=== PATIENT | male | born 1940 | race Caucasian/White ===

== ENCOUNTER 2016-10-18 11:07 | Inpatient (IN) ==
[2016-10-18] MEDS ORDERED: LEVOFLOXACIN INJ 500 MG in PREMIX 1 EACH IV STA (11:35)
[2016-10-18] MEDS ORDERED: methylPREDNISolone SOD SUC 125 MG/2 ML VIAL IV STA (11:35)
--- NOTE | 2016-10-18 11:39 | Emergency Department Note ---
Arrival - Arrival Chief Complaint: Shortness of Breath Stated Complaint: sob, cough, spell ED Nursing Triage Note: c/o sob that started yesterday. +cough. hx: COPD, emphysema Mode of Arrival: Ambulatory Limitations: No Limitations Source: Patient, Significant other, RN Notes Reviewed Time Seen by Provider: 10/18/16 11:27 - History of Present Illness HPI Narrative: Patient is a 76-year-old white male with a history of COPD who is seen today with a 2 day history of worsening of shortness of breath. Patient has had a cough productive of brown colored sputum. He denies any chills or fever. The patient has been wheezing. He is routinely followed by Dr. Foote and has been using his nebulizers as directed. Patient continues to smoke cigarettes. Onset (ago): day(s) (2) Consistency: constant Severity: moderate Quality: other (dyspnea) Allergies/Adverse Reactions: Allergies Allergy/AdvReac Type Severity Reaction Status Date / Time simvastatin [From Zocor] Allergy Unknown/Unable Verified 10/18/16 11:15 to obtain Home Medications: Home Medications Medication Instructions Recorded Confirmed Type Albuterol/Ipratropium Neb [Duoneb] 3 ml RESP TX RT Q8H 10/18/16 10/18/16 History Hydrocodone/Acetaminophen 1 each PO QID PRN 10/18/16 10/18/16 History [Hydrocodon-Acetaminophn 10-325] Multivits-Minerals/FA/Lycopene 1 each PO DAILY 10/18/16 10/18/16 History [One Daily For Men Tablet] Omeprazole 20 mg PO DAILY 10/18/16 10/18/16 History Oxybutynin Chloride [Oxybutynin 15 mg PO DAILY 10/18/16 10/18/16 History Chloride ER] Sertraline [Zoloft] 100 mg PO BID 10/18/16 10/18/16 History Tiotropium Inhalation [Spiriva 18 mcg INH DAILY 10/18/16 10/18/16 History Handihaler] Review of System - Review of System 12 point system: reviewed and no additional remarkable complaints except as stated - Review of System Constitutional: Absent: chills, fever Respiratory: Present: cough, wheezing Cardiovascular: Absent: chest pain, palpitations Gastrointestinal: Absent: abdominal pain, nausea, vomiting Medical,Surgical,& Family Hx - Medical History Respiratory: History of: COPD - Social History Smoking Status: Current every day smoker Frequency of Alcohol Use: None Type of Drug Use: None Marital Status: Lives With:: Spouse Functional capacity: independent ambulation Exam Vital Signs: Vital Signs Temperature 97.7 F 10/18/16 11:11 Pulse Rate 83 10/18/16 11:11 Respiratory Rate 28 H 10/18/16 11:11 Blood Pressure 136/57 10/18/16 11:11 O2 Sat by Pulse Oximetry 91 L 10/18/16 11:11 GENERAL: This is a chronically ill-appearing, cachectic white male in no apparent distress. VITAL SIGNS: Reviewed HEENT: Head is atraumatic and normocephalic. Pupils are equal round react to light. Extraocular movements are intact. There is nicotine staining of the patient's arteaga. Oropharynx is benign with moist mucous membranes. NECK: Neck is soft and supple without tenderness. There are no masses. There is no lymphadenopathy. LUNGS: Expiratory wheezes in all lung castro with prolongation of expiratory phase. Chest rises symmetrically. There is no chest wall tenderness. CV: Heart is regular rate and rhythm without murmurs rubs or gallops. ABDOMEN: Abdomen is soft, nontender to palpation. There are no abdominal abnormal masses palpated. There is no organomegaly. Bowel sounds are present and active. SKIN: Skin is warm and dry. No rash. EXTREMITIES: Patient has full range of motion without tenderness. There is no pedal edema. NEUROLOGIC: Awake alert and oriented 4. Cranial nerves II through XII are grossly intact. Motor is 5 over 5 in all extremities bilaterally. Course Course Narrative: While the patient was in the emergency department he was given Levaquin IV but had a reaction which appeared to be an inflammatory phlebitis. Levaquin was stopped and antibiotic was changed to Rocephin. Results - Labs CBC & BMP: 10/18/16 12:17 10/18/16 12:17 Lab Results: I have reviewed the patients labs Labs: Laboratory Tests 10/18/16 10/18/16 10/18/16 12:17 12:17 12:26 WBC 11.0 Hgb 13.7 L Hct 42.4 Plt Count 172 ABG pH 7.377 ABG pCO2 54.2 H ABG pO2 102.0 H ABG HCO3 29.1 H ABG Total CO2 28.1 H ABG O2 Saturation 98.3 ABG Base Excess 5.2 H FiO2 28.00 Sodium 142 Potassium 3.7 Chloride 100 Carbon Dioxide 33 H Anion Gap 12.7 BUN 11 Creatinine 0.70 Glucose 92 Troponin I < 0.015 - Diagnostic Findings Procedure: Chest x-ray: image reviewed by me, report reviewed by me (No cardiomegaly, hyperinflation consistent with COPD.) Disposition Clinical Impression: COPD with exacerbation, Chronic respiratory failure, Acute bronchitis Case discussed with: patient, patient's family Disposition: Still a Patient Condition: Stable Time of Disposition: 13:26
[2016-10-18] MEDS ORDERED: ALBUTEROL 2.5 MG/3 ML NEB RESP TX SCH (12:00)
[2016-10-18] MEDS ORDERED: LEVOFLOXACIN INJ 100 ML IV ONE (12:20)
[2016-10-18] MEDS ORDERED: methylPREDNISolone SOD SUC 125 MG/2 ML VIAL ONE (12:20)
[2016-10-18 12:41] LABS: ABG Base Excess 5.2 MMOL/L (-2.5-2.5); ABG HCO3 29.1 MMOL/L (20-26); ABG Oxygen Saturation 98.3 % (95-100); ABG PCO2 54.2 MM HG (35-48); ABG PH 7.377 (7.35-7.45); ABG TCO2 28.1 MMOL/L (23-27); Allen Test Positive
[2016-10-18 12:47] LABS: Basophils % 0.1 % (0.0-0.8); Eosinophils # 0.1 10*3/uL (0.0-0.87); Eosinophils % 0.5 % (0.00-10.9); Hematocrit 42.4 VOL% (42.0-52.0); Hemoglobin 13.7 GM/DL (14.0-18.0); Immature Granulocytes % 0.5 %; Immature Granulocytes Absolute 0.06 #; Lymphocytes # 0.5 10*3/uL (1.4-4.0); Lymphocytes % 4.9 % (21.2-54.2); Mean Corpuscular HGB Conc 32.3 GM/DL (32-36); Mean Corpuscular Hemoglobin 29 PG (27-34); Mean Corpuscular Volume 90.4 FL (87-102); Mean Platelet Volume 9.4 FL (9.6-12.0); Monocytes # 0.7 10*3/uL (0.11-0.8); Monocytes % 5.9 % (1.7-12.7); Neutrophils # 9.7 10*3/uL (1.4-7.4); Neutrophils % 88.1 % (38.7-73.9); Platelet Count 172 10*3/uL (130-400); Red Blood Count 4.69 10*6/uL (3.8-5.5)
--- NOTE | 2016-10-18 12:49 | XRay Report ---
XR chest 2V Indication: Shortness of breath. Chest 3 views: Comparison 03/19/2016. Heart size and tortuous thoracic aorta remains stable. Severe pulmonary emphysema with significant pleural thickening of the right apex and superior retraction of both karan again noted. No discrete infiltrates are seen. Bony structures are maintained. Impression: Stable severe pulmonary emphysema. No acute cardio pulmonary disease shown. PROCEDURE INTERPRETED AT [facility] DEPARTMENT OF RADIOLOGY Final Report Signed by: Zachery Regalado M.D.
[2016-10-18 13:18] LABS: Alanine Aminotransferase 13 U/L (16-61); Albumin 3.7 G/DL (3.4-5.0); Alkaline Phosphatase 124 U/L (45-117); Aspartate Amino Transferase 12 U/L (0-37); Blood Urea Nitrogen 11 MG/DL (7-18); Calcium 9.1 MG/DL (8.5-10.1); Glucose 92 MG/DL (74-106); Osmolality,Calculated 281.1 MOS/KG (273-304); Potassium 3.7 MMOL/L (3.5-5.1); Sodium 142 MMOL/L (136-145); Total Protein 6.6 G/DL (6.4-8.3); Troponin I Only < 0.015 NG/ML (0.00-0.045)
[2016-10-18 13:30] LABS: Partial Thromboplastin Time 29.9 SECS (0-40)
[2016-10-18] MEDS ORDERED: ACETAMINOPHEN 325 MG TABLET PO PRN (13:30)
[2016-10-18] MEDS ORDERED: ZALEPLON 5 MG CAPSULE PO PRN (13:30)
[2016-10-18] MEDS ORDERED: ONDANSETRON 4 MG/2 ML VIAL IV PRN (13:30)
[2016-10-18] MEDS ORDERED: ALBUTEROL/IPRATROPIUM 3 ML NEB RESP TX PRN (13:30)
[2016-10-18] MEDS ORDERED: cefTRIAXone 1,000 MG VIAL ONE (14:04)
--- NOTE | 2016-10-18 14:15 | Hospitalist History & Physical ---
Assessment and Plan - Time spent with patient Time spent with patient: Greater than 30 minutes (due to assessment, plan and documentation.) (1) Acute exacerbation of chronic obstructive pulmonary disease (COPD) Status: Acute Assessment and plan: admit to floor vte prophylaxis duonebs solumedrol rocephin/azithro for possible underlying infection o2/2L consult Dr. Foote- pulmonary Current Visit: Yes (2) Acute bronchitis Status: Acute Current Visit: Yes (3) Chronic respiratory failure Status: Acute Current Visit: Yes History of Present Illness Chief complaint: sob History of present illness: Mr. Bianchi is a 76 year old male who presented to the ED today with complaints of increasing shortness of breath. He states that over the past couple of days , he has become increasingly short of breath with a productive cough. He states that he is coughing up yellow and brown sputum. He states that he is followed by Dr. Gil Foote for his COPD. He states that Dr. Foote's staff has been working to get him on home o2. He has been having to use nebulized treatments at home the past couple of days as well. He is very cachectic with a BMI of 13.3. He continues to smoke, up to a half a pack a day. He states that he doesn't "have" to smoke, but that he does when he is outside or bored. Denies any nausea, vomiting, diarrhea. He does have a hx f prostate ca for which he had what sounds like a radical prostatectomy. Since his surgery, he has had some difficulty with urinary incontinence. Denies any blood in his urine or stool. His is at the bedside. ABG's are as follows: pH 7.377, pCO2 54.2 pO2 102.0 HCO3 29.1 total CO2 21.1. His oxygen saturations on 2L are ranging from low to mid 80's. BNP is only 68. CXR showed "stable severe pulmonary emphysema. No acute cardiopulmonary disease seen". He will be admitted to the floor with Supplemental oxygen, duonebs, solumedrol 40 mg IV BID , rocephin/azithro for possible underlying infection. Sputum cx's have been ordered as well. Pulmonary Consultation has been ordered as well. Denies any heart or other lung problems to his knowledge. 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 Will continue to monitor her cxr, cx's and labs. Further plan and addendum to follow by Dr. Nara Arias. Home Medications Medication Instructions Recorded Confirmed Type Albuterol/Ipratropium Neb [Duoneb] 3 ml RESP TX RT Q8H 10/18/16 10/18/16 History Hydrocodone/Acetaminophen 1 each PO QID PRN 10/18/16 10/18/16 History [Hydrocodon-Acetaminophn 10-325] Multivits-Minerals/FA/Lycopene 1 each PO DAILY 10/18/16 10/18/16 History [One Daily For Men Tablet] Omeprazole 20 mg PO DAILY 10/18/16 10/18/16 History Oxybutynin Chloride [Oxybutynin 15 mg PO DAILY 10/18/16 10/18/16 History Chloride ER] Sertraline [Zoloft] 100 mg PO BID 10/18/16 10/18/16 History Tiotropium Inhalation [Spiriva 18 mcg INH DAILY 10/18/16 10/18/16 History Handihaler] Allergies Allergy/AdvReac Type Severity Reaction Status Date / Time simvastatin [From Zocor] Allergy Unknown/Unable Verified 10/18/16 11:15 to obtain Medical,Surgical,& Family Hx - Medical History Respiratory: History of: COPD Genitourinary: History of: Bladder Problem (incontinence. ), Prostate Problems ( hx of prostate ca) Reproductive: Reports: Reproductive Cancer (prostate ca) - Social History Smoking Status: Current every day smoker Frequency of Alcohol Use: Occasionally Type of Drug Use: None Marital Status: Lives With:: Spouse Functional capacity: independent ambulation - Constitutional Constitutional: Present: fatigue, weakness. Absent: chills, fever(s) - EENT Eyes: Absent: blurry vision, diplopia Ears: Absent: decreased hearing, tinnitus Nose, mouth and throat: Present: headache(s). Absent: dysphagia - Cardiovascular Cardiovascular: Present: dyspnea, dyspnea on exertion. Absent: chest pain at rest, palpitations - Respiratory Respiratory: Present: cough, dyspnea, dyspnea on exertion, wheezing, change in phlegm color (yellow and brown). Absent: hemoptysis - Gastrointestinal Gastrointestinal: Absent: abdominal pain, melena, nausea, vomiting - Genitourinary Genitourinary: Present: urinary incontinence. Absent: dysuria - Musculoskeletal Musculoskeletal: Absent: back pain, joint swelling - Neurological Neurological: Absent: confusion, dizziness - Psychiatric Psychiatric: Absent: anxiety, confusion, depression - Endocrine Endocrine: Absent: cold intolerance, heat intolerance - Hematologic/Lymphatic Hematologic/Lymphatic: Absent: easy bleeding, easy bruising Exam - Constitutional Vitals: Period Temp Pulse Resp BP Sys/Parada Pulse Ox Last 24 Hr 97.7 F 83 28 136/57 91 General appearance: mild distress (acute respiratory distress. ), under weight, cachectic - Head Head exam: Present: normal inspection, normocephalic - Eye Eye exam: Present: EOMI. Absent: scleral icterus Pupils: Present: ALEKSANDRA, normal accommodation - ENT ENT exam: Present: normal exam, normal oropharynx - Neck Neck exam: Present: normal inspection. Absent: lymphadenopathy - Respiratory Respiratory exam: Present: accessory muscle use, prolonged expiratory phase, wheezes - Cardiovascular Cardiovascular exam: Present: regular rate and rhythm. Absent: carotid bruit - GI/Abdominal GI/Abdominal exam: Present: normal bowel sounds, soft. Absent: tenderness - Extremities Exam Extremities exam: Present: normal inspection. Absent: edema - Back Exam Back exam: Present: normal inspection. Absent: muscle spasm - Neurological Exam Neurological exam: Present: alert, oriented X3 - Psychiatric Psychiatric exam: Present: normal affect, normal mood - Skin Skin exam: Present: normal color, warm, dry, intact Results - Labs CBC & BMP: 10/18/16 12:17 10/18/16 12:17 Lab Results: I have reviewed the past 24 hour labs - Diagnostic Findings Procedure: Chest x-ray: report reviewed by me (severe emphysematous changes.)
[2016-10-18 14:28] LABS: Lymphocytes 3 % (20-55); Segmented Neutrophils 93 % (50-85); Total Cells Counted 100
[2016-10-18 14:29] LABS: Platelet Estimate Normal
[2016-10-18] MEDS: cefTRIAXone 1,000 MG in SODIUM CHLORIDE 0.9% 100 ML IV SCH (15:29)
--- NOTE | 2016-10-18 15:33 | EKG Report ---
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
[2016-10-18] MEDS ORDERED: AZITHROMYCIN INJ 500 MG in SODIUM CHLORIDE 0.9% 250 ML IV SCH (16:00)
[2016-10-18] MEDS: ENOXAPARIN 40 MG/0.4 ML SYRINGE SUBCUT SCH (20:53)
[2016-10-18] MEDS: SERTRALINE 100 MG TABLET PO SCH (20:53)
[2016-10-19] MEDS: methylPREDNISolone SOD SUC 40 MG/1 ML VIAL IV SCH ×2 (04:45→21:17)
[2016-10-19 06:32] LABS: Hematocrit 34.9 VOL% (42.0-52.0); Immature Granulocytes % 0.4 %; Immature Granulocytes Absolute 0.02 #; Lymphocytes # 0.4 10*3/uL (1.4-4.0); Lymphocytes % 7.6 % (21.2-54.2); Mean Corpuscular HGB Conc 33.5 GM/DL (32-36); Mean Corpuscular Hemoglobin 30 PG (27-34); Mean Corpuscular Volume 89.7 FL (87-102); Mean Platelet Volume 9.8 FL (9.6-12.0); Monocytes # 0.2 10*3/uL (0.11-0.8); Monocytes % 3.5 % (1.7-12.7); Neutrophils # 4.1 10*3/uL (1.4-7.4); Neutrophils % 88.5 % (38.7-73.9); Platelet Count 152 10*3/uL (130-400); Red Blood Count 3.89 10*6/uL (3.8-5.5); Red Cell Distribution Width 12.8 % (9.3-17.3)
[2016-10-19 06:34] LABS: Hemoglobin 11.7 GM/DL (14.0-18.0); White Blood Count 4.6 10*3/uL (4.5-13.71)
[2016-10-19] MEDS ORDERED: IPRATROPIUM 500 MCG/2.5 ML NEB RESP TX SCH (07:00)
[2016-10-19 07:01] LABS: Albumin 3.1 G/DL (3.4-5.0); Total Protein 5.6 G/DL (6.4-8.3)
--- NOTE | 2016-10-19 07:11 | XRay Report ---
XR chest 2V Indication: Shortness of breath. Chest 2 views: Comparison yesterday shows continued normal heart size and tortuous thoracic aorta. Severe pulmonary emphysema again noted with bullous emphysematous changes, superior retraction of karan and right apical pleural thickening. Interstitial prominence of the lungs has decreased somewhat however. No focal pneumonia seen. Impression: Decreased either airways disease or edema since yesterday. PROCEDURE INTERPRETED AT [facility] DEPARTMENT OF RADIOLOGY Final Report Signed by: Zachery Regalado M.D.
[2016-10-19] MEDS: cefTRIAXone 1,000 MG in SODIUM CHLORIDE 0.9% 100 ML IV SCH (08:55)
[2016-10-19] MEDS: MULTIVITAMIN (CENTRUM) TABLET PO SCH (08:57)
[2016-10-19] MEDS: OXYBUTYNIN XL 15 MG TABLET PO SCH (08:57)
[2016-10-19] MEDS: PANTOPRAZOLE 40 MG TABLET PO SCH (08:57)
[2016-10-19] MEDS: SERTRALINE 100 MG TABLET PO SCH ×2 (08:58→21:17)
[2016-10-19] MEDS ORDERED: LEVOFLOXACIN INJ 500 MG in PREMIX 1 EACH IV SCH (09:00)
[2016-10-19] MEDS ORDERED: ALBUTEROL 1.25 MG/3 ML NEB RESP TX PRN (09:15)
--- NOTE | 2016-10-19 09:19 | Pulmonology Consult Note ---
Assessment and Plan (1) Acute and chronic respiratory failure Status: Acute Assessment and plan: Patient has chronic hypoxemia and hypercarbia. Needs low flow oxygen. Just need to keep his O2 sat around 88-92%. Current Visit: Yes (2) Tobacco abuse Status: Acute Assessment and plan: Needs long-term discussion about stopping smoking permanently. I have discussed this previously in the office with him several occasions. Current Visit: Yes (3) COPD with exacerbation Status: Acute Assessment and plan: He has discolored purulent sputum. It is green. I would be concerned about Pseudomonas. In this situation I think changing to cefepime and Levaquin would be a better combination. Also needs corticosteroids and bronchodilators. He is normally on Spiriva. Atrovent has been substituted for it. We will use albuterol when necessary on top of that. Current Visit: Yes History of Present Illness Chief complaint: cough shortness of breath and green sputum production History of present illness: Mr. Bianchi is a 76 year old male who has severe COPD. He started having increased cough and congestion and started coughing up very thick green sputum about 4 days ago. It started while he was out in the [employer]. He is followed by me in the clinic for his COPD. He has had a pulmonary nodule in the lingula that is subpleural and really hasn't changed over time and does not need further follow-up. We obtained a CT last month in follow-up. Previously he had CTs done at the [facility]. He is a smoker still. We had been trying to get him oxygen at home. He had nocturnal oximetry showing significant desaturations. The [facility] was working on an oxygen concentrator for him. I think he will need oxygen at 1 L before discharge. He does retain CO2. Home Medications Medication Instructions Recorded Confirmed Type Albuterol/Ipratropium Neb [Duoneb] 3 ml RESP TX RT Q8H 10/18/16 10/18/16 History Hydrocodone/Acetaminophen 1 each PO QID PRN 10/18/16 10/18/16 History [Hydrocodon-Acetaminophn 10-325] Multivits-Minerals/FA/Lycopene 1 each PO DAILY 10/18/16 10/18/16 History [One Daily For Men Tablet] Omeprazole 20 mg PO DAILY 10/18/16 10/18/16 History Oxybutynin Chloride [Oxybutynin 15 mg PO DAILY 10/18/16 10/18/16 History Chloride ER] Sertraline [Zoloft] 100 mg PO BID 10/18/16 10/18/16 History Tiotropium Inhalation [Spiriva 18 mcg INH DAILY 10/18/16 10/18/16 History Handihaler] Allergies Allergy/AdvReac Type Severity Reaction Status Date / Time simvastatin [From Zocor] Allergy Unknown/Unable Verified 10/18/16 11:15 to obtain 12 point system: reviewed and no additional remarkable complaints except as stated - Constitutional Constitutional: Present: fatigue, weight loss - EENT Nose, mouth and throat: Present: nasal congestion - Cardiovascular Cardiovascular: Present: dyspnea, dyspnea on exertion - Respiratory Respiratory: Present: cough, dyspnea, dyspnea on exertion, wheezing, change in phlegm color - Gastrointestinal Gastrointestinal: Present: dysphagia, other (decreased appetite) - Genitourinary Genitourinary: Present: urinary frequency - Musculoskeletal Musculoskeletal: Present: arthralgias, back pain - Psychiatric Psychiatric: Present: other (headaches) Exam (Pulmonay) H&P - Constitutional Vitals: Period Temp Pulse Resp BP Sys/Parada Pulse Ox Last 24 Hr 97.2 F-98.1 F 76-101 20-24 102-123/56-72 96-100 Exam: Patient's alert oriented. Vital signs normal. O2 sat 98% on 2 L. HEENT: Pupils react to light. Throat is clear. Neck supple no bruits. Chest reveals bilateral expiratory wheezes and coarse rhonchi. Heart normal rate rhythm no murmurs. PMI is in the epigastrium. Abdomen soft nontender no masses. Bowel sounds present. Extremities no clubbing cyanosis or edema. Calves nontender. Medical,Surgical,& Family Hx - Medical History Cardio: History of: CAD (has had previous myocardial infarction) Respiratory: History of: COPD, Respiratory Problems (emphysema, also has postinflammatory pulmonary fibrosis) Genitourinary: History of: Bladder Problem (incontinence. ), Prostate Problems ( hx of prostate ca) Gastrointestinal: History of: GERD Musculoskeletal: History of: Back/Neck Problems Reproductive: Reports: Reproductive Cancer (prostate ca) - Social History Smoking Status: Current every day smoker Frequency of Alcohol Use: Occasionally Type of Drug Use: None Results - Labs CBC & BMP: 10/19/16 05:28 10/19/16 05:28 Lab Results: I have reviewed the past 24 hour labs - Diagnostic Findings Procedure: Chest x-ray: image reviewed by me (hyperinflation. Retraction right upper lobe on previous postinflammatory pulmonary fibrosis. No acute infiltrates.)
[2016-10-19] MEDS: CEFEPIME 1,000 MG in SODIUM CHLORIDE 0.9% 100 ML IV SCH ×2 (10:11→23:31)
--- NOTE | 2016-10-19 11:07 | Hospitalist Progress Note ---
Assessment and Plan - Time spent with patient Time spent with patient: Greater than 30 minutes (1) COPD with exacerbation Status: Acute Assessment and plan: According to the patient he is better today pulmonology did see patient and recommended changing his antibiotics. We'll continue with current treatment I do agree with keeping sats between 88-92%. Current Visit: Yes (2) Acute and chronic respiratory failure Status: Acute Current Visit: Yes (3) Tobacco abuse Status: Chronic Current Visit: Yes (4) Encounter for smoking cessation counseling Status: Acute Current Visit: Yes Hospitalist: Subjective Interval history: 6-year-old male with smoking history who continues to smoke and has chronic COPD who presented with acute exacerbation. This morning he states he's feeling a little better but still has significant amount of wheezing and productive cough of greenish sputum. Exam - Constitutional Vitals: Period Temp Pulse Resp BP Sys/Parada Pulse Ox Last 24 Hr 97.2 F-98.1 F 70-101 20-24 102-123/54-72 96-100 General appearance: no acute distress, under weight - Head Head exam: Present: normocephalic, atraumatic - Eye Eye exam: Present: EOMI Pupils: Present: ALEKSANDRA - ENT ENT exam: Present: normal exam - Respiratory Respiratory exam: Present: rhonchi, wheezes - Cardiovascular Cardiovascular exam: Present: regular rate and rhythm - GI/Abdominal GI/Abdominal exam: Present: normal bowel sounds, soft - Extremities Exam Extremities exam: Present: full ROM - Neurological Exam Neurological exam: Present: alert, oriented X3, CN II-XII intact - Psychiatric Psychiatric exam: Present: normal affect, normal mood - Skin Skin exam: Present: warm, intact Results - Labs CBC & BMP: 10/19/16 05:28 10/19/16 05:28
[2016-10-19] MEDS: ALBUTEROL/IPRATROPIUM 3 ML NEB RESP TX SCH ×2 (13:25→20:34)
--- NOTE | 2016-10-19 14:17 | Physician Query Form ---
CLICK EDIT DOCUMENT TO SELECT QUERY ANSWER --> OK --> SIGN Lashell Tinsley RN Clinical Melt Helper W) [phone] (f) [phone] [email or web address]: Make your selection(s) from the choices in EACH section by typing an "x" and enter comments in the comment section. Please use your independent medical judgment in providing your response. This request does not imply that any particular answer is desired or expected. CLINICAL INDICATORS: (Providers should not edit this section) Height: 6ft 1in Weight: 101 lbs Exercise Instruct BMI: 13.3 Control Board Operator notes: Severe malnutrition. Loss of body fat. Loss of muscle mass. Based on the above, which following choice most accurately represents the patient's nutritional status? ( x) Malnutrition ( ) mild ( ) moderate ( x) severe ( ) Protein calorie malnutrition ( ) mild ( ) moderate ( ) severe ( ) Emaciation due to malnutrition ( ) Nutritional marasmus ( ) Cachexia ( ) Underweight ( ) No nutritional deficiency ( ) Other, please specify: ( ) Clinically unable to determine Mild Malnutrition (BMI < 18.5, % Normal Body Weight 85-95%) Moderate Malnutrition (BMI < 17, % Normal Body Weight 75-85%) Severe Malnutrition (BMI < 16, % Normal Body Weight < 75%) Source: [place] COMMENTS: Use of terms such as suspected, likely, or probable (associated with a specific diagnosis that is being evaluated, monitored, or treated as if it exists) are acceptable and can be restated in the discharge summary if not ruled out. MTDD
[2016-10-19] MEDS: AZITHROMYCIN INJ 500 MG in SODIUM CHLORIDE 0.9% 250 ML IV SCH (21:18)
[2016-10-19] MEDS: ENOXAPARIN 40 MG/0.4 ML SYRINGE SUBCUT SCH (21:18)
[2016-10-20] MEDS: ALBUTEROL/IPRATROPIUM 3 ML NEB RESP TX SCH ×4 (00:39→19:36)
[2016-10-20] MEDS: SERTRALINE 100 MG TABLET PO SCH ×2 (09:09→20:54)
[2016-10-20] MEDS: PANTOPRAZOLE 40 MG TABLET PO SCH (09:10)
[2016-10-20] MEDS: methylPREDNISolone SOD SUC 40 MG/1 ML VIAL IV SCH ×2 (09:10→20:54)
[2016-10-20] MEDS: MULTIVITAMIN (CENTRUM) TABLET PO SCH (09:10)
[2016-10-20] MEDS: OXYBUTYNIN XL 15 MG TABLET PO SCH (09:10)
[2016-10-20] MEDS: CEFEPIME 1,000 MG in SODIUM CHLORIDE 0.9% 100 ML IV SCH ×2 (09:17→22:30)
--- NOTE | 2016-10-20 11:34 | Hospitalist Progress Note ---
Assessment and Plan (1) Acute exacerbation of chronic obstructive pulmonary disease (COPD) Status: Acute Assessment and plan: appreciate pin worker recs, c/w abx/BDRx/steroids. will pulm rehab Current Visit: Yes (2) Acute and chronic respiratory failure Status: Acute Assessment and plan: O2 NC, wean as possible Current Visit: Yes (3) H/O prostate cancer Status: Acute Assessment and plan: pt stating he follows w PCP and get PSA checks. Current Visit: Yes (4) Weight loss Status: Acute Assessment and plan: pt had CT chest last week, get records. Had GI scope yrs ago Current Visit: Yes (5) Malnutrition Status: Acute Assessment and plan: add ensure/boost, will consider megace Current Visit: Yes (6) Tobacco abuse Status: Chronic Assessment and plan: pt declined NRT. Counceled on cessation. he plans to quit as of this admssion. Current Visit: Yes Hospitalist: Subjective Interval history: No change compared to yesterday clinically, family member visiting, patient lost possibly 20-30 pounds over the past year, patient stating he did recent CT of the chest at another facility will get the results. Patient denies chest pain or current shortness of breath while on oxygen, no nausea or vomiting, no fever or chills, no palpitation, no hematemesis or melena or hematochezia. Exam - Constitutional Vitals: Period Temp Pulse Resp BP Sys/Parada Pulse Ox Last 24 Hr 97.4 F-98.1 F 76-87 16-22 109-149/61-73 86-100 Exam: gen: a&ox3, NAD, cachectic looking neck: no jvd, supple, no lymph node enlargement apparent lung: Intermittent wheezing bilaterally, reduced breath sounds at lung bases, normal labor of breathing heart: s1s2, rrr abd: soft , NT ext: No edema no cyanosis. Muscle wasting present HEENT: PERRL Results - Labs CBC & BMP: 10/19/16 05:28 10/19/16 05:28
[2016-10-20] MEDS: DOCUSATE SODIUM 100 MG CAPSULE PO PRN ×2 (14:29→20:53)
--- NOTE | 2016-10-20 15:01 | Pulmonology Progress Note ---
Pulmonary - PN: Subj Interval history: Patient sitting up in bed this morning, looks well. States he's "100% improved" since admission. Reports being sick for several weeks prior to coming in. Breathing is better. No other complaints Exam (Progress Note) - Constitutional Vitals: Period Temp Pulse Resp BP Sys/Parada Pulse Ox Last 24 Hr 97.4 F-98.1 F 76-94 16-22 109-149/61-73 86-100 General appearance: no acute distress, under weight - Head Head exam: Present: normal inspection - Respiratory Respiratory exam: Present: prolonged expiratory phase, wheezes (scattered expiratory wheeze bilaterally). Absent: accessory muscle use, rales, rhonchi - Cardiovascular Cardiovascular exam: Present: regular rate and rhythm Results - Labs CBC & BMP: 10/19/16 05:28 10/19/16 05:28 Lab Results: I have reviewed the past 24 hour labs Assessment and Plan (1) COPD with exacerbation Status: Acute Assessment and plan: Patient clinically improved. Continue with current medications. If stable today can transition to oral meds tomorrow. Current Visit: Yes
[2016-10-20] MEDS: ENOXAPARIN 40 MG/0.4 ML SYRINGE SUBCUT SCH (20:54)
[2016-10-20] MEDS: AZITHROMYCIN INJ 500 MG in SODIUM CHLORIDE 0.9% 250 ML IV SCH (20:54)
[2016-10-21] MEDS: ALBUTEROL/IPRATROPIUM 3 ML NEB RESP TX SCH ×4 (02:16→20:46)
[2016-10-21] MEDS: DOCUSATE SODIUM 100 MG CAPSULE PO PRN ×2 (08:08→20:41)
[2016-10-21] MEDS: methylPREDNISolone SOD SUC 40 MG/1 ML VIAL IV SCH ×2 (08:08→20:44)
[2016-10-21] MEDS: SERTRALINE 100 MG TABLET PO SCH ×2 (08:08→20:41)
[2016-10-21] MEDS: PANTOPRAZOLE 40 MG TABLET PO SCH (08:08)
[2016-10-21] MEDS: OXYBUTYNIN XL 15 MG TABLET PO SCH (08:08)
[2016-10-21] MEDS: MULTIVITAMIN (CENTRUM) TABLET PO SCH (08:08)
[2016-10-21] MEDS: CEFEPIME 1,000 MG in SODIUM CHLORIDE 0.9% 100 ML IV SCH ×2 (09:18→23:00)
[2016-10-21 09:33] LABS: Immature Granulocytes % 0.3 %; Immature Granulocytes Absolute 0.02 #; Lymphocytes # 0.6 10*3/uL (1.4-4.0); Lymphocytes % 9.5 % (21.2-54.2); Mean Corpuscular HGB Conc 31.6 GM/DL (32-36); Mean Corpuscular Hemoglobin 29 PG (27-34); Mean Platelet Volume 9.2 FL (9.6-12.0); Monocytes # 0.3 10*3/uL (0.11-0.8); Monocytes % 5.1 % (1.7-12.7); Neutrophils % 85.1 % (38.7-73.9); Platelet Count 174 10*3/uL (130-400); Red Blood Count 4.13 10*6/uL (3.8-5.5); Red Cell Distribution Width 12.7 % (9.3-17.3); White Blood Count 5.9 10*3/uL (4.5-13.71)
[2016-10-21 09:59] LABS: Calcium 8.7 MG/DL (8.5-10.1); Osmolality,Calculated 288.8 MOS/KG (273-304)
--- NOTE | 2016-10-21 11:43 | Hospitalist Progress Note ---
Assessment and Plan (1) Acute exacerbation of chronic obstructive pulmonary disease (COPD) Status: Acute Assessment and plan: appreciate asian art curator recs, c/w abx/BDRx/steroids. pulm rehab Current Visit: Yes (2) Acute and chronic respiratory failure Status: Acute Assessment and plan: O2 [place], improving Current Visit: Yes (3) Weight loss Status: Acute Assessment and plan: pt had CT chest last week, get records. Had GI scope yrs ago Current Visit: Yes (4) Malnutrition Status: Acute Assessment and plan: add ensure/boost Current Visit: Yes (5) H/O prostate cancer Status: Chronic Assessment and plan: pt stating he follows w PCP and get PSA checks. Current Visit: Yes (6) Tobacco abuse Status: Chronic Assessment and plan: pt declined NRT. Counseled on cessation. he plans to quit as of this admission. Current Visit: Yes Hospitalist: Subjective Interval history: Agent feeling better today and stating his breathing has improved. Patient denies chest pain or SOB current or nausea or vomiting or fever or chills or palpitation or diarrhea or hemoptysis. Exam - Constitutional Vitals: Period Temp Pulse Resp BP Sys/Parada Pulse Ox Last 24 Hr 97.2 F-98.2 F 70-94 16-26 98-139/52-68 91-99 Exam: gen: a&ox3, NAD, cachectic looking neck: no jvd, supple, no lymph node enlargement apparent lung: Intermittent wheezing bilaterally, reduced breath sounds at lung bases, normal labor of breathing heart: s1s2, rrr abd: soft , NT ext: No edema no cyanosis. Muscle wasting present HEENT: PERRL Results - Labs CBC & BMP: 10/21/16 09:03 10/21/16 09:03
--- NOTE | 2016-10-21 12:16 | Pulmonology Progress Note ---
Pulmonary - PN: Subj Interval history: Patient doing well, states breathing is a little better. Does report that he has a hard time catching his breath after a coughing fit but this isn't new Exam (Progress Note) - Constitutional Vitals: Period Temp Pulse Resp BP Sys/Parada Pulse Ox Last 24 Hr 97.2 F-98.2 F 70-94 16-26 98-130/52-68 91-99 General appearance: under weight - Head Head exam: Present: normal inspection - Respiratory Respiratory exam: Present: clear to auscultation bilaterally. Absent: accessory muscle use, stridor, wheezes Results - Labs CBC & BMP: 10/21/16 09:03 10/21/16 09:03 Lab Results: I have reviewed the past 24 hour labs Assessment and Plan (1) COPD with exacerbation Status: Acute Assessment and plan: Patient continues to slowly improve. Dr Foote will resume care tomorrow. Continue with current COPD treatments Current Visit: Yes
[2016-10-21] MEDS: guaiFENesin/DM ER 600-30 MG TABLET PO PRN (20:41)
[2016-10-21] MEDS: AZITHROMYCIN INJ 500 MG in SODIUM CHLORIDE 0.9% 250 ML IV SCH (20:44)
[2016-10-21] MEDS: ENOXAPARIN 40 MG/0.4 ML SYRINGE SUBCUT SCH (20:44)
[2016-10-22] MEDS: ALBUTEROL/IPRATROPIUM 3 ML NEB RESP TX SCH ×3 (02:35→14:12)
[2016-10-22 05:36] LABS: Hematocrit 37.8 VOL% (42.0-52.0); Hemoglobin 12.2 GM/DL (14.0-18.0); Immature Granulocytes % 0.4 %; Immature Granulocytes Absolute 0.02 #; Lymphocytes # 0.3 10*3/uL (1.4-4.0); Mean Corpuscular HGB Conc 32.3 GM/DL (32-36); Mean Corpuscular Hemoglobin 29 PG (27-34); Mean Corpuscular Volume 90.6 FL (87-102); Mean Platelet Volume 9.2 FL (9.6-12.0); Monocytes # 0.3 10*3/uL (0.11-0.8); Monocytes % 5.2 % (1.7-12.7); Neutrophils # 4.7 10*3/uL (1.4-7.4); Neutrophils % 88.4 % (38.7-73.9); Platelet Count 162 10*3/uL (130-400); Red Blood Count 4.17 10*6/uL (3.8-5.5); Red Cell Distribution Width 12.8 % (9.3-17.3); White Blood Count 5.3 10*3/uL (4.5-13.71)
[2016-10-22 06:06] LABS: Calcium 8.8 MG/DL (8.5-10.1); Osmolality,Calculated 288.8 MOS/KG (273-304); Potassium 4.3 MMOL/L (3.5-5.1)
[2016-10-22] MEDS: OXYBUTYNIN XL 15 MG TABLET PO SCH (08:45)
[2016-10-22] MEDS: PANTOPRAZOLE 40 MG TABLET PO SCH (08:45)
[2016-10-22] MEDS: MULTIVITAMIN (CENTRUM) TABLET PO SCH (08:45)
[2016-10-22] MEDS: SERTRALINE 100 MG TABLET PO SCH (08:45)
[2016-10-22] MEDS: methylPREDNISolone SOD SUC 40 MG/1 ML VIAL IV SCH (08:45)
[2016-10-22] MEDS: guaiFENesin/DM ER 600-30 MG TABLET PO PRN (08:45)
--- NOTE | 2016-10-22 09:17 | Pulmonology Progress Note ---
Pulmonary - PN: Subj Interval history: This 76-year-old white male has COPD with acute exacerbation. He had very thick green sputum. It is doing better at present. He does have some trouble swallowing from dry secretions in his throat. He is advised to take Mucinex or Robitussin to help with that. Also advised to drink plenty of fluids. He's feeling much better. Lungs sound better. Sputum cultures negative. Could change to oral antibiotics and plan discharge tomorrow from my standpoint. [place]. He of course needs to discontinue smoking. Exam (Progress Note) - Constitutional Vitals: Period Temp Pulse Resp BP Sys/Parada Pulse Ox Last 24 Hr 97.5 F-98.2 F 77-95 18-22 102-139/59-77 91-99 Exam: Patient is alert and cooperative. Vital signs normal. HEENT: Pupils react to light. Throat clear. Neck supple no bruits. Chest reveals prolonged expiratory phase. I don't hear any active wheezing. Heart normal rate rhythm no murmurs no rubs no gallops. Abdomen soft nontender no masses. Bowel sounds present. Extremities no clubbing cyanosis or edema. Calves nontender. Results - Labs CBC & BMP: 10/22/16 05:22 10/22/16 05:22 Lab Results: I have reviewed the past 24 hour labs Assessment and Plan (1) Acute and chronic respiratory failure Status: Acute Assessment and plan: Patient has chronic hypoxemia and hypercarbia. Needs low flow oxygen. Just need to keep his O2 sat around 88-92%. 10/22/2016 patient [facility] Just needs one or 2 L continuous. Current Visit: Yes (2) Tobacco abuse Status: Chronic Assessment and plan: Needs long-term discussion about stopping smoking permanently. I have discussed this previously in the office with him several occasions. 10/22/2016 have discussed with him the absolute requirement that he stop smoking. He understands. Current Visit: Yes (3) COPD with exacerbation Status: Acute Assessment and plan: He has discolored purulent sputum. It is green. I would be concerned about Pseudomonas. In this situation I think changing to cefepime and Levaquin would be a better combination. Also needs corticosteroids and bronchodilators. He is normally on Spiriva. Atrovent has been substituted for it. We will use albuterol when necessary on top of that. 10/22/2016 sputum looks much better. He is not wheezing now. Should be able to discharged taking prednisone 40 mg daily for 5 days at home along with an oral antibiotic such as Omnicef. He apparently had an allergic reaction to Levaquin in the emergency room. Therefore we did not change to that. Left him on cefepime and Zithromax for now. Current Visit: Yes
[2016-10-22] MEDS: CEFEPIME 1,000 MG in SODIUM CHLORIDE 0.9% 100 ML IV SCH (10:20)
[2016-10-22 13:20] VITALS: BP 125/64
[2016-10-22] MEDS ORDERED: ERGOCALCIFEROL 50,000 UNIT CAPSULE PO SCH (15:30)
--- NOTE | 2016-10-22 16:57 | Discharge Summary ---
Hospital Course - Hospital Course Hospital Course: Patient is a 76-year-old male who was originally admitted for shortness of breath and was initially diagnosed with acute exacerbation of COPD and acute on chronic respiratory failure. Pulmonology service was consulted and evaluated the patient and patient was treated with bronchodilator therapy and oxygen therapy and steroid and antibiotics and pulmonary rehabilitation service was involved. In addition patient has been having weight loss and dietitian and blood coordinator service was consulted to improve the diet regimen and patient was recommended to undergo age-appropriate screening for malignancy as an outpatient and the patient underwent a CT chest one week before admission at another facility and the patient also had a GI scope years ago. The BMI of the patient was < 16. Patient was also a long time tobacco smoker and was counseled on quitting and the patient expressed interest in quitting and was offered nicotine replacement therapy but the patient stated that he would like to stop smoking without any nicotine replacement therapy. Vitamin D level was checked and it was low and patient was started on vitamin D treatment with 50, 000 units weekly. Patient was evaluated by physical therapy and rehabilitation and recommendation were taken accordingly. Patient follows at the [place] [facility] and will be following up with his primary care physician and also with the marketing research analyst as an outpatient. Patient will also be following up with the primary care physician to evaluate the results of the endoscopy that was done last year and to follow-up on the next step including possible modified barium swallow test to assess for any dysmotility and patient might need to be referred to the GI clinic accordingly. - Time spent with patient Time with patient DS: Greater than 30 minutes Diagnosis - Discharge Diagnosis (1) Acute exacerbation of chronic obstructive pulmonary disease (COPD) Status: Acute (2) Acute and chronic respiratory failure Status: Acute (3) Weight loss Status: Acute (4) Malnutrition Status: Acute (5) H/O prostate cancer Status: Chronic (6) Tobacco abuse Status: Chronic Specialty Discharge - Follow Up or Referrals Discharge Plan - Discharge Data Disposition: Disch To Home/Self Care Condition at Discharge: Guarded Discharge Diet: advance to your usual diet (and per skid adzer recommendation: Boost/Ensure drinks), other (per recommendation of skid adzer) Activity: as per physical therapy - Discharge Medications New Ergocalciferol [Drisdol] 50,000 unit PO Q7D #7 capsule predniSONE TAB [PredniSONE] 40 mg PO DAILY #5 tablet Albuterol Inhaler [Proventil Inhaler] 2 puff INH Q4HR PRN #1 inhaler PRN Reason: Wheezing Cefdinir 300 mg PO BID #14 capsule Docusate/Senna 50-8.6 [Senokot S] 2 tablet PO DAILY #60 tablet HYDROcodone/ACETAMIN 5-325 [Henry 5-325] 1 tablet PO Q12H PRN #30 tablet PRN Reason: Pain Moderate To Severe (4-10) Melatonin/Pyridoxine HCl (B6) [Melatonin 3 mg Tablet] 1 each PO DAILY PRN # 30 tablet PRN Reason: Insomnia Pantoprazole Tab [Protonix Tab] 40 mg PO DAILY #30 tablet guaiFENesin/DM ER 600-30 [Mucinex Dm 600-30 MG] 1 tablet PO BID PRN #30 tablet PRN Reason: Congestion Continue Tiotropium Inhalation [Spiriva Handihaler] 18 mcg INH DAILY Sertraline [Zoloft] 100 mg PO BID Oxybutynin Chloride [Oxybutynin Chloride ER] 15 mg PO DAILY Multivits-Minerals/FA/Lycopene [One Daily For Men Tablet] 1 each PO DAILY Albuterol/Ipratropium Neb [Duoneb] 3 ml RESP TX RT Q8H Discontinued Omeprazole 20 mg PO DAILY Hydrocodone/Acetaminophen [Hydrocodon-Acetaminophn 10-325] 1 each PO QID PRN PRN Reason: Pain - Follow Up or Referral - Forms/Instructions Instructions: Cigarette Smoking and Your Health, Literary Writer (GEN), How to Stop Smoking, Literary Writer (GEN), COPD Exacerbation, Literary Writer (GEN) Additional Discharge Instructions: Patient will need to follow-up for the primary care physician within one week for multiple chronic comorbidities and follow-ups regarding continuing quite loss and malnutrition, severe emphysematous lung disease, reviewed the recent CT imaging of the chest and also the endoscopy that was done in August 2016 with the possible need for follow up with modified barium swallow test, and to evaluate the home medication. Patient will also be following up with the marketing research analyst. Exam - Constitutional Vitals: Period Temp Pulse Resp BP Sys/Parada Pulse Ox Last 24 Hr 97.4 F-98.2 F 77-93 18-21 102-139/59-77 94-99 Discharge Results Procedures and tests throughout hospitalization: Pending Orders 10/20/16 11:16 Occult Blood, Stool Routine Labs on day of discharge: Labs from last 24 hours 10/22/16 10/22/16 10/22/16 05:22 05:22 05:18 WBC 5.3 RBC 4.17 Hgb 12.2 L Hct 37.8 L MCV 90.6 MCH 29 MCHC 32.3 RDW 12.8 Plt Count 162 MPV 9.2 L Neut % (Auto) 88.4 H Lymph % (Auto) 6.[address] [place] % (Auto) 5.2 Eos % (Auto) 0.0 Baso % (Auto) 0.0 Neut # (Auto) 4.7 Lymph # (Auto) 0.[address] [place] # (Auto) 0.3 Eos # (Auto) 0.0 Baso # (Auto) 0.0 Immature Gran % 0.4 Nucleated RBC % 0.0 Immature Gran # 0.02 Nucleated RBCs # 0.00 Sodium 144 Potassium 4.3 Chloride 102 Carbon Dioxide 36 H Anion Gap 10.3 BUN 22 H Creatinine 0.60 L GFR Calculation 90 BUN/Creatinine Ratio 36.00 H Glucose 98 Calculated Osmolality 288.8 Calcium 8.8 25-OH Vitamin D Total 25.0 DS: Provider Date of admission: 10/18/16 13:30 Primary care physician: . No PCP Attending physician on admission: Nara Arias MD Consults: 10/18/16 13:47 Consult to Case Mgmt/Social Srvs [CONS] Routine Reason for Case Mgmt/Social Srvs: Discharge Planning Consult Comment: may need home o2 Consult to Physician [CONS] Routine Comment: copd exac, bronchitis, known to you. Consulting Provider: Will Foote 10/18/16 16:58 Consult to Pharmacy [CONS] Routine Reason for Pharmacy Consult: Adjust Meds Renal Funct 10/18/16 17:08 Consult to Dietitian [CONS] Routine Reason for Dietitian: Other 10/18/16 17:11 Consult to Pastoral Services [CONS] Routine Comment: Pastoral Screen: Request Gas Station Operator Visit 10/20/16 11:15 Consult to Physical Therapy [CONS] Routine Reason for Physical Therapy: Weakness 10/21/16 11:44 Consult to Pulmonary Rehabilitation [CONS] Routine Reason for Pulmonary Rehabilitation: COPD Consult Comment: spoke to leela Discharging clinician: Tim Herrera Expected date of discharge: 10/22/16
== END 2016-10-22 18:06 | disposition home or self-care (01) | DRG 190 ==
LOC: N.ED 11:07 → N.EDINP 13:30 → N.2E 15:24
PROVIDERS: ADMIT Family Medicine; ATTEND Family Medicine

== ENCOUNTER 2016-11-29 17:48 | Inpatient (IN) ==
[2016-11-29] MEDS ORDERED: SODIUM CHLORIDE 0.9% 500 ML IV STA (18:24)
[2016-11-29] MEDS ORDERED: ALBUTEROL/IPRATROPIUM 3 ML NEB RESP TX STA (18:25)
[2016-11-29] MEDS ORDERED: methylPREDNISolone SOD SUC 125 MG/2 ML VIAL IV STA (18:25)
[2016-11-29 18:36] LABS: Basophils % 0.1 % (0.0-0.8); Eosinophils % 0.1 % (0.00-10.9); Hematocrit 37.5 VOL% (42.0-52.0); Hemoglobin 12.3 GM/DL (14.0-18.0); Immature Granulocytes % 0.8 %; Immature Granulocytes Absolute 0.11 #; Lymphocytes % 7.5 % (21.2-54.2); Mean Corpuscular HGB Conc 32.8 GM/DL (32-36); Mean Corpuscular Hemoglobin 29 PG (27-34); Mean Corpuscular Volume 89.3 FL (87-102); Monocytes # 0.7 10*3/uL (0.11-0.8); Monocytes % 4.9 % (1.7-12.7); Neutrophils # 11.7 10*3/uL (1.4-7.4); Neutrophils % 86.6 % (38.7-73.9); Platelet Count 232 T/CUMM (130-400); Red Cell Distribution Width 12.9 % (9.3-17.3); White Blood Count 13.5 T/CUMM (4-12)
--- NOTE | 2016-11-29 18:42 | Emergency Department Note ---
Andre Garcia Brooke, am scribing for, and in the presence of, Carrington Gottlieb MD 18 :23. Chery Garcia Charles R, MD, personally performed the services described in this documentation, ascribed by Angela Powell in my presence, and it is both accurate and complete [id number] . Arrival - Arrival Chief Complaint: Arrhythmia/Palpitations Stated Complaint: IRREGULAR HEARTBEAT ED Nursing Triage Note: c/o increased HR that started today. hx: emphysema and copd Mode of Arrival: Wheelchair Limitations: No Limitations Source: Patient, Significant other, RN Notes Reviewed Time Seen by Provider: 11/29/16 18:06 - History of Present Illness HPI Narrative: Patient is a 76 year old male who presents to the ED with c/o elevated heart rate and SOB. Patient has history of COPD and emphysema and says he usually does have SOB during the night. Patient's says Patient's heart rate was elevated to 150 and that Patient was complaining of being dizzy. Patient does have home oxygen and breathing treatments but was not using any prior to or during the episode of the elevated heart rate. Patient denies any chest pain but says he has been experiencing some weight loss and states that he feels "weak" now. says Patient has been having some confusion, also. Patient also complains of back pain that is located between his shoulder blades but states this pain is chronic. Patient also has PMHx of CAD, GERD, and prostate cancer. Patient is a smoker but states he has been trying to quit. Allergies/Adverse Reactions: Allergies Allergy/AdvReac Type Severity Reaction Status Date / Time levofloxacin [From Levaquin] Allergy RASH Verified 10/19/16 10:01 simvastatin [From Zocor] Allergy Unknown/Unable Verified 10/18/16 11:15 to obtain Home Medications: Home Medications Medication Instructions Recorded Confirmed Type Albuterol/Ipratropium Neb [Duoneb] 3 ml RESP TX RT Q8H 10/18/16 11/29/16 History Multivits-Minerals/FA/Lycopene 1 each PO QAM 10/18/16 11/29/16 History [One Daily For Men Tablet] Oxybutynin Chloride [Oxybutynin 15 mg PO QAM 10/18/16 11/29/16 History Chloride ER] Sertraline [Zoloft] 100 mg PO BID 10/18/16 11/29/16 History Tiotropium Inhalation [Spiriva 18 mcg INH QAM 10/18/16 11/29/16 History Handihaler] Albuterol Inhaler [Proventil 2 puff INH Q4HR PRN #1 inhaler 10/22/16 11/29/16 Rx Inhaler] HYDROcodone/ACETAMIN 5-325 [[place] 1 tablet PO Q12H PRN #30 tablet 10/22/1611/29 Rx 5-325] Docusate/Senna 50-8.6 [Senokot S] 2 tablet PO QAM 11/29/16 11/29/16 History Ergocalciferol [Drisdol] 50,000 unit PO FR 11/29/16 11/29/16 History Pantoprazole Tab [Protonix Tab] 40 mg PO QAM 11/29/16 11/29/16 History Review of System - Review of System 12 point system: reviewed and no additional remarkable complaints except as stated - Review of System Constitutional: Absent: fever Respiratory: Present: other (SOB). Absent: respiratory distress Cardiovascular: Present: other (elevated heart rate). Absent: chest pain Musculoskeletal: Present: back pain (between shoulder blades that is chronic) Skin: Absent: rash Neurological: Present: weakness (generalized), confusion Medical,Surgical,& Family Hx - Medical History Cardio: History of: CAD (has had previous myocardial infarction) Respiratory: History of: COPD, Respiratory Problems (emphysema, also has postinflammatory pulmonary fibrosis) Genitourinary: History of: Bladder Problem (incontinence. ), Prostate Problems ( hx of prostate ca) Gastrointestinal: History of: GERD Musculoskeletal: History of: Back/Neck Problems Reproductive: Reports: Reproductive Cancer (prostate ca) - Social History Smoking Status: Current every day smoker Frequency of Alcohol Use: None Type of Drug Use: None Exam Vital Signs: Vital Signs Temperature 97.6 F 11/29/16 18:54 Pulse Rate 77 11/29/16 19:00 Respiratory Rate 18 11/29/16 19:00 Blood Pressure 127/65 11/29/16 19:00 O2 Sat by Pulse Oximetry 100 11/29/16 19:00 - General General appearance: alert, in no apparent distress, other (skinny) - Head Head exam: Present: atraumatic, other (temporal wasting) - Eye Eye exam: Present: normal appearance, PERRL, EOMI - ENT ENT exam: Present: normal exam - Neck Neck exam: Present: normal inspection - Chest Chest inspection: Present: other (barrel chest) - Respiratory Respiratory exam: Present: rales, wheezes - Cardiovascular Cardiovascular exam: Present: regular rate, irregular rhythm (but regular), normal heart sounds - Abdominal Exam Abdominal exam: Present: soft. Absent: distention, tenderness - Extremities Exam Extremities exam: Present: normal inspection - Back Exam Back exam: Present: other (Kyphosis back) - Neurological Exam Neurological exam: Present: alert, oriented X3 - Psychiatric Psychiatric exam: Present: normal affect, normal mood - Skin Skin exam: Present: warm, dry, intact, normal color Course - Consultations Consultation #1: Hospitalist will admit patient Time: 20:17 Results - Labs CBC & BMP: 11/29/16 18:29 11/29/16 18:29 Lab Results: I have reviewed the patients labs Labs: Laboratory Tests 11/29/16 18:29 WBC 13.5 H Hgb 12.3 L Hct 37.5 L MPV 9.0 L Neut % (Auto) 86.6 H Lymph % (Auto) 7.5 L Neut # (Auto) 11.7 H Lymph # (Auto) 1.0 L Laboratory Tests 11/29/16 18:29 WBC 13.5 H Hgb 12.3 L Hct 37.5 L MPV 9.0 L Neut % (Auto) 86.6 H Lymph % (Auto) 7.5 L Neut # (Auto) 11.7 H Lymph # (Auto) 1.0 L Laboratory Tests 11/29/16 18:29 INR 1.1 PT Patient/Control Mix 11.4 Laboratory Tests 11/29/16 18:29 Carbon Dioxide 34 H Glucose 110 H Alkaline Phosphatase 146 H Total Protein 6.2 L Albumin 3.1 L Albumin/Globulin Ratio 1.0 L - Diagnostic Findings Procedure: Chest x-ray: report reviewed by me (1. The lungs are hyperexpanded, which can be seen in COPD. There is also emphysema with bleb formation at the left lung apex. Pleural thickening is present at both lung apices, mainly on the right. This appears stable and is favored to represent scarring. 2. There are minimal scattered opacities within the remaining lungs. This could represent additional atelectasis or scarring, but pneumonia or asymmetric edema is suspected within the left mid and lower lung zones. Follow-up is recommended. ) Disposition Clinical Impression: Palpitations, COPD with exacerbation, Chronic respiratory failure, Malnutrition , Weight loss, Tobacco abuse, Syncope, near Case discussed with: patient, patient's family Disposition: Still a Patient Condition: Stable Time of Disposition: 19:47
[2016-11-29 18:48] LABS: INR 1.1; PT Patient Result 11.4 SECS
[2016-11-29] MEDS ORDERED: methylPREDNISolone SOD SUC 125 MG/2 ML VIAL ONE (18:48)
--- NOTE | 2016-11-29 18:50 | XRay Report ---
Referring Physician: Carrington Gottlieb Exam: XR chest 1V portable Date: November 29, 2016 at 6:13 PM Reason: Shortness of breath Comparison: Chest 2 views October 19, 2016, CT chest May 03, 2014 Findings: The cardiac silhouette is relatively small in size. Prominent scattered calcified plaque is noted at the aorta. There is emphysema with bleb formation, most prominent at the left lung apex. Pleural thickening is also seen at both lung apices, mainly on the right. This has not significantly changed and is favored to represent scarring. There are also minimal scattered opacities within the remaining lungs. This could represent additional atelectasis or scarring, but pneumonia or asymmetric edema is suspected within the left mid and lower lung zones. The lungs are also hyperexpanded, which can be seen in COPD. No definite pleural fluid or pneumothorax is identified. No acute osseous process is seen. Impression: 1. The lungs are hyperexpanded, which can be seen in COPD. There is also emphysema with bleb formation at the left lung apex. Pleural thickening is present at both lung apices, mainly on the right. This appears stable and is favored to represent scarring. 2. There are minimal scattered opacities within the remaining lungs. This could represent additional atelectasis or scarring, but pneumonia or asymmetric edema is suspected within the left mid and lower lung zones. Follow-up is recommended. PROCEDURE INTERPRETED AT [facility] DEPARTMENT OF RADIOLOGY Final Report Signed by: Dr. Yosef Cabrera
[2016-11-29 19:11] LABS: Free T4 (Free Thyroxine) 0.97 NG/DL (0.76-1.46); Magnesium 2.3 MG/DL (1.8-2.4)
[2016-11-29 19:19] LABS: Alanine Aminotransferase 27 U/L (16-61); Albumin 3.1 G/DL (3.4-5.0); Alkaline Phosphatase 146 U/L (45-117); Aspartate Amino Transferase 18 U/L (0-37); Bilirubin,Total < 0.39 MG/DL (0.2-1.0); Blood Urea Nitrogen 12 MG/DL (7-18); Calcium 9.1 MG/DL (8.5-10.1); Glucose 110 MG/DL (74-106); Osmolality,Calculated 277.5 MOS/KG (273-304); Potassium 4.5 MMOL/L (3.5-5.1); Sodium 139 MMOL/L (136-145); Total Protein 6.2 G/DL (6.4-8.3); Troponin I Only < 0.015 NG/ML (0.00-0.045)
--- NOTE | 2016-11-29 20:23 | Hospitalist History & Physical ---
Assessment and Plan (1) Syncope, near Status: Acute Assessment and plan: Really issue he is being admitted for his this near syncopal spell with dizziness he's currently tachycardic and he looks a little bit weak Ami he's not have any chest pain or chest tightness I think she gets some serial isoenzymes echocardiogram color-flow venous Dopplers treating with some fluids and see how he does Current Visit: Yes (2) COPD (chronic obstructive pulmonary disease) Status: Acute Assessment and plan: Start him on some bronchodilators get some PFTs Current Visit: Yes (3) Weight loss Status: Acute Assessment and plan: Lost 14 pounds since last February he may need a workup for that right now we don't see any anemia he may need a CT chest because of this abnormality in the left at right apex Current Visit: Yes (4) Palpitations Status: Acute Current Visit: Yes History of Present Illness Chief complaint: weakness shortness of breath History of present illness: Mr. Bianchi is a 76 year old male who presents to emergency room with elevated heart rate and shortness of breath patient has a history of COPD and emphysema this as he usually has shortness of breath during the night patient was driving today when he notices heart rate is 150 got dizzy any chest pain associated with this event he felt weak but nothing made it worse nothing made it better there were no other associated symptoms the weakness was really profound compared the weight usually feels. Of interest in that he's lost some weight recently and is starting to try to quit smoking he didn't cough up any blood he hasn't had any bleeding from his bottom no other joint pains or rashes or other complaints Workup in the hospital showed a normal CBC normal PT chemistry profile that showed a B UN of 12 creatinine 0.7, glucose of 110 his albumin was 3.1 and function was normal and a trip peptide hormone was normal. He's lost 14 pounds since February of last year. His rhythm was normal sinus rhythm with SVT he's had chest x-ray doesn't show the entire chest but it basically is hyperinflated there some scarring and volume loss in the left apex no masses or other abnormalities Home Medications Medication Instructions Recorded Confirmed Type Albuterol/Ipratropium Neb [Duoneb] 3 ml RESP TX RT Q8H 10/18/16 11/29/16 History Multivits-Minerals/FA/Lycopene 1 each PO QAM 10/18/16 11/29/16 History [One Daily For Men Tablet] Oxybutynin Chloride [Oxybutynin 15 mg PO QAM 10/18/16 11/29/16 History Chloride ER] Sertraline [Zoloft] 100 mg PO BID 10/18/16 11/29/16 History Tiotropium Inhalation [Spiriva 18 mcg INH QAM 10/18/16 11/29/16 History Handihaler] Albuterol Inhaler [Proventil 2 puff INH Q4HR PRN #1 inhaler 10/22/16 11/29/16 Rx Inhaler] HYDROcodone/ACETAMIN 5-325 [[place] 1 tablet PO Q12H PRN #30 tablet 10/22/1611/29 Rx 5-325] Docusate/Senna 50-8.6 [Senokot S] 2 tablet PO QAM 11/29/16 11/29/16 History Ergocalciferol [Drisdol] 50,000 unit PO FR 11/29/16 11/29/16 History Pantoprazole Tab [Protonix Tab] 40 mg PO QAM 11/29/16 11/29/16 History Allergies Allergy/AdvReac Type Severity Reaction Status Date / Time levofloxacin [From Levaquin] Allergy RASH Verified 10/19/16 10:01 simvastatin [From Zocor] Allergy Unknown/Unable Verified 10/18/16 11:15 to obtain Medical,Surgical,& Family Hx - Medical History Cardio: History of: CAD (has had previous myocardial infarction) Respiratory: History of: COPD, Respiratory Problems (emphysema, also has postinflammatory pulmonary fibrosis) Genitourinary: History of: Bladder Problem (incontinence. ), Prostate Problems ( hx of prostate ca) Gastrointestinal: History of: GERD Musculoskeletal: History of: Back/Neck Problems Reproductive: Reports: Reproductive Cancer (prostate ca) - Surgical History Surgical History: noncontributory - Family History Family History: noncontributory - Social History Smoking Status: Current every day smoker Frequency of Alcohol Use: None Type of Drug Use: None Review of systems: Constitutional: No fatigue or fever Eyes: No loss of vision or blurred vision Ears: No decreased hearing no ear pain Mouth no lip swelling or sore throat Cardiovascular no chest pain no claudication Respiratory see hpi GI no abdominal pain or bloating or bleeding : No urinary frequency or hesitancy musculoskeletal: No Arthralgias or back pain Psychiatric: Confusion memory loss Endocrine: No polydipsia or polyuria Hematology: No easy bleeding or bruising 12 point review of systems otherwise unremarkable Exam - Constitutional Vitals: Period Temp Pulse Resp BP Sys/Parada Pulse Ox Last 24 Hr 97.6 F-97.6 F 73-85 12-22 94-127/56-73 94-100 Results - Labs CBC & BMP: 11/29/16 18:29 11/29/16 18:29
[2016-11-29] MEDS ORDERED: ACETAMINOPHEN 325 MG TABLET PO PRN (21:36)
[2016-11-29] MEDS ORDERED: ONDANSETRON 4 MG/2 ML VIAL IV PRN (21:36)
[2016-11-29] MEDS ORDERED: DOCUSATE SODIUM 100 MG CAPSULE PO PRN (21:36)
[2016-11-29] MEDS ORDERED: ALBUTEROL 2.5 MG/3 ML NEB RESP TX PRN (21:36)
[2016-11-29] MEDS: SERTRALINE 100 MG TABLET PO SCH (22:05)
[2016-11-29] MEDS: SODIUM CHLORIDE 0.45% 1,000 ML IV SCH (22:05)
[2016-11-29 23:04] LABS: Risk Ratio 3.12; VLDL CHOLESTEROL 15.6 MG/DL
[2016-11-29 23:06] LABS: Troponin I Only < 0.015 NG/ML (0.00-0.045)
[2016-11-29 23:16] LABS: Apearance,Urine CLEAR (Clear); Bilirubin,Urine Negative (Negative); Blood, Urine Negative (Negative); Glucose,Urine (UA) Negative (Negative); Ketones,Urine Negative (Negative); Mucus,Urine Occasional /LPF (Occasional); Nitrite,Urine Negative (Negative); Protein,Urine Negative; RBC,Urine <1 /HPF (0-4); Urine Color Yellow (Yellow); Urine Specific Gravity 1.006 (1.001-1.035); Urine Urobilinogen < 2.0 EU/DL (0.2-1.0)
[2016-11-30] MEDS: ALBUTEROL/IPRATROPIUM 3 ML NEB RESP TX SCH ×4 (00:46→19:55)
[2016-11-30 01:21] LABS: ABG Base Excess 4.3 MMOL/L (-2.5-2.5); ABG HCO3 28.2 MMOL/L (20-26); ABG Oxygen Saturation 97.6 % (95-100); ABG PCO2 53.8 MM HG (35-48); ABG PH 7.368 (7.35-7.45); ABG PO2 92.9 MM HG (80-95); ABG TCO2 27.4 MMOL/L (23-27)
[2016-11-30 05:45] LABS: Basophils % 0.2 % (0.0-0.8); Hemoglobin 12.4 GM/DL (14.0-18.0); Immature Granulocytes % 0.9 %; Immature Granulocytes Absolute 0.06 #; Lymphocytes # 0.4 10*3/uL (1.4-4.0); Lymphocytes % 5.6 % (21.2-54.2); Mean Corpuscular HGB Conc 33.5 GM/DL (32-36); Mean Corpuscular Hemoglobin 29 PG (27-34); Mean Corpuscular Volume 85.8 FL (87-102); Mean Platelet Volume 9.5 FL (9.6-12.0); Monocytes # 0.1 10*3/uL (0.11-0.8); Monocytes % 0.8 % (1.7-12.7); Neutrophils # 6.1 10*3/uL (1.4-7.4); Neutrophils % 92.5 % (38.7-73.9); Platelet Count 276 T/CUMM (130-400); Red Blood Count 4.31 MC/CUMM (3.8-5.5); Red Cell Distribution Width 12.9 % (9.3-17.3); White Blood Count 6.6 T/CUMM (4-12)
[2016-11-30 06:23] LABS: Troponin I Only < 0.015 NG/ML (0.00-0.045)
[2016-11-30 06:28] LABS: Alanine Aminotransferase 24 U/L (16-61); Albumin 2.8 G/DL (3.4-5.0); Alkaline Phosphatase 138 U/L (45-117); Aspartate Amino Transferase 14 U/L (0-37); Bilirubin,Total < 0.39 MG/DL (0.2-1.0); Blood Urea Nitrogen 11 MG/DL (7-18); Calcium 8.8 MG/DL (8.5-10.1); Glucose 136 MG/DL (74-106); Hypochromasia 1+; Lymphocytes 4 % (20-55); Magnesium 2.3 MG/DL (1.8-2.4); Osmolality,Calculated 279.4 MOS/KG (273-304); Ovalocytes Slight; Platelet Estimate Adequate; Potassium 4.8 MMOL/L (3.5-5.1); Segmented Neutrophils 96 % (50-85); Sodium 140 MMOL/L (136-145); Total Cells Counted 100; Total Protein 5.6 G/DL (6.4-8.3)
--- NOTE | 2016-11-30 08:11 | Ultrasound Report ---
Exam: Bilateral lower extremity venous Doppler ultrasound Comparison: None Clinical history: Shortness of breath Technique: Duplex scan of the lower extremity veins using B-mode/grayscale scaled imaging and Doppler spectral analysis and color flow. Findings: Major venous structures of the lower extremities demonstrate a normal course and caliber. Normal color-flow study and spectral analysis. There is normal compression and augmentation of bilateral common femoral, superficial femoral and popliteal veins. The proximal bilateral greater saphenous veins appear to be patent. Impression: No evidence to suggest deep venous thrombosis within either lower extremity. Ultrasound images were captured and stored. PROCEDURE INTERPRETED AT [facility] [place] DEPARTMENT OF RADIOLOGY Final Report Signed by: Dr. Kirti Doran
--- NOTE | 2016-11-30 08:15 | EKG Report ---
Stationary ECG Study [facility] Test Date: 11/30/2016 8:16 AM Pat Name: ZOILA LADD Department: Room: 269 Gender: M Salmon Troll Fisher: : 1940 Requested by: Christopher Orellana Order Number: [id number] Reading MD: CHRISTOPHER ORELLANA Intervals [place] Rate: 92 P: 94 MS: 153 QRS: 19 QRSD: 86 T: 90 QT: 345 QTc: 394 Interpretive Statements SINUS RHYTHM WITH OCCASIONAL SUPRAVENTRICULAR PREMATURE COMPLEXES ANTEROSEPTAL MYOCARDIAL INFARCTION, OF INDETERMINATE AGE Electronically Signed On 11-30-16 11:45:02 CLINICAL LABORATORY MANAGER by CHRISTOPHER ORELLANA [email or web address]
[2016-11-30] MEDS ORDERED: NON-FORMULARY MEDICATION (Tiotropium Inhalation 18 MCG) INH SCH (09:00)
[2016-11-30] MEDS ORDERED: ERGOCALCIFEROL 50,000 UNIT CAPSULE PO SCH (09:00)
[2016-11-30] MEDS: MULTIVITAMIN (CENTRUM) TABLET PO SCH (09:09)
[2016-11-30] MEDS: PANTOPRAZOLE 40 MG TABLET PO SCH (09:09)
[2016-11-30] MEDS: OXYBUTYNIN XL 15 MG TABLET PO SCH (09:10)
[2016-11-30] MEDS: SERTRALINE 100 MG TABLET PO SCH ×2 (09:10→20:38)
[2016-11-30] MEDS: DOCUSATE/SENNA 50-8.6 MG TABLET PO SCH (09:10)
--- NOTE | 2016-11-30 10:56 | Cardiology Consult Note ---
I, Mary Rodriguez, GABRIELA, am scribing for, and in the presence of, Christopher Orellana MD 10:56. Assessment and Plan (1) Syncope, near Status: Acute Assessment and plan: Patient admitted for further evaluation of shortness of breath, dizziness and tachycardia. Patient reports that he did not feel his heart racing or experience palpitations. His BP upon arrival to ER was boarderline low with SBP in the 90's. I will add orthostatic vital signs at this time. We will continue to monitor patient's rhythm via continuous tele monitor. If any further arrhythmia or tachycardia is suspected will consider discharging patient with event monitor. Echo and lower extremity dopplers are both pending. We will also order carotid ultrasound. Patient has presyncope which is multifactorial sounding by history. He does have what sounds like orthostasis but does note occasional palpitations with some concern related to whether this could be an arrhythmia. He is cachectic and the concern relates to whether he has some malignant process contributing. We will review 2D echocardiogram and continue observing his rhythm. I have discussed in detail the particulars of this case and I have examined the patient and reviewed the patient's chart both current and old. I was directly involved in the patient's evaluation and management and I completely agree with Mary Rodriguez RN regarding this patient's evaluation and treatment plan. Current Visit: Yes (2) Decreased appetite Status: Acute Assessment and plan: Patient has a long standing history of COPD and is a current everyday smoker. Dr. Erickson is working patient up for possible cancer. Will await results of chest CT and PFT's. Current Visit: Yes (3) Weight loss Status: Acute Assessment and plan: Patient has a long standing history of COPD and is a current everyday smoker. Dr. Erickson is working patient up for possible cancer. Will await results of chest CT and PFT's. Current Visit: Yes (4) COPD (chronic obstructive pulmonary disease) Status: Chronic Assessment and plan: Continue current plan of care. Current Visit: Yes (5) Tobacco abuse Status: Chronic Assessment and plan: Smoking cessation encouraged. Current Visit: Yes (6) GERD (gastroesophageal reflux disease) Status: Chronic Assessment and plan: This is clinically stable. Continue current plan of care. Current Visit: Yes (7) On home oxygen therapy Status: Chronic Current Visit: Yes History of Present Illness - Data of Consult Patient: new to practice Consult date: 11/30/16 Requesting Physician: Weston Erickson Primary care physician: Susu Caraballo - Consult Narrative Reason for consult: Dizziness and tachycardia History of present illness: Mr. Bianchi is a 76 year old male without known coronary artery disease, not routinely followed by a local cad administrator. His primary care provider is Dr. Susu Lemus at [facility]. He presented to the ER yesterday for further evaluation of tachycardia, shortness of breath and dizziness. He has risk factors significant for advanced age, current everyday smoker and sedentary lifestyle. He has a past medical history of GERD, depression and COPD (patient uses home oxygen). He denies any significant family history of heart disease. He has never had a cardiac catheterization or cardiac stress test. Patient was in his usual state of health until yesterday when he was on his way back from getting a haircut he began feeling dizzy and weak. He tells me that he pulled the car over until he began to feel better. He reports that he was extremely short of breath during this time. He denies having any chest discomfort, heaviness or tightness during this time. He also denies syncope. He then drove the rest of the way home and checked his oxygen saturations via portable O2 saturation monitor. His oxygen saturations were reportedly stable at that time. However, his heart rate was noted to be 150. He tells me that he was asymptomatic with this. He denies palpitations and feelings of heart racing. His was very concerned at that time and decided to bring him to the ER for further evaluation. Upon arrival to ER, his EKG revealed normal sinus rhythm with heart rates in the 80s with occasional PACs and PVCs. His blood pressure was noted 94/73. Patient was started on IV fluids and transferred to telemetry to be closely monitored. Of note, he also reports significant weight loss over the past year. He tells me that he has lost 30 pounds since last year. He also reports a decreased appetite. He denies fever, chills, abdominal pain, melena, nausea, vomiting, orthopnea, lower extremity swelling and PND. He does report activity intolerance and shortness of breath. However, I feel that this is most likely related to his COPD. Patient was seen and examined on the telemetry floor. He is resting in bed in no acute distress. He is currently requiring oxygen at 2 L via nasal cannula. Oxygen saturations are stable ranging from 95-100%. He did well overnight and is without complaints this morning. He reports that he has not experienced any dizziness or weakness since being admitted. He also denies chest discomfort, heaviness or tightness. He tells me that his shortness of breath is much better today. His chest x-ray revealed hyperexpanded lungs consistent with COPD and minimal scattered opacities, pneumonia is suspected in left mid and lower lung castro. He has been afebrile and has a normal white blood cell count. He has had no arrhythmias via surveillance monitor. He is currently in a normal sinus rhythm with heart rates in the 90s without any overt arrhythmias noted. However, occasional PACs and PVCs are present. His EKG this morning also reveals normal sinus rhythm with occasional PACs and PVCs. Troponin has been negative 3 checks. Echo is currently pending. Lower extremity Dopplers are pending. I will add orthostatic vital signs and will continue to monitor his rhythm via surveillance monitor. CC: Calos Dubon MD - Home Medications and Allergies Home Medications: Home Medications Medication Instructions Recorded Confirmed Type Albuterol/Ipratropium Neb [Duoneb] 3 ml RESP TX RT Q8H 10/18/16 11/30/16 History Multivits-Minerals/FA/Lycopene 1 each PO QAM 10/18/16 11/30/16 History [One Daily For Men Tablet] Oxybutynin Chloride [Oxybutynin 15 mg PO QAM 10/18/16 11/30/16 History Chloride ER] Sertraline [Zoloft] 100 mg PO BID 10/18/16 11/30/16 History Tiotropium Inhalation [Spiriva 18 mcg INH QAM 10/18/16 11/30/16 History Handihaler] Albuterol Inhaler [Proventil 2 puff INH Q4HR PRN #1 inhaler 10/22/16 11/30/16 Rx Inhaler] HYDROcodone/ACETAMIN 5-325 [[place] 1 tablet PO Q12H PRN #30 tablet 10/22/1611/30 Rx 5-325] Docusate/Senna 50-8.6 [Senokot S] 2 tablet PO QAM 11/29/16 11/30/16 History Ergocalciferol [Drisdol] 50,000 unit PO FR 11/29/16 11/30/16 History Pantoprazole Tab [Protonix Tab] 40 mg PO QAM 11/29/16 11/30/16 History guaiFENesin/DM ER 600-30 [Mucinex 1 tablet PO BID PRN 11/30/16 11/30/16 History Dm 600-30 MG] Allergies/Adverse Reactions: Allergies Allergy/AdvReac Type Severity Reaction Status Date / Time levofloxacin [From Levaquin] Allergy RASH Verified 10/19/16 10:01 simvastatin [From Zocor] Allergy Unknown/Unable Verified 10/18/16 11:15 to obtain - Constitutional Constitutional: Present: fatigue, malaise, weakness, weight loss. Absent: chills, fever(s), frequent falls, headache(s), night sweats - Cardiovascular Cardiovascular: Present: dyspnea, dyspnea on exertion, lightheadedness. Absent : chest pain at rest, chest pain with activity, claudication, diaphoresis, edema , radiating jaw, neck or arm pain, orthopnea, palpitations, PND - Respiratory Respiratory: Present: cough, dyspnea, dyspnea on exertion, wheezing. Absent: hemoptysis, snoring, pain on inspiration, change in phlegm color - Gastrointestinal Gastrointestinal: Present: early satiety. Absent: abdominal pain, heartburn, hematemesis, hematochezia, loose stools, melena, nausea, vomiting - Neurological Neurological: Present: dizziness. Absent: abnormal speech, behavioral changes, headache(s) Medical,Surgical,& Family Hx - Medical History Psychological: History of: Depression Respiratory: History of: COPD, Respiratory Problems (Home oxygen) Genitourinary: History of: Prostate Problems (hx of prostate ca) Gastrointestinal: History of: GERD, Polyps (removed) Musculoskeletal: History of: Back/Neck Problems, Musculoskeletal Problems ( arthritis) Reproductive: Reports: Reproductive Cancer (prostate ca) - Surgical History Abdominal Surgeries: Surgical HX of: Colonoscopy Reproductive Surgeries: Surgical HX of;: Prostate Surgery - Family History Family History: Reports;: Family Cancer (prostate CA- brother, breast CA- mother ), Family Hypertension (mother) - Social History Smoking Status: Current every day smoker Frequency of Alcohol Use: None Type of Drug Use: None Physical Examination Vital Signs Temp Pulse Resp BP Pulse Ox 97.6 F 85 22 94/73 94 L 11/29/16 17:53 11/29/16 17:53 11/29/16 17:53 11/29/16 17:53 11/29/16 17:53 General: Present: No Apparent Distress, Cachectic Neck: Present: Supple Neck, Midline Trachea, No JVD/HJR, No Masses, No Bruit, No Lymphadenopathy, No Thyromegaly Cardiac: Present: Reg Rate and Rhythm, Regular Rate, Regular Rhythm, S1/S2. Absent: Gallop Lungs: Present: Decreased Breath Sounds, Wheezes, Oxygen Abdomen: Present: Soft, Active Bowel Sounds, No Pulsations/Bruits, Non-Tender. Absent: Tender, Firm Skin: Present: Clear. Absent: Rash, Suspicious Lesions, Ulceration Extremities: Present: Normal Gait, No Clubbing, No Cyanosis, No Edema, Normal Upper Extr. Pulses, Normal Lower Extr. Pulses Result/EKG - Labs CBC & BMP: 11/30/16 04:15 11/30/16 04:15 Lab Results: I have reviewed the past 24 hour labs Labs: Laboratory Results - last 24 hr 11/29/16 11/29/16 11/29/16 22:08 22:08 22:08 WBC RBC Hgb Hct MCV MCH MCHC RDW Plt Count MPV Neut % (Auto) Lymph % (Auto) [place] % (Auto) Eos % (Auto) Baso % (Auto) Neut # (Auto) Lymph # (Auto) [place] # (Auto) Eos # (Auto) Baso # (Auto) Total Counted Immature Gran % Nucleated RBC % Immature Gran # Segmented Neutrophils Lymphocytes Nucleated RBCs # Platelet Estimate Hypochromasia Ovalocytes Morphology Comment ABG pH ABG pCO2 ABG pO2 ABG HCO3 ABG Total CO2 ABG O2 Saturation ABG Base Excess Sodium Potassium Chloride Carbon Dioxide Anion Gap BUN Creatinine GFR Calculation BUN/Creatinine Ratio Glucose Calculated Osmolality Calcium Magnesium Total Bilirubin AST ALT Alkaline Phosphatase Total Creatine Kinase 28 L CK-MB (CK-2) 2.4 Troponin I < 0.015 B-Natriuretic Peptide Total Protein Albumin Globulin Albumin/Globulin Ratio Triglycerides 78 Cholesterol 184 LDL Cholesterol 112.0 VLDL Cholesterol 15.6 HDL Cholesterol 59 Heart Disease Risk Ratio 3.12 Free T4 1.05 TSH 3rd Generation Urine Color Urine Appearance Urine pH Ur Specific [place] Urine Protein Urine Glucose (UA) Urine Ketones Urine Blood Urine Nitrate Urine Bilirubin Urine Urobilinogen Urine Leukocytes Urine RBC Urine Mucus Ur Culture Indicated? 11/29/16 11/30/16 11/30/16 22:58 01:00 04:15 WBC 6.6 D RBC 4.31 Hgb 12.4 L Hct 37.0 L MCV 85.8 L MCH 29 MCHC 33.5 RDW 12.9 Plt Count 276 MPV 9.5 L Neut % (Auto) 92.5 H Lymph % (Auto) 5.6 L [place] % (Auto) 0.8 L Eos % (Auto) 0.0 Baso % (Auto) 0.2 Neut # (Auto) 6.1 Lymph # (Auto) 0.4 L [place] # (Auto) 0.1 L Eos # (Auto) 0.0 Baso # (Auto) 0.0 Total Counted 100 Immature Gran % 0.9 Nucleated RBC % 0.0 Immature Gran # 0.06 Segmented Neutrophils 96 H Lymphocytes 4 L Nucleated RBCs # 0.00 Platelet Estimate Adequate Hypochromasia 1+ Ovalocytes Slight Morphology Comment ABG pH 7.368 ABG pCO2 53.8 H ABG pO2 92.9 ABG HCO3 28.2 H ABG Total CO2 27.4 H ABG O2 Saturation 97.6 ABG Base Excess 4.3 H Sodium Potassium Chloride Carbon Dioxide Anion Gap BUN Creatinine GFR Calculation BUN/Creatinine Ratio Glucose Calculated Osmolality Calcium Magnesium Total Bilirubin AST ALT Alkaline Phosphatase Total Creatine Kinase CK-MB (CK-2) Troponin I B-Natriuretic Peptide Total Protein Albumin Globulin Albumin/Globulin Ratio Triglycerides Cholesterol LDL Cholesterol VLDL Cholesterol HDL Cholesterol Heart Disease Risk Ratio Free T4 TSH 3rd Generation Urine Color Yellow Urine Appearance Clear Urine pH 7.0 Ur Specific [place] 1.006 Urine Protein Negative Urine Glucose (UA) Negative Urine Ketones Negative Urine Blood Negative Urine Nitrate Negative Urine Bilirubin Negative Urine Urobilinogen < 2.0 H Urine Leukocytes Negative Urine RBC <1 Urine Mucus Occasional Ur Culture Indicated? Not indicated 11/30/16 11/30/16 11/30/16 04:15 04:15 04:15 WBC RBC Hgb Hct MCV MCH MCHC RDW Plt Count MPV Neut % (Auto) Lymph % (Auto) [place] % (Auto) Eos % (Auto) Baso % (Auto) Neut # (Auto) Lymph # (Auto) [place] # (Auto) Eos # (Auto) Baso # (Auto) Total Counted Immature Gran % Nucleated RBC % Immature Gran # Segmented Neutrophils Lymphocytes Nucleated RBCs # Platelet Estimate Hypochromasia Ovalocytes Morphology Comment ABG pH ABG pCO2 ABG pO2 ABG HCO3 ABG Total CO2 ABG O2 Saturation ABG Base Excess Sodium 140 Potassium 4.8 Chloride 102 Carbon Dioxide 31 Anion Gap 11.8 BUN 11 Creatinine 0.60 L GFR Calculation 89 BUN/Creatinine Ratio 18.00 Glucose 136 H Calculated Osmolality 279.4 Calcium 8.8 Magnesium 2.3 Total Bilirubin < 0.39 AST 14 ALT 24 Alkaline Phosphatase 138 H Total Creatine Kinase 24 L CK-MB (CK-2) 2.2 Troponin I < 0.015 B-Natriuretic Peptide 85 Total Protein 5.6 L Albumin 2.8 L Globulin 2.8 Albumin/Globulin Ratio 1.0 L Triglycerides Cholesterol LDL Cholesterol VLDL Cholesterol HDL Cholesterol Heart Disease Risk Ratio Free T4 TSH 3rd Generation 0.490 Urine Color Urine Appearance Urine pH Ur Specific [place] Urine Protein Urine Glucose (UA) Urine Ketones Urine Blood Urine Nitrate Urine Bilirubin Urine Urobilinogen Urine Leukocytes Urine RBC Urine Mucus Ur Culture Indicated? I, Christopher Orellana MD, personally performed the services described in this documentation, ascribed by Mary Rodriguez RN in my presence, and it is both accurate and complete 056 .
--- NOTE | 2016-11-30 11:02 | Ultrasound Report ---
Exam: Carotid ultrasound Date: 11/30/2016 Comparison: None Technique: Duplex scans of the carotid and vertebral arteries using B-mode/Mcmullen scale imaging and Doppler spectral analysis and color flow. Reason: Syncope Findings: The right ICA measures 4.3 mm in diameter and the left ICA measures 4.2 mm in diameter. Color-flow documented in the visualized arteries. The peak systolic velocities are as follows: Right CCA: 61.2 cm/s Right ICA: 41.2 cm/s Right ECA: 70.3 cm/s Left CCA: 44.2 cm/s Left ICA: 90 5. cm/s Left ECA: 75.6 cm/s The peak systolic ICA/CCA velocity ratios are as follows: 0.7 on the right and 2.2 on the left. Antegrade flow is present in both vertebral arteries. Impression:[The velocity measurements suggest less than 50% stenosis in both internal carotid arteries. However the left ICA/CCA ratio is minimally elevated which indicates that the stenosis may be more significant with associated heterogeneous plaque formation. CTA or MRA may be helpful for further evaluation. Antegrade flow in both vertebral arteries.] The Society of Radiologists in Ultrasound consensus conference criteria was used. The Ultrasound images were captured and stored. PROCEDURE INTERPRETED AT [facility] DEPARTMENT OF RADIOLOGY Final Report Signed by: Dr. Kirti Doran
--- NOTE | 2016-11-30 11:37 | EKG Report ---
Stationary ECG Study [facility] ER Test Date: 11/29/2016 6:06:38 PM Pat Name: ZOILA LADD Department: Room: 269 Gender: M Central Station Operator: : 1940 Requested by: Carrington Quinones Order Number: [id number] Reading MD: AURORA BENÍTEZ Intervals [place] Rate: 85 P: 88 FL: 161 QRS: -78 QRSD: 85 T: 82 QT: 348 QTc: 391 Interpretive Statements SINUS RHYTHM WITH OCCASIONAL SUPRAVENTRICULAR PREMATURE COMPLEXES POSSIBLE RIGHT ATRIAL ENLARGEMENT ABNORMAL LEFT AXIS DEVIATION ANTEROSEPTAL INFARCT, AGE UNDETERMINED Electronically Signed On 11-30-16 11:41:03 VENDING MACHINE FILLER by AURORA BENÍTEZ [email or web address]
--- NOTE | 2016-11-30 11:51 | Gastrointestinal Consult Note ---
<Nara Mcleod - Last Filed: 11/30/16 11:47> Assessment and Plan (1) Dysphagia Status: Acute Assessment and plan: 33-14 pd weight loss over past several months with solids, pills and liquids. Hx of endoscopy in the past with no recollection of dilation. Obtain records from [facility] and [facility] for prior endoscopy. Plan and addendum to follow by Dr Cespedes. Current Visit: Yes History of Present Illness Chief complaint: Weight loss, dysphagia History of present illness: Mr. Bianchi is a 76 year old male who was admitted to the hospital with onset of weakness and SOB. Pt has a history of COPD and developed elevated heart rate on yesterday in the 150s. He became dizzy and felt like he was going to pass out and presented to the ER for evaluation. He reported on admission that he has lost approximately 14 pounds over the last 8 months. Pt states that he has dysphagia to solids, pills and liquids at times. He feels his weight loss if is because he is afraid to eat sometimes due to choking. He reports a recent episode of a pain pill that lodged in his esophagus and he was able to regurgitate it back up the next day. He has a history of what sounds like esophageal stricture in the past but he doesnt recall having a dilation done. He has been seen at the [facility] and at [facility] for endoscopy in the past with last endoscopy being around a year ago. He also had a colonoscopy done in the last couple of years with polyp removal and told to return in 5 years. He denies any abdominal pain, nausea, vomiting, reflux, melena or hematochezia. He is noted to take Protonix at home and states this has been controlled as of recent. He has a history of prostate cancer in the past. Home Medications Medication Instructions Recorded Confirmed Type Albuterol/Ipratropium Neb [Duoneb] 3 ml RESP TX RT Q8H 10/18/16 11/30/16 History Multivits-Minerals/FA/Lycopene 1 each PO QAM 10/18/16 11/30/16 History [One Daily For Men Tablet] Oxybutynin Chloride [Oxybutynin 15 mg PO QAM 10/18/16 11/30/16 History Chloride ER] Sertraline [Zoloft] 100 mg PO BID 10/18/16 11/30/16 History Tiotropium Inhalation [Spiriva 18 mcg INH QAM 10/18/16 11/30/16 History Handihaler] Albuterol Inhaler [Proventil 2 puff INH Q4HR PRN #1 inhaler 10/22/16 11/30/16 Rx Inhaler] HYDROcodone/ACETAMIN 5-325 [W[place]rop 1 tablet PO Q12H PRN #30 tablet 10/22/1611/30 Rx 5-325] Docusate/Senna 50-8.6 [Senokot S] 2 tablet PO QAM 11/29/16 11/30/16 History Ergocalciferol [Drisdol] 50,000 unit PO FR 11/29/16 11/30/16 History Pantoprazole Tab [Protonix Tab] 40 mg PO QAM 11/29/16 11/30/16 History guaiFENesin/DM ER 600-30 [Mucinex 1 tablet PO BID PRN 11/30/16 11/30/16 History Dm 600-30 MG] Allergies Allergy/AdvReac Type Severity Reaction Status Date / Time levofloxacin [From Levaquin] Allergy RASH Verified 10/19/16 10:01 simvastatin [From Zocor] Allergy Unknown/Unable Verified 10/18/16 11:15 to obtain Medical,Surgical,& Family Hx - Medical History Cardio: History of: Aneurysm (Abdominal Aortic Aneurysm), CAD (has had previous myocardial infarction), [place] Psychological: History of: Depression HEENT: History of: Ear Problem (hearing loss) Respiratory: History of: COPD, Respiratory Problems (Home oxygen) Genitourinary: History of: Bladder Problem (incontinence. ), Prostate Problems ( hx of prostate ca) Gastrointestinal: History of: GERD, Polyps (removed) Musculoskeletal: History of: Back/Neck Problems, Musculoskeletal Problems ( arthritis) Hematology: History of: Anemia Reproductive: Reports: Reproductive Cancer (prostate ca) - Surgical History Abdominal Surgeries: Surgical HX of: Colonoscopy Reproductive Surgeries: Surgical HX of;: Prostate Surgery - Family History Family History: Reports;: Family Cancer (prostate CA- brother, breast CA- mother ), Family Heart Disease (sister), Family Hypertension (mother) - Social History Smoking Status: Current every day smoker Frequency of Alcohol Use: None Type of Drug Use: None 12 point system: reviewed and no additional remarkable complaints except as stated - Constitutional Constitutional: Present: as per HPI, weight loss - EENT Eyes: Present: as per HPI Ears: Present: as per HPI Nose, mouth and throat: Present: as per HPI - Cardiovascular Cardiovascular: Present: as per HPI - Respiratory Respiratory: Present: as per HPI - Gastrointestinal Gastrointestinal: Present: as per HPI, dysphagia - Genitourinary Genitourinary: Present: as per HPI - Musculoskeletal Musculoskeletal: Present: as per HPI - Neurological Neurological: Present: as per HPI - Psychiatric Psychiatric: Present: as per HPI - Endocrine Endocrine: Present: as per HPI - Hematologic/Lymphatic Hematologic/Lymphatic: Present: as per HPI Exam - Constitutional Vitals: Period Temp Pulse Resp BP Sys/Parada Pulse Ox Last 24 Hr 97.4 F-98.4 F 88-121 16-20 104-127/50-78 83-98 General appearance: no acute distress, under weight - Head Head exam: Present: normal inspection, normocephalic - Eye Eye exam: Present: other (lids and conjunctiva unremarakble). Absent: scleral icterus - ENT ENT exam: Present: normal exam, normal oropharynx - Neck Neck exam: Present: normal inspection - Respiratory Respiratory exam: Present: clear to auscultation bilaterally. Absent: rales, rhonchi, wheezes - Cardiovascular Cardiovascular exam: Present: regular rate and rhythm. Absent: diastolic murmur , JVD, systolic murmur - GI/Abdominal GI/Abdominal exam: Present: normal bowel sounds, soft. Absent: ascites, distended, mass, organomegaly, tenderness - Extremities Exam Extremities exam: Present: normal inspection, full ROM - Back Exam Back exam: Present: normal inspection - Neurological Exam Neurological exam: Present: alert, oriented X3 - Psychiatric Psychiatric exam: Present: normal affect, normal mood - Skin Skin exam: Present: normal color, warm, dry Results - Labs CBC & BMP: 11/30/16 04:15 11/30/16 04:15 Lab Results: I have reviewed the past 24 hour labs <Kirit Cespedes - Last Filed: 11/30/16 14:49> History of Present Illness History of present illness: Mr. Bianchi is a 76 year old male Exam - Constitutional Vitals: Period Temp Pulse Resp BP Sys/Parada Pulse Ox Last 24 Hr 97.4 F-98.4 F 78-121 16-20 104-127/50-78 83-98 Results - Labs CBC & BMP: 11/30/16 04:15 11/30/16 04:15
--- NOTE | 2016-11-30 11:53 | ECHO Report ---
Wilbert Bianchi Exam Date: 11/30/2016 07:56 Referring Physician: Technologist: Gina Wallis RDCS Age: 76 Ht (in): Wt (lb): Gender: M Exam Location: [facility] Echo Indications: Near syncope, COPD, Weight loss, Palpitations, Shortness of breath, Dizziness and giddiness, CAD BP: / HR: Rhythm: Sinus Technical Quality: Fair IMPRESSIONS Normal left ventricular cavity size. Normal left ventricular wall thickness. Left ventricular ejection fraction is estimated at 60 %. The right ventricle is normal in size and function. The right atrium is normal in size. The left atrium is normal in size. Morphologically normal mitral valve without significant stenosis or prolapse. There is no mitral regurgitation. Aortic valve sclerosis without stenosis or regurgitation. Morphologically normal tricuspid valve. Trace to mild tricuspid valve regurgitation. Tricuspid regurgitation velocities suggest a PAP of 48 mmHg. Morphologically normal pulmonic valve without significant stenosis. There is no pulmonic regurgitation. Normal pericardium without effusion. Normal ascending aorta dimension. MEASUREMENTS (Male / Female) Normal Values 2D ECHO LV Diastolic Diameter PLAX 3.8 cm 4.2 - 5.9 / 3.9 - 5.3 cm LV Systolic Diameter PLAX 2.6 cm LV Fractional Shortening PLAX 31.7 % IVS Diastolic Thickness 0.9 cm 0.6 - 1.0 / 0.6 - 0.9 cm LVPW Diastolic Thickness 0.9 cm 0.6 - 1.0 / 0.6 - 0.9 cm RV Internal Dim ED PLAX 3.8 cm Aortic Root Diameter 3.8 cm LA Systolic Diameter LX 3.5 cm 3.0 - 4.0 / 2.7 - 3.8 cm DOPPLER TR Peak Velocity 309.0 cm/s TR Peak Gradient 38.2 mmHg FINDINGS Left Ventricle Normal left ventricular cavity size. Normal left ventricular wall thickness. Left ventricular ejection fraction is estimated at 60 %. Right Ventricle The right ventricle is normal in size and function. Right Atrium The right atrium is normal in size. Left Atrium The left atrium is normal in size. Mitral Valve Morphologically normal mitral valve without significant stenosis or prolapse. There is no mitral regurgitation. Aortic Valve Aortic valve sclerosis without stenosis or regurgitation. Tricuspid Valve Morphologically normal tricuspid valve. Trace to mild tricuspid valve regurgitation. Tricuspid regurgitation velocities suggest a PAP of 48 mmHg. Pulmonic Valve Morphologically normal pulmonic valve without significant stenosis. There is no pulmonic regurgitation. Pericardium Normal pericardium without effusion. Aorta Normal ascending aorta dimension. Christopher Orellana MD (Electronically Signed) Final Date: 30 November 2016 11:51
[2016-11-30 14:43] LABS: Troponin I Only < 0.015 NG/ML (0.00-0.045)
[2016-11-30] MEDS: SODIUM CHLORIDE 0.45% 1,000 ML IV SCH ×2 (16:24)
--- NOTE | 2016-11-30 17:46 | Hospitalist Progress Note ---
Assessment and Plan (1) COPD with exacerbation Status: Acute Assessment and plan: Point patient to respiratory status is stable we will continue the current management. Pulmonary is involved with his case Current Visit: Yes (2) Acute exacerbation of chronic obstructive pulmonary disease (COPD) Status: Acute Assessment and plan: As above Current Visit: No (3) Tobacco abuse Status: Chronic Assessment and plan: I have discussed with the patient at length regarding smoking. This fear that there may be a lung malignancy given the risk of his behavior. He states that he has a reduced amount of smoking but only part of the cigarette pack. There still remains an issue. I believe CT scan of the chest should be done. Current Visit: Yes (4) Arteriosclerosis Status: Acute Assessment and plan: Patient is noted to have some arterial sclerosis in the carotids. This is been noted by ultrasound. Radiologist recommending further evaluation. An MRA of the carotid and vertebral arteries will be done. She should be started on antiplatelet treatment Current Visit: Yes Hospitalist: Subjective Interval history: Patient has been seen interviewed and examined. He is complaining of difficult swallowing and sometimes choking on food. Will need speech evaluation such ordering consultation with speech therapy. Patient has significant weight loss , malignant process is suspected and is being worked up. He also has significant COPD COPD cachexia may be an issue but patient is not awakening for his breath therefore doubt that that is the predisposing differential diagnosis Exam - Constitutional Vitals: Period Temp Pulse Resp BP Sys/Parada Pulse Ox Last 24 Hr 97.4 F-98.4 F 78-121 16-20 104-127/50-78 83-98 General appearance: under weight, other (Total calorie malnutrition) - Head Head exam: Present: other (Temporal wasting) - Eye Eye exam: Present: EOMI, other (Anicteric no conjunctival petechia) Pupils: Present: ALEKSANDRA - ENT ENT exam: Present: normal oropharynx, other (Some dental recession) - Neck Neck exam: Present: other (Neck is supple no adenopathy a midline trachea) - Respiratory Respiratory exam: Present: other (Bilateral crackles suggestive of chronic fibrotic pulmonary disease) - Cardiovascular Cardiovascular exam: Present: regular rate and rhythm - GI/Abdominal GI/Abdominal exam: Present: normal bowel sounds, soft, other (Scaphoid abdomen, intercostal wasting) - Neurological Exam Neurological exam: Present: alert, oriented X3, CN II-XII intact - Psychiatric Psychiatric exam: Present: normal affect, normal mood - Skin Skin exam: Present: dry (Diminished skin fat pad) Results - Labs CBC & BMP: 11/30/16 04:15 11/30/16 04:15 Lab Results: I have reviewed the past 24 hour labs
[2016-11-30 19:02] LABS: Calcium 8.8 MG/DL (8.5-10.1); Osmolality,Calculated 288.8 MOS/KG (273-304); Potassium 4.7 MMOL/L (3.5-5.1)
--- NOTE | 2016-11-30 19:12 | CT Report ---
CT chest wo con Indication: Abnormal chest x-ray, smoker, cachexia Comparison: 03 May 2014 Technique: Axial CT imaging of the chest was done at 3 mm intervals without intravenous contrast. Findings: Chronic changes with large area of bullous emphysema are present in both lungs, similar findings were present on previous exam. There is some scarring and volume loss in the upper lobes more prominent on the right, also similar to previous study. Left mid lung scarring appears increased and there is increased soft tissue density laterally that measures 1.9 cm. Remaining lungs show no evidence of new infiltrates or airspace disease. No distinct nodule or mass is identified. No effusion or pneumothorax is seen. The heart, mediastinum and great vessels appear within normal limits. No other abnormality is identified. Impression: Severe chronic lung disease. There is scarring in both lungs and this has progressed in the left midlung with increased pleural-based density measuring up to 1.9 cm in size. No enlarged lymph nodes are seen. This may indicate progression of the chronic lung changes although malignant process cannot definitely be excluded. PROCEDURE INTERPRETED AT [facility] DEPARTMENT OF RADIOLOGY Final Report Signed by: Dr. Colton Navarro
[2016-12-01] MEDS: ALBUTEROL/IPRATROPIUM 3 ML NEB RESP TX SCH ×4 (00:23→20:02)
[2016-12-01] MEDS: SODIUM CHLORIDE 0.45% 1,000 ML IV SCH ×4 (01:08→20:59)
[2016-12-01 04:57] LABS: Basophils % 0.2 % (0.0-0.8); Eosinophils % 0.4 % (0.00-10.9); Hematocrit 34.2 VOL% (42.0-52.0); Immature Granulocytes % 0.5 %; Immature Granulocytes Absolute 0.04 #; Lymphocytes # 1.4 10*3/uL (1.4-4.0); Lymphocytes % 16.5 % (21.2-54.2); Mean Corpuscular HGB Conc 32.2 GM/DL (32-36); Mean Corpuscular Hemoglobin 29 PG (27-34); Mean Corpuscular Volume 88.8 FL (87-102); Monocytes # 0.6 10*3/uL (0.11-0.8); Monocytes % 6.9 % (1.7-12.7); Neutrophils # 6.4 10*3/uL (1.4-7.4); Neutrophils % 75.5 % (38.7-73.9); Platelet Count 219 T/CUMM (130-400); Red Blood Count 3.85 MC/CUMM (3.8-5.5); Red Cell Distribution Width 13.2 % (9.3-17.3); White Blood Count 8.5 T/CUMM (4-12)
[2016-12-01 05:29] LABS: Albumin 2.7 G/DL (3.4-5.0); Bilirubin,Total 0.4 MG/DL (0.2-1.0); Calcium 8.6 MG/DL (8.5-10.1); Osmolality,Calculated 287.7 MOS/KG (273-304); Potassium 4.1 MMOL/L (3.5-5.1); Total Protein 5.2 G/DL (6.4-8.3)
[2016-12-01] MEDS: SERTRALINE 100 MG TABLET PO SCH ×2 (08:37→21:01)
[2016-12-01] MEDS: PANTOPRAZOLE 40 MG TABLET PO SCH (08:37)
[2016-12-01] MEDS: MULTIVITAMIN (CENTRUM) TABLET PO SCH (08:37)
[2016-12-01] MEDS: DOCUSATE/SENNA 50-8.6 MG TABLET PO SCH (08:37)
[2016-12-01] MEDS: OXYBUTYNIN XL 15 MG TABLET PO SCH (08:37)
--- NOTE | 2016-12-01 09:38 | Cardiology Progress Note ---
Assessment and Plan (1) Syncope, near Status: Acute Assessment and plan: Patient admitted for further evaluation of shortness of breath, dizziness and tachycardia. Patient reports that he did not feel his heart racing or experience palpitations. His BP upon arrival to ER was boarderline low with SBP in the 90's. I will add orthostatic vital signs at this time. We will continue to monitor patient's rhythm via continuous tele monitor. If any further arrhythmia or tachycardia is suspected will consider discharging patient with event monitor. Echo and lower extremity dopplers are both pending. We will also order carotid ultrasound. Patient has presyncope which is multifactorial sounding by history. He does have what sounds like orthostasis but does note occasional palpitations with some concern related to whether this could be an arrhythmia. He is cachectic and the concern relates to whether he has some malignant process contributing. We will review 2D echocardiogram and continue observing his rhythm. I have discussed in detail the particulars of this case and I have examined the patient and reviewed the patient's chart both current and old. I was directly involved in the patient's evaluation and management and I completely agree with Mary Rodriguez RN regarding this patient's evaluation and treatment plan. 3/4: Patient had no more syncopal or presyncopal episodes. His rhythm has been relatively stable and he does not have evidence of orthostasis by a single check. We will continue this currently. Current Visit: Yes (2) Decreased appetite Status: Acute Assessment and plan: Patient has a long standing history of COPD and is a current everyday smoker. Dr. Erickson is working patient up for possible cancer. Will await results of chest CT and PFT's. Current Visit: Yes (3) Weight loss Status: Acute Assessment and plan: Patient has a long standing history of COPD and is a current everyday smoker. Dr. Erickson is working patient up for possible cancer. Will await results of chest CT and PFT's. Current Visit: Yes (4) COPD (chronic obstructive pulmonary disease) Status: Chronic Assessment and plan: Continue current plan of care. Current Visit: Yes (5) Tobacco abuse Status: Chronic Assessment and plan: Smoking cessation encouraged. Current Visit: Yes (6) GERD (gastroesophageal reflux disease) Status: Chronic Assessment and plan: This is clinically stable. Continue current plan of care. Current Visit: Yes (7) On home oxygen therapy Status: Chronic Current Visit: Yes Cardiology - PN: Subj Interval history: Patient is here for evaluation of presyncope. He has lost a lot of weight. He weighs 90 pounds and is 6 foot 2 inches tall. He has an abnormal CT of his chest suggesting a pleural-based nodule which is being evaluated. He also has significant GI symptoms and they are going to evaluate as well. His orthostatic vitals do not suggest any significantly dehydrated and his p.o. intake is improving a little. He is not having significant anginal chest pain he has had no syncope. His cardiac rhythm has been relatively stable. Exam (Progress Note) - Constitutional Vitals: Period Temp Pulse Resp BP Sys/Parada Pulse Ox Last 24 Hr 97.3 F-98.7 F 66-88 16-22 108-144/57-78 92-100 Exam: General:no acute distress. alert and oriented, mood and affect are normal. Cachectic HEENT: no new lesions, sclerae are clear, mouth and pharynx benign Neck: supple, trachea midline, no JVD noted Lungs: no rales ronchi or wheeze is noted. pt comfortable without accesory muscle use to assist with breathing CV: RRR no murmur rub or gallop is noted. Occasional extrasystole is noted. Abd: soft and nontender, BSNA, no masses. Ext: no cyanosis, clubbing or edema Neuro: grossly intact without focal neurologic deficit. Result/EKG - Labs CBC & BMP: 12/01/16 04:11 12/01/16 04:11 Labs: Laboratory Results - last 24 hr 11/30/16 11/30/16 12/01/16 13:38 18:09 04:11 WBC 8.5 RBC 3.85 Hgb 11.0 L Hct 34.2 L MCV 88.8 MCH 29 MCHC 32.2 RDW 13.2 Plt Count 219 D MPV 9.0 L Neut % (Auto) 75.5 H Lymph % (Auto) 16.5 L [place] % (Auto) 6.9 Eos % (Auto) 0.4 Baso % (Auto) 0.2 Neut # (Auto) 6.4 Lymph # (Auto) 1.4 [place] # (Auto) 0.6 Eos # (Auto) 0.0 Baso # (Auto) 0.0 Immature Gran % 0.5 Nucleated RBC % 0.0 Immature Gran # 0.04 Nucleated RBCs # 0.00 Sodium 144 Potassium 4.7 Chloride 103 Carbon Dioxide 30 Anion Gap 15.7 H BUN 14 Creatinine 0.80 GFR Calculation 79 BUN/Creatinine Ratio 17.00 Glucose 139 H Calculated Osmolality 288.8 Calcium 8.8 Total Bilirubin AST ALT Alkaline Phosphatase Total Creatine Kinase 34 L D CK-MB (CK-2) 2.8 Troponin I < 0.015 Total Protein Albumin Globulin Albumin/Globulin Ratio 12/01/16 04:11 WBC RBC Hgb Hct MCV MCH MCHC RDW Plt Count MPV Neut % (Auto) Lymph % (Auto) [place] % (Auto) Eos % (Auto) Baso % (Auto) Neut # (Auto) Lymph # (Auto) [place] # (Auto) Eos # (Auto) Baso # (Auto) Immature Gran % Nucleated RBC % Immature Gran # Nucleated RBCs # Sodium 145 Potassium 4.1 Chloride 103 Carbon Dioxide 32 Anion Gap 14.1 BUN 16 Creatinine 0.60 L GFR Calculation 91 BUN/Creatinine Ratio 26.00 H Glucose 85 Calculated Osmolality 287.7 Calcium 8.6 Total Bilirubin 0.40 AST 17 ALT 21 Alkaline Phosphatase 114 Total Creatine Kinase CK-MB (CK-2) Troponin I Total Protein 5.2 L Albumin 2.7 L Globulin 2.5 Albumin/Globulin Ratio 1.0 L
--- NOTE | 2016-12-01 10:54 | Hospitalist Progress Note ---
Assessment and Plan (1) COPD with exacerbation Status: Acute Assessment and plan: Point patient to respiratory status is stable we will continue the current management. Pulmonary is involved with his case Current Visit: Yes (2) Acute exacerbation of chronic obstructive pulmonary disease (COPD) Status: Acute Assessment and plan: As above Current Visit: No (3) Tobacco abuse Status: Chronic Assessment and plan: I have discussed with the patient at length regarding smoking. This fear that there may be a lung malignancy given the risk of his behavior. He states that he has a reduced amount of smoking but only part of the cigarette pack. There still remains an issue. I believe CT scan of the chest should be done. Current Visit: Yes (4) Arteriosclerosis Status: Acute Assessment and plan: Patient is noted to have some arterial sclerosis in the carotids. This is been noted by ultrasound. Radiologist recommending further evaluation. An MRA of the carotid and vertebral arteries will be done. She should be started on antiplatelet treatment Current Visit: Yes (5) Dysphagia Status: Acute Assessment and plan: Patient been consulted to speech therapy for further evaluation and treatment recommendations. My suspicion is the combination of some swallowing problems and dental decision may contribute to his weight loss. Gentleman has high risk of malignancy given his jail smoking Current Visit: Yes Hospitalist: Subjective Interval history: Patient has been seen interviewed and examined and chart has been reviewed; no new issues overnight. He is quite tired. Admitted to the hospital to failure to thrive has swallowing problems choking on food. He also has been found here to have arterial disease in the neck that needs to be evaluated further. Patient is has chronic obstructive pulmonary disease heavy smoker for many years will need to review his lungs with a CT scan to given the abnormal chest x -ray. Exam - Constitutional Vitals: Period Temp Pulse Resp BP Sys/Parada Pulse Ox Last 24 Hr 97.3 F-98.7 F 66-88 16-22 108-144/57-78 92-100 General appearance: under weight, other - Head Head exam: Present: normal inspection (Total calorie malnutrition), normocephalic, other (Temporal wasting) - Eye Eye exam: Present: EOMI Pupils: Present: ALEKSANDRA - ENT ENT exam: Present: normal oropharynx, other (Dental recession) - Respiratory Respiratory exam: Present: other (Diffuse adventitious crackles commensurate to chronic obstructive pulmonary disease) - Cardiovascular Cardiovascular exam: Present: regular rate and rhythm, other (No murmur no gallop) - GI/Abdominal GI/Abdominal exam: Present: normal bowel sounds, soft, other (No hepatosplenomegaly scaphoid abdomen) - Neurological Exam Neurological exam: Present: alert, oriented X3, CN II-XII intact - Psychiatric Psychiatric exam: Present: normal affect, normal mood - Skin Skin exam: Present: normal color, warm, dry Results - Labs CBC & BMP: 12/01/16 04:11 12/01/16 04:11 Lab Results: I have reviewed the past 24 hour labs
--- NOTE | 2016-12-01 12:09 | Magnetic Resonance Report ---
MR carotid arteries Indication: Atherosclerosis, near syncope Technique: 2-D [id number] imaging through the carotid arteries was performed without intravenous contrast.. Computer reformatting of the carotid arteries is generated. Findings: The carotid arteries are normal in caliber. No evidence of stenosis or vessel cutoff is seen. No filling defects are identified. Vertebral arteries appear within normal limits. No evidence of vascular malformation or aneurysm is seen. Impression: No evidence of carotid stenosis or other abnormality demonstrated. PROCEDURE INTERPRETED AT [facility] DEPARTMENT OF RADIOLOGY Final Report Signed by: Dr. Colton Navraro
[2016-12-02] MEDS: ALBUTEROL/IPRATROPIUM 3 ML NEB RESP TX SCH ×5 (00:52→23:53)
[2016-12-02 04:07] LABS: Basophils % 0.3 % (0.0-0.8); Eosinophils # 0.1 10*3/uL (0.0-0.87); Eosinophils % 0.9 % (0.00-10.9); Hematocrit 33.8 VOL% (42.0-52.0); Hemoglobin 10.5 GM/DL (14.0-18.0); Immature Granulocytes % 0.3 %; Immature Granulocytes Absolute 0.02 #; Lymphocytes # 0.9 10*3/uL (1.4-4.0); Lymphocytes % 13.1 % (21.2-54.2); Mean Corpuscular HGB Conc 31.1 GM/DL (32-36); Mean Corpuscular Hemoglobin 28 PG (27-34); Mean Corpuscular Volume 90.1 FL (87-102); Mean Platelet Volume 9.1 FL (9.6-12.0); Monocytes # 0.4 10*3/uL (0.11-0.8); Neutrophils # 5.5 10*3/uL (1.4-7.4); Neutrophils % 79.4 % (38.7-73.9); Platelet Count 190 T/CUMM (130-400); Red Blood Count 3.75 MC/CUMM (3.8-5.5); Red Cell Distribution Width 13.2 % (9.3-17.3)
[2016-12-02 04:34] LABS: Alanine Aminotransferase 24 U/L (16-61); Albumin 2.7 G/DL (3.4-5.0); Alkaline Phosphatase 104 U/L (45-117); Aspartate Amino Transferase 19 U/L (0-37); Bilirubin,Total < 0.39 MG/DL (0.2-1.0); Blood Urea Nitrogen 14 MG/DL (7-18); Calcium 8.4 MG/DL (8.5-10.1); Glucose 90 MG/DL (74-106); Osmolality,Calculated 290.6 MOS/KG (273-304); Potassium 4.2 MMOL/L (3.5-5.1); Sodium 146 MMOL/L (136-145)
[2016-12-02] MEDS: SODIUM CHLORIDE 0.45% 1,000 ML IV SCH ×3 (04:51→17:46)
[2016-12-02] MEDS: DOCUSATE/SENNA 50-8.6 MG TABLET PO SCH (08:02)
[2016-12-02] MEDS: PANTOPRAZOLE 40 MG TABLET PO SCH (08:02)
[2016-12-02] MEDS: SERTRALINE 100 MG TABLET PO SCH ×2 (08:02→20:55)
[2016-12-02] MEDS: OXYBUTYNIN XL 15 MG TABLET PO SCH (08:02)
[2016-12-02] MEDS: MULTIVITAMIN (CENTRUM) TABLET PO SCH (08:02)
--- NOTE | 2016-12-02 09:11 | Cardiology Progress Note ---
Assessment and Plan (1) Syncope, near Status: Acute Assessment and plan: Patient admitted for further evaluation of shortness of breath, dizziness and tachycardia. Patient reports that he did not feel his heart racing or experience palpitations. His BP upon arrival to ER was boarderline low with SBP in the 90's. I will add orthostatic vital signs at this time. We will continue to monitor patient's rhythm via continuous tele monitor. If any further arrhythmia or tachycardia is suspected will consider discharging patient with event monitor. Echo and lower extremity dopplers are both pending. We will also order carotid ultrasound. Patient has presyncope which is multifactorial sounding by history. He does have what sounds like orthostasis but does note occasional palpitations with some concern related to whether this could be an arrhythmia. He is cachectic and the concern relates to whether he has some malignant process contributing. We will review 2D echocardiogram and continue observing his rhythm. I have discussed in detail the particulars of this case and I have examined the patient and reviewed the patient's chart both current and old. I was directly involved in the patient's evaluation and management and I completely agree with Mary Rodriguez RN regarding this patient's evaluation and treatment plan. 3: Patient had no more syncopal or presyncopal episodes. His rhythm has been relatively stable and he does not have evidence of orthostasis by a single check. We will continue this currently. 12/02: He has had no rhythm issues and our plan is going to be to continue following. Current Visit: Yes (2) Decreased appetite Status: Acute Assessment and plan: Patient has a long standing history of COPD and is a current everyday smoker. Dr. Erickson is working patient up for possible cancer. Will await results of chest CT and PFT's. Current Visit: Yes (3) Weight loss Status: Acute Assessment and plan: Patient has a long standing history of COPD and is a current everyday smoker. Dr. Erickson is working patient up for possible cancer. Will await results of chest CT and PFT's. 12/02: He is undergoing evaluation for his weight loss by GI Current Visit: Yes (4) COPD (chronic obstructive pulmonary disease) Status: Chronic Assessment and plan: Continue current plan of care. Current Visit: Yes (5) Tobacco abuse Status: Chronic Assessment and plan: Smoking cessation encouraged. Current Visit: Yes (6) GERD (gastroesophageal reflux disease) Status: Chronic Assessment and plan: This is clinically stable. Continue current plan of care. Current Visit: Yes (7) On home oxygen therapy Status: Chronic Current Visit: Yes Cardiology - PN: Subj Interval history: Mr. Milner is eating fairly well. He has not had significant problems with nausea or vomiting. His MR scan of his neck did not show evidence of occlusive carotid disease. He is overall stable his rhythm has been stable and I do not have a good explanation for his presyncopal episodes. He has lost a tremendous amount of weight and this is being evaluated. Exam (Progress Note) - Constitutional Vitals: Period Temp Pulse Resp BP Sys/Parada Pulse Ox Last 24 Hr 97.0 F-98.1 F 69-108 15-24 115-140/46-80 91-99 Exam: General:no acute distress. alert and oriented, mood and affect are normal. Cachectic HEENT: no new lesions, sclerae are clear, mouth and pharynx benign Neck: supple, trachea midline, no JVD noted Lungs: no rales ronchi or wheeze is noted. pt comfortable without accesory muscle use to assist with breathing CV: RRR no murmur rub or gallop is noted. Occasional extrasystole is noted. Abd: soft and nontender, BSNA, no masses. Ext: no cyanosis, clubbing or edema Neuro: grossly intact without focal neurologic deficit. Result/EKG - Labs CBC & BMP: 12/02/16 03:44 12/02/16 03:44 Labs: Laboratory Results - last 24 hr 12/02/16 12/02/16 03:44 03:44 WBC 7.0 RBC 3.75 L Hgb 10.5 L Hct 33.8 L MCV 90.1 MCH 28 MCHC 31.1 L RDW 13.2 Plt Count 190 MPV 9.1 L Neut % (Auto) 79.4 H Lymph % (Auto) 13.1 L Edmunds % (Auto) 6.0 Eos % (Auto) 0.9 Baso % (Auto) 0.3 Neut # (Auto) 5.5 Lymph # (Auto) 0.9 L Edmunds # (Auto) 0.4 Eos # (Auto) 0.1 Baso # (Auto) 0.0 Immature Gran % 0.3 Nucleated RBC % 0.0 Immature Gran # 0.02 Nucleated RBCs # 0.00 Sodium 146 H Potassium 4.2 Chloride 104 Carbon Dioxide 34 H Anion Gap 12.2 BUN 14 Creatinine 0.60 L GFR Calculation 89 BUN/Creatinine Ratio 23.00 H Glucose 90 Calculated Osmolality 290.6 Calcium 8.4 L Total Bilirubin < 0.39 AST 19 ALT 24 Alkaline Phosphatase 104 Total Protein 5.0 L Albumin 2.7 L Globulin 2.3 Albumin/Globulin Ratio 1.1
--- NOTE | 2016-12-02 14:34 | Hospitalist Progress Note ---
Assessment and Plan (1) COPD with exacerbation Status: Acute Assessment and plan: Point patient to respiratory status is stable we will continue the current management. Pulmonary is involved with his case Current Visit: Yes (2) Acute exacerbation of chronic obstructive pulmonary disease (COPD) Status: Acute Assessment and plan: As above Current Visit: No (3) Tobacco abuse Status: Chronic Assessment and plan: I have discussed with the patient at length regarding smoking. This fear that there may be a lung malignancy given the risk of his behavior. He states that he has a reduced amount of smoking but only part of the cigarette pack. There still remains an issue. I believe CT scan of the chest should be done. Current Visit: Yes (4) Arteriosclerosis Status: Acute Assessment and plan: Patient is noted to have some arterial sclerosis in the carotids. This is been noted by ultrasound. Radiologist recommending further evaluation. An MRA of the carotid and vertebral arteries will be done. She should be started on antiplatelet treatment Current Visit: Yes (5) Dysphagia Status: Acute Assessment and plan: Patient been consulted to speech therapy for further evaluation and treatment recommendations. My suspicion is the combination of some swallowing problems and dental decision may contribute to his weight loss. Gentleman has high risk of malignancy given his residential smoking Current Visit: Yes Hospitalist: Subjective Interval history: Patient has been seen interviewed and examined and chart has been reviewed. Admitted to the hospital breathing problems a syncopal episode. Patient has a significant weight loss abnormal chest x-rays with a significant fibrosis. He also has been having problems swallowing and that has been choking on food. At this point I am consulting speech therapy to evaluate his swallow. There is strong suspicion that there may be some occult malignancy involved with his general condition. That is being worked up Exam - Constitutional Vitals: Period Temp Pulse Resp BP Sys/Parada Pulse Ox Last 24 Hr 97.0 F-98.1 F 63-108 15-24 115-140/46-80 91-99 General appearance: under weight - Head Head exam: Present: other - Eye Eye exam: Present: EOMI (Temporal wasting) Pupils: Present: ALEKSANDRA - Neck Neck exam: Present: other (Supple midline trachea no thyromegaly) - Respiratory Respiratory exam: Present: clear to auscultation bilaterally - Cardiovascular Cardiovascular exam: Present: regular rate and rhythm - GI/Abdominal GI/Abdominal exam: Present: normal bowel sounds, soft (Scaphoid abdomen no organomegaly) - Extremities Exam Extremities exam: Present: full ROM, other (Significant muscle loss) - Neurological Exam Neurological exam: Present: alert, oriented X3, CN II-XII intact - Psychiatric Psychiatric exam: Present: normal affect - Skin Skin exam: Present: normal color Results - Labs CBC & BMP: 12/02/16 03:44 12/02/16 03:44
[2016-12-03] MEDS: ALBUTEROL/IPRATROPIUM 3 ML NEB RESP TX SCH ×4 (07:05→23:49)
[2016-12-03] MEDS: SODIUM CHLORIDE 0.45% 1,000 ML IV SCH ×2 (08:38→21:08)
--- NOTE | 2016-12-03 09:23 | Pulmonology Consult Note ---
Assessment and Plan (1) Pulmonary nodule Status: Acute Assessment and plan: This appears unchanged to me. This is the nodule in the left upper lobe that is subpleural and adjacent to an area of atelectatic scarring. I have reviewed CT for 3 years in the office. Some of them have been done at [place]. At the present time I would not evaluate this any further. He is certainly not a candidate for surgery if it were malignant which I do not think it is. Current Visit: Yes (2) COPD with exacerbation Status: Acute Assessment and plan: Agree with bronchodilators and empiric antibiotics. Current Visit: Yes (3) Chronic respiratory failure Status: Acute Assessment and plan: Has elevated PCO2 on room air at rest. He is chronically on nasal oxygen. Current Visit: Yes (4) On home oxygen therapy Status: Chronic Assessment and plan: Continue oxygen at home. Current Visit: Yes (5) Tobacco abuse Status: Chronic Assessment and plan: He has been strongly advised to discontinue smoking on numerous times. He tells me now that I talked him into stopping smoking and that it is almost killed him. Current Visit: Yes History of Present Illness Chief complaint: Near-syncope, dysphagia History of present illness: Mr. Bianchi is a 76 year old male newly had a blackout spell last week and came to the hospital. He has been evaluated here and treated for an exacerbation of COPD as well as cardiac rhythm problems. He had a CT scan done of his chest showing a pleural-based nodule in the left mid upper lung field. I have been following him for this nodule for 3 years. He has had CTs done at [place]. There has been no change in this nodule over this time. Looking back at the 2014 CT here and taking direct measurements I see no real change in it. He has a lot of bullous disease chronic cavitary disease and bronchiectasis that has not changed over 3 years as well. Finally got him to stop smoking a couple months ago or at least he tells me that he has. Certainly he is at increased risk for lung cancer. He has very severe COPD with an FEV1 about 25% of predicted and would not be able to tolerate surgery if that were indicated. I would favor just following this and treating him for his COPD. I will continue to follow him in the office as before. Home Medications Medication Instructions Recorded Confirmed Type Albuterol/Ipratropium Neb [Duoneb] 3 ml RESP TX RT Q8H 01/19/17 03/03/17 History Multivits-Minerals/FA/Lycopene 1 each PO QAM 10/18/16 11/30/16 History [One Daily For Men Tablet] Oxybutynin Chloride [Oxybutynin 15 mg PO QAM 10/18/16 11/30/16 History Chloride ER] Sertraline [Zoloft] 100 mg PO BID 10/18/16 11/30/16 History Tiotropium Inhalation [Spiriva 18 mcg INH QAM 10/18/16 11/30/16 History Handihaler] Albuterol Inhaler [Proventil 2 puff INH Q4HR PRN #1 inhaler 10/22/16 11/30/16 Rx Inhaler] HYDROcodone/ACETAMIN 5-325 [[place] 1 tablet PO Q12H PRN #30 tablet 10/22/1611/30 Rx 5-325] Docusate/Senna 50-8.6 [Senokot S] 2 tablet PO QAM 11/29/16 11/30/16 History Ergocalciferol [Drisdol] 50,000 unit PO FR 11/29/16 11/30/16 History Pantoprazole Tab [Protonix Tab] 40 mg PO QAM 11/29/16 11/30/16 History guaiFENesin/DM ER 600-30 [Mucinex 1 tablet PO BID PRN 11/30/16 11/30/16 History Dm 600-30 MG] Allergies Allergy/AdvReac Type Severity Reaction Status Date / Time levofloxacin [From Levaquin] Allergy RASH Verified 10/19/16 10:01 simvastatin [From Zocor] Allergy Unknown/Unable Verified 10/18/16 11:15 to obtain 12 point system: reviewed and no additional remarkable complaints except as stated - Constitutional Constitutional: Present: fatigue - EENT Nose, mouth and throat: Present: dysphagia - Cardiovascular Cardiovascular: Present: dyspnea, dyspnea on exertion - Respiratory Respiratory: Present: cough, dyspnea, dyspnea on exertion, wheezing - Gastrointestinal Gastrointestinal: Present: dysphagia Exam (Pulmonay) H&P - Constitutional Vitals: Period Temp Pulse Resp BP Sys/Parada Pulse Ox Last 24 Hr 97.3 F-99.0 F 63-93 16-20 88-135/49-69 94-100 Exam: Patient is alert and oriented. Vital signs are normal. Pupils react to light. Throat is clear. Chest reveals some expiratory rhonchi but is not tight. Heart normal rate and rhythm no murmurs. Abdomen soft no masses. Extremities no clubbing cyanosis edema. Calves nontender. Medical,Surgical,& Family Hx - Medical History Cardio: History of: Aneurysm (Abdominal Aortic Aneurysm), CAD (has had previous myocardial infarction), CT Psychological: History of: Depression HEENT: History of: Ear Problem (hearing loss) Respiratory: History of: COPD, Respiratory Problems (Home oxygen) Genitourinary: History of: Bladder Problem (incontinence. ), Prostate Problems ( hx of prostate ca) Gastrointestinal: History of: GERD, Polyps (removed) Musculoskeletal: History of: Back/Neck Problems, Musculoskeletal Problems ( arthritis) Hematology: History of: Anemia Reproductive: Reports: Reproductive Cancer (prostate ca) - Surgical History Abdominal Surgeries: Surgical HX of: Colonoscopy Reproductive Surgeries: Surgical HX of;: Prostate Surgery - Family History Family History: Reports;: Family Cancer (prostate CA- brother, breast CA- mother ), Family Heart Disease (sister), Family Hypertension (mother) - Social History Smoking Status: Current every day smoker Frequency of Alcohol Use: None Type of Drug Use: None Results - Labs CBC & BMP: 12/02/16 03:44 12/02/16 03:44 Lab Results: I have reviewed the past 24 hour labs - Diagnostic Findings Procedure: Chest x-ray: image reviewed by me (Bilateral bullous emphysema with cavitary disease in the right upper lobe and a peripheral nodule in the left mid upper lung field. This is unchanged from previous films.), CT - chest: image reviewed by me (The 1.9 cm nodule that is mentioned in the CT is subpleural and unchanged in 3 years. Of course he does have cavitary disease in the right upper lobe, bullous emphysema, marked hyperinflation. There is also some nonspecific scarring.)
[2016-12-03] MEDS ORDERED: LIDOCAINE 2% 5 ML VIAL ONE (11:10)
[2016-12-03] MEDS ORDERED: PROPOFOL 200 MG/20 ML VIAL IV ONE (11:10)
--- NOTE | 2016-12-03 11:26 | History and Physical Update ---
History and Physical Update - Physical Exam Mental Status: alert and oriented Heart: regular rate and rhythm Lung: clear to auscultation Abdomen: within normal limits Vitals: within normal limits
--- NOTE | 2016-12-03 11:28 | Operative Note ---
Date of procedure: 12/03/16 Pre-op diagnosis: dysphagia and weight loss Procedure: EGD with esophageal dilatation 76-year-old gentleman with weight loss dysphagia now for upper endoscopy to further evaluate. Informed consent was obtained from the patient. He was sedated with Mac anesthesia per anesthesia protocol. Patient was placed in left lateral decubitus position the Olympus flexible video upper endoscope was inserted into the oral cavity under direct vision the esophagus was intubated. Findings: Esophagus-diffuse exudative esophagitis consistent with julissa. Distal esophagus with esophageal stricture and moderate hiatal hernia. No obvious mass lesions were seen limited visibility due to exudate. Stomach-normal insufflation normal mucosa to direct retroflex views of the body , fundus, cardia antral stomach. Pylorus-normal Duodenum-normal the bulb the duodenum to the third portion of the duodenum. The scope was removed and subsequently a 54 Romansh bougie was passed difficulty. Patient was discharge recovery in good condition. Postop diagnosis: #1 exudative esophagitis suggestive of Julissa-[Diflucan. Check HIV status. #2 esophageal stricture-repeat dilatation on an as-needed basis #3 gastroesophageal reflux disease continue PPI treatment. Anesthesia: MAC Surgeon / Physician: Kirit Cespedes Estimated blood loss: none Specimens: none sent Condition: stable Disposition: post procedure unit Results - Labs CBC & BMP: 12/02/16 03:44 12/02/16 03:44 Discharge Plan - Discharge Medications No Action Tiotropium Inhalation [Spiriva Handihaler] 18 mcg INH QAM Sertraline [Zoloft] 100 mg PO BID Oxybutynin Chloride [Oxybutynin Chloride ER] 15 mg PO QAM Multivits-Minerals/FA/Lycopene [One Daily For Men Tablet] 1 each PO QAM Pantoprazole Tab [Protonix Tab] 40 mg PO QAM Docusate/Senna 50-8.6 [Senokot S] 2 tablet PO QAM guaiFENesin/DM ER 600-30 [Mucinex Dm 600-30 MG] 1 tablet PO BID PRN PRN Reason: Congestion Albuterol/Ipratropium Neb [Duoneb] 3 ml RESP TX RT Q8H Albuterol Inhaler [Proventil Inhaler] 2 puff INH Q4HR PRN #1 inhaler PRN Reason: Wheezing HYDROcodone/ACETAMIN 5-325 [Ke[place] 5-325] 1 tablet PO Q12H PRN #30 tablet PRN Reason: Pain Moderate To Severe (4-10) Ergocalciferol [Drisdol] 50,000 unit PO FR - Follow Up or Referral - Forms/Instructions
--- NOTE | 2016-12-03 11:34 | Anesthesia ---
Anesthesia Post OP - Post Ansesthetic Evaluation Patient seen in post op: Yes Resp: within normal limits CV: within normal limits Mental: within normal limits Temp: within normal limits [id number]: within normal limits Nausea and Vomiting: within normal limits Pain: within normal limits
[2016-12-03] MEDS: SERTRALINE 100 MG TABLET PO SCH ×2 (12:26→21:06)
[2016-12-03] MEDS: MULTIVITAMIN (CENTRUM) TABLET PO SCH (12:26)
[2016-12-03] MEDS: DOCUSATE/SENNA 50-8.6 MG TABLET PO SCH (12:26)
[2016-12-03] MEDS: PANTOPRAZOLE 40 MG TABLET PO SCH (12:26)
[2016-12-03] MEDS: OXYBUTYNIN XL 15 MG TABLET PO SCH (12:26)
[2016-12-03] MEDS: FLUCONAZOLE INJ 100 MG in IV BAG 1 EACH IV SCH (12:27)
[2016-12-03 13:32] LABS: HIV Antigen/Antibody Result Nonreactive (Nonreactive)
--- NOTE | 2016-12-03 13:49 | Hospitalist Progress Note ---
Assessment and Plan (1) COPD (chronic obstructive pulmonary disease) Status: Chronic Assessment and plan: 1)COPD- well compensated. continue meds. 2)pulmonary nodule- stable, v unlikely malignant per DR Foote fdc monitoring. 3)dysphagia- candidal esophagitis- on diflucan now. 4)h/o prostate cancer years ago without follow up- check PSA 5)carotid disease 6)malnutrition- may swallow better after tavo treated. Current Visit: Yes (2) Tobacco abuse Status: Chronic Current Visit: Yes (3) Weight loss Status: Acute Current Visit: Yes (4) Malnutrition Status: Acute Current Visit: Yes (5) Palpitations Status: Acute Current Visit: Yes (6) Syncope, near Status: Acute Current Visit: Yes (7) Decreased appetite Status: Acute Current Visit: Yes (8) GERD (gastroesophageal reflux disease) Status: Chronic Current Visit: Yes (9) On home oxygen therapy Status: Chronic Current Visit: Yes (10) Dysphagia Status: Acute Current Visit: Yes (11) Pulmonary nodule Status: Chronic Current Visit: Yes Hospitalist: Subjective Interval history: Mr Bianchi is feeling well after his EGD. He will be started on Diflucan. He denies shortness of breath. He thinks he will be able to go home soon. Exam - Constitutional Vitals: Period Temp Pulse Resp BP Sys/Parada Pulse Ox Last 24 Hr 96.2 F-99.0 F 70-94 16-23 88-133/49-69 94-100 General appearance: no acute distress, under weight - Head Head exam: Present: normocephalic, atraumatic - Eye Eye exam: Present: EOMI. Absent: scleral icterus - Respiratory Respiratory exam: Present: decreased breath sounds - Cardiovascular Cardiovascular exam: Present: regular rate and rhythm - GI/Abdominal GI/Abdominal exam: Present: normal bowel sounds, soft. Absent: tenderness - Extremities Exam Extremities exam: Absent: edema - Neurological Exam Neurological exam: Present: alert, oriented X3 - Skin Skin exam: Present: warm, dry Results - Labs CBC & BMP: 12/02/16 03:44 12/02/16 03:44 Lab Results: I have reviewed the past 24 hour labs
--- NOTE | 2016-12-03 15:09 | Cardiology Progress Note ---
Michael Garcia Rachel, RN, am scribing for, and in the presence of, Coy Diaz MD 15:08. Assessment and Plan (1) Syncope, near Status: Acute Current Visit: Yes (2) Decreased appetite Status: Acute Current Visit: Yes (3) Weight loss Status: Acute Assessment and plan: Current Visit: Yes (4) COPD (chronic obstructive pulmonary disease) Status: Chronic Current Visit: Yes (5) Tobacco abuse Status: Chronic Current Visit: Yes (6) GERD (gastroesophageal reflux disease) Status: Chronic Current Visit: Yes (7) On home oxygen therapy Status: Chronic Current Visit: Yes (8) Dysphagia Status: Acute Current Visit: Yes (9) Pulmonary nodule Status: Chronic Current Visit: Yes Cardiology - PN: Subj Interval history: Mr. Bianchi is a 76 year old male without known coronary artery disease, not routinely followed by a local [facility]. His primary care provider is Dr. Susu Lemus at [facility]. He presented to the ER yesterday for further evaluation of tachycardia, shortness of breath and dizziness. He has risk factors significant for advanced age, current everyday smoker and sedentary lifestyle. He has a past medical history of GERD, depression and COPD (patient uses home oxygen). He denies any significant family history of heart disease. He has never had a cardiac catheterization or cardiac stress test. Patient was admitted for COPD exacerbation and cardiology was consulted for near syncope. Venous Dopplers of the lower extremities has ruled out pulmonary embolism. Carotid ultrasound revealed less than 50% stenosis in both internal carotid arteries. Neck MRA revealed no evidence of carotid stenosis or other abnormality. clinical research monitor has not revealed any overt arrhythmias or ectopy since admission. PFTs have been done this admission. Patient was seen and examined on telemetry. He did well overnight and is without any arrhythmias this morning. He is currently resting in bed in no acute distress, not requiring oxygen. clinical research monitor was reviewed and no overt arrhythmias or ectopy was noted. Sinus rhythm with heart rates in the 80s was noted. GI has been consulted for dysphagia and weight loss. He is to go for EGD this morning. Pulmonary is also following after lung nodule was noted on CT chest. Pulmonary feels that the nodule is unchanged over the past 3 years. He is not a candidate for surgery and pulmonary does not feel that he needs any further workup of this at this time. Patient denies chest discomfort, heaviness or tightness. He also denies shortness of breath, palpitations and dizziness. He tells me that he has been up ambulating around the room and has done well with that. Orthostatic vital signs have been reviewed. Supine BP of 122/56 is noted and 88/49 when standing. He is overall stable his rhythm has been stable and I do not have a good explanation for his presyncopal episodes. He has lost a tremendous amount of weight and this is being evaluated. No labs for review today. Assessment/Plan: Near syncope COPD exacerbation Current everyday smoker Pulmonary nodule weight loss Decreased appetite GERD dysphagia on home oxygen therapy Chart reviewed, patient examined, and discussed with nurse Mary. Plan EGD today. Patient has history of recurrent esophageal stricture with loss of appetite and difficulty swallowing. Telemetry shows steady sinus rhythm today. Echo shows ejection fraction of 60% with normal left atrial size, aortic valve sclerosis, normal RV function, moderate TR PA pressure 50 and no effusion. Exam (Progress Note) - Constitutional Vitals: Period Temp Pulse Resp BP Sys/Parada Pulse Ox Last 24 Hr 97.3 F-99.0 F 63-93 16-20 88-135/49-69 94-100 - Other Additional findings: General:no acute distress. alert and oriented, mood and affect are normal. Cachectic HEENT: no new lesions, sclerae are clear, mouth and pharynx benign Neck: supple, trachea midline, no JVD noted Lungs: no rales ronchi or wheeze is noted. pt comfortable without accesory muscle use to assist with breathing CV: RRR no murmur rub or gallop is noted. Occasional extrasystole is noted. Abd: soft and nontender, BSNA, no masses. Ext: no cyanosis, clubbing or edema Neuro: grossly intact without focal neurologic deficit. Result/EKG - Labs CBC & BMP: 12/02/16 03:44 12/02/16 03:44 Lab Results: I have reviewed the past 24 hour labs Labs: Laboratory Results - last 24 hr 12/03/16 12/03/16 11:29 Unknown PSA Diagnostic 0.1 HIV 1&2 Antigen & Ab Nonreactive - EKG EKG results: interpreted by me, sinus rhythm I, Coy Diaz MD, personally performed the services described in this documentation, ascribed by Mary Rodriguez RN in my presence, and it is both accurate and complete 508 .
--- NOTE | 2016-12-03 16:26 | Physician Query Form ---
CLICK EDIT DOCUMENT TO SELECT QUERY ANSWER --> OK --> SIGN Lashell Tinsley RN Clinical Spinning Bath Patroller W) [phone] (f) [phone] [email or web address]: Make your selection(s) from the choices in EACH section by typing an "x" and enter comments in the comment section. Please use your independent medical judgment in providing your response. This request does not imply that any particular answer is desired or expected. CLINICAL INDICATORS: (Providers should not edit this section) Height: 6ft 1in Weight: 99lbs Airline Managerial Supervisor BMI: 13.4 Nutritional supplements: Enlive with all meals Historic Clothing And Costume Maker notes: Loss of body fat, loss of muscle mass Other clinical notes: malnutrition Based on the above, which following choice most accurately represents the patient's nutritional status? ( ) Malnutrition ( ) mild ( ) moderate (x ) severe ( ) Protein calorie malnutrition ( ) mild ( ) moderate ( ) severe ( ) Emaciation due to malnutrition ( ) Nutritional marasmus ( ) Cachexia ( ) Underweight ( ) No nutritional deficiency ( ) Other, please specify: ( ) Clinically unable to determine Mild Malnutrition (BMI < 18.5, % Normal Body Weight 85-95%) Moderate Malnutrition (BMI < 17, % Normal Body Weight 75-85%) Severe Malnutrition (BMI < 16, % Normal Body Weight < 75%) Source: [place] COMMENTS: Use of terms such as suspected, likely, or probable (associated with a specific diagnosis that is being evaluated, monitored, or treated as if it exists) are acceptable and can be restated in the discharge summary if not ruled out. MTDD
[2016-12-04] MEDS: ALBUTEROL/IPRATROPIUM 3 ML NEB RESP TX SCH (07:38)
--- NOTE | 2016-12-04 08:31 | Gastrointestinal Progress Note ---
<FreddybillyreenaNara Matt - Last Filed: 12/04/16 08:27> Assessment and Plan (1) Dysphagia Status: Acute Assessment and plan: 12/04-EGD findings noted, swallowing improved. Continue PPI and Diflucan. Plan and addendum to follow by DR Cespedes. 11/30-14 pd weight loss over past several months with solids, pills and liquids. Hx of endoscopy in the past with no recollection of dilation. Obtain records from [facility] and [facility] for prior endoscopy. Plan and addendum to follow by Dr Cespedes. Gastroenterology - PN: Subj Interval history: CC: Dysphagia Pt is seen, eating breakfast. He states he is feeling better today and his swallowing has improved. Discussed EGD findings with him including the finding of tavo. His HIV was negative. Abdomen is soft, nontender. He denies any pain , nausea or vomiting. His records are noted from [facility]. He had colonoscopy in 2014 with polyp pathology noted to be tubular adenoma, hyperplastic polyp. ROS: Denies SOB or chest pain Exam (Progress Note) - Constitutional Vitals: Period Temp Pulse Resp BP Sys/Parada Pulse Ox Last 24 Hr 96.2 F-98.3 F 70-94 18-23 88-135/49-69 90-98 General appearance: no acute distress, under weight - Head Head exam: Present: normal inspection, normocephalic - Eye Eye exam: Present: other (lids and conjunctiva unremarkable). Absent: scleral icterus - ENT ENT exam: Present: normal exam, normal oropharynx - Neck Neck exam: Present: normal inspection - Respiratory Respiratory exam: Present: clear to auscultation bilaterally. Absent: rales, rhonchi, wheezes - Cardiovascular Cardiovascular exam: Present: regular rate and rhythm. Absent: diastolic murmur , JVD, systolic murmur - GI/Abdominal GI/Abdominal exam: Present: normal bowel sounds, soft. Absent: ascites, distended, mass, organomegaly, tenderness - Extremities Exam Extremities exam: Present: normal inspection, full ROM - Back Exam Back exam: Present: normal inspection - Neurological Exam Neurological exam: Present: alert, oriented X3 - Psychiatric Psychiatric exam: Present: normal affect, normal mood - Skin Skin exam: Present: normal color, warm, dry Results - Labs CBC & BMP: 12/02/16 03:44 12/02/16 03:44 Lab Results: I have reviewed the past 24 hour labs Specialty Discharge - Follow Up or Referrals Follow up with: Dr Allan ROMANO [Other] - 1 Week Cardiology - [facility] [Provider Group] - 12/11/16 3:30 pm (1 week ) Will Foote MD [Physician] - 01/01/17 1:30 pm <Kirit Cespedes - Last Filed: 12/04/16 17:24> Exam (Progress Note) - Constitutional Vitals: Period Temp Pulse Resp BP Sys/Parada Pulse Ox Last 24 Hr 96.6 F-98.2 F 74-92 17-20 94-135/60-85 90-98 Results - Labs CBC & BMP: 12/02/16 03:44 12/02/16 03:44
--- NOTE | 2016-12-04 08:34 | Pulmonology Progress Note ---
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 He has a nodule on the left lung that we followed for years and is really unchanged. He is in with dysphagia and had his esophagus dilated yesterday. He was also found to have esophageal candidiasis. He is about at his baseline as far as his lungs are concerned. He can be discharged when ready from GI standpoint. Exam (Progress Note) - Constitutional Vitals: Period Temp Pulse Resp BP Sys/Parada Pulse Ox Last 24 Hr 96.2 F-98.3 F 70-94 18-23 88-135/49-69 90-98 Exam: Patient's alert oriented vital signs normal. Pupils react to light. Throat is clear. Neck supple no bruits. Chest shows some mild expiratory wheezes in the bases posteriorly. Heart normal rate rhythm no murmurs. Abdomen soft nontender no masses. Extremities no clubbing cyanosis edema. Calves nontender. Results - Labs CBC & BMP: 12/02/16 03:44 12/02/16 03:44 Lab Results: I have reviewed the past 24 hour labs Assessment and Plan (1) Pulmonary nodule Status: Chronic Assessment and plan: This appears unchanged to me. This is the nodule in the left upper lobe that is subpleural and adjacent to an area of atelectatic scarring. I have reviewed CT for 3 years in the office. Some of them have been done at [facility]. At the present time I would not evaluate this any further. He is certainly not a candidate for surgery if it were malignant which I do not think it is. 12/04/2016 I will continue to follow in the office. Current Visit: Yes (2) COPD with exacerbation Status: Acute Assessment and plan: Agree with bronchodilators and empiric antibiotics. 12/04/2016 bronchodilators. He does not need treatment for exacerbation. Current Visit: Yes (3) Chronic respiratory failure Status: Acute Assessment and plan: Has elevated PCO2 on room air at rest. He is chronically on nasal oxygen. 12/04/2016 low flow oxygen. Current Visit: Yes (4) On home oxygen therapy Status: Chronic Assessment and plan: Continue oxygen at home. Current Visit: Yes (5) Tobacco abuse Status: Chronic Assessment and plan: He has been strongly advised to discontinue smoking on numerous times. He tells me now that I talked him into stopping smoking and that it has almost killed him. 12/04/2016 he relates that he has recently stopped smoking. Current Visit: Yes
[2016-12-04] MEDS: SERTRALINE 100 MG TABLET PO SCH (08:37)
[2016-12-04] MEDS: OXYBUTYNIN XL 15 MG TABLET PO SCH (08:37)
[2016-12-04] MEDS: PANTOPRAZOLE 40 MG TABLET PO SCH (08:37)
[2016-12-04] MEDS: MULTIVITAMIN (CENTRUM) TABLET PO SCH (08:37)
[2016-12-04] MEDS: DOCUSATE/SENNA 50-8.6 MG TABLET PO SCH (08:37)
[2016-12-04] MEDS: SODIUM CHLORIDE 0.45% 1,000 ML IV SCH (08:40)
--- NOTE | 2016-12-04 11:22 | Discharge Summary ---
Hospital Course - Hospital Course Hospital Course: Mr Bianchi presented with near syncope and sinus tachycardia. He ruled out for NE. His sinus tach resolved. It was noted that he has been losing weight because he has trouble swallowing. The EGD by Dr Cespedes showed esophageal candidiasis and he has started treatment with diflucan. He has had some BP drop with standing, but no increase in heart rate and no dizziness here. His telemetry monitoring has been unremarkable. He was seen by Dr Foote who sees him routinely in clinic and was able to review his CT and determine the NORA pulmonary nodule has not changed and he feels it is unlikely to be malignant. In any case, he would not be able to tolerate surgery due to his severe chronic lung disease. He will complete treatment for esophagitis with oral diflucan and follow up with an event monitor and cardiology referral at discharge to rule out arrhythmia as cause of the event that led to admission. He will see his PCP who has been evaluating him for weight loss at the [facility] this week. Diagnosis - Discharge Diagnosis (1) COPD (chronic obstructive pulmonary disease) Status: Chronic (2) Tobacco abuse Status: Chronic (3) Weight loss Status: Chronic (4) Malnutrition Status: Chronic (5) Palpitations Status: Ruled-out (6) Syncope, near Status: Acute (7) Decreased appetite Status: Resolved (8) GERD (gastroesophageal reflux disease) Status: Chronic (9) On home oxygen therapy Status: Chronic (10) Dysphagia Status: Chronic (11) Pulmonary nodule Status: Chronic (12) Esophageal candidiasis Status: Acute Specialty Discharge - Follow Up or Referrals Follow up with: Will Foote MD [Physician] - 1 Month [place], [address] Lemus [Other] - 1 Week Cardiology - [facility] [Provider Group] (1 week ) - Speciality Discharge Instructions Cardiology Instructions: go to [facility] for event monitor Discharge Plan - Discharge Data Disposition: Disch To Home/Self Care Condition at Discharge: Stable Discharge Diet: regular diet Activity: resume usual activities as tolerated - Discharge Medications New Fluconazole Tab [Diflucan Tab] 200 mg PO DAILY #7 tablet Continue Tiotropium Inhalation [Spiriva Handihaler] 18 mcg INH QAM Sertraline [Zoloft] 100 mg PO BID Oxybutynin Chloride [Oxybutynin Chloride ER] 15 mg PO QAM Multivits-Minerals/FA/Lycopene [One Daily For Men Tablet] 1 each PO QAM Pantoprazole Tab [Protonix Tab] 40 mg PO QAM Docusate/Senna 50-8.6 [Senokot S] 2 tablet PO QAM guaiFENesin/DM ER 600-30 [Mucinex Dm 600-30 MG] 1 tablet PO BID PRN PRN Reason: Congestion Albuterol/Ipratropium Neb [Duoneb] 3 ml RESP TX RT Q8H Albuterol Inhaler [Proventil Inhaler] 2 puff INH Q4HR PRN #1 inhaler PRN Reason: Wheezing HYDROcodone/ACETAMIN 5-325 [[place] 5-325] 1 tablet PO Q12H PRN #30 tablet PRN Reason: Pain Moderate To Severe (4-10) Ergocalciferol [Drisdol] 50,000 unit PO FR - Follow Up or Referral - Forms/Instructions Additional Discharge Instructions: get an event monitor from [facility] and follow up with them in clinic. Exam - Constitutional Vitals: Period Temp Pulse Resp BP Sys/Parada Pulse Ox Last 24 Hr 96.6 F-98.3 F 70-94 17-23 94-135/54-85 90-98 General appearance: no acute distress, under weight - Eye Eye exam: Present: EOMI. Absent: scleral icterus - Respiratory Respiratory exam: Present: decreased breath sounds (distant, no wheezes) - Cardiovascular Cardiovascular exam: Present: regular rate and rhythm - GI/Abdominal GI/Abdominal exam: Present: normal bowel sounds, soft. Absent: tenderness - Extremities Exam Extremities exam: Absent: edema - Neurological Exam Neurological exam: Present: alert, oriented X3 - Skin Skin exam: Present: warm, dry Discharge Results Labs on day of discharge: Labs from last 24 hours 12/03/16 12/03/16 Unknown 11:29 PSA Diagnostic 0.1 HIV 1&2 Antigen & Ab Nonreactive DS: Provider Date of admission: 11/29/16 20:25 Primary care physician: . No PCP Attending physician on admission: Calos Dubon MD Consults: 11/29/16 21:36 Consult to Physician [CONS] Routine Comment: Consulting Provider: Cardiology - [facility] Consult to Specialist Group: Cardiology When should Consulting Provider be notified: In am Person Notified: SYED Date Notified: 11/30/16 Time Notified: 07:45 11/29/16 22:47 Consult to Dietitian [CONS] Routine Reason for Dietitian: Dietary Consult 11/30/16 10:53 Consult to Physician [CONS] Routine Comment: Weight loss dysphagia Consulting Provider: Kirit Cespedes Consult Notification Comment: TEXTED CONSULT TO [facility] AT [address] 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 FOOTE SAW PATIENT EARLIER Discharging clinician: Anisha Aguilera MD
[2016-12-04] MEDS: FLUCONAZOLE INJ 100 MG in IV BAG 1 EACH IV SCH (11:42)
--- NOTE | 2016-12-04 11:43 | Cardiology Progress Note ---
Assessment and Plan (1) Syncope, near Status: Acute Current Visit: Yes (2) Decreased appetite Status: Resolved Current Visit: Yes (3) Weight loss Status: Chronic Assessment and plan: Current Visit: Yes (4) COPD (chronic obstructive pulmonary disease) Status: Chronic Current Visit: Yes (5) Tobacco abuse Status: Chronic Current Visit: Yes (6) GERD (gastroesophageal reflux disease) Status: Chronic Current Visit: Yes (7) On home oxygen therapy Status: Chronic Current Visit: Yes (8) Dysphagia Status: Acute Current Visit: Yes (9) Pulmonary nodule Status: Chronic Current Visit: Yes Cardiology - PN: Subj Interval history: Cardiology note Telemetry shows steady sinus rhythm EGD findings noted Decreased breath sounds but fairly clear Regular rhythm no murmur Abdomen benign No leg edema Recent echo showed ejection fraction 60% with moderate TR PA pressure 50 and no effusion Plan Diflucan 5 days Proton pump inhibitor and GE reflux precautions Home per Dr. Aguilera Exam (Progress Note) - Constitutional Vitals: Period Temp Pulse Resp BP Sys/Parada Pulse Ox Last 24 Hr 96.6 F-98.3 F 70-92 17-23 94-135/54-85 90-98 Result/EKG - Labs CBC & BMP: 12/02/16 03:44 12/02/16 03:44 Labs: Laboratory Results - last 24 hr 12/03/16 12/03/16 11:29 Unknown PSA Diagnostic 0.1 HIV 1&2 Antigen & Ab Nonreactive Specialty Discharge - Follow Up or Referrals Follow up with: Dr Allan ROMANO [Other] - 1 Week Cardiology - [facility] [Provider Group] (1 week ) Will Foote MD [Physician] - 1 Month
[2016-12-04 12:04] VITALS: BP 132/73
== END 2016-12-04 14:16 | disposition home or self-care (01) | DRG 308 ==
LOC: N.ED 17:48 → N.EDINP 20:25 → SUATTDRO 20:25 → N.TELES 20:55
PROVIDERS: ADMIT Internal Medicine Infectious Disease; ATTEND Internal Medicine

== ENCOUNTER 2017-03-05 15:58 | Inpatient (IN) ==
--- NOTE | 2017-03-05 16:10 | Pulmonology History & Physical ---
Assessment and Plan (1) Pneumonia involving left lung Status: Acute Assessment and plan: Chest x-ray shows a diffuse infiltrate in the left upper lobe with a little bit in the left lower lobe. He is admitted and started on broad-spectrum antibiotics. He has COPD so we are covering him for gram-negative. (2) Acute and chronic respiratory failure Status: Acute Assessment and plan: Oxygen saturation 90% on 3 L. Will check ABGs. (3) Acute exacerbation of chronic obstructive pulmonary disease (COPD) Status: Acute Assessment and plan: Intravenous corticosteroids, nebulized bronchodilators, and treatment with antibiotics. (4) On home oxygen therapy Status: Chronic Assessment and plan: Needs more oxygen than he is on at home. Normally on 2 L. Will increase to 4 here for (5) Weight loss Status: Chronic Assessment and plan: He has lost 5 pounds in the last 2 months. Poor appetite. Likely dehydrated. 12 point system: reviewed and no additional remarkable complaints except as stated - Constitutional Constitutional: Present: anorexia, fatigue, fever(s) - EENT Eyes: Present: requires corrective lense Nose, mouth and throat: Present: headache(s) - Cardiovascular Cardiovascular: Present: chest pain at rest, orthopnea, PND - Respiratory Respiratory: Present: cough, dyspnea, wheezing, pain on inspiration - Gastrointestinal Gastrointestinal: Present: abdominal pain, constipation, other (Poor appetite) - Genitourinary Genitourinary: Present: urinary frequency, other (Decreased urine volume) - Musculoskeletal Musculoskeletal: Present: myalgias - Psychiatric Psychiatric: Present: anxiety, depression History of Present Illness Chief complaint: Cough shortness of breath History of present illness: Mr. Bianchi is a 76 year old male who has severe emphysema. He was on antibiotics about a month ago, with Z-Joel and prednisone. He got a little better then about 2 weeks ago get worse. He has had poor appetite difficulty swallowing is felt feverish and coughing up yellow sputum. He has been very short of breath. He has had some left-sided pleuritic pain. He stopped smoking about 3 weeks ago. He has not been urinating all day today. He is drinking some fluids but eating very little. Home Medications Medication Instructions Recorded Confirmed Type Albuterol/Ipratropium Neb [Duoneb] 3 ml RESP TX RT Q8H 10/18/16 01/17/17 History Multivit-Minerals/FA/Lycopene [One 1 each PO QAM 10/18/16 01/17/17 History Daily For Men Tablet] Oxybutynin Chloride [Oxybutynin 15 mg PO QAM 10/18/16 01/17/17 History Chloride ER] Sertraline [Zoloft] 100 mg PO BID 10/18/16 01/17/17 History Tiotropium Inhalation [Spiriva 18 mcg INH QAM 10/18/16 01/17/17 History Handihaler] Albuterol Inhaler [Proventil 2 puff INH Q4HR PRN #1 inhaler 10/22/16 01/17/17 Rx Inhaler] HYDROcodone/ACETAMIN 5-325 [Rosine 1 tablet PO Q12H PRN #30 tablet 10/22/1601/17 Rx 5-325] guaiFENesin/DM ER 600-30 [Mucinex 1 tablet PO DAILY PRN 11/30/16 01/22/17 History Dm 600-30 MG] Aspirin/Caffeine [Bc Powder Packet] 1 each PO DAILY PRN 01/22/17 01/22/17 History Omeprazole [Prilosec] 20 mg PO DAILY 01/22/17 01/22/17 History Allergies Allergy/AdvReac Type Severity Reaction Status Date / Time levofloxacin [From Levaquin] Allergy RASH Verified 10/19/16 10:01 simvastatin [From Zocor] Allergy Unknown/Unable Verified 10/18/16 11:15 to obtain Medical,Surgical,& Family Hx - Medical History Cardio: History of: Aneurysm (Abdominal Aortic Aneurysm), Cardiac Dysrhythmia ( Tachycardia), CAD (has had previous myocardial infarction), [place], Cardiovascular Problems (Recent holter monitor) Psychological: History of: Depression Neurology: No history of: Seizures HEENT: History of: Ear Problem (hearing loss), Eye Problem (wears glasses) Respiratory: History of: Bronchitis, COPD, Respiratory Problems (Nodule on lung ; wears oxygen at home) Genitourinary: History of: Bladder Problem (incontinence. ), Prostate Problems ( hx of prostate ca) Gastrointestinal: History of: GERD, Liver Problems (CT shows hypodensities within the liver), Polyps Musculoskeletal: History of: Back/Neck Problems (Chronic back pain), Musculoskeletal Problems (arthritis) Hematology: History of: Anemia Reproductive: Reports: Reproductive Cancer (prostate ca) Other: History of: Cancer (Hx: Prostate cancer) - Surgical History Cardiac Surgeries: Patient Denies: Cardiac Catheterization HEENT Surgeries: Surgical HX of: Eye Surgery (RIGHT pencil lead removed), Tonsilectomy & Adenoidectomy Abdominal Surgeries: Surgical HX of: Abdominal Surgery, Appendectomy, Colonoscopy, EGD Patient denies: Cholecystectomy, Gastric Bypass Surgery, Hernia Repair Reproductive Surgeries: Surgical HX of;: Genitourinary Surgery, Prostate Surgery Orthopedic Surgeries: Patient denies;: Orthopedic Surgery - Family History Family History: Reports;: Family Cancer (prostate CA- brother, breast CA- mother ), Family Diabetes (Sister), Family Heart Disease (Sister), Family Hypertension (Mother) Denies;: Family Anesthesia Reaction, Family Psychiatric Problems, Family Stroke - Social History Smoking Status: Current every day smoker Exam (Pulmonay) H&P - Constitutional Vitals: temperature 96.3F, heart rate 102, respiratory rate 24, blood pressure 92/50, height 69.5 inches, weight 96.4 pounds, BMI 14.03, oxygen saturation 90% on 3 L nasal Exam: Patient is alert oriented very weak difficult to sit up. Pupils react to light. Throat is clear. Neck is supple no bruits. Chest reveals rhonchi in the left lung. Prolonged expiratory phase and mild expiratory wheezes. Increased AP diameter. Heart rate is slightly rapid no murmurs. Abdomen soft nontender no masses. Bowel sounds present. Extremities no clubbing cyanosis or edema. Calves nontender. Skin turgor is poor.
[2017-03-05] MEDS ORDERED: SENNA 8.6 MG TABLET PO PRN (17:28)
[2017-03-05] MEDS ORDERED: ALBUTEROL 1.25 MG/3 ML NEB RESP TX PRN (17:34)
[2017-03-05 17:46] LABS: Basophils % 0.1 % (0.0-0.8); Hematocrit 34.6 VOL% (42.0-52.0); Hemoglobin 11.9 GM/DL (14.0-18.0); Immature Granulocytes % 2.2 %; Immature Granulocytes Absolute 0.43 #; Lymphocytes # 0.2 10*3/uL (1.4-4.0); Lymphocytes % 1.3 % (21.2-54.2); Mean Corpuscular HGB Conc 34.4 GM/DL (32-36); Mean Corpuscular Hemoglobin 29 PG (27-34); Mean Corpuscular Volume 84.6 FL (87-102); Mean Platelet Volume 9.7 FL (9.6-12.0); Monocytes # 0.6 10*3/uL (0.11-0.8); Monocytes % 3.3 % (1.7-12.7); Neutrophils # 17.8 10*3/uL (1.4-7.4); Neutrophils % 93.1 % (38.7-73.9); Platelet Count 187 T/CUMM (130-400); Red Blood Count 4.09 MC/CUMM (3.8-5.5); White Blood Count 19.2 T/CUMM (4-12)
[2017-03-05 17:46] LABS: ABG Base Excess 4.7 MMOL/L (-2.5-2.5); ABG HCO3 28.7 MMOL/L (20-26); ABG Oxygen Saturation 97.4 % (95-100); ABG PCO2 44.4 MM HG (35-48); ABG PH 7.433 (7.35-7.45); ABG PO2 93.5 MM HG (80-95); ABG TCO2 26.4 MMOL/L (23-27)
[2017-03-05 18:14] LABS: Albumin 2.7 G/DL (3.4-5.0); Bilirubin,Total 0.6 MG/DL (0.2-1.0); Calcium 8.5 MG/DL (8.5-10.1); Osmolality,Calculated 269.5 MOS/KG (273-304); Potassium 3.8 MMOL/L (3.5-5.1); Total Protein 5.6 G/DL (6.4-8.3)
[2017-03-05 18:21] LABS: Free T4 (Free Thyroxine) 1.06 NG/DL (0.76-1.46); Thyroid Stimulating Hormone 1.64 uIU/ml (0.358-3.74)
[2017-03-05] MEDS: methylPREDNISolone SOD SUC 40 MG/1 ML VIAL IV SCH (18:31)
[2017-03-05] MEDS: CEFEPIME 1,000 MG in SODIUM CHLORIDE 0.9% 100 ML IV SCH (18:32)
[2017-03-05] MEDS: DEXT 5% NACL 0.45% KCL 10 MEQ 10 MEQ/1,000 ML BAG IV SCH (18:32)
[2017-03-05] MEDS: ALBUTEROL/IPRATROPIUM 3 ML NEB RESP TX SCH (18:40)
[2017-03-05 18:55] LABS: Sedimentation Rate-Westergren 67 MM/HR (0-20)
[2017-03-05 19:34] LABS: Platelet Estimate Adequate; Segmented Neutrophils 99 % (50-85); Total Cells Counted 100
[2017-03-05] MEDS: SERTRALINE 100 MG TABLET PO SCH (20:06)
[2017-03-05] MEDS: OXYBUTYNIN XL 15 MG TABLET PO SCH (20:06)
[2017-03-05 22:55] LABS: Apearance,Urine Slightly Hazy (Clear); Bilirubin,Urine Negative (Negative); Blood, Urine Negative (Negative); Glucose,Urine (UA) Negative (Negative); Hyaline Casts,Urine 10 /LPF (0-3); Ketones,Urine Negative (Negative); Mucus,Urine Occasional /LPF (Occasional); Nitrite,Urine Negative (Negative); Protein,Urine Negative; RBC,Urine 1 /HPF (0-4); Squamous Epithelial Cell,Urine Occasional /HPF (0-10); Urine Color Yellow (Yellow); Urine Specific Gravity 1.015 (1.001-1.035); Urine Urobilinogen < 2.0 EU/DL (0.2-1.0); WBC,Urine 1 /HPF (0-6)
[2017-03-06] MEDS: ALBUTEROL/IPRATROPIUM 3 ML NEB RESP TX SCH ×4 (00:40→19:30)
[2017-03-06] MEDS: methylPREDNISolone SOD SUC 40 MG/1 ML VIAL IV SCH ×2 (05:14→17:10)
[2017-03-06] MEDS: CEFEPIME 1,000 MG in SODIUM CHLORIDE 0.9% 100 ML IV SCH ×2 (05:17→17:10)
--- NOTE | 2017-03-06 06:31 | EKG Report ---
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
[2017-03-06] MEDS ORDERED: IPRATROPIUM 500 MCG/2.5 ML NEB RESP TX SCH (07:00)
[2017-03-06] MEDS: DEXT 5% NACL 0.45% KCL 10 MEQ 10 MEQ/1,000 ML BAG IV SCH (08:09)
[2017-03-06] MEDS: SERTRALINE 100 MG TABLET PO SCH ×2 (08:10→20:26)
[2017-03-06] MEDS: MULTIVITAMIN (OCUVITE) TABLET PO SCH (08:10)
[2017-03-06] MEDS: PANTOPRAZOLE 40 MG TABLET PO SCH (08:10)
--- NOTE | 2017-03-06 09:53 | Pulmonology Progress Note ---
Pulmonary - PN: Subj Interval history: This 76-year-old white male is followed at the [facility]. 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 He has been sick for a couple of weeks. We saw him yesterday and he had a diffuse left infiltrate consistent with community-acquired pneumonia in a patient with severe COPD. He was hypoxemic and dehydrated. This morning he feels better. He ate a decent supper and breakfast this morning for the first time in a week. O2 sats look okay on nasal oxygen. Sputum Gram stain shows gram-negative rods. He is on cefepime. We had wanted to use Levaquin as well but he is allergic. I will add Zithromax. Exam (Progress Note) - Constitutional Vitals: Period Temp Pulse Resp BP Sys/Parada Pulse Ox Last 24 Hr 97.6 F-98.4 F 72-109 16-20 92-106/42-59 91-100 Exam: Vital signs normal. Pupils react to light. Throat is clear. Neck supple no bruits. Chest reveals rhonchi and rales in the left mid lung. He has some expiratory wheezes in the bases. Increased AP diameter. Long expiratory phase. Heart normal rate rhythm no murmurs. Abdomen soft nontender. Liver spleen kidney not palpably enlarged. Bowel sounds present. Extremities no clubbing cyanosis or edema. Skin turgor is a little better than yesterday. Results - Labs CBC & BMP: 03/05/17 17:21 03/05/17 17:21 Lab Results: I have reviewed the past 24 hour labs Assessment and Plan (1) Pneumonia involving left lung Status: Acute Assessment and plan: Chest x-ray shows a diffuse infiltrate in the left upper lobe with a little bit in the left lower lobe. He is admitted and started on broad-spectrum antibiotics. He has COPD so we are covering him for gram-negative. 03/06/2017 await sputum cultures. He is on empiric cefepime. Adding Zithromax. Does not tolerate Levaquin. Current Visit: Yes (2) Acute and chronic respiratory failure Status: Acute Assessment and plan: Oxygen saturation 90% on 3 L. Will check ABGs. 03/06/2017 O2 sats look a little better. ABGs show PO2 93 PCO2 44 pH 7.43 on 4 L nasal oxygen. He is basically a pink puffer. Hypoxemia in these patients is not well tolerated. Current Visit: No (3) Acute exacerbation of chronic obstructive pulmonary disease (COPD) Status: Acute Assessment and plan: Intravenous corticosteroids, nebulized bronchodilators, and treatment with antibiotics. 03/06/2017 continuing corticosteroids broad-spectrum antibiotics and bronchodilators. His oxygen is at 4 L. May be able to wean that and a day or 2. Current Visit: No (4) On home oxygen therapy Status: Chronic Assessment and plan: Needs more oxygen than he is on at home. Normally on 2 L. Will increase to 4 here for Current Visit: No (5) Weight loss Status: Chronic Assessment and plan: He has lost 5 pounds in the last 2 months. Poor appetite. Likely dehydrated. 03/06/2017 needs nutritional support for severe protein calorie malnutrition. Current Visit: No
[2017-03-06] MEDS: AZITHROMYCIN INJ 500 MG in SODIUM CHLORIDE 0.9% 250 ML IV SCH (10:24)
[2017-03-06] MEDS: OXYBUTYNIN XL 15 MG TABLET PO SCH (20:26)
[2017-03-07] MEDS: ALBUTEROL/IPRATROPIUM 3 ML NEB RESP TX SCH ×5 (00:54→19:59)
[2017-03-07] MEDS: CEFEPIME 1,000 MG in SODIUM CHLORIDE 0.9% 100 ML IV SCH ×2 (04:35→16:39)
[2017-03-07] MEDS: methylPREDNISolone SOD SUC 40 MG/1 ML VIAL IV SCH ×2 (04:35→16:39)
[2017-03-07] MEDS: PANTOPRAZOLE 40 MG TABLET PO SCH (08:31)
[2017-03-07] MEDS: SERTRALINE 100 MG TABLET PO SCH ×2 (08:31→20:45)
[2017-03-07] MEDS: MULTIVITAMIN (OCUVITE) TABLET PO SCH (08:31)
[2017-03-07] MEDS: AZITHROMYCIN INJ 500 MG in SODIUM CHLORIDE 0.9% 250 ML IV SCH (08:31)
[2017-03-07] MEDS ORDERED: MAGNESIUM HYDROXIDE SUSP 30 ML UDCUP PO ONE (09:27)
--- NOTE | 2017-03-07 09:30 | Pulmonology Progress Note ---
Pulmonary - PN: Subj Interval history: This 76-year-old white male is followed at the [facility]. 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 He has been sick for a couple of weeks. We saw him yesterday and he had a diffuse left infiltrate consistent with community-acquired pneumonia in a patient with severe COPD. He was hypoxemic and dehydrated. This morning he feels better. He ate a decent supper and breakfast this morning for the first time in a week. O2 sats look okay on nasal oxygen. Sputum Gram stain shows gram-negative rods. He is on cefepime. We had wanted to use Levaquin as well but he is allergic. I will add Zithromax. 03/07/2017 patient is feeling a little better. Complains of constipation. Sputum is growing out gram-negative rods. Appetite has been better. Exam (Progress Note) - Constitutional Vitals: Period Temp Pulse Resp BP Sys/Parada Pulse Ox Last 24 Hr 97.6 F-98.2 F 87-112 16-22 85-112/41-69 95-99 Exam: Vital signs normal. Pupils react to light. Throat is clear. Neck supple no bruits. Chest reveals rhonchi and rales in the left mid lung. He has some expiratory wheezes in the bases. Increased AP diameter. Long expiratory phase. Heart normal rate rhythm no murmurs. Abdomen soft nontender. Liver spleen kidney not palpably enlarged. Bowel sounds present. Extremities no clubbing cyanosis or edema. Results - Labs CBC & BMP: 03/05/17 17:21 03/05/17 17:21 Lab Results: I have reviewed the past 24 hour labs - Diagnostic Findings Procedure: Chest x-ray: image reviewed by me (Fairly extensive left lung infiltrate unchanged from previous. Hyperinflation with signs of emphysema.) Assessment and Plan (1) Pneumonia involving left lung Status: Acute Assessment and plan: Chest x-ray shows a diffuse infiltrate in the left upper lobe with a little bit in the left lower lobe. He is admitted and started on broad-spectrum antibiotics. He has COPD so we are covering him for gram-negative. 03/06/2017 await sputum cultures. He is on empiric cefepime. Adding Zithromax. Does not tolerate Levaquin. 03/07/2017 appears to be a gram-negative pneumonia. Await final identification. Current Visit: Yes (2) Acute and chronic respiratory failure Status: Acute Assessment and plan: Oxygen saturation 90% on 3 L. Will check ABGs. 03/06/2017 O2 sats look a little better. ABGs show PO2 93 PCO2 44 pH 7.43 on 4 L nasal oxygen. He is basically a pink puffer. Hypoxemia in these patients is not well tolerated. 03/07/2017 oxygen saturation looks good on nasal oxygen. Current Visit: No (3) Acute exacerbation of chronic obstructive pulmonary disease (COPD) Status: Acute Assessment and plan: Intravenous corticosteroids, nebulized bronchodilators, and treatment with antibiotics. 03/06/2017 continuing corticosteroids broad-spectrum antibiotics and bronchodilators. His oxygen is at 4 L. May be able to wean that and a day or 2. 03/07/2017 no active bronchospasm. Still has some rhonchi on the left long. Current Visit: No (4) On home oxygen therapy Status: Chronic Assessment and plan: Needs more oxygen than he is on at home. Normally on 2 L. Will increase to 4 here for Current Visit: No (5) Weight loss Status: Chronic Assessment and plan: He has lost 5 pounds in the last 2 months. Poor appetite. Likely dehydrated. 03/06/2017 needs nutritional support for severe protein calorie malnutrition. 03/07/2017 continuing nutritional support. Current Visit: No
--- NOTE | 2017-03-07 11:09 | XRay Report ---
History: Pneumonia Date: 03/07/2017 Study: Chest x-ray PA and lateral Comparison exam: November 29, 2016 chest x-ray The cardiac silhouette is not enlarged. There is no mediastinal mass. There is chronic lung disease bilaterally in the apices, with bilateral hilar retraction. There is chronic pleural scarring in the right apex. There is patchy and hazy and groundglass infiltrate throughout the left upper lobe, extending into the lingula, compatible with pneumonia. There is chronic bullous/cavitary change in the lung apices. There is minimal layering pleural effusion posteriorly on the left. The osseous structures are unchanged. Impression: Left upper lobe pneumonia superimposed upon chronic lung disease PROCEDURE INTERPRETED AT [facility] DEPARTMENT OF RADIOLOGY Final Report Signed by: Dr. Karoline Zhou
[2017-03-07] MEDS: OXYBUTYNIN XL 15 MG TABLET PO SCH (20:45)
[2017-03-08] MEDS: ALBUTEROL/IPRATROPIUM 3 ML NEB RESP TX SCH ×4 (00:20→19:57)
[2017-03-08] MEDS: CEFEPIME 1,000 MG in SODIUM CHLORIDE 0.9% 100 ML IV SCH ×2 (05:09→17:39)
[2017-03-08] MEDS: methylPREDNISolone SOD SUC 40 MG/1 ML VIAL IV SCH ×2 (05:09→17:40)
[2017-03-08 06:37] LABS: Calcium 8.7 MG/DL (8.5-10.1); Magnesium 2.5 MG/DL (1.8-2.4); Osmolality,Calculated 281.4 MOS/KG (273-304); Potassium 4.1 MMOL/L (3.5-5.1)
--- NOTE | 2017-03-08 08:43 | Pulmonology Progress Note ---
Pulmonary - PN: Subj Interval history: This 76-year-old white male is followed at the [facility]. 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 He has been sick for a couple of weeks. We saw him yesterday and he had a diffuse left infiltrate consistent with community-acquired pneumonia in a patient with severe COPD. He was hypoxemic and dehydrated. This morning he feels better. He ate a decent supper and breakfast this morning for the first time in a week. O2 sats look okay on nasal oxygen. Sputum Gram stain shows gram-negative rods. He is on cefepime. We had wanted to use Levaquin as well but he is allergic. I will add Zithromax. 03/07/2017 patient is feeling a little better. Complains of constipation. Sputum is growing out gram-negative rods. Appetite has been better. 03/08/2017 still coughing up some phlegm. No fever. Constipation resolved. Overall doing a little better. Needs IV medicines several more days. 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 Exam (Progress Note) - Constitutional Vitals: Period Temp Pulse Resp BP Sys/Parada Pulse Ox Last 24 Hr 97.6 F-98.8 F 89-106 18-21 99-118/62-69 92-99 Exam: Vital signs normal. Pupils react to light. Throat is clear. Neck supple no bruits. Chest reveals rhonchi and rales in the left mid lung. He has some expiratory wheezes in the bases. Increased AP diameter. Long expiratory phase. Heart normal rate rhythm no murmurs. Abdomen soft nontender. Liver spleen kidney not palpably enlarged. Bowel sounds present. Extremities no clubbing cyanosis or edema. Little change from yesterday Results - Labs CBC & BMP: 03/05/17 17:21 03/08/17 04:24 Lab Results: I have reviewed the past 24 hour labs Assessment and Plan (1) Pneumonia involving left lung Status: Acute Assessment and plan: Chest x-ray shows a diffuse infiltrate in the left upper lobe with a little bit in the left lower lobe. He is admitted and started on broad-spectrum antibiotics. He has COPD so we are covering him for gram-negative. 03/06/2017 await sputum cultures. He is on empiric cefepime. Adding Zithromax. Does not tolerate Levaquin. 03/07/2017 appears to be a gram-negative pneumonia. Await final identification. 03/08/2017 continuing antibiotics for gram-negative pneumonia. Final identification and sensitivity has not been completed. Current Visit: Yes (2) Acute and chronic respiratory failure Status: Acute Assessment and plan: Oxygen saturation 90% on 3 L. Will check ABGs. 03/06/2017 O2 sats look a little better. ABGs show PO2 93 PCO2 44 pH 7.43 on 4 L nasal oxygen. He is basically a pink puffer. Hypoxemia in these patients is not well tolerated. 03/07/2017 oxygen saturation looks good on nasal oxygen. 03/08/2017 O2 sats acceptable on nasal O2. Current Visit: No (3) Acute exacerbation of chronic obstructive pulmonary disease (COPD) Status: Acute Assessment and plan: Intravenous corticosteroids, nebulized bronchodilators, and treatment with antibiotics. 03/06/2017 continuing corticosteroids broad-spectrum antibiotics and bronchodilators. His oxygen is at 4 L. May be able to wean that and a day or 2. 03/07/2017 no active bronchospasm. Still has some rhonchi on the left long. 03/08/2017 still having some rhonchi. He is not tight. Current Visit: No (4) On home oxygen therapy Status: Chronic Assessment and plan: Needs more oxygen than he is on at home. Normally on 2 L. Will increase to 4 here for Current Visit: No (5) Weight loss Status: Chronic Assessment and plan: He has lost 5 pounds in the last 2 months. Poor appetite. Likely dehydrated. 03/06/2017 needs nutritional support for severe protein calorie malnutrition. 03/07/2017 continuing nutritional support. 03/08/2017 seems to be eating much better here. Current Visit: No
[2017-03-08] MEDS: SERTRALINE 100 MG TABLET PO SCH ×2 (09:30→20:37)
[2017-03-08] MEDS: PANTOPRAZOLE 40 MG TABLET PO SCH (09:30)
[2017-03-08] MEDS: AZITHROMYCIN INJ 500 MG in SODIUM CHLORIDE 0.9% 250 ML IV SCH (09:30)
[2017-03-08] MEDS: MULTIVITAMIN (OCUVITE) TABLET PO SCH (10:28)
[2017-03-08] MEDS: OXYBUTYNIN XL 15 MG TABLET PO SCH (20:37)
[2017-03-09] MEDS: ALBUTEROL/IPRATROPIUM 3 ML NEB RESP TX SCH ×4 (00:10→19:27)
[2017-03-09] MEDS: CEFEPIME 1,000 MG in SODIUM CHLORIDE 0.9% 100 ML IV SCH ×2 (05:22→17:15)
[2017-03-09] MEDS: methylPREDNISolone SOD SUC 40 MG/1 ML VIAL IV SCH ×2 (05:22→17:15)
[2017-03-09] MEDS: SERTRALINE 100 MG TABLET PO SCH ×2 (09:22→20:41)
[2017-03-09] MEDS: MULTIVITAMIN (OCUVITE) TABLET PO SCH (09:22)
[2017-03-09] MEDS: PANTOPRAZOLE 40 MG TABLET PO SCH (09:22)
[2017-03-09] MEDS: AZITHROMYCIN INJ 500 MG in SODIUM CHLORIDE 0.9% 250 ML IV SCH (09:23)
--- NOTE | 2017-03-09 11:10 | Pulmonology Progress Note ---
Pulmonary - PN: Subj Interval history: This 76-year-old white male is followed at the [place] [facility]. 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 He has been sick for a couple of weeks. We saw him yesterday and he had a diffuse left infiltrate consistent with community-acquired pneumonia in a patient with severe COPD. He was hypoxemic and dehydrated. This morning he feels better. He ate a decent supper and breakfast this morning for the first time in a week. O2 sats look okay on nasal oxygen. Sputum Gram stain shows gram-negative rods. He is on cefepime. We had wanted to use Levaquin as well but he is allergic. I will add Zithromax. 03/07/2017 patient is feeling a little better. Complains of constipation. Sputum is growing out gram-negative rods. Appetite has been better. 03/08/2017 still coughing up some phlegm. No fever. Constipation resolved. Overall doing a little better. Needs IV medicines several more days. 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 03/09/2017 patient is feeling better. Starting to get up and walk around in the room and sit up in a chair. Appetite is better. Continuing IV medication for his severe left-sided pneumonia with end-stage COPD. Re-x-ray Saturday to decide how long he will need antibiotics. Exam (Progress Note) - Constitutional Vitals: Period Temp Pulse Resp BP Sys/Aprada Pulse Ox Last 24 Hr 97.4 F-99.0 F 76-102 16-20 103-127/49-72 90-99 Exam: Vital signs normal. Pupils react to light. Throat is clear. Neck supple no bruits. Chest reveals rhonchi and rales in the left mid lung. He has some expiratory wheezes in the bases. Increased AP diameter. Long expiratory phase. Heart normal rate rhythm no murmurs. Abdomen soft nontender. Liver spleen kidney not palpably enlarged. Bowel sounds present. Extremities no clubbing cyanosis or edema. Results - Labs CBC & BMP: 03/05/17 17:21 03/08/17 04:24 Lab Results: I have reviewed the past 24 hour labs Assessment and Plan (1) Pneumonia involving left lung Status: Acute Assessment and plan: Chest x-ray shows a diffuse infiltrate in the left upper lobe with a little bit in the left lower lobe. He is admitted and started on broad-spectrum antibiotics. He has COPD so we are covering him for gram-negative. 03/06/2017 await sputum cultures. He is on empiric cefepime. Adding Zithromax. Does not tolerate Levaquin. 03/07/2017 appears to be a gram-negative pneumonia. Await final identification. 03/08/2017 continuing antibiotics for gram-negative pneumonia. Final identification and sensitivity has not been completed. 03/09/2017 has a severe left-sided gram-negative pneumonia. Continuing antibiotics. He has grown Pseudomonas. It is sensitive to all tested. Would like double coverage for that. We will stop Zithromax and add gentamicin. Watch renal function. Current Visit: Yes (2) Acute and chronic respiratory failure Status: Acute Assessment and plan: Oxygen saturation 90% on 3 L. Will check ABGs. 03/06/2017 O2 sats look a little better. ABGs show PO2 93 PCO2 44 pH 7.43 on 4 L nasal oxygen. He is basically a pink puffer. Hypoxemia in these patients is not well tolerated. 03/07/2017 oxygen saturation looks good on nasal oxygen. 03/08/2017 O2 sats acceptable on nasal O2. 03/09/2017 continue nasal oxygen. O2 sats much improved. Current Visit: No (3) Acute exacerbation of chronic obstructive pulmonary disease (COPD) Status: Acute Assessment and plan: Intravenous corticosteroids, nebulized bronchodilators, and treatment with antibiotics. 03/06/2017 continuing corticosteroids broad-spectrum antibiotics and bronchodilators. His oxygen is at 4 L. May be able to wean that and a day or 2. 03/07/2017 no active bronchospasm. Still has some rhonchi on the left long. 03/08/2017 still having some rhonchi. He is not tight. 16 and 17 continuing Solu-Medrol and bronchodilators. Current Visit: No (4) On home oxygen therapy Status: Chronic Assessment and plan: Needs more oxygen than he is on at home. Normally on 2 L. Will increase to 4 here for Current Visit: No (5) Weight loss Status: Chronic Assessment and plan: He has lost 5 pounds in the last 2 months. Poor appetite. Likely dehydrated. 03/06/2017 needs nutritional support for severe protein calorie malnutrition. 03/07/2017 continuing nutritional support. 03/08/2017 seems to be eating much better here. Current Visit: No
[2017-03-09] MEDS: GENTAMICIN INJ 80 MG in PREMIX 1 EACH IV SCH ×2 (13:46→23:37)
[2017-03-09] MEDS: OXYBUTYNIN XL 15 MG TABLET PO SCH (20:41)
[2017-03-10] MEDS: ALBUTEROL/IPRATROPIUM 3 ML NEB RESP TX SCH ×4 (00:23→19:36)
[2017-03-10 04:55] LABS: Calcium 8.5 MG/DL (8.5-10.1); Osmolality,Calculated 282.3 MOS/KG (273-304); Potassium 3.9 MMOL/L (3.5-5.1)
[2017-03-10] MEDS: methylPREDNISolone SOD SUC 40 MG/1 ML VIAL IV SCH ×2 (05:12→17:00)
[2017-03-10] MEDS: CEFEPIME 1,000 MG in SODIUM CHLORIDE 0.9% 100 ML IV SCH ×2 (05:12→17:00)
[2017-03-10] MEDS: MULTIVITAMIN (OCUVITE) TABLET PO SCH (08:37)
[2017-03-10] MEDS: PANTOPRAZOLE 40 MG TABLET PO SCH (08:37)
[2017-03-10] MEDS: SERTRALINE 100 MG TABLET PO SCH ×2 (08:37→20:20)
--- NOTE | 2017-03-10 09:03 | Pulmonology Progress Note ---
Pulmonary - PN: Subj Interval history: This 76-year-old white male [facility]. 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 He has been sick for a couple of weeks. We saw him yesterday and he had a diffuse left infiltrate consistent with community-acquired pneumonia in a patient with severe COPD. He was hypoxemic and dehydrated. This morning he feels better. He ate a decent supper and breakfast this morning for the first time in a week. O2 sats look okay on nasal oxygen. Sputum Gram stain shows gram-negative rods. He is on cefepime. We had wanted to use Levaquin as well but he is allergic. I will add Zithromax. 03/07/2017 patient is feeling a little better. Complains of constipation. Sputum is growing out gram-negative rods. Appetite has been better. 03/08/2017 still coughing up some phlegm. No fever. Constipation resolved. Overall doing a little better. Needs IV medicines several more days. 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 03/09/2017 patient is feeling better. Starting to get up and walk around in the room and sit up in a chair. Appetite is better. Continuing IV medication for his severe left-sided pneumonia with end-stage COPD. Re-x-ray Saturday to decide how long he will need antibiotics. 03/10/2017 patient is feeling better. Walking a little bit more. Plans are for repeat chest x-ray tomorrow. Now getting 2 antibiotics for Pseudomonas watch renal function. He is on gentamicin. Exam (Progress Note) - Constitutional Vitals: Period Temp Pulse Resp BP Sys/Parada Pulse Ox Last 24 Hr 97.5 F-98.5 F 80-101 17-25 115-128/65-83 92-99 Exam: Vital signs normal. Pupils react to light. Throat is clear. Neck supple no bruits. Chest reveals rhonchi and rales in the left mid lung. He has some expiratory wheezes in the bases. Increased AP diameter. Long expiratory phase. Heart normal rate rhythm no murmurs. Abdomen soft nontender. Liver spleen kidney not palpably enlarged. Bowel sounds present. Extremities no clubbing cyanosis or edema. Results - Labs CBC & BMP: 03/05/17 17:21 03/10/17 02:50 Lab Results: I have reviewed the past 24 hour labs Assessment and Plan (1) Pneumonia involving left lung Status: Acute Assessment and plan: Chest x-ray shows a diffuse infiltrate in the left upper lobe with a little bit in the left lower lobe. He is admitted and started on broad-spectrum antibiotics. He has COPD so we are covering him for gram-negative. 03/06/2017 await sputum cultures. He is on empiric cefepime. Adding Zithromax. Does not tolerate Levaquin. 03/07/2017 appears to be a gram-negative pneumonia. Await final identification. 03/08/2017 continuing antibiotics for gram-negative pneumonia. Final identification and sensitivity has not been completed. 03/09/2017 has a severe left-sided gram-negative pneumonia. Continuing antibiotics. He has grown Pseudomonas. It is sensitive to all tested. Would like double coverage for that. We will stop Zithromax and add gentamicin. Watch renal function. 03/10/2017 plan to repeat chest x-ray tomorrow. Continuing cefepime and gentamicin for Pseudomonas pneumonia. Current Visit: Yes (2) Acute and chronic respiratory failure Status: Acute Assessment and plan: Oxygen saturation 90% on 3 L. Will check ABGs. 03/06/2017 O2 sats look a little better. ABGs show PO2 93 PCO2 44 pH 7.43 on 4 L nasal oxygen. He is basically a pink puffer. Hypoxemia in these patients is not well tolerated. 03/07/2017 oxygen saturation looks good on nasal oxygen. 03/08/2017 O2 sats acceptable on nasal O2. 03/09/2017 continue nasal oxygen. O2 sats much improved. 03/10/2017 low flow oxygen is helping. Current Visit: No (3) Acute exacerbation of chronic obstructive pulmonary disease (COPD) Status: Acute Assessment and plan: Intravenous corticosteroids, nebulized bronchodilators, and treatment with antibiotics. 03/06/2017 continuing corticosteroids broad-spectrum antibiotics and bronchodilators. His oxygen is at 4 L. May be able to wean that and a day or 2. 03/07/2017 no active bronchospasm. Still has some rhonchi on the left long. 03/08/2017 still having some rhonchi. He is not tight. continuing Solu-Medrol and bronchodilators. 03/10/2017 bronchospasm improved. Current Visit: No (4) On home oxygen therapy Status: Chronic Assessment and plan: Needs more oxygen than he is on at home. Normally on 2 L. Will increase to 4 here for Current Visit: No (5) Weight loss Status: Chronic Assessment and plan: He has lost 5 pounds in the last 2 months. Poor appetite. Likely dehydrated. 03/06/2017 needs nutritional support for severe protein calorie malnutrition. 03/07/2017 continuing nutritional support. 03/08/2017 seems to be eating much better here. Current Visit: No
[2017-03-10] MEDS: GENTAMICIN INJ 80 MG in PREMIX 1 EACH IV SCH (11:40)
[2017-03-10] MEDS: OXYBUTYNIN XL 15 MG TABLET PO SCH (20:20)
[2017-03-11] MEDS: ALBUTEROL/IPRATROPIUM 3 ML NEB RESP TX SCH ×2 (00:15→07:24)
[2017-03-11] MEDS: GENTAMICIN INJ 80 MG in PREMIX 1 EACH IV SCH (00:35)
[2017-03-11] MEDS: CEFEPIME 1,000 MG in SODIUM CHLORIDE 0.9% 100 ML IV SCH (04:29)
[2017-03-11] MEDS: methylPREDNISolone SOD SUC 40 MG/1 ML VIAL IV SCH (04:30)
[2017-03-11 06:56] LABS: Calcium 8.7 MG/DL (8.5-10.1); Osmolality,Calculated 278.4 MOS/KG (273-304); Potassium 4.2 MMOL/L (3.5-5.1)
[2017-03-11] MEDS: MULTIVITAMIN (OCUVITE) TABLET PO SCH (08:08)
[2017-03-11] MEDS: SERTRALINE 100 MG TABLET PO SCH (08:08)
[2017-03-11] MEDS: PANTOPRAZOLE 40 MG TABLET PO SCH (08:08)
--- NOTE | 2017-03-11 08:57 | XRay Report ---
XR chest 2V Date: 03/11/2017 4:00 AM History: COPD, left pneumonia Comparison: 03/07/2017 Technique: PA and lateral chest Findings: The heart is small and compressed by the over expanded lungs. Chronic scarring in the lungs with residual asymmetric pleural thickening at the right lung apex. Reduced parenchymal findings in the left lung with underlying bullous emphysema. Stable mediastinum and osseous structures. Impression: Bullous emphysema with improved left upper lobe pneumonia. Underlying chronic scarring. PROCEDURE INTERPRETED AT [facility] DEPARTMENT OF RADIOLOGY Final Report Signed by: Dr. Kirti Doran
--- NOTE | 2017-03-11 10:29 | Discharge Summary ---
Hospital Course - Hospital Course Hospital Course: This 76-year-old white male was admitted from the office on March 05. He had severe hypoxemia. He was already on home oxygen but using it mostly at night. 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 He had an extensive left-sided pneumonia radiographically involving pretty much all of his left upper lobe. He was admitted placed on increased oxygen and IV antibiotics. He is allergic to Levaquin so that was not used. Sputum grew out Pseudomonas sensitive to everything it was tested to. We had him on gentamicin and cefepime. He is now been on antibiotics for 6 days IV in the hospital. His chest x-ray shows much improvement. Still has some left upper lobe infiltrate but he has chronic scarring there as well. His appetite is good. Oxygen has been in the mid upper 90s on nasal O2. Chemistries have been okay renal function normal. Diagnosis - Discharge Diagnosis (1) Pneumonia involving left lung Status: Acute (2) Acute and chronic respiratory failure Status: Acute (3) Acute exacerbation of chronic obstructive pulmonary disease (COPD) Status: Acute (4) On home oxygen therapy Status: Chronic (5) Weight loss Status: Chronic Discharge Plan - Discharge Data Disposition: Disch To Home/Self Care Condition at Discharge: Stable Discharge Diet: advance to your usual diet Activity: resume usual activities as tolerated (Patient advised that it will be several weeks before he gets back to his usual activities. He is to stay around the house and not do any outside work for at least 6 weeks.) Hygiene: no restrictions Weight Bearing at Discharge: full weight bearing Driving: no restrictions Contact your physician if you experience:: fever over 101, Shortness of breath - Discharge Medications No Action Tiotropium Inhalation [Spiriva Handihaler] 18 mcg INH QAM Sertraline [Zoloft] 100 mg PO BID Oxybutynin Chloride [Oxybutynin Chloride ER] 15 mg PO QAM Multivit-Minerals/FA/Lycopene [One Daily For Men Tablet] 1 each PO QAM Albuterol/Ipratropium Neb [Duoneb] 3 ml RESP TX RT Q8H Albuterol Inhaler [Proventil Inhaler] 2 puff INH Q4HR PRN #1 inhaler PRN Reason: Wheezing Omeprazole [Prilosec] 40 mg PO PC BREAKFAST Docusate/Senna 50-8.6 [Senokot S] 1 tablet PO DAILY PRN PRN Reason: Constipation HYDROcodone/ACETAMIN 10-325 [[place] 10-325] 1 tablet PO TID - Follow Up or Referral Follow Up: Will Foote MD [Physician] - 2 Weeks (Chest x-ray CBC BMP) - Forms/Instructions Exam - Constitutional Vitals: Period Temp Pulse Resp BP Sys/Parada Pulse Ox Last 24 Hr 96.6 F-98.6 F 68-99 18-22 101-130/59-75 91-99 Exam: Vital signs normal. Pupils react to light. Throat is clear. Neck supple no bruits. Chest reveals rhonchi and rales in the left mid lung. Increased AP diameter. Long expiratory phase. Heart normal rate rhythm no murmurs. Abdomen soft nontender. Liver spleen kidney not palpably enlarged. Bowel sounds present. Extremities no clubbing cyanosis or edema. Discharge Results Procedures and tests throughout hospitalization: Pending Orders 03/12/17 04:00 Basic Metabolic Panel IN AM Labs on day of discharge: Labs from last 24 hours 03/11/17 03/11/17 05:43 05:43 Sodium 140 Potassium 4.2 Chloride 97 L Carbon Dioxide 38 H Anion Gap 9.2 BUN 14 Creatinine 0.60 L GFR Calculation 88 BUN/Creatinine Ratio 23.00 H Glucose 81 Calculated Osmolality 278.4 Calcium 8.7 Gentamicin Trough 1.6 - Impressions #1 Pseudomonas pneumonia left upper lobe 2. Severe COPD 3. Acute on chronic respiratory failure requiring home oxygen 4. Dehydration 5. Protein calorie malnutrition which is severe. - Imaging and Cardiology Procedure: Chest x-ray: image reviewed by me (Today's chest x-ray shows marked hyperinflation. Scarring in both upper lobes. Left upper lobe pulmonary infiltrate is about 75% improved.) DS: Provider Date of admission: 03/05/17 17:08 Primary care physician: . No PCP Attending physician on admission: Will Foote MD Consults: 03/05/17 17:44 Consult to Dietitian [CONS] Routine Reason for Dietitian: Other Discharging clinician: Will Foote MD Expected date of discharge: 03/11/17
[2017-03-11] MEDS ORDERED: CEFDINIR 300 MG CAPSULE PO SCH (10:30)
[2017-03-11] MEDS ORDERED: predniSONE 20 MG TABLET PO SCH (10:30)
[2017-03-11 11:50] VITALS: BP 126/66
== END 2017-03-11 13:26 | disposition home or self-care (01) | DRG 190 ==
LOC: N.5E 16:35
PROVIDERS: ADMIT Internal Medicine Pulmonary Disease; ATTEND Internal Medicine Pulmonary Disease

== ENCOUNTER 2017-04-08 10:28 | Inpatient (IN) ==
[2017-04-08] MEDS ORDERED: ALBUTEROL/IPRATROPIUM 3 ML NEB RESP TX STA (14:16)
--- NOTE | 2017-04-08 14:16 | Emergency Department Note ---
IFlakito Hilary, am scribing for, and in the presence of, Nori Torres DO 13: 46. IBrian Debra, DO, personally performed the services described in this documentation, ascribed by Ida Fraga in my presence, and it is both accurate and complete 416 . Arrival - Arrival Chief Complaint: Non-Specific Stated Complaint: Sent from [place]/concern on vitals ED Nursing Triage Note: Pt sent from [place] clinic for abnormal vital signs. Pt on home O2 at triage. Mode of Arrival: Wheelchair Limitations: No Limitations Source: Patient, RN Notes Reviewed - History of Present Illness HPI Narrative: Pt is a 76 y/o male presenting to the ED with c/o abnormal vital signs. Pt went to his doctor at the [place] and they said he had low oxygen levels and low blood pressure. Pt is on at home oxygen and he states that he doesn't feel good. Pts states that he complains of intermittent back and chest pain. He has a PMHx of prostate [place] where they removed his prostate and said they got it all, Dr Gambino does routine PSA and colon checks, AAA, CAD, OR, COPD, Bronchitis and Nodule on Lung. No other complaints or problems stated in the ED. Onset (ago): hour(s) Consistency: intermittent Severity: mild Severity scale (1-10): 1 Allergies/Adverse Reactions: Allergies Allergy/AdvReac Type Severity Reaction Status Date / Time levofloxacin [From Levaquin] Allergy RASH Verified 10/19/16 10:01 simvastatin [From Zocor] Allergy Unknown/Unable Verified 10/18/16 11:15 to obtain Home Medications: Home Medications Medication Instructions Recorded Confirmed Type Sertraline [Zoloft] 50 mg PO DAILY 10/18/16 04/08/17 History Tiotropium Inhalation [Spiriva 18 mcg INH QAM 10/18/16 04/08/17 History Handihaler] Albuterol Inhaler [Proventil 2 puff INH Q4HR PRN #1 inhaler 10/22/16 04/08/17 Rx Inhaler] Docusate/Senna 50-8.6 [Senokot S] 1 tablet PO DAILY PRN 03/05/17 04/08/17 History HYDROcodone/ACETAMIN 10-325 [[place] 1 tablet PO TID PRN 03/05/17 04/08/17 History 10-325] Albuterol/Ipratropium Neb [Duoneb] 3 ml RESP TX QID 04/08/17 04/08/17 History Fluticasone 50 Mcg Nasal [place] 1 spray BOTH NARES DAILY PRN 04/08/17 04/08/17 History [Flonase Nasal [place]] Omeprazole 40 mg PO DAILY 04/08/17 04/08/17 History Oxybutynin Xl [Ditropan Xl] 15 mg PO DAILY 04/08/17 04/08/17 History Sertraline [Zoloft] 100 mg PO DAILY 04/08/17 04/08/17 History Review of System - Review of System 12 point system: reviewed and no additional remarkable complaints except as stated - Review of System Constitutional: Present: other (Low oxygen). Absent: fever Respiratory: Present: respiratory distress (SOB) Cardiovascular: Present: chest pain Musculoskeletal: Present: back pain Medical,Surgical,& Family Hx - Medical History Cardio: History of: Aneurysm (Abdominal Aortic Aneurysm), Cardiac Dysrhythmia ( Tachycardia), CAD (has had previous myocardial infarction), OR, Cardiovascular Problems (Recent holter monitor) Psychological: History of: Depression No history of: Anxiety Disorders, ADHD, Behavior Problems, Bipolar Disorder, Previous Suicide Attempt, Psychiatric/Substance Abuse Tx, Schizophrenia, Violent Behavior, Psychiatric Problems Neurology: No history of: Seizures HEENT: History of: Ear Problem (hearing loss), Eye Problem (wears glasses) Respiratory: History of: Bronchitis, COPD, Respiratory Problems (Nodule on lung ; wears oxygen at home) Genitourinary: History of: Bladder Problem (incontinence. ), Prostate Problems ( hx of prostate ca) Gastrointestinal: History of: GERD, Liver Problems (CT shows hypodensities within the liver), Polyps Musculoskeletal: History of: Back/Neck Problems (Chronic back pain), Musculoskeletal Problems (arthritis) Hematology: History of: Anemia Reproductive: Reports: Reproductive Cancer (prostate ca) Other: History of: Cancer (Hx: Prostate cancer) - Surgical History Cardiac Surgeries: Patient Denies: Cardiac Catheterization HEENT Surgeries: Surgical HX of: Eye Surgery (RIGHT pencil lead removed), Tonsilectomy & Adenoidectomy Abdominal Surgeries: Surgical HX of: Abdominal Surgery, Appendectomy, Colonoscopy, EGD Patient denies: Cholecystectomy, Gastric Bypass Surgery, Hernia Repair Reproductive Surgeries: Surgical HX of;: Genitourinary Surgery, Prostate Surgery Orthopedic Surgeries: Patient denies;: Orthopedic Surgery - Family History Family History: Reports;: Family Cancer (prostate CA- brother, breast CA- mother ), Family Diabetes (Sister), Family Heart Disease (Sister), Family Hypertension (Mother) Denies;: Family Anesthesia Reaction, Family Psychiatric Problems, Family Stroke - Social History Smoking Status: Current some day smoker Exam Vital Signs: Vital Signs Temperature 98.4 F 04/08/17 13:29 Pulse Rate 93 H 04/08/17 14:33 Respiratory Rate 20 04/08/17 14:33 Blood Pressure 94/58 04/08/17 13:29 O2 Sat by Pulse Oximetry 100 04/08/17 14:33 - General General appearance: alert, in no apparent distress, cachectic, other (very thin) - Head Head exam: Present: atraumatic, normocephalic - Eye Eye exam: Present: normal appearance, PERRL, EOMI - ENT ENT exam: Present: mucous membranes dry, TM's normal bilaterally - Neck Neck exam: Present: full ROM, trachea midline. Absent: tenderness - Chest Chest inspection: Present: symmetric chest wall rise. Absent: tenderness - Respiratory Respiratory exam: Present: normal lung sounds bilaterally, rales (bilaterally), rhonchi (bilaterally) - Cardiovascular Cardiovascular exam: Present: regular rate, normal rhythm, normal heart sounds. Absent: murmur, rubs, gallop - Abdominal Exam Abdominal exam: Present: soft, normal bowel sounds. Absent: distention, tenderness - Extremities Exam Extremities exam: Present: full ROM. Absent: tenderness - Back Exam Back exam: Present: full ROM. Absent: tenderness - Neurological Exam Neurological exam: Present: alert, oriented X3, CN II-XII intact, motor sensory deficit - Psychiatric Psychiatric exam: Present: normal affect, normal mood - Skin Skin exam: Present: warm, dry, intact, normal color, rash Course Course Narrative: pt will be admitted to hospitalist with dx of pneumonia. pt is stable at this time Results - Labs CBC & BMP: 04/08/17 13:38 04/08/17 13:38 Lab Results: I have reviewed the patients labs Labs: Laboratory Tests 04/08/17 04/08/17 04/08/17 13:38 13:38 13:38 WBC 19.4 H RBC 4.13 Hgb 11.5 L Hct 34.3 L MCV 83.1 L Plt Count 470 H MPV 9.0 L Neut % (Auto) 88.3 H Lymph % (Auto) 4.5 L Neut # (Auto) 17.1 H Lymph # (Auto) 0.9 L [place] # (Auto) 1.1 H INR 1.1 PT Patient/Control Mix 11.9 Circ Anticoag PTT 31.5 Sodium 134 L Potassium 3.8 Chloride 93 L Carbon Dioxide 33 H BUN 18 BUN/Creatinine Ratio 25.00 H Glucose 122 H Calculated Osmolality 270.2 L Alkaline Phosphatase 177 H Total Creatine Kinase 19 L Troponin I < 0.015 Total Protein 5.5 L Albumin 2.1 L Albumin/Globulin Ratio 0.6 L - Diagnostic Findings Procedure: Chest x-ray: report reviewed by me (Extensive findings of chronic interstitial scarring adn architectural distortion throughout the lung parenchyma and interval development of airspace opacities within the left upper lobe/suprahilar region concerning for developing focal pneumonia or less likely atelectasis.) Disposition Clinical Impression: Pneumonia involving left lung Case discussed with: patient, patient's family Disposition: Still a Patient Condition: Stable Time of Disposition: 15:08
[2017-04-08 14:24] LABS: Basophils % 0.1 % (0.0-0.8); Hematocrit 34.3 VOL% (42.0-52.0); Hemoglobin 11.5 GM/DL (14.0-18.0); Immature Granulocytes % 1.4 %; Immature Granulocytes Absolute 0.27 #; Lymphocytes # 0.9 10*3/uL (1.4-4.0); Lymphocytes % 4.5 % (21.2-54.2); Mean Corpuscular HGB Conc 33.5 GM/DL (32-36); Mean Corpuscular Hemoglobin 28 PG (27-34); Mean Corpuscular Volume 83.1 FL (87-102); Monocytes # 1.1 10*3/uL (0.11-0.8); Monocytes % 5.7 % (1.7-12.7); Neutrophils # 17.1 10*3/uL (1.4-7.4); Neutrophils % 88.3 % (38.7-73.9); Platelet Count 470 T/CUMM (130-400); Red Blood Count 4.13 MC/CUMM (3.8-5.5); Red Cell Distribution Width 14.4 % (9.3-17.3); White Blood Count 19.4 T/CUMM (4-12)
[2017-04-08 14:33] LABS: INR 1.1; PT Patient Result 11.9 SECS; Partial Thromboplastin Time 31.5 SECS (0-40)
[2017-04-08 14:37] LABS: Alanine Aminotransferase 30 U/L (16-61); Albumin 2.1 G/DL (3.4-5.0); Alkaline Phosphatase 177 U/L (45-117); Aspartate Amino Transferase 16 U/L (0-37); Calcium 8.8 MG/DL (8.5-10.1); Total Protein 5.5 G/DL (6.4-8.3)
[2017-04-08 14:38] LABS: Blood Urea Nitrogen 18 MG/DL (7-18); Glucose 122 MG/DL (74-106); Osmolality,Calculated 270.2 MOS/KG (273-304); Potassium 3.8 MMOL/L (3.5-5.1); Sodium 134 MMOL/L (136-145); Troponin I Only < 0.015 NG/ML (0.00-0.045)
--- NOTE | 2017-04-08 14:43 | XRay Report ---
Exam: XR chest 1V portable Indication: COPD scarring history of pneumonia, abnormal breath sounds Comparison study: Prior chest radiograph 03/11/2017 Findings: Cardiac silhouette and mediastinal contours appear similar to prior. Lungs are mildly hyperexpanded with diffuse prominent interstitial scarring changes noted which predominantly appears similar to prior. There is right apical pleural thickening which is similar to prior. There has been development of focal airspace opacities with possible central lucency within the left upper lobe and perihilar region. There is also slight leftward shift of mediastinal structures suggesting a degree of volume loss or atelectasis. There is no pneumothorax or significant pleural effusion. No suspicious osseous lesions are identified. Impression: Extensive findings of chronic interstitial scarring and architectural distortion throughout the lung parenchyma and interval development of airspace opacities within the left upper lobe/suprahilar region concerning for developing focal pneumonia or less likely atelectasis. PROCEDURE INTERPRETED AT [facility] DEPARTMENT OF RADIOLOGY Final Report Signed by: Ever Garcia
[2017-04-08] MEDS ORDERED: AZITHROMYCIN INJ 500 MG in SODIUM CHLORIDE 0.9% 250 ML IV STA (15:03)
[2017-04-08] MEDS ORDERED: AZITHROMYCIN 500 MG VIAL IV ONE (15:26)
[2017-04-08 15:58] LABS: Band Neutrophils 1 % (0-10); Lymphocytes 6 % (20-55); Platelet Estimate Increased; Segmented Neutrophils 84 % (50-85); Total Cells Counted 100
--- NOTE | 2017-04-08 17:42 | Hospitalist History & Physical ---
Assessment and Plan - Time spent with patient Time spent with patient: Greater than 30 minutes (1) Pneumonia Status: Acute Assessment and plan: Admitted to hospital services. Start steroids. Duo nebs. Antibiotic coverage Vanc and Zosyn. Continuous O2. Blood culture. A.m. labs. Consult Dr. foote.(patient is known to him) Current Visit: Yes History of Present Illness Chief complaint: low oxygen saturation and low BP History of present illness: Mr. Bianchi is a very pleasant 76 year old white male presented to [facility] ED sent from [facility] related to abnormal vital signs patient on home O2 with saturation low and low BP per [place] [facility]. Medical history abdominal aortic aneurysm, cardiac dysrhythmia tachycardia, CAD with previous [place] , recent Holter monitor evaluation, depression, hearing loss, wears glasses, history of bronchitis, COPD with home O2, incontinence, history of prostate cancer, GERD, history of liver problems hypodensities within the liver, chronic back pain, arthritis, anemia. Surgical history tonsillectomy adenoidectomy, appendectomy, colonoscopy, EGD, prostatectomy. Patient reports completing a round of antibiotics azithromycin and prednisone yesterday per Dr. Foote order for outpatient pneumonia. Patient reports coughing up thick greenish sputum frequently. Patient's primary care physician is Dr. Caraballo at the [place] clinic, pulmonary care per Dr. Foote, senior research fellow Dr. Orellana. At the time of ED presentation, the patient was assessed. Vital signs stable O2 at 2 L 98% sat 15-18 respiration rate. Labs obtained WBC 19.4, hemoglobin 11.5, hematocrit 34.3, platelet 470, INR 1.1, PT 11.9, PTT 31.5. Sodium 134, potassium 3.8, chloride 93, carbon dioxide 33, and anion gap 11.8, BUN 18, creatinine 0.70, glucose 122, AST 16, ALT 30, alkaline phosphate 177, troponin less than 0.015, albumin 2.1. Chest x-ray: Extensive finding of chronic interstitial scarring and articulate distortion throughout the lung parenchyma and interval development of airspace opacities within the left upper lobe superior hilar region concerning develop a focal pneumonia or less likely atelectasis. After discussion with Dr. Torres ED physician and Dr. Herring hospitalist physician it is agreed patient needs to be admitted for further evaluation. Medication reconciliation to follow. Patient is a full CODE STATUS. Home Medications Medication Instructions Recorded Confirmed Type Sertraline [Zoloft] 50 mg PO DAILY 10/18/16 04/08/17 History Tiotropium Inhalation [Spiriva 18 mcg INH QAM 10/18/16 04/08/17 History Handihaler] Albuterol Inhaler [Proventil 2 puff INH Q4HR PRN #1 inhaler 10/22/16 04/08/17 Rx Inhaler] Docusate/Senna 50-8.6 [Senokot S] 1 tablet PO DAILY PRN 03/05/17 04/08/17 History HYDROcodone/ACETAMIN 10-325 [[place] 1 tablet PO TID PRN 03/05/17 04/08/17 History 10-325] Albuterol/Ipratropium Neb [Duoneb] 3 ml RESP TX QID 04/08/17 04/08/17 History Fluticasone 50 Mcg Nasal [place] 1 spray BOTH NARES DAILY PRN 04/08/17 04/08/17 History [Flonase Nasal [place]] Omeprazole 40 mg PO DAILY 04/08/17 04/08/17 History Oxybutynin Xl [Ditropan Xl] 15 mg PO DAILY 04/08/17 04/08/17 History Sertraline [Zoloft] 100 mg PO DAILY 04/08/17 04/08/17 History Allergies Allergy/AdvReac Type Severity Reaction Status Date / Time levofloxacin [From Levaquin] Allergy RASH Verified 10/19/16 10:01 simvastatin [From Zocor] Allergy Unknown/Unable Verified 10/18/16 11:15 to obtain Medical,Surgical,& Family Hx - Medical History Cardio: History of: Aneurysm (Abdominal Aortic Aneurysm), Cardiac Dysrhythmia ( Tachycardia), CAD (has had previous myocardial infarction), [place], Cardiovascular Problems (Recent holter monitor) Psychological: History of: Depression No history of: Anxiety Disorders, ADHD, Behavior Problems, Bipolar Disorder, Previous Suicide Attempt, Psychiatric/Substance Abuse Tx, Schizophrenia, Violent Behavior, Psychiatric Problems Neurology: No history of: Seizures HEENT: History of: Ear Problem (hearing loss), Eye Problem (wears glasses) Respiratory: History of: Bronchitis, COPD, Respiratory Problems (Nodule on lung ; wears oxygen at home) Genitourinary: History of: Bladder Problem (incontinence. ), Prostate Problems ( hx of prostate ca) Gastrointestinal: History of: GERD, Liver Problems (CT shows hypodensities within the liver), Polyps Musculoskeletal: History of: Back/Neck Problems (Chronic back pain), Musculoskeletal Problems (arthritis) Hematology: History of: Anemia Reproductive: Reports: Reproductive Cancer (prostate ca) Other: History of: Cancer (Hx: Prostate cancer) - Surgical History Cardiac Surgeries: Patient Denies: Cardiac Catheterization HEENT Surgeries: Surgical HX of: Eye Surgery (RIGHT pencil lead removed), Tonsilectomy & Adenoidectomy Abdominal Surgeries: Surgical HX of: Abdominal Surgery, Appendectomy, Colonoscopy, EGD Patient denies: Cholecystectomy, Gastric Bypass Surgery, Hernia Repair Reproductive Surgeries: Surgical HX of;: Genitourinary Surgery, Prostate Surgery Orthopedic Surgeries: Patient denies;: Orthopedic Surgery - Family History Family History: Reports;: Family Cancer (prostate CA- brother, breast CA- mother ), Family Diabetes (Sister), Family Heart Disease (Sister), Family Hypertension (Mother) Denies;: Family Anesthesia Reaction, Family Psychiatric Problems, Family Stroke - Social History Smoking Status: Current some day smoker Review of systems: ROS completed and pertinent positives and negatives documented in the HPI. Exam - Constitutional Vitals: Period Temp Pulse Resp BP Sys/Parada Pulse Ox Last 24 Hr 97.8 F-98.4 F 85-104 15-24 79-113/45-64 92-100 General appearance: no acute distress, under weight - Head Head exam: Present: normal inspection - Eye Eye exam: Present: EOMI Pupils: Present: ALEKSANDRA - Neck Neck exam: Present: normal inspection - Respiratory Respiratory exam: Present: rales (bilateral), rhonchi, wheezes (right sided expiratory wheezes). Absent: accessory muscle use - Cardiovascular Cardiovascular exam: Present: regular rate and rhythm - GI/Abdominal GI/Abdominal exam: Present: normal bowel sounds, soft. Absent: tenderness, rebound - Extremities Exam Extremities exam: Present: normal inspection, full ROM. Absent: edema - Neurological Exam Neurological exam: Present: alert, oriented X3 - Psychiatric Psychiatric exam: Present: normal affect, normal mood - Skin Skin exam: Present: normal color, warm, dry Results - Labs CBC & BMP: 04/08/17 13:38 04/08/17 13:38 Lab Results: I have reviewed the past 24 hour labs - Diagnostic Findings Procedure: Chest x-ray: report reviewed by me (Extensive findings of chronic interstitial scarring and articulate distorted throughout the lung parenchyma and interval development of airspace opacities within the left upper lobe suprahilar region concerning develop focal pneumonia or less likely atelectasis)
--- NOTE | 2017-04-08 17:56 | EKG Report ---
Stationary ECG Study [facility] ER Test Date: 04/08/2017 1:38:57 PM Pat Name: ZOILA LADD Department: Room: EDKYIT Gender: M Financial Developer: : 1940 Requested by: Nori Torres Order Number: [id number] Reading MD: JUAREZ DASH Intervals [place] Rate: 99 P: 88 HI: 158 QRS: -72 QRSD: 106 T: 91 QT: 359 QTc: 415 Interpretive Statements SINUS RHYTHM WITH FREQUENT SUPRAVENTRICULAR PREMATURE COMPLEXES at 99 bpm MARKED LEFT AXIS DEVIATION LOW QRS VOLTAGE IN PRECORDIAL LEADS POSSIBLE RIGHT VENTRICULAR CONDUCTION DELAY NST Electronically Signed On 04-09-17 07:17:50 CDT by JUAREZ DASH [email or web address]
[2017-04-08] MEDS ORDERED: FLUTICASONE 50 MCG NASAL SPRAY 16 GM BOTTLE BOTH NARES PRN (18:10)
[2017-04-08] MEDS ORDERED: DOCUSATE/SENNA 50-8.6 MG TABLET PO PRN (18:10)
[2017-04-08] MEDS: methylPREDNISolone SOD SUC 40 MG/1 ML VIAL IV SCH (19:41)
[2017-04-08] MEDS: PIPERACILLIN/TAZOBACTAM 3,375 MG in SODIUM CHLORIDE 0.9% 100 ML IV SCH (19:44)
[2017-04-08] MEDS: ALBUTEROL/IPRATROPIUM 3 ML NEB RESP TX SCH (19:59)
[2017-04-08] MEDS: VANCOMYCIN INJ 750 MG in SODIUM CHLORIDE 0.9% 250 ML IV SCH (23:36)
[2017-04-09] MEDS: ALBUTEROL/IPRATROPIUM 3 ML NEB RESP TX SCH ×4 (01:15→18:44)
[2017-04-09] MEDS: PIPERACILLIN/TAZOBACTAM 3,375 MG in SODIUM CHLORIDE 0.9% 100 ML IV SCH ×3 (02:19→17:53)
[2017-04-09] MEDS: methylPREDNISolone SOD SUC 40 MG/1 ML VIAL IV SCH ×3 (02:24→17:53)
[2017-04-09 06:15] LABS: Hematocrit 28.8 VOL% (42.0-52.0); Hemoglobin 9.5 GM/DL (14.0-18.0); Immature Granulocytes % 1.8 %; Immature Granulocytes Absolute 0.21 #; Lymphocytes # 0.3 10*3/uL (1.4-4.0); Lymphocytes % 2.7 % (21.2-54.2); Mean Corpuscular Hemoglobin 27 PG (27-34); Mean Corpuscular Volume 82.5 FL (87-102); Mean Platelet Volume 9.1 FL (9.6-12.0); Monocytes # 0.1 10*3/uL (0.11-0.8); Monocytes % 0.9 % (1.7-12.7); Neutrophils # 10.8 10*3/uL (1.4-7.4); Neutrophils % 94.6 % (38.7-73.9); Platelet Count 429 T/CUMM (130-400); Red Blood Count 3.49 MC/CUMM (3.8-5.5); Red Cell Distribution Width 14.3 % (9.3-17.3); White Blood Count 11.4 T/CUMM (4-12)
[2017-04-09 06:46] LABS: Calcium 8.6 MG/DL (8.5-10.1); Magnesium 2.3 MG/DL (1.8-2.4); Osmolality,Calculated 278.7 MOS/KG (273-304); Potassium 4.2 MMOL/L (3.5-5.1)
[2017-04-09 07:08] LABS: Band Neutrophils 6 % (0-10); Hypochromasia Slight; Lymphocytes 1 % (20-55); Platelet Estimate Adequate; Segmented Neutrophils 93 % (50-85); Total Cells Counted 100
--- NOTE | 2017-04-09 07:15 | XRay Report ---
Exam: XR chest 1V portable Indication: Shortness of breath, COPD Comparison study: 04/08/2017 radiograph Findings: There is slight improved aeration within the left upper lobe. Similar diffuse chronic scarring changes noted throughout the lungs bilaterally with large areas of architectural distortion. No pneumothorax is identified. Critics silhouette in a sterile contours appear stable from prior. Osseous structures are stable from prior.. Impression: Slight improved aeration within the left upper lobe. PROCEDURE INTERPRETED AT [facility] DEPARTMENT OF RADIOLOGY Final Report Signed by: Ever Garcia
[2017-04-09] MEDS ORDERED: SERTRALINE 100 MG TABLET PO SCH (09:00)
[2017-04-09] MEDS: SERTRALINE 100 MG TABLET PO SCH (09:40)
[2017-04-09] MEDS: PANTOPRAZOLE 40 MG TABLET PO SCH (09:41)
[2017-04-09] MEDS: OXYBUTYNIN XL 15 MG TABLET PO SCH (09:41)
[2017-04-09] MEDS: VANCOMYCIN INJ 750 MG in SODIUM CHLORIDE 0.9% 250 ML IV SCH ×2 (09:43→23:30)
--- NOTE | 2017-04-09 10:05 | Pulmonology Consult Note ---
Assessment and Plan (1) Pneumonia involving left lung Status: Acute Assessment and plan: He does have a left upper lobe infiltrate that was not there a month ago. Consistent with pneumonia. Since he had Pseudomonas last time we need to give double coverage for that this time. Have added Merrem to his Zosyn. Also is on vancomycin but if sputum cultures are negative that would be want to stop. Current Visit: Yes (2) COPD with exacerbation Status: Acute Assessment and plan: Corticosteroids bronchodilators and antibiotics. Seems better today. He has very severe COPD. He did stop smoking about 2 months ago. Current Visit: No (3) Chronic respiratory failure Status: Acute Assessment and plan: Low flow oxygen. Bronchodilators. Current Visit: No (4) Malnutrition Status: Chronic Assessment and plan: Needs nutritional support. Current Visit: No (5) On home oxygen therapy Status: Chronic Assessment and plan: Continuing oxygen at 2 L. Current Visit: No History of Present Illness Chief complaint: Cough congestion shortness of breath History of present illness: Mr. Bianchi is a 76 year old male who has severe COPD with bullous changes. He was here about a month ago with Pseudomonas infection. It was sensitive to everything tested. He went home and then got worse over the last couple of days. He came in with hypoxemia and a new left upper lobe infiltrate. Stopped smoking about 2 months ago. He is on home oxygen. [facility] He gets duo nebs, Spiriva, please see list for other home medications. He is allergic to Levaquin and Zocor. Home Medications Medication Instructions Recorded Confirmed Type Sertraline [Zoloft] 50 mg PO DAILY 10/18/16 04/08/17 History Tiotropium Inhalation [Spiriva 18 mcg INH QAM 10/18/16 04/08/17 History Handihaler] Albuterol Inhaler [Proventil 2 puff INH Q4HR PRN #1 inhaler 10/22/16 04/08/17 Rx Inhaler] Docusate/Senna 50-8.6 [Senokot S] 1 tablet PO DAILY PRN 03/05/17 04/08/17 History HYDROcodone/ACETAMIN 10-325 [[place] 1 tablet PO TID PRN 03/05/17 04/08/17 History 10-325] Albuterol/Ipratropium Neb [Duoneb] 3 ml RESP TX QID 04/08/17 04/08/17 History Fluticasone 50 Mcg Nasal [place] 1 spray BOTH NARES DAILY PRN 04/08/17 04/08/17 History [Flonase Nasal [place]] Omeprazole 40 mg PO DAILY 04/08/17 04/08/17 History Oxybutynin Xl [Ditropan Xl] 15 mg PO DAILY 04/08/17 04/08/17 History Sertraline [Zoloft] 100 mg PO DAILY 04/08/17 04/08/17 History Allergies Allergy/AdvReac Type Severity Reaction Status Date / Time levofloxacin [From Levaquin] Allergy RASH Verified 10/19/16 10:01 simvastatin [From Zocor] Allergy Unknown/Unable Verified 10/18/16 11:15 to obtain 12 point system: reviewed and no additional remarkable complaints except as stated - Constitutional Constitutional: Present: anorexia, fatigue - EENT Nose, mouth and throat: Present: headache(s) - Cardiovascular Cardiovascular: Present: chest pain at rest, orthopnea, PND - Respiratory Respiratory: Present: cough, dyspnea, dyspnea on exertion, wheezing, change in phlegm color - Gastrointestinal Gastrointestinal: Present: abdominal pain, constipation - Genitourinary Genitourinary: Present: urinary frequency - Musculoskeletal Musculoskeletal: Present: myalgias - Psychiatric Psychiatric: Present: anxiety, depression Exam (Pulmonay) H&P - Constitutional Vitals: Period Temp Pulse Resp BP Sys/Parada Pulse Ox Last 24 Hr 97.4 F-98.4 F 73-104 15-24 79-114/45-65 92-100 Exam: Vital signs are normal. Oxygen saturation 98% on 2 L. Pupils react to light. Throat is clear. Neck supple no bruits. Chest shows prolonged expiratory phase. Expiratory wheezes noted bilaterally with rhonchi on the left upper lobe. Increased AP diameter. Heart normal rate and rhythm no murmurs no rubs no gallops. Abdomen soft nontender no masses. Extremities no clubbing or cyanosis. There is a trace of edema. Calves are nontender. Medical,Surgical,& Family Hx - Medical History Cardio: History of: Aneurysm (Abdominal Aortic Aneurysm), Cardiac Dysrhythmia ( Tachycardia), CAD (has had previous myocardial infarction), [place], Cardiovascular Problems (Recent holter monitor) Psychological: History of: Depression No history of: Anxiety Disorders, ADHD, Behavior Problems, Bipolar Disorder, Previous Suicide Attempt, Psychiatric/Substance Abuse Tx, Schizophrenia, Violent Behavior, Psychiatric Problems Neurology: No history of: Seizures HEENT: History of: Ear Problem (hearing loss), Eye Problem (wears glasses) Respiratory: History of: Bronchitis, COPD, Respiratory Problems (Nodule on lung ; wears oxygen at home) Genitourinary: History of: Bladder Problem (incontinence. ), Prostate Problems ( hx of prostate ca) Gastrointestinal: History of: GERD, Liver Problems (CT shows hypodensities within the liver), Polyps Musculoskeletal: History of: Back/Neck Problems (Chronic back pain), Musculoskeletal Problems (arthritis) Hematology: History of: Anemia Reproductive: Reports: Reproductive Cancer (prostate ca) Other: History of: Cancer (Hx: Prostate cancer) - Surgical History Cardiac Surgeries: Patient Denies: Cardiac Catheterization HEENT Surgeries: Surgical HX of: Eye Surgery (RIGHT pencil lead removed), Tonsilectomy & Adenoidectomy Abdominal Surgeries: Surgical HX of: Abdominal Surgery, Appendectomy, Colonoscopy, EGD Patient denies: Cholecystectomy, Gastric Bypass Surgery, Hernia Repair Reproductive Surgeries: Surgical HX of;: Genitourinary Surgery, Prostate Surgery Orthopedic Surgeries: Patient denies;: Orthopedic Surgery - Family History Family History: Reports;: Family Cancer (prostate CA- brother, breast CA- mother ), Family Diabetes (Sister), Family Heart Disease (Sister), Family Hypertension (Mother) Denies;: Family Anesthesia Reaction, Family Psychiatric Problems, Family Stroke - Social History Smoking Status: Current some day smoker Frequency of Alcohol Use: None Type of Drug Use: None Results - Labs CBC & BMP: 04/09/17 05:54 04/09/17 05:54 Lab Results: I have reviewed the past 24 hour labs - Diagnostic Findings Procedure: Chest x-ray: image reviewed by me (Hyperinflation, chronic bullous changes both upper lobes without cavities. Left upper lobe infiltrate which is new.)
[2017-04-09] MEDS: MEROPENEM 1,000 MG in SODIUM CHLORIDE 0.9% 100 ML IV SCH ×2 (11:38→22:51)
--- NOTE | 2017-04-09 16:25 | Hospitalist Progress Note ---
Assessment and Plan (1) Pneumonia Status: Acute Assessment and plan: Patient is on multiple antibiotics. He had pseudomonas aeruginosa and sputum last month. He has responded to antibiotic quite well and probably will be de- escalate it Current Visit: Yes (2) COPD with exacerbation Status: Acute Assessment and plan: Likely due to pneumonia with continuous ongoing smoking exposure. Patient is encouraged to quit smoking we will continue current management including steroid and bronchodilator. Pulmonary also following Current Visit: No (3) Anemia Status: Acute Assessment and plan: Patient has chronic anemia but noted to have some drop of hemoglobin hematocrit today on the left buttock I will check labs tomorrow Current Visit: Yes Hospitalist: Subjective Interval history: Mr. Bianchi is a very pleasant 76 year old white male with multiple medical problems including COPD and has been on home oxygen, prostate cancer, GERD, Gropp chronic back pain, arthritis and anemia. He is [facility]. He is a past heavy smoker now smokes 2-3 cigarettes a day. He was seen in the clinic where he was noted to be sick was hypotensive. He had cough with production of thick sputum in the ER he was evaluated and noted to have a opacities in the left upper lobe suspected for pneumonia. He had WBC count of 19.4. He is on vancomycin Zosyn and meropenem at present and has improved significantly subjectively without any fever Awake and alert eating fair Exam - Constitutional Vitals: Period Temp Pulse Resp BP Sys/Parada Pulse Ox Last 24 Hr 97.4 F-98.0 F 73-104 1-20 101-114/49-68 94-99 General appearance: no acute distress - Respiratory Respiratory exam: Present: rhonchi (Equal air entry bilaterally with the diffuse rhonchi on auscultation) - Cardiovascular Cardiovascular exam: Present: regular rate and rhythm. Absent: tachycardia - GI/Abdominal GI/Abdominal exam: Present: normal bowel sounds, soft. Absent: distended, tenderness - Extremities Exam Extremities exam: Present: normal inspection. Absent: edema - Neurological Exam Neurological exam: Present: alert Results - Labs CBC & BMP: 04/09/17 05:54 04/09/17 05:54 Lab Results: I have reviewed the past 24 hour labs
[2017-04-10] MEDS: ALBUTEROL/IPRATROPIUM 3 ML NEB RESP TX SCH ×4 (00:01→19:03)
[2017-04-10] MEDS: methylPREDNISolone SOD SUC 40 MG/1 ML VIAL IV SCH ×3 (02:01→21:37)
[2017-04-10] MEDS: PIPERACILLIN/TAZOBACTAM 3,375 MG in SODIUM CHLORIDE 0.9% 100 ML IV SCH ×3 (02:02→17:45)
[2017-04-10 06:11] LABS: Basophils % 0.1 % (0.0-0.8); Hematocrit 27.8 VOL% (42.0-52.0); Immature Granulocytes % 2.5 %; Lymphocytes # 0.3 10*3/uL (1.4-4.0); Lymphocytes % 2.9 % (21.2-54.2); Mean Corpuscular HGB Conc 32.4 GM/DL (32-36); Mean Corpuscular Hemoglobin 27 PG (27-34); Mean Platelet Volume 8.8 FL (9.6-12.0); Monocytes # 0.2 10*3/uL (0.11-0.8); Monocytes % 1.9 % (1.7-12.7); Neutrophils % 92.6 % (38.7-73.9); Platelet Count 400 T/CUMM (130-400); Red Blood Count 3.35 MC/CUMM (3.8-5.5); Red Cell Distribution Width 14.4 % (9.3-17.3); White Blood Count 11.8 T/CUMM (4-12)
[2017-04-10 06:35] LABS: Calcium 8.2 MG/DL (8.5-10.1); Hypochromasia 1+; Lymphocytes 2 % (20-55); Myelocytes 1 %; Osmolality,Calculated 280.4 MOS/KG (273-304); Segmented Neutrophils 95 % (50-85); Total Cells Counted 100
[2017-04-10 06:36] LABS: Platelet Estimate Increased
--- NOTE | 2017-04-10 08:34 | Pulmonology Progress Note ---
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 He has a superimposed left upper lobe pneumonia. Sputum Gram stain showed gram-negative rods. He had Pseudomonas the last time he had pneumonia. He is covered with Zosyn and Merrem. We will stop vancomycin for now since it does not appear that he will have a gram- positive organism. Exam (Progress Note) - Constitutional Vitals: Period Temp Pulse Resp BP Sys/Parada Pulse Ox Last 24 Hr 97.6 F-98.0 F 89-102 1-20 112-114/65-70 92-99 Exam: Patient's alert oriented vital signs normal. He is thin and frail. Pupils react to light. Throat is clear. Neck supple no bruits. Chest shows prolonged expiratory phase with a few rhonchi. Heart normal rate rhythm no murmurs. Abdomen soft nontender no masses. Extremities no clubbing cyanosis or edema. Calves nontender Results - Labs CBC & BMP: 04/10/17 05:30 04/10/17 05:30 Lab Results: I have reviewed the past 24 hour labs Assessment and Plan (1) Pneumonia involving left lung Status: Acute Assessment and plan: He does have a left upper lobe infiltrate that was not there a month ago. Consistent with pneumonia. Since he had Pseudomonas last time we need to give double coverage for that this time. Have added Merrem to his Zosyn. Also is on vancomycin but if sputum cultures are negative that would be want to stop. 04/10/2017 continuing antibiotics for gram-negative pneumonia. Gram stain showed gram-negative rods. Stopping vancomycin for now. Current Visit: Yes (2) COPD with exacerbation Status: Acute Assessment and plan: Corticosteroids bronchodilators and antibiotics. Seems better today. He has very severe COPD. He did stop smoking about 2 months ago. 04/10/2017 continuing steroids and bronchodilators. Will reduce steroids a little. Current Visit: No (3) Chronic respiratory failure Status: Acute Assessment and plan: Low flow oxygen. Bronchodilators. 04/10/2017 continuing low flow oxygen. Current Visit: No (4) Malnutrition Status: Chronic Assessment and plan: Needs nutritional support. 04/10/2017 encouraging patient to eat better. Diet supplements will help. Current Visit: No (5) On home oxygen therapy Status: Chronic Assessment and plan: Continuing oxygen at 2 L. Current Visit: No
[2017-04-10] MEDS: OXYBUTYNIN XL 15 MG TABLET PO SCH (09:53)
[2017-04-10] MEDS: PANTOPRAZOLE 40 MG TABLET PO SCH (09:53)
[2017-04-10] MEDS: SERTRALINE 100 MG TABLET PO SCH (09:53)
[2017-04-10] MEDS: MEROPENEM 1,000 MG in SODIUM CHLORIDE 0.9% 100 ML IV SCH ×2 (09:53→21:38)
--- NOTE | 2017-04-10 11:02 | Hospitalist Progress Note ---
Assessment and Plan - Time spent with patient Time spent with patient: Less than 30 minutes (1) Pneumonia Status: Acute Assessment and plan: 04/10/17 - Patient had pseudomonas aeruginosa in sputum last month. Improving WBC 11.8 this a.m. He is on antibiotics: Zosyn and now Merrem. 04/09 chest xray showed slight improved aeration within left upper lobe. Will continue antibiotic coverage and bronchodilators and steroids. Will repeat a.m. labs. Admitted to hospital services. Start steroids. Duo nebs. Antibiotic coverage Vanc and Zosyn. Continuous O2. Blood culture. A.m. labs. Consult Dr. goldsmith.(patient is known to him) Current Visit: Yes (2) Anemia Status: Acute Assessment and plan: Patient H&H is slightly down this a.m. 9.0 and 27.8 - from yesterday's H&H 9.5 and 28.8. Will repeat labs in the a.m. and discuss with Dr Acevedo for any further recommendations to add to current care. Current Visit: Yes (3) COPD with exacerbation Status: Acute Assessment and plan: Most likely due to pneumonia. Will continue steroids, brochodilators and antibiotic coverage. Will continue to follow Pulmonary recommendations. Current Visit: No Hospitalist: Subjective Interval history: 04/10/17 -Mr. Bianchi significant of COPD on chronic home oxygen therapy. He is sitting up in the bed reading newspaper this morning. He has no acute distress and is on 2L nasal cannula oxygen therapy. He verbalizes feeling much better today. He denies chest pain, fever, chills. He reports the swelling in his feet have improved. He has no edema noted to the lower extremeties at this time. Exam - Constitutional Vitals: Period Temp Pulse Resp BP Sys/Parada Pulse Ox Last 24 Hr 96.7 F-98.0 F 89-102 1-22 100-114/57-70 92-99 General appearance: under weight - Head Head exam: Present: normal inspection - Eye Eye exam: Present: EOMI Pupils: Present: ALEKSANDRA - ENT ENT exam: Present: normal exam (moist membranes) - Neck Neck exam: Present: normal inspection - Respiratory Respiratory exam: Present: rhonchi (left ). Absent: wheezes - Cardiovascular Cardiovascular exam: Present: regular rate and rhythm - GI/Abdominal GI/Abdominal exam: Present: normal bowel sounds, soft. Absent: tenderness, rebound - Extremities Exam Extremities exam: Present: normal inspection, full ROM. Absent: edema - Neurological Exam Neurological exam: Present: alert, oriented X3 - Psychiatric Psychiatric exam: Present: normal affect, normal mood - Skin Skin exam: Present: normal color, warm, dry Results - Labs CBC & BMP: 04/10/17 05:30 04/10/17 05:30 Lab Results: I have reviewed the past 24 hour labs
--- NOTE | 2017-04-10 15:33 | Gastrointestinal Consult Note ---
<Nara Mcleod - Last Filed: 04/10/17 15:28> Assessment and Plan (1) Dysphagia Status: Chronic Assessment and plan: 04/10-history of esophageal stricture with recently worsening dysphagia. History of GERD mostly controlled with Prilosec. 4-5 pound weight loss over the last 3 months. Last EGD in December of this year with dilation. Increasing complaints of difficulty with liquids, solids, and pills. Continue to monitor respiratory status at this time and consider repeat EGD when pneumonia has improved and patient able to tolerate endoscopy. Plan an addendum to follow by Dr. Cespedes. Current Visit: No History of Present Illness Chief complaint: Dysphagia History of present illness: Mr. Bianchi is a 76 year old male who was admitted to the hospital on 04/08 for complaints of shortness of breath and findings of pneumonia. Patient has a prior history of severe COPD and is oxygen dependent. He also has a long-term smoker. He began having upper respiratory symptoms last week and was started on Zithromax and completed this however he continued to have shortness of breath chest pain with respirations and came to the ER for further evaluation. He was found at that time to have pneumonia to his left lung and was admitted for IV antibiotics. Patient is routinely followed at the [facility]. Since admission, patient has complained of continued dysphagia to pills, solids and liquids. Patient has a long standing history of dysphagia and has had multiple esophageal dilations in the past. His last dilation was done in December of this year and patient states this did seem to help for a few weeks however shortly after that his symptoms return. Patient states that there are times when he is eating that he will have an onset of epigastric pain and the food becomes lodged in his esophagus and will not "go up or down". At times he has to regurgitate his food and states that at other times he strangles when he drinks liquids. His last EGD prior to December was the month before in which he also had a dilation done as well as findings of exudative esophagitis with Julissa at that time. He is noted to have lost 5-6 pounds over the last 3-4 months. He denies any melena or hematochezia. Denies taking any NSAIDs and does not take anticoagulants. He states he does take his Prilosec regularly for his GERD symptoms. Home Medications Medication Instructions Recorded Confirmed Type Sertraline [Zoloft] 50 mg PO DAILY 10/18/16 04/08/17 History Tiotropium Inhalation [Spiriva 18 mcg INH QAM 10/18/16 04/08/17 History Handihaler] Albuterol Inhaler [Proventil 2 puff INH Q4HR PRN #1 inhaler 10/22/16 04/08/17 Rx Inhaler] Docusate/Senna 50-8.6 [Senokot S] 1 tablet PO DAILY PRN 03/05/17 04/08/17 History HYDROcodone/ACETAMIN 10-325 [[place] 1 tablet PO TID PRN 03/05/17 04/08/17 History 10-325] Albuterol/Ipratropium Neb [Duoneb] 3 ml RESP TX QID 04/08/17 04/08/17 History Fluticasone 50 Mcg Nasal [place] 1 spray BOTH NARES DAILY PRN 04/08/17 04/08/17 History [Flonase Nasal [place]] Omeprazole 40 mg PO DAILY 04/08/17 04/08/17 History Oxybutynin Xl [Ditropan Xl] 15 mg PO DAILY 04/08/17 04/08/17 History Sertraline [Zoloft] 100 mg PO DAILY 04/08/17 04/08/17 History Allergies Allergy/AdvReac Type Severity Reaction Status Date / Time levofloxacin [From Levaquin] Allergy RASH Verified 10/19/16 10:01 simvastatin [From Zocor] Allergy Unknown/Unable Verified 10/18/16 11:15 to obtain Medical,Surgical,& Family Hx - Medical History Cardio: History of: Aneurysm (Abdominal Aortic Aneurysm), Cardiac Dysrhythmia ( Tachycardia), CAD (has had previous myocardial infarction), AR, Cardiovascular Problems (Recent holter monitor) Psychological: History of: Depression No history of: Anxiety Disorders, ADHD, Behavior Problems, Bipolar Disorder, Previous Suicide Attempt, Psychiatric/Substance Abuse Tx, Schizophrenia, Violent Behavior, Psychiatric Problems Neurology: No history of: Seizures HEENT: History of: Ear Problem (hearing loss), Eye Problem (wears glasses) Respiratory: History of: Bronchitis, COPD, Respiratory Problems (Nodule on lung ; wears oxygen at home) Genitourinary: History of: Bladder Problem (incontinence. ), Prostate Problems ( hx of prostate ca) Gastrointestinal: History of: GERD, Liver Problems (CT shows hypodensities within the liver), Polyps Musculoskeletal: History of: Back/Neck Problems (Chronic back pain), Musculoskeletal Problems (arthritis) Hematology: History of: Anemia Reproductive: Reports: Reproductive Cancer (prostate ca) Other: History of: Cancer (Hx: Prostate cancer) - Surgical History Cardiac Surgeries: Patient Denies: Cardiac Catheterization HEENT Surgeries: Surgical HX of: Eye Surgery (RIGHT pencil lead removed), Tonsilectomy & Adenoidectomy Abdominal Surgeries: Surgical HX of: Abdominal Surgery, Appendectomy, Colonoscopy, EGD Patient denies: Cholecystectomy, Gastric Bypass Surgery, Hernia Repair Reproductive Surgeries: Surgical HX of;: Genitourinary Surgery, Prostate Surgery Orthopedic Surgeries: Patient denies;: Orthopedic Surgery - Family History Family History: Reports;: Family Cancer (prostate CA- brother, breast CA- mother ), Family Diabetes (Sister), Family Heart Disease (Sister), Family Hypertension (Mother) Denies;: Family Anesthesia Reaction, Family Psychiatric Problems, Family Stroke - Social History Smoking Status: Former smoker Frequency of Alcohol Use: None Type of Drug Use: None 12 point system: reviewed and no additional remarkable complaints except as stated - Constitutional Constitutional: Present: as per HPI, weight loss - EENT Eyes: Present: as per HPI Ears: Present: as per HPI Nose, mouth and throat: Present: as per HPI, dysphagia - Cardiovascular Cardiovascular: Present: as per HPI - Respiratory Respiratory: Present: as per HPI, cough, dyspnea, wheezing - Gastrointestinal Gastrointestinal: Present: as per HPI, dyspepsia, dysphagia, early satiety, heartburn - Genitourinary Genitourinary: Present: as per HPI - Musculoskeletal Musculoskeletal: Present: as per HPI - Neurological Neurological: Present: as per HPI - Psychiatric Psychiatric: Present: as per HPI - Endocrine Endocrine: Present: as per HPI - Hematologic/Lymphatic Hematologic/Lymphatic: Present: as per HPI Exam - Constitutional Vitals: Period Temp Pulse Resp BP Sys/Parada Pulse Ox Last 24 Hr 96.7 F-98.0 F 82-102 18-22 100-114/57-70 92-99 General appearance: no acute distress, under weight - Head Head exam: Present: normal inspection, normocephalic - Eye Eye exam: Present: other (Lids and conjunctive are unremarkable). Absent: scleral icterus - ENT ENT exam: Present: normal exam, normal oropharynx - Neck Neck exam: Present: normal inspection - Respiratory Respiratory exam: Present: clear to auscultation bilaterally. Absent: rales, rhonchi, wheezes - Cardiovascular Cardiovascular exam: Present: regular rate and rhythm. Absent: diastolic murmur , JVD, systolic murmur - GI/Abdominal GI/Abdominal exam: Present: normal bowel sounds, soft. Absent: ascites, distended, mass, organomegaly, tenderness - Extremities Exam Extremities exam: Present: normal inspection, full ROM - Back Exam Back exam: Present: normal inspection - Neurological Exam Neurological exam: Present: alert, oriented X3 - Psychiatric Psychiatric exam: Present: normal affect, normal mood - Skin Skin exam: Present: normal color, warm, dry Results - Labs CBC & BMP: 04/10/17 05:30 04/10/17 05:30 Lab Results: I have reviewed the past 24 hour labs <Kirit Cespedes - Last Filed: 04/10/17 18:37> History of Present Illness History of present illness: Mr. Bianchi is a 76 year old male Exam - Constitutional Vitals: Period Temp Pulse Resp BP Sys/Parada Pulse Ox Last 24 Hr 96.7 F-97.7 F 82-103 18-22 100-112/57-65 92-99 Results - Labs CBC & BMP: 04/10/17 05:30 04/10/17 05:30
[2017-04-10] MEDS: BUDESONIDE/FORMOTEROL 80-4.5 INHALER 6.9 GM INH SCH (21:38)
[2017-04-11] MEDS: ALBUTEROL/IPRATROPIUM 3 ML NEB RESP TX SCH ×4 (00:13→18:48)
[2017-04-11] MEDS: PIPERACILLIN/TAZOBACTAM 3,375 MG in SODIUM CHLORIDE 0.9% 100 ML IV SCH ×3 (01:00→18:08)
[2017-04-11 07:14] LABS: Basophils % 0.1 % (0.0-0.8); Hematocrit 30.4 VOL% (42.0-52.0); Hemoglobin 9.8 GM/DL (14.0-18.0); Immature Granulocytes % 3.6 %; Immature Granulocytes Absolute 0.55 #; Lymphocytes # 0.5 10*3/uL (1.4-4.0); Mean Corpuscular HGB Conc 32.2 GM/DL (32-36); Mean Corpuscular Hemoglobin 27 PG (27-34); Mean Corpuscular Volume 84.7 FL (87-102); Monocytes # 0.5 10*3/uL (0.11-0.8); Monocytes % 3.1 % (1.7-12.7); Neutrophils # 13.9 10*3/uL (1.4-7.4); Neutrophils % 90.2 % (38.7-73.9); Platelet Count 380 T/CUMM (130-400); Red Blood Count 3.59 MC/CUMM (3.8-5.5); Red Cell Distribution Width 14.4 % (9.3-17.3); White Blood Count 15.4 T/CUMM (4-12)
[2017-04-11 07:47] LABS: Hypochromasia 2+; Lymphocytes 7 % (20-55); Microcytosis 1+; Platelet Estimate Adequate; Segmented Neutrophils 85 % (50-85); Total Cells Counted 100
[2017-04-11 07:54] LABS: Calcium 8.7 MG/DL (8.5-10.1); Magnesium 2.3 MG/DL (1.8-2.4); Osmolality,Calculated 286.1 MOS/KG (273-304); Potassium 3.9 MMOL/L (3.5-5.1)
--- NOTE | 2017-04-11 07:57 | Pulmonology Progress Note ---
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 He has a superimposed left upper lobe pneumonia. Sputum Gram stain showed gram-negative rods. He had Pseudomonas the last time he had pneumonia. He is covered with Zosyn and Merrem. We will stop vancomycin for now since it does not appear that he will have a gram- positive organism. 04/11/2017 patient feels a little better. Sitting up in a chair. Still await final cultures from sputum. Continue IV antibiotics for now. He has very severe COPD with a superimposed gram-negative pneumonia. Exam (Progress Note) - Constitutional Vitals: Period Temp Pulse Resp BP Sys/Parada Pulse Ox Last 24 Hr 96.8 F-98.0 F 69-103 18-20 103-117/58-68 92-98 Exam: Patient's alert oriented vital signs normal. He is thin and frail. Pupils react to light. Throat is clear. Neck supple no bruits. Chest shows prolonged expiratory phase with a few rhonchi bilaterally, worst in the left upper lobe. Heart normal rate rhythm no murmurs. Abdomen soft nontender no masses. Extremities no clubbing cyanosis or edema. Calves nontender Results - Labs CBC & BMP: 04/11/17 06:34 04/11/17 06:34 Lab Results: I have reviewed the past 24 hour labs Assessment and Plan (1) Pneumonia involving left lung Status: Acute Assessment and plan: He does have a left upper lobe infiltrate that was not there a month ago. Consistent with pneumonia. Since he had Pseudomonas last time we need to give double coverage for that this time. Have added Merrem to his Zosyn. Also is on vancomycin but if sputum cultures are negative that would be want to stop. 04/10/2017 continuing antibiotics for gram-negative pneumonia. Gram stain showed gram-negative rods. Stopping vancomycin for now. 04/11/2017 recheck x-ray tomorrow. Await final cultures from sputum. Current Visit: Yes (2) COPD with exacerbation Status: Acute Assessment and plan: Corticosteroids bronchodilators and antibiotics. Seems better today. He has very severe COPD. He did stop smoking about 2 months ago. 04/10/2017 continuing steroids and bronchodilators. Will reduce steroids a little. 04/11/2017 tapering steroids. Current Visit: No (3) Chronic respiratory failure Status: Acute Assessment and plan: Low flow oxygen. Bronchodilators. 04/10/2017 continuing low flow oxygen. 04/11/2017 continuing oxygen. Current Visit: No (4) Malnutrition Status: Chronic Assessment and plan: Needs nutritional support. 04/10/2017 encouraging patient to eat better. Diet supplements will help. 04/11/2017 seems to be eating better. Current Visit: No (5) On home oxygen therapy Status: Chronic Assessment and plan: Continuing oxygen at 2 L. Current Visit: No
--- NOTE | 2017-04-11 08:57 | Gastrointestinal Progress Note ---
<Nara Mcleod - Last Filed: 04/11/17 08:55> Assessment and Plan (1) Dysphagia Status: Chronic Assessment and plan: 04/11 -continued dysphagia. Respiratory status slowly improving. Continue to monitor present time with further evaluation for his dysphagia once respiratory status improved. Plan an addendum to follow by Dr. Cespedes. 04/10-history of esophageal stricture with recently worsening dysphagia. History of GERD mostly controlled with Prilosec. 4-5 pound weight loss over the last 3 months. Last EGD in December of this year with dilation. Increasing complaints of difficulty with liquids, solids, and pills. Continue to monitor respiratory status at this time and consider repeat EGD when pneumonia has improved and patient able to tolerate endoscopy. Plan an addendum to follow by Dr. Cespedes. Current Visit: No Gastroenterology - PN: Subj Interval history: CC: Dysphagia Patient is seen, lying in bed awake and alert. States he had an uneventful night. Denies any abdominal pain, nausea or vomiting. He is tolerating his diet at this time in small amounts due to his continued dysphagia. He states that he is beginning to cough up more secretions and his breathing is a little bit improved today. Patient is afebrile. Abdomen soft, nontender. He is noted to have an elevation in his WBCs at 15,000 today however he is also on IV Solu-Medrol at this time. ROS: Denies acute shortness of breath or chest pain Exam (Progress Note) - Constitutional Vitals: Period Temp Pulse Resp BP Sys/Parada Pulse Ox Last 24 Hr 97.7 F-98.0 F 69-103 18-20 104-117/62-68 93-98 General appearance: no acute distress, under weight - Head Head exam: Present: normal inspection, normocephalic - Eye Eye exam: Present: other (Lids and identified unremarkable). Absent: scleral icterus - ENT ENT exam: Present: normal exam, normal oropharynx - Neck Neck exam: Present: normal inspection - Respiratory Respiratory exam: Present: clear to auscultation bilaterally. Absent: rales, rhonchi, wheezes - Cardiovascular Cardiovascular exam: Present: regular rate and rhythm. Absent: diastolic murmur , JVD, systolic murmur - GI/Abdominal GI/Abdominal exam: Present: normal bowel sounds, soft. Absent: ascites, distended, mass, organomegaly, tenderness - Extremities Exam Extremities exam: Present: normal inspection, full ROM - Back Exam Back exam: Present: normal inspection - Neurological Exam Neurological exam: Present: alert, oriented X3 - Psychiatric Psychiatric exam: Present: normal affect, normal mood - Skin Skin exam: Present: normal color, warm, dry Results - Labs CBC & BMP: 04/11/17 06:34 04/11/17 06:34 Lab Results: I have reviewed the past 24 hour labs <Kirit Cespedes - Last Filed: 04/11/17 17:39> Exam (Progress Note) - Constitutional Vitals: Period Temp Pulse Resp BP Sys/Parada Pulse Ox Last 24 Hr 96.6 F-98.3 F 69-104 17-20 110-117/59-68 93-99 Results - Labs CBC & BMP: 04/11/17 06:34 04/11/17 06:34
[2017-04-11] MEDS: MEROPENEM 1,000 MG in SODIUM CHLORIDE 0.9% 100 ML IV SCH ×2 (10:00→21:39)
[2017-04-11] MEDS: methylPREDNISolone SOD SUC 40 MG/1 ML VIAL IV SCH ×2 (10:14→21:13)
[2017-04-11] MEDS: PANTOPRAZOLE 40 MG TABLET PO SCH (10:17)
[2017-04-11] MEDS: OXYBUTYNIN XL 15 MG TABLET PO SCH (10:17)
[2017-04-11] MEDS: SERTRALINE 100 MG TABLET PO SCH (10:18)
[2017-04-11] MEDS: BUDESONIDE/FORMOTEROL 80-4.5 INHALER 6.9 GM INH SCH ×2 (10:19→21:13)
--- NOTE | 2017-04-11 10:50 | Hospitalist Progress Note ---
Assessment and Plan - Time spent with patient Time spent with patient: Less than 30 minutes (1) Pneumonia Status: Acute Assessment and plan: 04/11/17 -WBC spike elevation this a.m 15.4 from 11.8. Will continue Zosyn and Merrem. Will reorder a.m. chest xray. Will continue steroids, Duonebs on oxygen therapy via nasal cannula. Will order a.m. labs and continue to monitor. Dr Foote is following and I appreciate recommendations with care. 04/10/17 - Patient had pseudomonas aeruginosa in sputum last month. Improving WBC 11.8 this a.m. He is on antibiotics: Zosyn and now Merrem. 04/09 chest xray showed slight improved aeration within left upper lobe. Will continue antibiotic coverage and bronchodilators and steroids. Will repeat a.m. labs. Admitted to hospital services. Start steroids. Duo nebs. Antibiotic coverage Vanc and Zosyn. Continuous O2. Blood culture. A.m. labs. Consult Dr. foote.(patient is known to him) Current Visit: Yes (2) Anemia Status: Acute Assessment and plan: 04/11/17 - H&H stable at 9.8 & 30.4 this a.m. Will repeat a.m. labs and continue to monitor. 04/10/17 -Patient H&H is slightly down this a.m. 9.0 and 27.8 - from yesterday's H&H 9.5 and 28.8. Will repeat labs in the a.m. and discuss with Dr Acevedo for any further recommendations to add to current care. Current Visit: Yes (3) COPD with exacerbation Status: Acute Assessment and plan: 04/11/17 - Added and Will continue symbicort. Will continue steroids, bronchodilators and antibiotic coverage. Will continue to follow and appreciate Pulmonary's recommendations. 04/10/17 - Most likely due to pneumonia. Will continue steroids, brochodilators and antibiotic coverage. Will continue to follow Pulmonary recommendations. Current Visit: No (4) Dysphagia Status: Acute Assessment and plan: 04/11/17 - GI is following and recommends once patient has improved from a respiratory status stand point that he may need EGD and dilatation for esophageal stricture. Appreciate GI following patient and all recommendations given. Current Visit: No Hospitalist: Subjective Interval history: 7/13/17 - Sitting up in bed. Oxygen therapy in use at 2 liters. No acute distress noted. Patient verbalized that he has been coughing up some thick sputum that appears the same as before. Exam - Constitutional Vitals: Period Temp Pulse Resp BP Sys/Parada Pulse Ox Last 24 Hr 97.7 F-98.0 F 69-103 18-20 104-117/62-68 93-98 General appearance: no acute distress, under weight - Head Head exam: Present: normal inspection - Eye Eye exam: Present: EOMI Pupils: Present: ALEKSANDRA - Neck Neck exam: Present: normal inspection - Respiratory Respiratory exam: Present: rhonchi (left), wheezes (right expiratory wheezing) - Cardiovascular Cardiovascular exam: Present: regular rate and rhythm - GI/Abdominal GI/Abdominal exam: Present: normal bowel sounds, soft. Absent: tenderness, rebound - Extremities Exam Extremities exam: Present: normal inspection, full ROM. Absent: edema - Neurological Exam Neurological exam: Present: alert, oriented X3 - Psychiatric Psychiatric exam: Present: normal affect, normal mood - Skin Skin exam: Present: normal color, warm, dry Results - Labs CBC & BMP: 04/11/17 06:34 04/11/17 06:34 Lab Results: I have reviewed the past 24 hour labs Labs: Noted: WBC increased this a.m to 15.4 from 11.8.
[2017-04-12] MEDS: ALBUTEROL/IPRATROPIUM 3 ML NEB RESP TX SCH ×4 (00:28→19:25)
[2017-04-12] MEDS: PIPERACILLIN/TAZOBACTAM 3,375 MG in SODIUM CHLORIDE 0.9% 100 ML IV SCH ×3 (01:09→18:05)
[2017-04-12 05:08] LABS: Basophils % 0.1 % (0.0-0.8); Hematocrit 30.2 VOL% (42.0-52.0); Hemoglobin 9.8 GM/DL (14.0-18.0); Immature Granulocytes % 4.6 %; Immature Granulocytes Absolute 0.65 #; Lymphocytes # 0.4 10*3/uL (1.4-4.0); Lymphocytes % 2.9 % (21.2-54.2); Mean Corpuscular HGB Conc 32.5 GM/DL (32-36); Mean Corpuscular Hemoglobin 27 PG (27-34); Mean Corpuscular Volume 84.1 FL (87-102); Mean Platelet Volume 8.7 FL (9.6-12.0); Monocytes # 0.3 10*3/uL (0.11-0.8); Monocytes % 2.4 % (1.7-12.7); Neutrophils # 12.7 10*3/uL (1.4-7.4); Platelet Count 333 T/CUMM (130-400); Red Blood Count 3.59 MC/CUMM (3.8-5.5); Red Cell Distribution Width 14.6 % (9.3-17.3); White Blood Count 14.1 T/CUMM (4-12)
[2017-04-12 05:45] LABS: Calcium 8.7 MG/DL (8.5-10.1); Osmolality,Calculated 286.1 MOS/KG (273-304); Potassium 3.8 MMOL/L (3.5-5.1)
[2017-04-12 06:09] LABS: Lymphocytes 5 % (20-55); Segmented Neutrophils 95 % (50-85); Total Cells Counted 100
[2017-04-12 06:11] LABS: Hypochromasia 2+; Platelet Estimate Normal
--- NOTE | 2017-04-12 08:48 | Pulmonology Progress Note ---
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 He has a superimposed left upper lobe pneumonia. Sputum Gram stain showed gram-negative rods. He had Pseudomonas the last time he had pneumonia. He is covered with Zosyn and Merrem. We will stop vancomycin for now since it does not appear that he will have a gram- positive organism. 04/11/2017 patient feels a little better. Sitting up in a chair. Still await final cultures from sputum. Continue IV antibiotics for now. He has very severe COPD with a superimposed gram-negative pneumonia. 04/12/2017 patient is feeling better and coughing up some phlegm. Chest x-ray today shows the left apical cavity with an air-fluid level in it. This most likely represents an infected bleb. He has grown Pseudomonas which requires 2 antibiotics to prevent resistance developing. I would keep him on those for another 4 days or so and then probably oral medications for another 10-14 days. Unfortunately he is allergic to Levaquin which limits our oral medication for Pseudomonas. Exam (Progress Note) - Constitutional Vitals: Period Temp Pulse Resp BP Sys/Parada Pulse Ox Last 24 Hr 96.3 F-98.3 F 78-104 17-20 110-120/59-76 93-99 Exam: Patient's alert oriented vital signs normal. He is thin and frail. Pupils react to light. Throat is clear. Neck supple no bruits. Chest shows prolonged expiratory phase with a few rhonchi bilaterally, worst in the left upper lobe. Heart normal rate rhythm no murmurs. Abdomen soft nontender no masses. Extremities no clubbing cyanosis or edema. Calves nontender. Overall sounds better. Results - Labs CBC & BMP: 04/12/17 04:47 04/12/17 04:47 Lab Results: I have reviewed the past 24 hour labs - Diagnostic Findings Procedure: Chest x-ray: image reviewed by me (Chronic apical cavitary disease bilaterally. Air-fluid level in left apical cavity which probably reflects infected bullous disease.) Assessment and Plan (1) Pneumonia involving left lung Status: Acute Assessment and plan: He does have a left upper lobe infiltrate that was not there a month ago. Consistent with pneumonia. Since he had Pseudomonas last time we need to give double coverage for that this time. Have added Merrem to his Zosyn. Also is on vancomycin but if sputum cultures are negative that would be want to stop. 04/10/2017 continuing antibiotics for gram-negative pneumonia. Gram stain showed gram-negative rods. Stopping vancomycin for now. 04/11/2017 recheck x-ray tomorrow. Await final cultures from sputum. 04/12/2017 Pseudomonas with infected bleb. Finish out at least a week of IV double antibiotics. Since he is allergic to Levaquin we may actually need to go longer than that as there is not a good oral antibiotic that will cover this. Will consider Cedax at that point. That can be quite expensive. Will need to get that checked into. Current Visit: Yes (2) COPD with exacerbation Status: Acute Assessment and plan: Corticosteroids bronchodilators and antibiotics. Seems better today. He has very severe COPD. He did stop smoking about 2 months ago. 04/10/2017 continuing steroids and bronchodilators. Will reduce steroids a little. 04/11/2017 tapering steroids. 04/12/2017 tapering steroids further. Not having much in the way of wheezing at this point. Current Visit: No (3) Chronic respiratory failure Status: Acute Assessment and plan: Low flow oxygen. Bronchodilators. 04/10/2017 continuing low flow oxygen. 04/11/2017 continuing oxygen. 04/12/2017 continuing nasal oxygen. Current Visit: No (4) Malnutrition Status: Chronic Assessment and plan: Needs nutritional support. 04/10/2017 encouraging patient to eat better. Diet supplements will help. 04/11/2017 seems to be eating better. 04/12/2017 appetite seems to be better. Current Visit: No (5) On home oxygen therapy Status: Chronic Assessment and plan: Continuing oxygen at 2 L. Current Visit: No
[2017-04-12] MEDS: SERTRALINE 100 MG TABLET PO SCH (09:06)
[2017-04-12] MEDS: OXYBUTYNIN XL 15 MG TABLET PO SCH (09:06)
[2017-04-12] MEDS: PANTOPRAZOLE 40 MG TABLET PO SCH (09:06)
[2017-04-12] MEDS: methylPREDNISolone SOD SUC 40 MG/1 ML VIAL IV SCH (09:07)
[2017-04-12] MEDS: BUDESONIDE/FORMOTEROL 80-4.5 INHALER 6.9 GM INH SCH ×2 (09:07→21:14)
--- NOTE | 2017-04-12 09:12 | XRay Report ---
XR chest 2V Indication: Left upper lobe pneumonia. Chest 2 views: Comparison 04/09/2017. Small air-fluid levels developed in the left pulmonary apex. The left upper lobe pulmonary parenchyma remains opacified. Significant bilateral apical interstitial scarring with superior retraction of hilar structures is again shown. There is interstitial prominence of the left perihilar lung that is stable. Emphysematous changes of the lung bases and a tiny left effusion are again shown. Heart size remains normal. Impression: Air-fluid level now present within a cavitation or loculation left apex. Presumed left perihilar left upper lobe pneumonia appears unchanged. Severe pulmonary fibrotic scarring with superior retraction of the karan and underlying COPD. PROCEDURE INTERPRETED AT [facility] [place] DEPARTMENT OF RADIOLOGY Final Report Signed by: Zachery Regalado M.D.
[2017-04-12] MEDS: MEROPENEM 1,000 MG in SODIUM CHLORIDE 0.9% 100 ML IV SCH ×3 (09:15→21:30)
--- NOTE | 2017-04-12 15:09 | Hospitalist Progress Note ---
Assessment and Plan (1) COPD with exacerbation Status: Acute Assessment and plan: Continue with nebulizer treatments. Continue antibiotics. Current Visit: No (2) Chronic respiratory failure Status: Chronic Current Visit: No (3) Acute exacerbation of chronic obstructive pulmonary disease (COPD) Status: Acute Assessment and plan: Appreciate input from pulmonary. Current Visit: No (4) Tobacco abuse Status: Chronic Current Visit: No (5) COPD (chronic obstructive pulmonary disease) Status: Chronic Current Visit: No (6) On home oxygen therapy Status: Chronic Current Visit: No Hospitalist: Subjective Interval history: Patient is resting. Had a follow-up chest x-ray that shows a bleb with cavitation and signs of infection. His last cultures were positive for Pseudomonas. Patient will continue with antibiotics and continue with neb treatments. Exam - Constitutional Vitals: Period Temp Pulse Resp BP Sys/Parada Pulse Ox Last 24 Hr 96.3 F-97.5 F 78-98 18-20 110-127/63-76 93-99 General appearance: normal weight - Head Head exam: Present: normal inspection - Eye Pupils: Present: ALEKSANDRA - Respiratory Respiratory exam: Present: wheezes - Cardiovascular Cardiovascular exam: Present: regular rate and rhythm - GI/Abdominal GI/Abdominal exam: Present: normal bowel sounds - Neurological Exam Neurological exam: Present: alert, oriented X3 - Psychiatric Psychiatric exam: Present: normal affect Results - Labs CBC & BMP: 04/12/17 04:47 04/12/17 04:47
[2017-04-13] MEDS: ALBUTEROL/IPRATROPIUM 3 ML NEB RESP TX SCH ×4 (00:08→19:20)
[2017-04-13] MEDS: PIPERACILLIN/TAZOBACTAM 3,375 MG in SODIUM CHLORIDE 0.9% 100 ML IV SCH ×3 (04:08→20:56)
[2017-04-13 05:42] LABS: Basophils % 0.1 % (0.0-0.8); Eosinophils % 0.1 % (0.00-10.9); Hematocrit 31.6 VOL% (42.0-52.0); Hemoglobin 10.3 GM/DL (14.0-18.0); Immature Granulocytes % 4.3 %; Immature Granulocytes Absolute 0.56 #; Lymphocytes % 7.8 % (21.2-54.2); Mean Corpuscular HGB Conc 32.6 GM/DL (32-36); Mean Corpuscular Hemoglobin 28 PG (27-34); Mean Corpuscular Volume 84.3 FL (87-102); Monocytes # 0.7 10*3/uL (0.11-0.8); Neutrophils # 10.8 10*3/uL (1.4-7.4); Neutrophils % 82.7 % (38.7-73.9); Platelet Count 298 T/CUMM (130-400); Red Blood Count 3.75 MC/CUMM (3.8-5.5); Red Cell Distribution Width 14.6 % (9.3-17.3); White Blood Count 13.1 T/CUMM (4-12)
[2017-04-13 06:44] LABS: Hypochromasia 2+; Lymphocytes 10 % (20-55); Metamyelocytes 1 %; Segmented Neutrophils 84 % (50-85); Total Cells Counted 100
[2017-04-13 06:45] LABS: Microcytosis 1+; Platelet Estimate Normal
[2017-04-13] MEDS: PANTOPRAZOLE 40 MG TABLET PO SCH (08:51)
[2017-04-13] MEDS: SERTRALINE 100 MG TABLET PO SCH (08:51)
--- NOTE | 2017-04-13 08:51 | Pulmonology Progress Note ---
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 He has a superimposed left upper lobe pneumonia. Sputum Gram stain showed gram-negative rods. He had Pseudomonas the last time he had pneumonia. He is covered with Zosyn and Merrem. We will stop vancomycin for now since it does not appear that he will have a gram- positive organism. 04/11/2017 patient feels a little better. Sitting up in a chair. Still await final cultures from sputum. Continue IV antibiotics for now. He has very severe COPD with a superimposed gram-negative pneumonia. 04/12/2017 patient is feeling better and coughing up some phlegm. Chest x-ray today shows the left apical cavity with an air-fluid level in it. This most likely represents an infected bleb. He has grown Pseudomonas which requires 2 antibiotics to prevent resistance developing. I would keep him on those for another 4 days or so and then probably oral medications for another 10-14 days. Unfortunately he is allergic to Levaquin which limits our oral medication for Pseudomonas. 04/13/2017 again patient is feeling better and producing sputum. We checked into oral antibiotics that would cover this and it was apparently caused him over $500 for the medication and he can't afford that. I am going to recommend keeping him here on IV antibiotics a couple days further than we had planned. Social workers trying to help with home medicines. Exam (Progress Note) - Constitutional Vitals: Period Temp Pulse Resp BP Sys/Parada Pulse Ox Last 24 Hr 96.3 F-97.7 F 83-101 18-20 100-127/54-68 92-99 Exam: Patient's alert oriented vital signs normal. He is thin and frail. Pupils react to light. Throat is clear. Neck supple no bruits. Chest shows prolonged expiratory phase with a few rhonchi bilaterally, worst in the left upper lobe. Heart normal rate rhythm no murmurs. Abdomen soft nontender no masses. Extremities no clubbing cyanosis or edema. Calves nontender. Results - Labs CBC & BMP: 04/13/17 05:14 04/12/17 04:47 Lab Results: I have reviewed the past 24 hour labs Assessment and Plan (1) Pneumonia involving left lung Status: Acute Assessment and plan: He does have a left upper lobe infiltrate that was not there a month ago. Consistent with pneumonia. Since he had Pseudomonas last time we need to give double coverage for that this time. Have added Merrem to his Zosyn. Also is on vancomycin but if sputum cultures are negative that would be want to stop. 04/10/2017 continuing antibiotics for gram-negative pneumonia. Gram stain showed gram-negative rods. Stopping vancomycin for now. 04/11/2017 recheck x-ray tomorrow. Await final cultures from sputum. 04/12/2017 Pseudomonas with infected bleb. Finish out at least a week of IV double antibiotics. Since he is allergic to Levaquin we may actually need to go longer than that as there is not a good oral antibiotic that will cover this. Will consider Cedax at that point. That can be quite expensive. Will need to get that checked into. 04/13/2017 left upper lobe infected bleb with Pseudomonas in a patient with severe COPD and cavitary lung disease. Continuing double antibiotic therapy for Pseudomonas Current Visit: Yes (2) COPD with exacerbation Status: Acute Assessment and plan: Corticosteroids bronchodilators and antibiotics. Seems better today. He has very severe COPD. He did stop smoking about 2 months ago. 04/10/2017 continuing steroids and bronchodilators. Will reduce steroids a little. 04/11/2017 tapering steroids. 04/12/2017 tapering steroids further. Not having much in the way of wheezing at this point. 04/13/2017 no active bronchospasm Current Visit: No (3) Chronic respiratory failure Status: Chronic Assessment and plan: Low flow oxygen. Bronchodilators. 04/10/2017 continuing low flow oxygen. 04/11/2017 continuing oxygen. 04/12/2017 continuing nasal oxygen. 04/13/2017 continuing to need nasal oxygen. Current Visit: No (4) Malnutrition Status: Chronic Assessment and plan: Needs nutritional support. 04/10/2017 encouraging patient to eat better. Diet supplements will help. 04/11/2017 seems to be eating better. 04/12/2017 appetite seems to be better. 04/13/2017 appetite is better. Current Visit: No (5) On home oxygen therapy Status: Chronic Assessment and plan: Continuing oxygen at 2 L. Current Visit: No
[2017-04-13] MEDS: methylPREDNISolone SOD SUC 40 MG/1 ML VIAL IV SCH (08:52)
[2017-04-13] MEDS: OXYBUTYNIN XL 15 MG TABLET PO SCH (08:52)
[2017-04-13] MEDS: BUDESONIDE/FORMOTEROL 80-4.5 INHALER 6.9 GM INH SCH ×2 (08:52→20:56)
[2017-04-13] MEDS: MEROPENEM 1,000 MG in SODIUM CHLORIDE 0.9% 100 ML IV SCH ×2 (10:35→23:56)
--- NOTE | 2017-04-13 14:41 | Hospitalist Progress Note ---
Assessment and Plan (1) Bronchiolitis Status: Acute Assessment and plan: Continue treatment with IV antibiotics. Geometry Teacher on the case Current Visit: Yes (2) COPD with exacerbation Status: Acute Assessment and plan: Continue beta-2 agonist ipratropium bromide and systemic steroids Current Visit: No Hospitalist: Subjective Interval history: Patient is seen interviewed and examined and chart has been. Continues to cough quite a bit. History of COPD pseudomonas normal aeruginosa respiratory infection and possible colonization. Is just finished a course of azithromycin outpatient. Exam - Constitutional Vitals: Period Temp Pulse Resp BP Sys/Parada Pulse Ox Last 24 Hr 96.3 F-97.7 F 83-102 13-22 100-116/54-70 92-99 General appearance: under weight - Head Head exam: Present: normocephalic, atraumatic - Eye Eye exam: Present: EOMI Pupils: Present: ALEKSANDRA - Respiratory Respiratory exam: Present: other (Bilateral crackles with paroxysmal coughing productive of mucoid sputum specimen will be sent to the) - Cardiovascular Cardiovascular exam: Present: irregular rhythm, other (Frequent APCs) - GI/Abdominal GI/Abdominal exam: Present: normal bowel sounds, soft - Extremities Exam Extremities exam: Present: other (Loss of muscle bulk) - Neurological Exam Neurological exam: Present: alert, oriented X3, CN II-XII intact - Psychiatric Psychiatric exam: Present: normal affect, normal mood - Skin Skin exam: Present: normal color, warm, dry Results - Labs CBC & BMP: 04/13/17 05:14 04/12/17 04:47 Lab Results: I have reviewed the past 24 hour labs
[2017-04-14] MEDS: ALBUTEROL/IPRATROPIUM 3 ML NEB RESP TX SCH ×4 (01:36→19:16)
[2017-04-14] MEDS: PIPERACILLIN/TAZOBACTAM 3,375 MG in SODIUM CHLORIDE 0.9% 100 ML IV SCH ×3 (04:15→21:10)
[2017-04-14] MEDS: OXYBUTYNIN XL 15 MG TABLET PO SCH (09:15)
[2017-04-14] MEDS: BUDESONIDE/FORMOTEROL 80-4.5 INHALER 6.9 GM INH SCH ×2 (09:15→21:03)
[2017-04-14] MEDS: PANTOPRAZOLE 40 MG TABLET PO SCH (09:15)
[2017-04-14] MEDS: methylPREDNISolone SOD SUC 40 MG/1 ML VIAL IV SCH (09:15)
[2017-04-14] MEDS: SERTRALINE 100 MG TABLET PO SCH (09:15)
[2017-04-14] MEDS: MEROPENEM 1,000 MG in SODIUM CHLORIDE 0.9% 100 ML IV SCH ×2 (09:30→22:24)
--- NOTE | 2017-04-14 10:57 | Pulmonology Progress Note ---
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 He has a superimposed left upper lobe pneumonia. Sputum Gram stain showed gram-negative rods. He had Pseudomonas the last time he had pneumonia. He is covered with Zosyn and Merrem. We will stop vancomycin for now since it does not appear that he will have a gram- positive organism. 04/11/2017 patient feels a little better. Sitting up in a chair. Still await final cultures from sputum. Continue IV antibiotics for now. He has very severe COPD with a superimposed gram-negative pneumonia. 04/12/2017 patient is feeling better and coughing up some phlegm. Chest x-ray today shows the left apical cavity with an air-fluid level in it. This most likely represents an infected bleb. He has grown Pseudomonas which requires 2 antibiotics to prevent resistance developing. I would keep him on those for another 4 days or so and then probably oral medications for another 10-14 days. Unfortunately he is allergic to Levaquin which limits our oral medication for Pseudomonas. 04/13/2017 again patient is feeling better and producing sputum. We checked into oral antibiotics that would cover this and it was apparently caused him over $500 for the medication and he can't afford that. I am going to recommend keeping him here on IV antibiotics a couple days further than we had planned. Social workers trying to help with home medicines. 04/14/2017 continuing IV antibiotics. Patient is feeling better. Will recheck x -rays about Saturday and make a decision at that time. It looks like it will be very difficult for him to get adequate oral antibiotics for this. Exam (Progress Note) - Constitutional Vitals: Period Temp Pulse Resp BP Sys/Parada Pulse Ox Last 24 Hr 96.3 F-97.8 F 78-102 13-22 97-114/58-70 91-100 Exam: Patient's alert oriented vital signs normal. He is thin and frail. Pupils react to light. Throat is clear. Neck supple no bruits. Chest shows prolonged expiratory phase with a few rhonchi bilaterally, worst in the left upper lobe. Heart normal rate rhythm no murmurs. Abdomen soft nontender no masses. Extremities no clubbing cyanosis or edema. Calves nontender. Little change from yesterday. Results - Labs CBC & BMP: 04/13/17 05:14 04/12/17 04:47 Lab Results: I have reviewed the past 24 hour labs Assessment and Plan (1) Pneumonia involving left lung Status: Acute Assessment and plan: He does have a left upper lobe infiltrate that was not there a month ago. Consistent with pneumonia. Since he had Pseudomonas last time we need to give double coverage for that this time. Have added Merrem to his Zosyn. Also is on vancomycin but if sputum cultures are negative that would be want to stop. 04/10/2017 continuing antibiotics for gram-negative pneumonia. Gram stain showed gram-negative rods. Stopping vancomycin for now. 04/11/2017 recheck x-ray tomorrow. Await final cultures from sputum. 04/12/2017 Pseudomonas with infected bleb. Finish out at least a week of IV double antibiotics. Since he is allergic to Levaquin we may actually need to go longer than that as there is not a good oral antibiotic that will cover this. Will consider Cedax at that point. That can be quite expensive. Will need to get that checked into. 04/13/2017 left upper lobe infected bleb with Pseudomonas in a patient with severe COPD and cavitary lung disease. Continuing double antibiotic therapy for Pseudomonas 04/14/2017 recurrent pneumonia with Pseudomonas. Continuing double coverage antibiotics. Looks like Cedax will be impossible for him to get a unless he can get some help with purchasingit. Current Visit: Yes (2) COPD with exacerbation Status: Acute Assessment and plan: Corticosteroids bronchodilators and antibiotics. Seems better today. He has very severe COPD. He did stop smoking about 2 months ago. 04/10/2017 continuing steroids and bronchodilators. Will reduce steroids a little. 04/11/2017 tapering steroids. 04/12/2017 tapering steroids further. Not having much in the way of wheezing at this point. 04/13/2017 no active bronchospasm 04/14/2017 COPD seems to be under control. Current Visit: No (3) Chronic respiratory failure Status: Chronic Assessment and plan: Low flow oxygen. Bronchodilators. 04/10/2017 continuing low flow oxygen. 04/11/2017 continuing oxygen. 04/12/2017 continuing nasal oxygen. 04/13/2017 continuing to need nasal oxygen. Current Visit: No (4) Malnutrition Status: Chronic Assessment and plan: Needs nutritional support. 04/10/2017 encouraging patient to eat better. Diet supplements will help. 04/11/2017 seems to be eating better. 04/12/2017 appetite seems to be better. 04/13/2017 appetite is better. 04/14/2017 appears to be eating better. Current Visit: No (5) On home oxygen therapy Status: Chronic Assessment and plan: Continuing oxygen at 2 L. Current Visit: No
--- NOTE | 2017-04-14 12:56 | Hospitalist Progress Note ---
Assessment and Plan (1) Bronchiolitis Status: Acute Assessment and plan: Continue treatment with IV antibiotics. Heel Painter on the case Current Visit: Yes (2) COPD with exacerbation Status: Acute Assessment and plan: Continue beta-2 agonist ipratropium bromide and systemic steroids Current Visit: No Hospitalist: Subjective Interval history: Patient has been seen interviewed and examined and chart has been reviewed. Pulmonology attention to the patient is also appreciated. Is offering no new complaints his breathing is slightly better Exam - Constitutional Vitals: Period Temp Pulse Resp BP Sys/Parada Pulse Ox Last 24 Hr 96.3 F-97.8 F 78-98 13-22 97-114/58-65 91-100 General appearance: under weight - Head Head exam: Present: normocephalic, atraumatic - Eye Eye exam: Present: EOMI - Respiratory Respiratory exam: Present: other (Bilateral crackles no wheezing) - Cardiovascular Cardiovascular exam: Present: regular rate and rhythm - GI/Abdominal GI/Abdominal exam: Present: normal bowel sounds, soft - Extremities Exam Extremities exam: Present: full ROM - Neurological Exam Neurological exam: Present: alert, oriented X3, CN II-XII intact - Psychiatric Psychiatric exam: Present: normal affect, normal mood - Skin Skin exam: Present: normal color, warm, dry Results - Labs CBC & BMP: 04/13/17 05:14 04/12/17 04:47 Lab Results: I have reviewed the past 24 hour labs
[2017-04-15] MEDS: ALBUTEROL/IPRATROPIUM 3 ML NEB RESP TX SCH ×4 (00:30→19:22)
[2017-04-15] MEDS: PIPERACILLIN/TAZOBACTAM 3,375 MG in SODIUM CHLORIDE 0.9% 100 ML IV SCH ×3 (03:51→21:28)
--- NOTE | 2017-04-15 08:35 | XRay Report ---
Chest, 2 views Comparison 04/12/2017 History is follow-up pneumonia The heart is normal in size. Mediastinal contours unchanged There remains extensive diffuse pulmonary hyperexpansion and extensive pleural and parenchymal changes in the upper chest bilaterally including multiple large cavities. A moderate air-fluid level within a cavity in the left upper chest remains. Patchy and more confluent parenchymal opacity and pleural thickening in the lateral left mid chest remain. A mild hazy opacities in the lower half the left chest similar on the prior study The reticular infiltrate and mildly more confluent opacity anteriorly in the lingula on the left remains more pronounced than on prior studies Impression: No significant change in left lung areas of consolidation and air fluid levels within prior cavity superimposed on extensive chronic changes. Continued follow-up until patient returns to baseline is necessary PROCEDURE INTERPRETED AT [facility] DEPARTMENT OF RADIOLOGY Final Report Signed by: Dr. Moira Sarkar
--- NOTE | 2017-04-15 08:39 | Pulmonology Progress Note ---
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 He has a superimposed left upper lobe pneumonia. Sputum Gram stain showed gram-negative rods. He had Pseudomonas the last time he had pneumonia. He is covered with Zosyn and Merrem. We will stop vancomycin for now since it does not appear that he will have a gram- positive organism. 04/11/2017 patient feels a little better. Sitting up in a chair. Still await final cultures from sputum. Continue IV antibiotics for now. He has very severe COPD with a superimposed gram-negative pneumonia. 04/12/2017 patient is feeling better and coughing up some phlegm. Chest x-ray today shows the left apical cavity with an air-fluid level in it. This most likely represents an infected bleb. He has grown Pseudomonas which requires 2 antibiotics to prevent resistance developing. I would keep him on those for another 4 days or so and then probably oral medications for another 10-14 days. Unfortunately he is allergic to Levaquin which limits our oral medication for Pseudomonas. 04/13/2017 again patient is feeling better and producing sputum. We checked into oral antibiotics that would cover this and it was apparently caused him over $500 for the medication and he can't afford that. I am going to recommend keeping him here on IV antibiotics a couple days further than we had planned. Social workers trying to help with home medicines. 04/14/2017 continuing IV antibiotics. Patient is feeling better. Will recheck x -rays about Saturday and make a decision at that time. It looks like it will be very difficult for him to get adequate oral antibiotics for this. 04/15/2017 patient is feeling better and eating better. Needs 1 more day of 2 antibiotics for his Pseudomonas pneumonia with infected bulla left upper lobe. I have given his a prescription for Cedax. [facility]. Another 10 days of oral Cedax would be helpful. It is apparently fairly expensive. Exam (Progress Note) - Constitutional Vitals: Period Temp Pulse Resp BP Sys/Parada Pulse Ox Last 24 Hr 96.3 F-98.3 F 84-105 18-22 98-128/59-78 94-100 Exam: Patient's alert oriented vital signs normal. He is thin and frail. Pupils react to light. Throat is clear. Neck supple no bruits. Chest shows prolonged expiratory phase, few rhonchi over left upper lobe. Heart normal rate rhythm no murmurs. Abdomen soft nontender no masses. Extremities no clubbing cyanosis or edema. Calves nontender. Results - Labs CBC & BMP: 04/13/17 05:14 04/12/17 04:47 Lab Results: I have reviewed the past 24 hour labs - Diagnostic Findings Procedure: Chest x-ray: image reviewed by me (Air-fluid level in left apical cavity which is probably infected bulla. A little less fluid than previous. Overall improved.) Assessment and Plan (1) Pneumonia involving left lung Status: Acute Assessment and plan: He does have a left upper lobe infiltrate that was not there a month ago. Consistent with pneumonia. Since he had Pseudomonas last time we need to give double coverage for that this time. Have added Merrem to his Zosyn. Also is on vancomycin but if sputum cultures are negative that would be want to stop. 04/10/2017 continuing antibiotics for gram-negative pneumonia. Gram stain showed gram-negative rods. Stopping vancomycin for now. 04/11/2017 recheck x-ray tomorrow. Await final cultures from sputum. 04/12/2017 Pseudomonas with infected bleb. Finish out at least a week of IV double antibiotics. Since he is allergic to Levaquin we may actually need to go longer than that as there is not a good oral antibiotic that will cover this. Will consider Cedax at that point. That can be quite expensive. Will need to get that checked into. 04/13/2017 left upper lobe infected bleb with Pseudomonas in a patient with severe COPD and cavitary lung disease. Continuing double antibiotic therapy for Pseudomonas 04/14/2017 recurrent pneumonia with Pseudomonas. Continuing double coverage antibiotics. Looks like Cedax will be impossible for him to get a unless he can get some help with purchasing it. 04/15/2017 Pseudomonas pneumonia with infected bulla. Trying to arrange for patient to get Cedax post discharge. Have given prescription to [facility] Current Visit: Yes (2) COPD with exacerbation Status: Acute Assessment and plan: Corticosteroids bronchodilators and antibiotics. Seems better today. He has very severe COPD. He did stop smoking about 2 months ago. 04/10/2017 continuing steroids and bronchodilators. Will reduce steroids a little. 04/11/2017 tapering steroids. 04/12/2017 tapering steroids further. Not having much in the way of wheezing at this point. 04/13/2017 no active bronchospasm 04/14/2017 COPD seems to be under control. 04/15/2017 no active wheezing. Current Visit: No (3) Chronic respiratory failure Status: Chronic Assessment and plan: Low flow oxygen. Bronchodilators. 04/10/2017 continuing low flow oxygen. 04/11/2017 continuing oxygen. 04/12/2017 continuing nasal oxygen. 04/13/2017 continuing to need nasal oxygen. 04/15/2017 long-term oxygen. Current Visit: No (4) Malnutrition Status: Chronic Assessment and plan: Needs nutritional support. 04/10/2017 encouraging patient to eat better. Diet supplements will help. 04/11/2017 seems to be eating better. 04/12/2017 appetite seems to be better. 04/13/2017 appetite is better. 04/14/2017 appears to be eating better. 04/15/2017 appetite is better. Tapering steroids Current Visit: No (5) On home oxygen therapy Status: Chronic Assessment and plan: Continuing oxygen at 2 L. Current Visit: No
--- NOTE | 2017-04-15 08:50 | Gastrointestinal Progress Note ---
<Nara Mcleod - Last Filed: 04/15/17 08:48> Assessment and Plan (1) Dysphagia Status: Chronic Assessment and plan: 04/15-No changes in dysphagia. Continuing on IV antibiotics for psuedomonas. Will continue to follow at this time and plan for EGD when resp status improved either at discharge if improved or as an outpatient after pneumonia fully resolved. Plan and addendum to follow by Dr Cespedes. 04/11 -continued dysphagia. Respiratory status slowly improving. Continue to monitor present time with further evaluation for his dysphagia once respiratory status improved. Plan an addendum to follow by Dr. Cespedes. 04/10-history of esophageal stricture with recently worsening dysphagia. History of GERD mostly controlled with Prilosec. 4-5 pound weight loss over the last 3 months. Last EGD in December of this year with dilation. Increasing complaints of difficulty with liquids, solids, and pills. Continue to monitor respiratory status at this time and consider repeat EGD when pneumonia has improved and patient able to tolerate endoscopy. Plan an addendum to follow by Dr. Cespedes. Current Visit: No Gastroenterology - PN: Subj Interval history: CC: Dysphagia Pt is seen awake and alert sitting up in chair with at bedside. States that he is feeling some better today however is still complaining of difficulty swallowing. He is noted to have Pseudomonas/infected bulla and needing to continue another couple of days with IV antibiotics and then possibly discharged home if [facility]. He states he is still not much improved on his breathing at this time however is anxious to have his esophagus dilated again. Abdomen is soft, nontender. ROS: Denies SOB or chest pain at present time Exam (Progress Note) - Constitutional Vitals: Period Temp Pulse Resp BP Sys/Parada Pulse Ox Last 24 Hr 96.3 F-98.3 F 84-105 18-22 98-128/59-78 94-100 General appearance: normal weight, no acute distress - Head Head exam: Present: normal inspection, normocephalic - Eye Eye exam: Present: other (lids and conjunctiva unremarkable). Absent: scleral icterus - ENT ENT exam: Present: normal exam, normal oropharynx - Neck Neck exam: Present: normal inspection - Respiratory Respiratory exam: Present: clear to auscultation bilaterally, rhonchi. Absent: rales, wheezes - Cardiovascular Cardiovascular exam: Present: regular rate and rhythm. Absent: diastolic murmur , JVD, systolic murmur - GI/Abdominal GI/Abdominal exam: Present: normal bowel sounds, soft. Absent: ascites, distended, mass, organomegaly, tenderness - Extremities Exam Extremities exam: Present: normal inspection, full ROM - Back Exam Back exam: Present: normal inspection - Neurological Exam Neurological exam: Present: alert, oriented X3 - Psychiatric Psychiatric exam: Present: normal affect, normal mood - Skin Skin exam: Present: normal color, warm, dry Results - Labs CBC & BMP: 04/13/17 05:14 04/12/17 04:47 Lab Results: I have reviewed the past 24 hour labs <Kirit Cespedes - Last Filed: 04/15/17 20:49> Exam (Progress Note) - Constitutional Vitals: Period Temp Pulse Resp BP Sys/Parada Pulse Ox Last 24 Hr 96.4 F-98.0 F 84-101 18-20 102-128/54-78 94-100 Results - Labs CBC & BMP: 04/13/17 05:14 04/12/17 04:47
[2017-04-15] MEDS: SERTRALINE 100 MG TABLET PO SCH (09:06)
[2017-04-15] MEDS: OXYBUTYNIN XL 15 MG TABLET PO SCH (09:06)
[2017-04-15] MEDS: PANTOPRAZOLE 40 MG TABLET PO SCH (09:07)
[2017-04-15] MEDS: predniSONE 20 MG TABLET PO SCH (09:07)
[2017-04-15] MEDS: BUDESONIDE/FORMOTEROL 80-4.5 INHALER 6.9 GM INH SCH ×2 (09:08→21:30)
[2017-04-15] MEDS: MEROPENEM 1,000 MG in SODIUM CHLORIDE 0.9% 100 ML IV SCH (09:43)
--- NOTE | 2017-04-15 15:21 | Hospitalist Progress Note ---
Assessment and Plan (1) Bronchiolitis Status: Acute Assessment and plan: Continue treatment with IV antibiotics. Advisor Advocate [employer] on the case. See plans for home oral antibiotics in Dr. Foote note. Current Visit: Yes (2) COPD with exacerbation Status: Acute Assessment and plan: Continue beta-2 agonist ipratropium bromide and systemic steroids Current Visit: No Hospitalist: Subjective Interval history: Patient has been seen interviewed and examined and chart has been reviewed. Is coughing much less today and examined in a [place] chair. Gentleman admitted to the hospital with recurrent Pseudomonas infection in the lungs with history of severe COPD. Dr. Foote has been following the patient alongside us. His recommendations are greatly appreciated. Gentleman supposed to go home on oral antibiotics to finish his treatment and the choice for Dr. Foote at this point is ceftibuten (cedax); unfortunately this antibiotic is very expensive for the gentleman and plan is to present the prescription to the [place] system where he gets his medications; see if they can afford him this medication. Continue IV antibiotics in the hospital the meantime for at least 2 3 more days. Exam - Constitutional Vitals: Period Temp Pulse Resp BP Sys/Parada Pulse Ox Last 24 Hr 96.3 F-98.3 F 84-105 18-22 102-128/54-78 94-100 General appearance: under weight - Head Head exam: Present: normocephalic - ENT ENT exam: Present: normal exam - Respiratory Respiratory exam: Present: other (Distant lung sounds with bilateral crackles) - Cardiovascular Cardiovascular exam: Present: regular rate and rhythm - GI/Abdominal GI/Abdominal exam: Present: normal bowel sounds, soft - Extremities Exam Extremities exam: Present: full ROM, other (Significant loss of muscle bulk) - Neurological Exam Neurological exam: Present: alert, oriented X3, CN II-XII intact - Psychiatric Psychiatric exam: Present: normal affect, normal mood, other (Very amiable gentleman) Results - Labs CBC & BMP: 04/13/17 05:14 04/12/17 04:47 Lab Results: I have reviewed the past 24 hour labs
[2017-04-16] MEDS: ALBUTEROL/IPRATROPIUM 3 ML NEB RESP TX SCH ×4 (01:02→19:40)
[2017-04-16] MEDS: MEROPENEM 1,000 MG in SODIUM CHLORIDE 0.9% 100 ML IV SCH ×2 (01:14→11:10)
[2017-04-16] MEDS: PIPERACILLIN/TAZOBACTAM 3,375 MG in SODIUM CHLORIDE 0.9% 100 ML IV SCH ×3 (03:54→22:28)
--- NOTE | 2017-04-16 08:56 | Gastrointestinal Progress Note ---
<Nara Mcleod - Last Filed: 04/16/17 08:54> Assessment and Plan (1) Dysphagia Status: Chronic Assessment and plan: 04/16-no changes at present time. Shortness of breath is slightly improved. Continue to monitor at present time and plan endoscopy as respiratory status improves. Plan an addendum to follow by Dr. Cespedes 04/15-No changes in dysphagia. Continuing on IV antibiotics for psuedomonas. Will continue to follow at this time and plan for EGD when resp status improved either at discharge if improved or as an outpatient after pneumonia fully resolved. Plan and addendum to follow by Dr Cespedes. 04/11 -continued dysphagia. Respiratory status slowly improving. Continue to monitor present time with further evaluation for his dysphagia once respiratory status improved. Plan an addendum to follow by Dr. Cespedes. 04/10-history of esophageal stricture with recently worsening dysphagia. History of GERD mostly controlled with Prilosec. 4-5 pound weight loss over the last 3 months. Last EGD in December of this year with dilation. Increasing complaints of difficulty with liquids, solids, and pills. Continue to monitor respiratory status at this time and consider repeat EGD when pneumonia has improved and patient able to tolerate endoscopy. Plan an addendum to follow by Dr. Cespedes. Current Visit: No Gastroenterology - PN: Subj Interval history: CC: Dysphagia Patient is seen awake and alert sitting up in bed. States he had an uneventful night. Denies any abdominal pain, nausea or vomiting. His dysphagia continues but he states he is managing at this time. He feels like his breathing is slightly improved from admission. He is tolerating his diet at present time. Plans at this time noted to continue inpatient IV antibiotic therapy. Abdomen is soft, nontender. ROS: Denies shortness of breath or chest pain at present Exam (Progress Note) - Constitutional Vitals: Period Temp Pulse Resp BP Sys/Parada Pulse Ox Last 24 Hr 96.2 F-97.6 F 84-98 18-20 102-119/54-70 94-98 General appearance: normal weight, no acute distress - Head Head exam: Present: normal inspection, normocephalic - Eye Eye exam: Present: other (Lids and conjunctivae are unremarkable). Absent: scleral icterus - ENT ENT exam: Present: normal exam, normal oropharynx - Neck Neck exam: Present: normal inspection - Respiratory Respiratory exam: Present: clear to auscultation bilaterally. Absent: rales, rhonchi, wheezes - Cardiovascular Cardiovascular exam: Present: regular rate and rhythm. Absent: diastolic murmur , JVD, systolic murmur - GI/Abdominal GI/Abdominal exam: Present: normal bowel sounds, soft. Absent: ascites, distended, mass, organomegaly, tenderness - Extremities Exam Extremities exam: Present: normal inspection, full ROM - Back Exam Back exam: Present: normal inspection - Neurological Exam Neurological exam: Present: alert, oriented X3 - Psychiatric Psychiatric exam: Present: normal affect, normal mood - Skin Skin exam: Present: normal color, warm, dry Results - Labs CBC & BMP: 04/13/17 05:14 04/12/17 04:47 Lab Results: I have reviewed the past 24 hour labs Specialty Discharge - Follow Up or Referrals Follow up with: Will Foote MD [Physician] - 05/13/17 2:00 pm (3-4wks with CXR, CBC, BMP) <Kirit Cespedes - Last Filed: 04/16/17 17:14> Exam (Progress Note) - Constitutional Vitals: Period Temp Pulse Resp BP Sys/Parada Pulse Ox Last 24 Hr 96.2 F-97.8 F 75-98 18-20 102-119/54-70 92-99 Results - Labs CBC & BMP: 04/13/17 05:14 04/12/17 04:47
[2017-04-16] MEDS: PANTOPRAZOLE 40 MG TABLET PO SCH (09:31)
[2017-04-16] MEDS: OXYBUTYNIN XL 15 MG TABLET PO SCH (09:31)
[2017-04-16] MEDS: SERTRALINE 100 MG TABLET PO SCH (09:31)
[2017-04-16] MEDS: predniSONE 20 MG TABLET PO SCH (09:31)
[2017-04-16] MEDS: BUDESONIDE/FORMOTEROL 80-4.5 INHALER 6.9 GM INH SCH ×2 (09:32→22:29)
--- NOTE | 2017-04-16 09:50 | Pulmonology Progress Note ---
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 He has a superimposed left upper lobe pneumonia. Sputum Gram stain showed gram-negative rods. He had Pseudomonas the last time he had pneumonia. He is covered with Zosyn and Merrem. We will stop vancomycin for now since it does not appear that he will have a gram- positive organism. 04/11/2017 patient feels a little better. Sitting up in a chair. Still await final cultures from sputum. Continue IV antibiotics for now. He has very severe COPD with a superimposed gram-negative pneumonia. 04/12/2017 patient is feeling better and coughing up some phlegm. Chest x-ray today shows the left apical cavity with an air-fluid level in it. This most likely represents an infected bleb. He has grown Pseudomonas which requires 2 antibiotics to prevent resistance developing. I would keep him on those for another 4 days or so and then probably oral medications for another 10-14 days. Unfortunately he is allergic to Levaquin which limits our oral medication for Pseudomonas. 04/13/2017 again patient is feeling better and producing sputum. We checked into oral antibiotics that would cover this and it was apparently caused him over $500 for the medication and he can't afford that. I am going to recommend keeping him here on IV antibiotics a couple days further than we had planned. Social workers trying to help with home medicines. 04/14/2017 continuing IV antibiotics. Patient is feeling better. Will recheck x -rays about Saturday and make a decision at that time. It looks like it will be very difficult for him to get adequate oral antibiotics for this. 04/15/2017 patient is feeling better and eating better. Needs 1 more day of 2 antibiotics for his Pseudomonas pneumonia with infected bulla left upper lobe. I have given his a prescription for Cedax. [facility]. Another 10 days of oral Cedax would be helpful. It is apparently fairly expensive. 04/16/2017 patient improved. Could plan discharge tomorrow with oral antibiotics. Apparently the has not gotten the prescription for sulindac filled as yet. I will plan follow-up in the office. Exam (Progress Note) - Constitutional Vitals: Period Temp Pulse Resp BP Sys/Parada Pulse Ox Last 24 Hr 96.2 F-97.6 F 84-98 18-20 102-119/54-70 94-98 Exam: Patient's alert oriented vital signs normal. He is thin and frail. Pupils react to light. Throat is clear. Neck supple no bruits. Chest shows prolonged expiratory phase, few rhonchi over left upper lobe. Heart normal rate rhythm no murmurs. Abdomen soft nontender no masses. Extremities no clubbing cyanosis or edema. Calves nontender. Results - Labs CBC & BMP: 04/13/17 05:14 04/12/17 04:47 Lab Results: I have reviewed the past 24 hour labs Assessment and Plan (1) Pneumonia involving left lung Status: Acute Assessment and plan: He does have a left upper lobe infiltrate that was not there a month ago. Consistent with pneumonia. Since he had Pseudomonas last time we need to give double coverage for that this time. Have added Merrem to his Zosyn. Also is on vancomycin but if sputum cultures are negative that would be want to stop. 04/10/2017 continuing antibiotics for gram-negative pneumonia. Gram stain showed gram-negative rods. Stopping vancomycin for now. 04/11/2017 recheck x-ray tomorrow. Await final cultures from sputum. 04/12/2017 Pseudomonas with infected bleb. Finish out at least a week of IV double antibiotics. Since he is allergic to Levaquin we may actually need to go longer than that as there is not a good oral antibiotic that will cover this. Will consider Cedax at that point. That can be quite expensive. Will need to get that checked into. 04/13/2017 left upper lobe infected bleb with Pseudomonas in a patient with severe COPD and cavitary lung disease. Continuing double antibiotic therapy for Pseudomonas 04/14/2017 recurrent pneumonia with Pseudomonas. Continuing double coverage antibiotics. Looks like Cedax will be impossible for him to get a unless he can get some help with purchasing it. 04/15/2017 Pseudomonas pneumonia with infected bulla. Trying to arrange for patient to get Cedax post discharge. Have given prescription to [facility]. 04/16/2017 again finished double antibiotic treatment for Pseudomonas tomorrow. Home with Cedax if he can get it. Current Visit: Yes (2) COPD with exacerbation Status: Acute Assessment and plan: Corticosteroids bronchodilators and antibiotics. Seems better today. He has very severe COPD. He did stop smoking about 2 months ago. 04/10/2017 continuing steroids and bronchodilators. Will reduce steroids a little. 04/11/2017 tapering steroids. 04/12/2017 tapering steroids further. Not having much in the way of wheezing at this point. 04/13/2017 no active bronchospasm 04/14/2017 COPD seems to be under control. 04/15/2017 no active wheezing. Current Visit: No (3) Chronic respiratory failure Status: Chronic Assessment and plan: Low flow oxygen. Bronchodilators. 04/10/2017 continuing low flow oxygen. 04/11/2017 continuing oxygen. 04/12/2017 continuing nasal oxygen. 04/13/2017 continuing to need nasal oxygen. 04/15/2017 long-term oxygen. 04/16/2017 continuing nasal oxygen at home. Current Visit: No (4) Malnutrition Status: Chronic Assessment and plan: Needs nutritional support. 04/10/2017 encouraging patient to eat better. Diet supplements will help. 04/11/2017 seems to be eating better. 04/12/2017 appetite seems to be better. 04/13/2017 appetite is better. 04/14/2017 appears to be eating better. 04/15/2017 appetite is better. Tapering steroids 04/16/2017 patient is eating better. Current Visit: No (5) On home oxygen therapy Status: Chronic Assessment and plan: Continuing oxygen at 2 L. Current Visit: No
--- NOTE | 2017-04-16 15:54 | Hospitalist Progress Note ---
Assessment and Plan (1) Pneumonia Status: Acute Assessment and plan: 1) Pneumonia involving left lung Status: Acute Assessment and plan: He does have a left upper lobe infiltrate that was not there a month ago. Consistent with pneumonia. Since he had Pseudomonas last time we need to give double coverage for that this time. Have added Merrem to his Zosyn. pt is on 8 day of iv antbx , pulmonary is following Current Visit: Yes (2) COPD with exacerbation Status: Acute Assessment and plan: Corticosteroids bronchodilators and antibiotics. Seems better today. He has very severe COPD. He did stop smoking about 2 months ago. Current Visit: No (3) Chronic respiratory failure Status: Acute Assessment and plan: Low flow oxygen. Bronchodilators. Current Visit: No (4) Malnutrition Status: Chronic Assessment and plan: Needs nutritional support. Current Visit: No (5) On home oxygen therapy Status: Chronic Assessment and plan: Continuing oxygen at 2 L. Current Visit: No Current Visit: Yes Qualifiers: Pneumonia type: due to Pseudomonas Hospitalist: Subjective Interval history: clinically much improved on iv meropanum and iv zosyn for pseudomonas in sputum pulmonary is following Exam - Constitutional Vitals: Period Temp Pulse Resp BP Sys/Parada Pulse Ox Last 24 Hr 96.2 F-97.6 F 75-98 18-20 105-119/54-70 94-99 heent, pearle neck, supple. chest few bilateral rhonchi [facility], s1 s2. abd, soft, bs+ director cardiovascular, alert orientedx3 afocal Results - Labs CBC & BMP: 04/13/17 05:14 04/12/17 04:47 Specialty Discharge - Follow Up or Referrals Follow up with: Will Foote MD [Physician] - 05/13/17 2:00 pm (3-4wks with CXR, CBC, BMP)
[2017-04-17] MEDS: ALBUTEROL/IPRATROPIUM 3 ML NEB RESP TX SCH ×4 (00:10→19:23)
[2017-04-17] MEDS: MEROPENEM 1,000 MG in SODIUM CHLORIDE 0.9% 100 ML IV SCH ×2 (02:08→14:55)
[2017-04-17 02:18] LABS: Eosinophils % 0.2 % (0.00-10.9); Hematocrit 30.1 VOL% (42.0-52.0); Hemoglobin 9.6 GM/DL (14.0-18.0); Immature Granulocytes % 1.6 %; Immature Granulocytes Absolute 0.22 #; Lymphocytes # 0.7 10*3/uL (1.4-4.0); Lymphocytes % 5.1 % (21.2-54.2); Mean Corpuscular HGB Conc 31.9 GM/DL (32-36); Mean Corpuscular Hemoglobin 27 PG (27-34); Mean Corpuscular Volume 84.6 FL (87-102); Mean Platelet Volume 9.4 FL (9.6-12.0); Monocytes # 0.5 10*3/uL (0.11-0.8); Monocytes % 3.6 % (1.7-12.7); Neutrophils # 12.2 10*3/uL (1.4-7.4); Neutrophils % 89.5 % (38.7-73.9); Platelet Count 253 T/CUMM (130-400); Red Blood Count 3.56 MC/CUMM (3.8-5.5); Red Cell Distribution Width 15.5 % (9.3-17.3); White Blood Count 13.6 T/CUMM (4-12)
[2017-04-17 02:58] LABS: Calcium 8.3 MG/DL (8.5-10.1); Osmolality,Calculated 282.4 MOS/KG (273-304); Potassium 3.8 MMOL/L (3.5-5.1)
[2017-04-17] MEDS: PIPERACILLIN/TAZOBACTAM 3,375 MG in SODIUM CHLORIDE 0.9% 100 ML IV SCH ×3 (04:20→21:07)
--- NOTE | 2017-04-17 08:31 | Pulmonology Progress Note ---
Pulmonary - PN: Subj Interval history: Patient is a 76-year-old white man with very severe COPD and bullous disease. He came in with left upper lobe pneumonia and is grown out Pseudomonas. He is getting antibiotics. He says his cough and congestion are better. He has a fairly good appetite. He feels like his breathing is doing okay at present. He seems to be tolerating his antibiotics okay. Exam (Progress Note) - Constitutional Vitals: Period Temp Pulse Resp BP Sys/Parada Pulse Ox Last 24 Hr 96.8 F-97.8 F 75-93 18-20 102-127/54-79 92-99 General appearance: no acute distress, cachectic - Head Head exam: Present: normal inspection, normocephalic - Eye Eye exam: Present: EOMI. Absent: scleral icterus Pupils: Present: ALEKSANDRA - ENT ENT exam: Present: normal exam - Neck Neck exam: Present: normal inspection. Absent: lymphadenopathy, thyromegaly - Respiratory Respiratory exam: Present: decreased breath sounds, prolonged expiratory phase, rhonchi - Cardiovascular Cardiovascular exam: Present: regular rate and rhythm. Absent: gallop, systolic murmur - GI/Abdominal GI/Abdominal exam: Present: normal bowel sounds, soft. Absent: organomegaly, tenderness - Extremities Exam Extremities exam: Absent: calf tenderness, edema - Back Exam Back exam: Present: normal inspection - Neurological Exam Neurological exam: Present: alert, oriented X3, CN II-XII intact - Psychiatric Psychiatric exam: Present: normal affect - Skin Skin exam: Present: warm, dry Results - Labs CBC & BMP: 04/17/17 01:05 04/17/17 01:05 Assessment and Plan (1) COPD with exacerbation Status: Acute Assessment and plan: The patient is being treated for COPD and seems to be breathing comfortably at present. Current Visit: No (2) Chronic respiratory failure Status: Chronic Assessment and plan: The patient is on chronic O2 therapy and will continue his bronchodilator therapy. Current Visit: No (3) Malnutrition Status: Chronic Assessment and plan: Patient says his appetite is a little better. Current Visit: No (4) Pneumonia involving left lung Status: Acute Assessment and plan: The patient is doing well with IV antibiotics and will probably go home on oral antibiotics. Current Visit: Yes Qualifiers: Pneumonia type: due to Pseudomonas Lung location: upper lobe of lung Qualified Code(s): J15.1 - Pneumonia due to Pseudomonas Specialty Discharge - Follow Up or Referrals Follow up with: Will Foote MD [Physician] - 05/13/17 2:00 pm (3-4wks with CXR, CBC, BMP)
--- NOTE | 2017-04-17 08:52 | Gastrointestinal Progress Note ---
<Nara Mcleod - Last Filed: 04/17/17 08:50> Assessment and Plan (1) Dysphagia Status: Chronic Assessment and plan: 04/17-no changes in dysphagia present time. Patient's breathing status seems to have improved. Will consider endoscopy in the next day or 2 if patient continues to improve. Plan an addendum to follow Dr. Cespedes. 04/16-no changes at present time. Shortness of breath is slightly improved. Continue to monitor at present time and plan endoscopy as respiratory status improves. Plan an addendum to follow by Dr. Cespedes 04/15-No changes in dysphagia. Continuing on IV antibiotics for psuedomonas. Will continue to follow at this time and plan for EGD when resp status improved either at discharge if improved or as an outpatient after pneumonia fully resolved. Plan and addendum to follow by Dr Cespedes. 04/11 -continued dysphagia. Respiratory status slowly improving. Continue to monitor present time with further evaluation for his dysphagia once respiratory status improved. Plan an addendum to follow by Dr. Cespedes. 04/10-history of esophageal stricture with recently worsening dysphagia. History of GERD mostly controlled with Prilosec. 4-5 pound weight loss over the last 3 months. Last EGD in December of this year with dilation. Increasing complaints of difficulty with liquids, solids, and pills. Continue to monitor respiratory status at this time and consider repeat EGD when pneumonia has improved and patient able to tolerate endoscopy. Plan an addendum to follow by Dr. Cespedes. Current Visit: No Gastroenterology - PN: Subj Interval history: CC: Dysphagia Patient is seen awake and alert lying in bed. He states he is feeling some better and his breathing feels like it has improved. He denies any shortness of breath at present time. He is continuing with his IV antibiotics and tolerating these well. His appetite is slowly improving however he has continued dysphagia. He feels like he is able to lie flat and breathe a little better/comfortably at this time. We will continue to monitor and proceed with EGD possibly in the next day or 2 if he continues to improve. Abdomen is soft, nontender. ROS: Denies shortness of breath or chest pain at present time. Exam (Progress Note) - Constitutional Vitals: Period Temp Pulse Resp BP Sys/Parada Pulse Ox Last 24 Hr 96.8 F-97.8 F 75-93 18-20 102-127/54-79 92-99 General appearance: normal weight, no acute distress - Head Head exam: Present: normal inspection, normocephalic - Eye Eye exam: Present: other (Lids and conjunctive are unremarkable). Absent: scleral icterus - ENT ENT exam: Present: normal exam, normal oropharynx - Neck Neck exam: Present: normal inspection - Respiratory Respiratory exam: Present: clear to auscultation bilaterally. Absent: rales, rhonchi, wheezes - Cardiovascular Cardiovascular exam: Present: regular rate and rhythm. Absent: diastolic murmur , JVD, systolic murmur - GI/Abdominal GI/Abdominal exam: Present: normal bowel sounds, soft. Absent: ascites, distended, mass, organomegaly, tenderness - Extremities Exam Extremities exam: Present: normal inspection, full ROM - Back Exam Back exam: Present: normal inspection - Neurological Exam Neurological exam: Present: alert, oriented X3 - Psychiatric Psychiatric exam: Present: normal affect, normal mood - Skin Skin exam: Present: normal color, warm, dry Results - Labs CBC & BMP: 04/17/17 01:05 04/17/17 01:05 Lab Results: I have reviewed the past 24 hour labs Specialty Discharge - Follow Up or Referrals Follow up with: Will Foote MD [Physician] - 05/13/17 2:00 pm (3-4wks with CXR, CBC, BMP) <Kirit Cespedes - Last Filed: 04/17/17 17:33> Exam (Progress Note) - Constitutional Vitals: Period Temp Pulse Resp BP Sys/Parada Pulse Ox Last 24 Hr 96.8 F-97.6 F 82-98 18-20 104-127/54-79 95-100 Results - Labs CBC & BMP: 04/17/17 01:05 04/17/17 01:05
[2017-04-17] MEDS: SERTRALINE 100 MG TABLET PO SCH (09:19)
[2017-04-17] MEDS: predniSONE 20 MG TABLET PO SCH (09:19)
[2017-04-17] MEDS: BUDESONIDE/FORMOTEROL 80-4.5 INHALER 6.9 GM INH SCH ×2 (09:20→21:07)
[2017-04-17] MEDS: PANTOPRAZOLE 40 MG TABLET PO SCH (09:20)
[2017-04-17] MEDS: OXYBUTYNIN XL 15 MG TABLET PO SCH (09:21)
--- NOTE | 2017-04-17 18:18 | Hospitalist Progress Note ---
Assessment and Plan (1) COPD with exacerbation Status: Acute Current Visit: No (2) Malnutrition Status: Chronic Current Visit: No (3) Pneumonia involving left lung Status: Acute Current Visit: Yes Qualifiers: Pneumonia type: due to Pseudomonas Lung location: upper lobe of lung Qualified Code(s): J15.1 - Pneumonia due to Pseudomonas Hospitalist: Subjective Interval history: No acute events overnight. Patient doing well, seen sitting up eating. Plan is for EGD tomorrow. Exam - Constitutional Vitals: Period Temp Pulse Resp BP Sys/Parada Pulse Ox Last 24 Hr 96.5 F-97.6 F 82-98 18-20 104-127/54-79 93-100 General appearance: under weight - Head Head exam: Present: normocephalic, atraumatic - Eye Eye exam: Present: EOMI Pupils: Present: ALEKSANDRA - ENT ENT exam: Present: normal exam - Neck Neck exam: Present: normal inspection - Respiratory Respiratory exam: Present: clear to auscultation bilaterally. Absent: wheezes - Cardiovascular Cardiovascular exam: Present: regular rate and rhythm - GI/Abdominal GI/Abdominal exam: Present: normal bowel sounds, soft. Absent: tenderness, rebound - Extremities Exam Extremities exam: Present: normal inspection - Back Exam Back exam: Present: normal inspection - Neurological Exam Neurological exam: Present: alert, oriented X3 - Psychiatric Psychiatric exam: Present: normal affect, normal mood - Skin Skin exam: Present: warm, intact Results - Labs CBC & BMP: 04/17/17 01:05 04/17/17 01:05 Specialty Discharge - Follow Up or Referrals Follow up with: Will Foote MD [Physician] - 05/13/17 2:00 pm (3-4wks with CXR, CBC, BMP)
[2017-04-18] MEDS: ALBUTEROL/IPRATROPIUM 3 ML NEB RESP TX SCH ×4 (01:44→18:40)
[2017-04-18] MEDS: MEROPENEM 1,000 MG in SODIUM CHLORIDE 0.9% 100 ML IV SCH ×2 (02:28→18:01)
[2017-04-18] MEDS: PIPERACILLIN/TAZOBACTAM 3,375 MG in SODIUM CHLORIDE 0.9% 100 ML IV SCH ×3 (04:05→21:15)
--- NOTE | 2017-04-18 10:31 | History and Physical Update ---
History and Physical Update - Physical Exam Mental Status: alert and oriented Heart: regular rate and rhythm Lung: clear to auscultation Abdomen: within normal limits Vitals: within normal limits
--- NOTE | 2017-04-18 10:34 | Operative Note ---
Date of procedure: 04/18/17 Pre-op diagnosis: Dysphagia Procedure: EGD with esophageal dilatation 76-year-old white male admitted with COPD exacerbation and pneumonia with complaints of dysphagia pulmonary status is now improved to the point he can have an upper endoscopy. Informed consent was obtained the patient He was sedated with MAC anesthesia per anesthesia protocol. Patient was placed in the left lateral decubitus position the Olympus flexible video upper endoscope was inserted into the oral cavity under direct vision the esophagus was intubated. Findings: Esophagus-diffuse esophageal candidiasis with retained food. No clear stricture was identified. No masses were seen no varices. Stomach-normal insufflation normal mucosa to direct retroflexed views of the body fundus cardia and antrum the stomach. Pylorus-normal Duodenum-normal for the bulb duodenum to the third portion of the duodenum. The scope was removed and subsequent 54 [place] bougie was passed for suspected esophageal dysmotility and possible stricture. Patient our procedure well his discharge recovery in good condition. Postop diagnosis: 1. Esophageal candidiasis-add Diflucan 2. Suspected esophageal dysmotility-repeat dilatation on as-needed basis. Continue PPI treatment. Antireflux precautions recommended Anesthesia: MAC Surgeon / Physician: Kirit Cespedes Estimated blood loss: none Specimens: none sent Condition: stable Disposition: post procedure unit Results - Labs CBC & BMP: 04/17/17 01:05 04/17/17 01:05 Discharge Plan - Discharge Medications No Action Tiotropium Inhalation [Spiriva Handihaler] 18 mcg INH QAM Sertraline [Zoloft] 50 mg PO DAILY Sertraline [Zoloft] 100 mg PO DAILY Oxybutynin Xl [Ditropan Xl] 15 mg PO DAILY Albuterol/Ipratropium Neb [Duoneb] 3 ml RESP TX QID Albuterol Inhaler [Proventil Inhaler] 2 puff INH Q4HR PRN #1 inhaler PRN Reason: Wheezing Docusate/Senna 50-8.6 [Senokot S] 1 tablet PO DAILY PRN PRN Reason: Constipation HYDROcodone/ACETAMIN 10-325 [[place] 10-325] 1 tablet PO TID PRN PRN Reason: Pain Fluticasone 50 Mcg Nasal Arvin [Flonase Nasal Arvin] 1 spray BOTH NARES DAILY PRN PRN Reason: Sinus Symptoms Omeprazole 40 mg PO DAILY - Follow Up or Referral Follow Up: Will Foote MD [Physician] - 05/13/17 2:00 pm (3-4wks with CXR, CBC, BMP) - Forms/Instructions
--- NOTE | 2017-04-18 10:37 | Anesthesia Post-Op ---
Anesthesia Post OP - Post Ansesthetic Evaluation Patient seen in post op: Yes Resp: within normal limits CV: within normal limits Mental: within normal limits Temp: within normal limits [id number]: within normal limits Nausea and Vomiting: within normal limits Pain: within normal limits
[2017-04-18] MEDS: FLUCONAZOLE INJ 100 MG in IV BAG 1 EACH IV SCH (12:16)
--- NOTE | 2017-04-18 12:31 | Pulmonology Progress Note ---
Pulmonary - PN: Subj Interval history: Patient is a 76-year-old white man with very severe COPD and bullous disease. He came in with left upper lobe pneumonia and is grown out Pseudomonas. He is getting antibiotics. He says his cough and congestion are better. He has a fairly good appetite. He apparently has had some trouble swallowing and is getting an EGD today. He feels like his breathing is better however. Exam (Progress Note) - Constitutional Vitals: Period Temp Pulse Resp BP Sys/Parada Pulse Ox Last 24 Hr 96.5 F-98.4 F 68-98 16-83 102-129/62-73 93-100 Exam: General appearance: no acute distress, cachectic, he is sitting up and looks quite comfortable. - Head Head exam: Present: normal inspection, normocephalic - Eye Eye exam: Present: EOMI. Absent: scleral icterus Pupils: Present: ALEKSANDRA - ENT ENT exam: Present: normal exam - Neck Neck exam: Present: normal inspection. Absent: lymphadenopathy, thyromegaly - Respiratory Respiratory exam: Present: He has distant breath sounds bilaterally with only some mild rhonchi present. - Cardiovascular Cardiovascular exam: Present: regular rate and rhythm. Absent: gallop, systolic murmur - GI/Abdominal GI/Abdominal exam: Present: normal bowel sounds, soft. Absent: organomegaly, tenderness - Extremities Exam Extremities exam: Absent: calf tenderness, edema - Back Exam Back exam: Present: normal inspection - Neurological Exam Neurological exam: Present: alert, oriented X3, CN II-XII intact - Psychiatric Psychiatric exam: Present: normal affect - Skin Skin exam: Present: warm, dry Results - Labs CBC & BMP: 04/17/17 01:05 04/17/17 01:05 Assessment and Plan (1) COPD with exacerbation Status: Acute Assessment and plan: The patient is being treated for COPD and seems to be breathing comfortably at present. He will continue with bronchodilator therapy. Current Visit: No (2) Chronic respiratory failure Status: Chronic Assessment and plan: The patient is on chronic O2 therapy and will continue his bronchodilator therapy. Current Visit: No (3) Malnutrition Status: Chronic Assessment and plan: Patient says his appetite is a little better. He is getting an EGD today. Current Visit: No (4) Pneumonia involving left lung Status: Acute Assessment and plan: The patient is doing well with IV antibiotics and will probably go home on oral antibiotics. He did grow Pseudomonas out of the sputum. Current Visit: Yes Qualifiers: Pneumonia type: due to Pseudomonas Lung location: upper lobe of lung Qualified Code(s): J15.1 - Pneumonia due to Pseudomonas Specialty Discharge - Follow Up or Referrals Follow up with: Will Foote MD [Physician] - 05/13/17 2:00 pm (3-4wks with CXR, CBC, BMP)
[2017-04-18] MEDS: OXYBUTYNIN XL 15 MG TABLET PO SCH (13:17)
[2017-04-18] MEDS: PANTOPRAZOLE 40 MG TABLET PO SCH (13:17)
[2017-04-18] MEDS: SERTRALINE 100 MG TABLET PO SCH (13:17)
[2017-04-18] MEDS: predniSONE 20 MG TABLET PO SCH (13:17)
[2017-04-18] MEDS: BUDESONIDE/FORMOTEROL 80-4.5 INHALER 6.9 GM INH SCH ×2 (13:18→21:16)
--- NOTE | 2017-04-18 18:21 | Hospitalist Progress Note ---
Assessment and Plan (1) COPD with exacerbation Status: Acute Current Visit: No (2) Malnutrition Status: Chronic Current Visit: No (3) Pneumonia involving left lung Status: Acute Current Visit: Yes Qualifiers: Pneumonia type: due to Pseudomonas Lung location: upper lobe of lung Qualified Code(s): J15.1 - Pneumonia due to Pseudomonas Hospitalist: Subjective Interval history: No acute events overnight. Patient without complaints. EGD today. Exam - Constitutional Vitals: Period Temp Pulse Resp BP Sys/Parada Pulse Ox Last 24 Hr 97.3 F-98.4 F 68-96 16-83 100-129/58-73 93-100 General appearance: cachectic - Head Head exam: Present: normocephalic, atraumatic - Eye Eye exam: Present: EOMI Pupils: Present: ALEKSANDRA - ENT ENT exam: Present: normal exam - Neck Neck exam: Present: normal inspection - Respiratory Respiratory exam: Present: clear to auscultation bilaterally - Cardiovascular Cardiovascular exam: Present: regular rate and rhythm - GI/Abdominal GI/Abdominal exam: Present: normal bowel sounds, soft. Absent: tenderness, rebound - Extremities Exam Extremities exam: Present: normal inspection - Back Exam Back exam: Present: normal inspection - Neurological Exam Neurological exam: Present: alert, oriented X3 - Psychiatric Psychiatric exam: Present: normal affect, normal mood - Skin Skin exam: Present: warm, intact Results - Labs CBC & BMP: 04/17/17 01:05 04/17/17 01:05 Specialty Discharge - Follow Up or Referrals Follow up with: Will Foote MD [Physician] - 05/13/17 2:00 pm (3-4wks with CXR, CBC, BMP)
[2017-04-19] MEDS: ALBUTEROL/IPRATROPIUM 3 ML NEB RESP TX SCH ×4 (00:10→19:59)
[2017-04-19] MEDS: MEROPENEM 1,000 MG in SODIUM CHLORIDE 0.9% 100 ML IV SCH ×2 (04:19→16:19)
[2017-04-19] MEDS: PIPERACILLIN/TAZOBACTAM 3,375 MG in SODIUM CHLORIDE 0.9% 100 ML IV SCH ×3 (05:32→21:19)
[2017-04-19 06:26] LABS: Basophils % 0.1 % (0.0-0.8); Eosinophils # 0.1 10*3/uL (0.0-0.87); Eosinophils % 0.6 % (0.00-10.9); Hematocrit 30.4 VOL% (42.0-52.0); Immature Granulocytes % 1.3 %; Immature Granulocytes Absolute 0.12 #; Lymphocytes # 0.9 10*3/uL (1.4-4.0); Lymphocytes % 9.2 % (21.2-54.2); Mean Corpuscular HGB Conc 32.9 GM/DL (32-36); Mean Corpuscular Hemoglobin 28 PG (27-34); Mean Platelet Volume 9.1 FL (9.6-12.0); Monocytes # 0.6 10*3/uL (0.11-0.8); Monocytes % 6.3 % (1.7-12.7); Neutrophils # 7.6 10*3/uL (1.4-7.4); Neutrophils % 82.5 % (38.7-73.9); Platelet Count 228 T/CUMM (130-400); Red Blood Count 3.62 MC/CUMM (3.8-5.5); Red Cell Distribution Width 15.8 % (9.3-17.3); White Blood Count 9.3 T/CUMM (4-12)
[2017-04-19] MEDS: OXYBUTYNIN XL 15 MG TABLET PO SCH (08:09)
[2017-04-19] MEDS: predniSONE 20 MG TABLET PO SCH (08:09)
[2017-04-19] MEDS: SERTRALINE 100 MG TABLET PO SCH (08:09)
[2017-04-19] MEDS: BUDESONIDE/FORMOTEROL 80-4.5 INHALER 6.9 GM INH SCH ×2 (08:09→22:50)
[2017-04-19] MEDS: PANTOPRAZOLE 40 MG TABLET PO SCH (08:09)
--- NOTE | 2017-04-19 08:54 | Gastrointestinal Progress Note ---
<Nara Mcleod - Last Filed: 04/19/17 08:51> Assessment and Plan (1) Dysphagia Status: Chronic Assessment and plan: 04/19-dysphagia is improved post esophageal dilation. Diflucan has been initiated. Plan an addendum to followed by Dr. Cespedes. 04/17-no changes in dysphagia present time. Patient's breathing status seems to have improved. Will consider endoscopy in the next day or 2 if patient continues to improve. Plan an addendum to follow Dr. Cespedes. 04/16-no changes at present time. Shortness of breath is slightly improved. Continue to monitor at present time and plan endoscopy as respiratory status improves. Plan an addendum to follow by Dr. Cespedes 04/15-No changes in dysphagia. Continuing on IV antibiotics for psuedomonas. Will continue to follow at this time and plan for EGD when resp status improved either at discharge if improved or as an outpatient after pneumonia fully resolved. Plan and addendum to follow by Dr Cespedes. 04/11 -continued dysphagia. Respiratory status slowly improving. Continue to monitor present time with further evaluation for his dysphagia once respiratory status improved. Plan an addendum to follow by Dr. Cespedes. 04/10-history of esophageal stricture with recently worsening dysphagia. History of GERD mostly controlled with Prilosec. 4-5 pound weight loss over the last 3 months. Last EGD in December of this year with dilation. Increasing complaints of difficulty with liquids, solids, and pills. Continue to monitor respiratory status at this time and consider repeat EGD when pneumonia has improved and patient able to tolerate endoscopy. Plan an addendum to follow by Dr. Cespedes. Current Visit: No Gastroenterology - PN: Subj Interval history: CC: Dysphagia Patient is seen awake alert sitting up in bed. States he is feeling much better today. He is status post esophageal dilation on yesterday with also findings of esophageal Julissa in which Diflucan has been initiated. Also suspected esophageal dysmotility. He states that the dietitian brought him a can of Thick-It and this has helped with his choking when drinking liquids. States that his breakfast went down much easier today. Denies abdominal pain, nausea or vomiting. Abdomen soft, nontender. ROS: Denies shortness of breath or chest pain Exam (Progress Note) - Constitutional Vitals: Period Temp Pulse Resp BP Sys/Parada Pulse Ox Last 24 Hr 97.2 F-98.1 F 68- 16-83 100-134/58-80 93-100 General appearance: normal weight, no acute distress - Head Head exam: Present: normal inspection, normocephalic - Eye Eye exam: Present: other (Lids and conjunctive are unremarkable). Absent: scleral icterus - ENT ENT exam: Present: normal exam, normal oropharynx - Neck Neck exam: Present: normal inspection - Respiratory Respiratory exam: Present: clear to auscultation bilaterally. Absent: rales, rhonchi, wheezes - Cardiovascular Cardiovascular exam: Present: regular rate and rhythm. Absent: diastolic murmur , JVD, systolic murmur - GI/Abdominal GI/Abdominal exam: Present: normal bowel sounds, soft. Absent: ascites, distended, mass, organomegaly, tenderness - Extremities Exam Extremities exam: Present: normal inspection, full ROM - Back Exam Back exam: Present: normal inspection - Neurological Exam Neurological exam: Present: alert, oriented X3 - Psychiatric Psychiatric exam: Present: normal affect, normal mood - Skin Skin exam: Present: normal color, warm, dry Results - Labs CBC & BMP: 04/19/17 06:14 04/17/17 01:05 Lab Results: I have reviewed the past 24 hour labs Specialty Discharge - Follow Up or Referrals Follow up with: Will Foote MD [Physician] - 05/13/17 2:00 pm (3-4wks with CXR, CBC, BMP) <Kirit Cespedes - Last Filed: 04/19/17 10:10> Exam (Progress Note) - Constitutional Vitals: Period Temp Pulse Resp BP Sys/Parada Pulse Ox Last 24 Hr 97.2 F-98.1 F 68-90 18-83 100-134/58-80 93-100 Results - Labs CBC & BMP: 04/19/17 06:14 04/17/17 01:05
--- NOTE | 2017-04-19 11:36 | Pulmonology Progress Note ---
Pulmonary - PN: Subj Interval history: Patient is a 76-year-old white man with very severe COPD and bullous disease. He came in with left upper lobe pneumonia and is grown out Pseudomonas. He is getting antibiotics. He says his cough and congestion are better. He has a fairly good appetite. He did have a Julissa on his EGD. He says he is feeling a little better and swallowing better with treatment. His respiratory status is stable. Exam (Progress Note) - Constitutional Vitals: Period Temp Pulse Resp BP Sys/Parada Pulse Ox Last 24 Hr 97.2 F-98.1 F 78-90 18-22 100-134/63-80 95-99 Exam: General appearance: no acute distress, cachectic, he is sitting up and looks quite comfortable. He is eating better and in no distress. - Head Head exam: Present: normal inspection, normocephalic - Eye Eye exam: Present: EOMI. Absent: scleral icterus Pupils: Present: ALEKSANDRA - ENT ENT exam: Present: normal exam - Neck Neck exam: Present: normal inspection. Absent: lymphadenopathy, thyromegaly - Respiratory Respiratory exam: Present: He has distant breath sounds bilaterally with only some mild rhonchi present. - Cardiovascular Cardiovascular exam: Present: regular rate and rhythm. Absent: gallop, systolic murmur - GI/Abdominal GI/Abdominal exam: Present: normal bowel sounds, soft. Absent: organomegaly, tenderness - Extremities Exam Extremities exam: Absent: calf tenderness, edema - Back Exam Back exam: Present: normal inspection - Neurological Exam Neurological exam: Present: alert, oriented X3, CN II-XII intact, no focal deficits - Psychiatric Psychiatric exam: Present: normal affect - Skin Skin exam: Present: warm, dry Results - Labs CBC & BMP: 04/19/17 06:14 04/17/17 01:05 Assessment and Plan (1) COPD with exacerbation Status: Acute Assessment and plan: The patient is being treated for COPD and seems to be breathing comfortably at present. He will continue with bronchodilator therapy. Overall he says he is doing better. Current Visit: No (2) Chronic respiratory failure Status: Chronic Assessment and plan: The patient is on chronic O2 therapy and will continue his bronchodilator therapy. Current Visit: No (3) Malnutrition Status: Chronic Assessment and plan: Patient says his appetite is a little better. He feels like his swallowing is better today. Current Visit: No (4) Pneumonia involving left lung Status: Acute Assessment and plan: The patient is doing well with IV antibiotics and will probably go home on oral antibiotics. He did grow Pseudomonas out of the sputum. He is going to start Cedax once the pharmacy gets this. Current Visit: Yes Qualifiers: Pneumonia type: due to Pseudomonas Lung location: upper lobe of lung Qualified Code(s): J15.1 - Pneumonia due to Pseudomonas Specialty Discharge - Follow Up or Referrals Follow up with: Will Foote MD [Physician] - 05/13/17 2:00 pm (3-4wks with CXR, CBC, BMP)
[2017-04-19] MEDS: FLUCONAZOLE INJ 100 MG in IV BAG 1 EACH IV SCH (11:56)
--- NOTE | 2017-04-19 16:03 | Hospitalist Progress Note ---
Assessment and Plan (1) COPD with exacerbation Status: Acute Current Visit: No (2) Malnutrition Status: Chronic Current Visit: No (3) Pneumonia involving left lung Status: Acute Assessment and plan: Sputum culture with pseudomonas On merrem and zosyn currently PO Cedax will be available to the patient Saturday, he will need several more days of this Possible discharge Saturday Current Visit: Yes Qualifiers: Pneumonia type: due to Pseudomonas Lung location: upper lobe of lung Qualified Code(s): J15.1 - Pneumonia due to Pseudomonas Hospitalist: Subjective Interval history: No acute events overnight. Seen sitting up in chair. Exam - Constitutional Vitals: Period Temp Pulse Resp BP Sys/Parada Pulse Ox Last 24 Hr 97.2 F-97.8 F 76-89 18-22 103-150/63-80 96-99 General appearance: cachectic - Head Head exam: Present: normocephalic, atraumatic - Eye Eye exam: Present: EOMI Pupils: Present: ALEKSANDRA - ENT ENT exam: Present: normal exam - Neck Neck exam: Present: normal inspection - Respiratory Respiratory exam: Present: clear to auscultation bilaterally. Absent: wheezes - Cardiovascular Cardiovascular exam: Present: regular rate and rhythm - GI/Abdominal GI/Abdominal exam: Present: normal bowel sounds, soft. Absent: tenderness, rebound - Extremities Exam Extremities exam: Present: normal inspection - Back Exam Back exam: Present: normal inspection - Neurological Exam Neurological exam: Present: alert, oriented X3 - Psychiatric Psychiatric exam: Present: normal affect, normal mood - Skin Skin exam: Present: warm, intact Results - Labs CBC & BMP: 04/19/17 06:14 04/17/17 01:05 Specialty Discharge - Follow Up or Referrals Follow up with: Will Foote MD [Physician] - 05/13/17 2:00 pm (3-4wks with CXR, CBC, BMP)
[2017-04-20] MEDS: ALBUTEROL/IPRATROPIUM 3 ML NEB RESP TX SCH ×4 (01:42→18:57)
[2017-04-20] MEDS: MEROPENEM 1,000 MG in SODIUM CHLORIDE 0.9% 100 ML IV SCH ×2 (04:01→18:08)
[2017-04-20] MEDS: PIPERACILLIN/TAZOBACTAM 3,375 MG in SODIUM CHLORIDE 0.9% 100 ML IV SCH ×3 (05:04→20:28)
[2017-04-20 06:13] LABS: Basophils % 0.1 % (0.0-0.8); Eosinophils # 0.1 10*3/uL (0.0-0.87); Eosinophils % 1.1 % (0.00-10.9); Hemoglobin 9.7 GM/DL (14.0-18.0); Immature Granulocytes % 1.4 %; Immature Granulocytes Absolute 0.12 #; Lymphocytes % 11.9 % (21.2-54.2); Mean Corpuscular HGB Conc 32.3 GM/DL (32-36); Mean Corpuscular Hemoglobin 27 PG (27-34); Mean Corpuscular Volume 84.7 FL (87-102); Mean Platelet Volume 9.2 FL (9.6-12.0); Monocytes # 0.6 10*3/uL (0.11-0.8); Monocytes % 7.1 % (1.7-12.7); Neutrophils # 6.7 10*3/uL (1.4-7.4); Neutrophils % 78.4 % (38.7-73.9); Platelet Count 224 T/CUMM (130-400); Red Blood Count 3.54 MC/CUMM (3.8-5.5); Red Cell Distribution Width 16.3 % (9.3-17.3); White Blood Count 8.5 T/CUMM (4-12)
[2017-04-20] MEDS: PANTOPRAZOLE 40 MG TABLET PO SCH (08:45)
[2017-04-20] MEDS: OXYBUTYNIN XL 15 MG TABLET PO SCH (08:45)
[2017-04-20] MEDS: SERTRALINE 100 MG TABLET PO SCH (08:45)
[2017-04-20] MEDS: BUDESONIDE/FORMOTEROL 80-4.5 INHALER 6.9 GM INH SCH ×2 (08:46→20:28)
--- NOTE | 2017-04-20 10:39 | Pulmonology Progress Note ---
Pulmonary - PN: Subj Interval history: Patient is a 76-year-old white man with very severe COPD and bullous disease. He came in with left upper lobe pneumonia and is grown out Pseudomonas. He is getting antibiotics. He says his cough and congestion are better. He has a fairly good appetite. He did have a Julissa on his EGD. He says he is feeling a little better and swallowing better with treatment. His respiratory status is stable. He continues to feel better and is eating better. He is not having any trouble with his breathing at present. Overall he is doing well Exam (Progress Note) - Constitutional Vitals: Period Temp Pulse Resp BP Sys/Parada Pulse Ox Last 24 Hr 96.5 F-98.1 F 76-101 17-20 109-150/67-75 95-98 Exam: General appearance: no acute distress, cachectic, he is sitting up and looks quite comfortable. He is eating better and in no distress. - Head Head exam: Present: normal inspection, normocephalic - Eye Eye exam: Present: EOMI. Absent: scleral icterus Pupils: Present: ALEKSANDRA - ENT ENT exam: Present: normal exam - Neck Neck exam: Present: normal inspection. Absent: lymphadenopathy, thyromegaly - Respiratory Respiratory exam: Present: He has distant breath sounds bilaterally with only some mild rhonchi present. He seems to be moving air okay. - Cardiovascular Cardiovascular exam: Present: regular rate and rhythm. Absent: gallop, systolic murmur - GI/Abdominal GI/Abdominal exam: Present: normal bowel sounds, soft. Absent: organomegaly, tenderness - Extremities Exam Extremities exam: Absent: calf tenderness, edema, no signs of phlebitis. - Back Exam Back exam: Present: normal inspection - Neurological Exam Neurological exam: Present: alert, oriented X3, CN II-XII intact, no focal deficits - Psychiatric Psychiatric exam: Present: normal affect - Skin Skin exam: Present: warm, dry Results - Labs CBC & BMP: 04/20/17 06:01 04/17/17 01:05 Assessment and Plan (1) COPD with exacerbation Status: Acute Assessment and plan: The patient is being treated for COPD and seems to be breathing comfortably at present. He will continue with bronchodilator therapy. He continues to improve each day. Current Visit: No (2) Chronic respiratory failure Status: Chronic Assessment and plan: The patient is on chronic O2 therapy and will continue his bronchodilator therapy. Current Visit: No (3) Malnutrition Status: Chronic Assessment and plan: Patient says his appetite is a little better. He feels like his swallowing is better today. He is eating better. Current Visit: No (4) Pneumonia involving left lung Status: Acute Assessment and plan: The patient is doing well with IV antibiotics and will probably go home on oral antibiotics. He did grow Pseudomonas out of the sputum. He is going to start Cedax once the pharmacy gets this. Overall he is stable Current Visit: Yes Qualifiers: Pneumonia type: due to Pseudomonas Lung location: upper lobe of lung Qualified Code(s): J15.1 - Pneumonia due to Pseudomonas Specialty Discharge - Follow Up or Referrals Follow up with: Will Foote MD [Physician] - 05/13/17 2:00 pm (3-4wks with CXR, CBC, BMP)
--- NOTE | 2017-04-20 11:35 | Hospitalist Progress Note ---
Assessment and Plan (1) COPD with exacerbation Status: Acute Current Visit: No (2) Malnutrition Status: Chronic Current Visit: No (3) Pneumonia involving left lung Status: Acute Assessment and plan: Sputum culture with pseudomonas On merrem and zosyn currently PO Cedax will be available to the patient Saturday, he will need several more days of this Possible discharge Saturday Current Visit: Yes Qualifiers: Pneumonia type: due to Pseudomonas Lung location: upper lobe of lung Qualified Code(s): J15.1 - Pneumonia due to Pseudomonas Hospitalist: Subjective Interval history: No acute events overnight. Seen sitting in chair. Worked with physical therapy yesterday. Exam - Constitutional Vitals: Period Temp Pulse Resp BP Sys/Parada Pulse Ox Last 24 Hr 96.5 F-98.1 F 76-101 17-19 109-125/67-75 95-98 General appearance: cachectic - Head Head exam: Present: normocephalic, atraumatic - Eye Eye exam: Present: EOMI Pupils: Present: ALEKSANDRA - ENT ENT exam: Present: normal exam - Neck Neck exam: Present: normal inspection - Respiratory Respiratory exam: Present: clear to auscultation bilaterally. Absent: rhonchi, wheezes - Cardiovascular Cardiovascular exam: Present: regular rate and rhythm - GI/Abdominal GI/Abdominal exam: Present: normal bowel sounds, soft. Absent: tenderness, rebound - Extremities Exam Extremities exam: Present: normal inspection - Back Exam Back exam: Present: normal inspection - Neurological Exam Neurological exam: Present: alert, oriented X3 - Psychiatric Psychiatric exam: Present: normal affect, normal mood - Skin Skin exam: Present: warm, intact Results - Labs CBC & BMP: 04/20/17 06:01 04/17/17 01:05 Specialty Discharge - Follow Up or Referrals Follow up with: Will Foote MD [Physician] - 05/13/17 2:00 pm (3-4wks with CXR, CBC, BMP)
[2017-04-20] MEDS: FLUCONAZOLE INJ 100 MG in IV BAG 1 EACH IV SCH (13:13)
[2017-04-20] MEDS: ALUMINUM/MAGNES/SIMETH MAX STR 30 ML UDCUP PO PRN (20:27)
[2017-04-21] MEDS: ALBUTEROL/IPRATROPIUM 3 ML NEB RESP TX SCH ×4 (00:03→19:06)
[2017-04-21] MEDS: MEROPENEM 1,000 MG in SODIUM CHLORIDE 0.9% 100 ML IV SCH ×2 (04:00→17:41)
[2017-04-21] MEDS: PIPERACILLIN/TAZOBACTAM 3,375 MG in SODIUM CHLORIDE 0.9% 100 ML IV SCH ×3 (04:34→20:45)
[2017-04-21] MEDS: SERTRALINE 100 MG TABLET PO SCH (08:27)
[2017-04-21] MEDS: BUDESONIDE/FORMOTEROL 80-4.5 INHALER 6.9 GM INH SCH ×2 (08:27→20:45)
[2017-04-21] MEDS: OXYBUTYNIN XL 15 MG TABLET PO SCH (08:27)
[2017-04-21] MEDS: PANTOPRAZOLE 40 MG TABLET PO SCH (08:27)
--- NOTE | 2017-04-21 10:30 | Pulmonology Progress Note ---
Pulmonary - PN: Subj Interval history: Patient is a 76-year-old white man with very severe COPD and bullous disease. He came in with left upper lobe pneumonia and is grown out Pseudomonas. He is getting antibiotics. He says his cough and congestion are better. He has a fairly good appetite. He did have a Julissa on his EGD. He is eating much better now and feels better. His breathing is stable and he wants to go home soon Exam (Progress Note) - Constitutional Vitals: Period Temp Pulse Resp BP Sys/Parada Pulse Ox Last 24 Hr 97.1 F-97.9 F 82-99 17-20 90-118/58-69 95-100 Exam: General appearance: no acute distress, cachectic, he is sitting up and looks quite comfortable. He is eating better and in no distress. - Head Head exam: Present: normal inspection, normocephalic - Eye Eye exam: Present: EOMI. Absent: scleral icterus Pupils: Present: ALEKSANDRA - ENT ENT exam: Present: normal exam - Neck Neck exam: Present: normal inspection. Absent: lymphadenopathy, thyromegaly - Respiratory Respiratory exam: Present: He has distant breath sounds bilaterally but his lungs sound reasonably clear now. - Cardiovascular Cardiovascular exam: Present: regular rate and rhythm. Absent: gallop, systolic murmur - GI/Abdominal GI/Abdominal exam: Present: normal bowel sounds, soft. Absent: organomegaly, tenderness - Extremities Exam Extremities exam: Absent: calf tenderness, edema, no signs of phlebitis. - Back Exam Back exam: Present: normal inspection - Neurological Exam Neurological exam: Present: alert, oriented X3, CN II-XII intact, no focal deficits - Psychiatric Psychiatric exam: Present: normal affect - Skin Skin exam: Present: warm, dry Results - Labs CBC & BMP: 04/20/17 06:01 04/17/17 01:05 Assessment and Plan (1) COPD with exacerbation Status: Acute Assessment and plan: The patient is being treated for COPD and seems to be breathing comfortably at present. He will continue with bronchodilator therapy. Shortness of breath is markedly improved. Current Visit: No (2) Chronic respiratory failure Status: Chronic Assessment and plan: The patient is on chronic O2 therapy and will continue his bronchodilator therapy. Current Visit: No (3) Malnutrition Status: Chronic Assessment and plan: Patient says his appetite is better and is eating much better now. He has not had any trouble swallowing now. Current Visit: No (4) Pneumonia involving left lung Status: Acute Assessment and plan: The patient is doing well with IV antibiotics and will probably go home on oral antibiotics. He did grow Pseudomonas out of the sputum. He is going to start Cedax once the pharmacy gets this. Overall he is stable. He can probably go home at any time. Current Visit: Yes Qualifiers: Pneumonia type: due to Pseudomonas Lung location: upper lobe of lung Qualified Code(s): J15.1 - Pneumonia due to Pseudomonas Specialty Discharge - Follow Up or Referrals Follow up with: Will Foote MD [Physician] - 05/13/17 2:00 pm (3-4wks with CXR, CBC, BMP)
[2017-04-21] MEDS: FLUCONAZOLE INJ 100 MG in IV BAG 1 EACH IV SCH (12:10)
--- NOTE | 2017-04-21 12:41 | Hospitalist Progress Note ---
Assessment and Plan (1) COPD with exacerbation Status: Acute Current Visit: No (2) Malnutrition Status: Chronic Current Visit: No (3) Pneumonia involving left lung Status: Acute Assessment and plan: Sputum culture with pseudomonas On merrem and zosyn currently PO Cedax will be available to the patient Saturday, he will need several more days of this Will discharge tomorrow Current Visit: Yes Qualifiers: Pneumonia type: due to Pseudomonas Lung location: upper lobe of lung Qualified Code(s): J15.1 - Pneumonia due to Pseudomonas Hospitalist: Subjective Interval history: No acute events overnight. Patient doing well. He is suppose to get his po antibiotics tomorrow. Will discharge him tomorrow. Exam - Constitutional Vitals: Period Temp Pulse Resp BP Sys/Parada Pulse Ox Last 24 Hr 97.1 F-97.9 F 82-103 17-20 97-118/58-69 93-100 General appearance: cachectic - Head Head exam: Present: normocephalic, atraumatic - Eye Eye exam: Present: EOMI Pupils: Present: ALEKSANDRA - ENT ENT exam: Present: normal exam - Neck Neck exam: Present: normal inspection - Respiratory Respiratory exam: Present: clear to auscultation bilaterally. Absent: rhonchi, wheezes - Cardiovascular Cardiovascular exam: Present: regular rate and rhythm - GI/Abdominal GI/Abdominal exam: Present: normal bowel sounds, soft. Absent: tenderness, rebound - Extremities Exam Extremities exam: Present: normal inspection - Back Exam Back exam: Present: normal inspection - Neurological Exam Neurological exam: Present: alert, oriented X3 - Psychiatric Psychiatric exam: Present: normal affect, normal mood - Skin Skin exam: Present: warm, intact Results - Labs CBC & BMP: 04/20/17 06:01 04/17/17 01:05 Specialty Discharge - Follow Up or Referrals Follow up with: Will Foote MD [Physician] - 05/13/17 2:00 pm (3-4wks with CXR, CBC, BMP)
[2017-04-22] MEDS: ALBUTEROL/IPRATROPIUM 3 ML NEB RESP TX SCH ×2 (00:14→07:19)
[2017-04-22] MEDS: ALUMINUM/MAGNES/SIMETH MAX STR 30 ML UDCUP PO PRN (03:09)
[2017-04-22] MEDS: MEROPENEM 1,000 MG in SODIUM CHLORIDE 0.9% 100 ML IV SCH (04:08)
[2017-04-22] MEDS: PIPERACILLIN/TAZOBACTAM 3,375 MG in SODIUM CHLORIDE 0.9% 100 ML IV SCH ×2 (04:40→15:45)
[2017-04-22] MEDS: OXYBUTYNIN XL 15 MG TABLET PO SCH (08:38)
[2017-04-22] MEDS: PANTOPRAZOLE 40 MG TABLET PO SCH (08:38)
[2017-04-22] MEDS: SERTRALINE 100 MG TABLET PO SCH (08:38)
--- NOTE | 2017-04-22 08:52 | Pulmonology Progress Note ---
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 He has a superimposed left upper lobe pneumonia. Sputum Gram stain showed gram-negative rods. He had Pseudomonas the last time he had pneumonia. He is covered with Zosyn and Merrem. We will stop vancomycin for now since it does not appear that he will have a gram- positive organism. 04/11/2017 patient feels a little better. Sitting up in a chair. Still await final cultures from sputum. Continue IV antibiotics for now. He has very severe COPD with a superimposed gram-negative pneumonia. 04/12/2017 patient is feeling better and coughing up some phlegm. Chest x-ray today shows the left apical cavity with an air-fluid level in it. This most likely represents an infected bleb. He has grown Pseudomonas which requires 2 antibiotics to prevent resistance developing. I would keep him on those for another 4 days or so and then probably oral medications for another 10-14 days. Unfortunately he is allergic to Levaquin which limits our oral medication for Pseudomonas. 04/13/2017 again patient is feeling better and producing sputum. We checked into oral antibiotics that would cover this and it was apparently caused him over $500 for the medication and he can't afford that. I am going to recommend keeping him here on IV antibiotics a couple days further than we had planned. Social workers trying to help with home medicines. 04/14/2017 continuing IV antibiotics. Patient is feeling better. Will recheck x -rays about Saturday and make a decision at that time. It looks like it will be very difficult for him to get adequate oral antibiotics for this. 04/15/2017 patient is feeling better and eating better. Needs 1 more day of 2 antibiotics for his Pseudomonas pneumonia with infected bulla left upper lobe. I have given his a prescription for Cedax. [facility]. Another 10 days of oral Cedax would be helpful. It is apparently fairly expensive. 04/16/2017 patient improved. Could plan discharge tomorrow with oral antibiotics. Apparently the has not gotten the prescription for sulindac filled as yet. I will plan follow-up in the office. 04/22/2017 patient now ready to be discharged. Cedax has been arranged. I will see him in the office in 2-3 weeks. Call if needed further. Exam (Progress Note) - Constitutional Vitals: Period Temp Pulse Resp BP Sys/Parada Pulse Ox Last 24 Hr 97.8 F-98.4 F 71-111 18-25 97-112/52-65 92-100 Exam: Patient's alert oriented vital signs normal. He is thin and frail. Pupils react to light. Throat is clear. Neck supple no bruits. Chest shows prolonged expiratory phase, few rhonchi over left upper lobe. Heart normal rate rhythm no murmurs. Abdomen soft nontender no masses. Extremities no clubbing cyanosis or edema. Calves nontender. Results - Labs CBC & BMP: 04/20/17 06:01 04/17/17 01:05 Lab Results: I have reviewed the past 24 hour labs Assessment and Plan (1) Pneumonia involving left lung Status: Acute Assessment and plan: He does have a left upper lobe infiltrate that was not there a month ago. Consistent with pneumonia. Since he had Pseudomonas last time we need to give double coverage for that this time. Have added Merrem to his Zosyn. Also is on vancomycin but if sputum cultures are negative that would be want to stop. 04/10/2017 continuing antibiotics for gram-negative pneumonia. Gram stain showed gram-negative rods. Stopping vancomycin for now. 04/11/2017 recheck x-ray tomorrow. Await final cultures from sputum. 04/12/2017 Pseudomonas with infected bleb. Finish out at least a week of IV double antibiotics. Since he is allergic to Levaquin we may actually need to go longer than that as there is not a good oral antibiotic that will cover this. Will consider Cedax at that point. That can be quite expensive. Will need to get that checked into. 04/13/2017 left upper lobe infected bleb with Pseudomonas in a patient with severe COPD and cavitary lung disease. Continuing double antibiotic therapy for Pseudomonas 04/14/2017 recurrent pneumonia with Pseudomonas. Continuing double coverage antibiotics. Looks like Cedax will be impossible for him to get a unless he can get some help with purchasing it. 04/15/2017 Pseudomonas pneumonia with infected bulla. Trying to arrange for patient to get Cedax post discharge. Have given prescription to [facility]. 04/16/2017 again finished double antibiotic treatment for Pseudomonas tomorrow. Home with Cedax if he can get it. 04/22/2017 patient is finished about 2 weeks of IV antibiotics now. Ready for discharge. He has had full coverage for Pseudomonas pneumonia. Has an infected bleb. Current Visit: Yes Qualifiers: Pneumonia type: due to Pseudomonas Lung location: upper lobe of lung Qualified Code(s): J15.1 - Pneumonia due to Pseudomonas (2) COPD with exacerbation Status: Acute Assessment and plan: Corticosteroids bronchodilators and antibiotics. Seems better today. He has very severe COPD. He did stop smoking about 2 months ago. 04/10/2017 continuing steroids and bronchodilators. Will reduce steroids a little. 04/11/2017 tapering steroids. 04/12/2017 tapering steroids further. Not having much in the way of wheezing at this point. 04/13/2017 no active bronchospasm 04/14/2017 COPD seems to be under control. 04/15/2017 no active wheezing. 04/22/2017 no bronchospasm. Current Visit: No (3) Chronic respiratory failure Status: Chronic Assessment and plan: Low flow oxygen. Bronchodilators. 04/10/2017 continuing low flow oxygen. 04/11/2017 continuing oxygen. 04/12/2017 continuing nasal oxygen. 04/13/2017 continuing to need nasal oxygen. 04/15/2017 long-term oxygen. 04/16/2017 continuing nasal oxygen at home. 04/22/2017 using oxygen at home at 2 L. Current Visit: No (4) Malnutrition Status: Chronic Assessment and plan: Needs nutritional support. 04/10/2017 encouraging patient to eat better. Diet supplements will help. 04/11/2017 seems to be eating better. 04/12/2017 appetite seems to be better. 04/13/2017 appetite is better. 04/14/2017 appears to be eating better. 04/15/2017 appetite is better. Tapering steroids 04/16/2017 patient is eating better. 04/22/2017 appetite is better. Current Visit: No (5) On home oxygen therapy Status: Chronic Assessment and plan: Continuing oxygen at 2 L. Current Visit: No Specialty Discharge - Follow Up or Referrals Follow up with: Will Foote MD [Physician] - 05/13/17 2:00 pm (3-4wks with CXR, CBC, BMP)
[2017-04-22] MEDS: BUDESONIDE/FORMOTEROL 80-4.5 INHALER 6.9 GM INH SCH (09:48)
--- NOTE | 2017-04-22 10:23 | Discharge Summary ---
<Jacinto Jenkins - Last Filed: 04/22/17 10:14> Hospital Course - Hospital Course Hospital Course: This is a chronically ill 68-year-old male that presented to the ED at [facility] on April 08, 2017 for the evaluation of hypoxia. Patient has a very long and extensive medical history significant for; abdominal aortic aneurysm, myocardial infarction, depression, bronchitis, chronic obstructive pulmonary disease, bladder incontinence, gastroesophageal reflux disease, dysphasia chronic back pain, arthritis, anemia, and prostatic carcinoma. Patient has a surgical history significant for esophageal dilation, tonsillectomy, adenoidectomy, appendectomy, colonoscopy, transurethral resection of the prostate, and EGD. The patient reported the onset of symptoms on the day prior to presentation. He reports that he had been seen by his primary care physician at the [facility] and told that he had decreased oxygen levels and decreased blood pressure. They encouraged him to present to the ED at [facility] for further evaluation. The patient was admitted. Empiric antibiotic coverage, inhaled bronchodilators , and intravenous corticosteroids were initiated. The patient was seen and evaluated by pulmonology. Upon review of the patient's medical records, the patient was noted to have Pseudomonas on her previous admission. It was determined that double antibiotic coverage was needed at that time; antibiotics were reviewed and readjusted. The patient started to experience difficulty swallowing medications, solids, and liquids; a gastroenterology consultation was requested for evaluation. On April 18, 2017, the patient underwent esophago - gastroduodenoscopy under the direction of Dr. Kirit Cespedes; with significant findings positive for esophageal candidiasis and suspected esophageal dysmotility. Protein pump inhibitor treatment will continue an entire reflux precautions were initiated. The patient's condition gradually improved. The patient's condition is stable. He has not experienced any significant overnight events. His vital signs are stable. Today, we feel that he is indeed appropriate for discharge to follow- up with his primary care physicians at the [facility] outpatient clinic and Dr. Foote as indicated. He will continue with cedax as previously ordered. Specialty Discharge - Follow Up or Referrals Follow up with: Will Foote MD [Physician] - 05/13/17 2:00 pm (3-4wks with CXR, CBC, BMP) Discharge Plan - Discharge Data Disposition: Disch To Home/Self Care - Discharge Medications Continue Tiotropium Inhalation [Spiriva Handihaler] 18 mcg INH QAM Sertraline [Zoloft] 50 mg PO DAILY Sertraline [Zoloft] 100 mg PO DAILY Oxybutynin Xl [Ditropan Xl] 15 mg PO DAILY Albuterol/Ipratropium Neb [Duoneb] 3 ml RESP TX QID Albuterol Inhaler [Proventil Inhaler] 2 puff INH Q4HR PRN #1 inhaler PRN Reason: Wheezing Docusate/Senna 50-8.6 [Senokot S] 1 tablet PO DAILY PRN PRN Reason: Constipation HYDROcodone/ACETAMIN 10-325 [[place] 10-325] 1 tablet PO TID PRN PRN Reason: Pain Fluticasone 50 Mcg Nasal [place] [Flonase Nasal [place]] 1 spray BOTH NARES DAILY PRN PRN Reason: Sinus Symptoms Omeprazole 40 mg PO DAILY - Follow Up or Referral Follow Up: Will Foote MD [Physician] - 05/13/17 2:00 pm (3-4wks with CXR, CBC, BMP) - Forms/Instructions Instructions: Bronchiolitis (GEN), Viral Pneumonia (GEN) Exam - Constitutional Vitals: Period Temp Pulse Resp BP Sys/Parada Pulse Ox Last 24 Hr 97.8 F-98.4 F 71-111 18-25 97-112/52-65 92-100 Discharge Results Procedures and tests throughout hospitalization: Pending Orders 04/13/17 15:00 Occult Blood, Stool Routine DS: Provider Date of admission: 04/08/17 15:38 Primary care physician: . No PCP Attending physician on admission: Sixto Herring DO Consults: 04/08/17 17:38 Consult to Physician [CONS] Routine Comment: pneumonia Consulting Provider: Will Foote When should Consulting Provider be notified: In am Consult to Specialist Group: Infectious Disease Person Notified: NIK Date Notified: 04/09/17 Time Notified: 09:44 Consult Notification Comment: 04/08/17 18:41 Consult to Dietitian [CONS] Routine Reason for Dietitian: Other Consult to Pastoral Services [CONS] Routine Comment: Pastoral Screen: Request Diet Consultant Visit 04/10/17 09:40 Consult to Case Mgmt/Social Srvs [CONS] Routine Reason for Case Mgmt/Social Srvs: Discharge Planning 04/10/17 14:56 Consult to Physician [CONS] Routine Comment: difficulty swallowing Consulting Provider: Kirit Cespedes Person Notified: Angel Date Notified: 04/10/17 Time Notified: 15:00 04/12/17 11:12 Consult to Case Mgmt/Social Srvs [CONS] Routine Reason for Case Mgmt/Social Srvs: Other Consult Comment: needs avila on Cedax 400mg po daily x 2 weeks/will d/c nw 04/18/17 18:19 Consult to Occupational Therapy [CONS] Routine Reason for Occupational Therapy: Evaluate and Treat Consult to Physical Therapy [CONS] Routine Reason for Physical Therapy: Evaluate and Treat Discharging clinician: Jacinto Jenkins CNP <Hang Sesay - Last Filed: 04/22/17 11:19> Hospital Course - Time spent with patient Time with patient DS: Greater than 30 minutes (40) Diagnosis - Discharge Diagnosis (1) COPD with exacerbation Status: Resolved (2) Malnutrition Status: Chronic (3) Pneumonia involving left lung Status: Resolved Discharge Plan - Discharge Data Condition at Discharge: Stable Discharge Diet: advance to your usual diet, other (Ensure or boost 2-3x per day) Activity: increase activity as tolerated Hygiene: no restrictions Weight Bearing at Discharge: weight bear as tolerated Contact your physician if you experience:: fever over 101, Shortness of breath Exam - Constitutional General appearance: cachectic - Head Head exam: Present: normocephalic, atraumatic - Eye Eye exam: Present: EOMI Pupils: Present: ALEKSANDRA - ENT ENT exam: Present: normal exam - Neck Neck exam: Present: normal inspection - Respiratory Respiratory exam: Present: clear to auscultation bilaterally - Cardiovascular Cardiovascular exam: Present: regular rate and rhythm - GI/Abdominal GI/Abdominal exam: Present: normal bowel sounds, soft. Absent: tenderness, rebound - Extremities Exam Extremities exam: Present: normal inspection - Back Exam Back exam: Present: normal inspection - Neurological Exam Neurological exam: Present: alert, oriented X3 - Psychiatric Psychiatric exam: Present: normal affect, normal mood - Skin Skin exam: Present: warm, intact
[2017-04-22 12:37] VITALS: BP 102/58
[2017-04-22] MEDS: FLUCONAZOLE INJ 100 MG in IV BAG 1 EACH IV SCH (15:44)
== END 2017-04-22 13:30 | disposition home or self-care (01) | DRG 190 ==
LOC: N.ED 10:28 → N.EDINP 15:38 → SUATTDRO 15:38 → N.EDINP 17:42 → N.5E 18:27
PROVIDERS: ADMIT Internal Medicine; ATTEND Internal Medicine

== ENCOUNTER 2017-07-06 23:54 | Inpatient (IN) ==
[2017-07-07] MEDS ORDERED: ALBUTEROL/IPRATROPIUM 3 ML NEB RESP TX STA (00:36)
[2017-07-07] MEDS ORDERED: MORPHINE 2 MG/1 ML SYRINGE IV STA (00:36)
[2017-07-07] MEDS ORDERED: ONDANSETRON 4 MG/2 ML VIAL IV STA (00:36)
[2017-07-07] MEDS ORDERED: methylPREDNISolone SOD SUC 125 MG/2 ML VIAL IV STA (00:36)
[2017-07-07 00:52] LABS: Basophils % 0.2 % (0.0-0.8); Eosinophils % 0.2 % (0.00-10.9); Hematocrit 38.8 VOL% (42.0-52.0); Hemoglobin 12.7 GM/DL (14.0-18.0); INR 1.2; Immature Granulocytes % 0.6 %; Immature Granulocytes Absolute 0.11 #; Lymphocytes # 1.9 10*3/uL (1.4-4.0); Lymphocytes % 9.8 % (21.2-54.2); Mean Corpuscular HGB Conc 32.7 GM/DL (32-36); Mean Corpuscular Hemoglobin 27 PG (27-34); Mean Corpuscular Volume 81.5 FL (87-102); Mean Platelet Volume 10.1 FL (9.6-12.0); Monocytes # 1.3 10*3/uL (0.11-0.8); Monocytes % 6.5 % (1.7-12.7); Neutrophils # 15.9 10*3/uL (1.4-7.4); Neutrophils % 82.7 % (38.7-73.9); PT Patient Result 12.1 SECS; Partial Thromboplastin Time 31.2 SECS (0-40); Platelet Count 269 T/CUMM (130-400); Red Blood Count 4.76 MC/CUMM (3.8-5.5); Red Cell Distribution Width 14.8 % (9.3-17.3); White Blood Count 19.2 T/CUMM (4-12)
[2017-07-07 01:00] LABS: Alanine Aminotransferase 22 U/L (16-61); Albumin 3.2 G/DL (3.4-5.0); Alkaline Phosphatase 173 U/L (45-117); Aspartate Amino Transferase 17 U/L (0-37); Blood Urea Nitrogen 17 MG/DL (7-18); Calcium 9.6 MG/DL (8.5-10.1); Total Protein 7.5 G/DL (6.4-8.3)
[2017-07-07 01:01] LABS: Glucose 174 MG/DL (74-106); Osmolality,Calculated 269.5 MOS/KG (273-304); Potassium 4.1 MMOL/L (3.5-5.1); Sodium 132 MMOL/L (136-145); Troponin I Only < 0.015 NG/ML (0.00-0.045)
--- NOTE | 2017-07-07 01:05 | Emergency Department Note ---
Keon Garcia Manpreet, am scribing for, and in the presence of, Nori Torres DO 00: 38. IBrian Debra, DO, personally performed the services described in this documentation, ascribed by Derick Herbert in my presence, and it is both accurate and complete . Arrival - Arrival Chief Complaint: Chest Pain Stated Complaint: SOB ED Nursing Triage Note: Patient to triage with with c/o CP/SOB for the past 3 days that has been worst tonight. Patient pain radiates to his shoulders and back and is worse when he lays down, patient also c/o CARVAJAL. Patient wears home O2 PRN for COPD. Patient has hx of AAA. After EKG was obtained, patient noted to be with an O2 sat of 60%, patient was wheeled to ED 4 and RN's at bedside to obtain IV access. Mode of Arrival: Wheelchair Limitations: No Limitations Source: Patient, Family (), Old Records Reviewed, RN Notes Reviewed Time Seen by Provider: 07/07/17 00:20 - History of Present Illness HPI Narrative: Pt is a 77 y/o male who presents to the ED with CC of SOB and CP onset 1 week ago. Pt states the CP goes "all over his chest," down to his upper back and left shoulder. Pt has a PMHx of COPD, emphysema, PA, and AAA. Pt is on home O2 which runs around 88-90% at home. Pt reports of still smoking cigarettes at home. Pt's card runner is Dr. Orellana. Pt denies any fever, chills, N/V/D, or ARTHUR. No other pains/complaints reported to the ED. Onset (ago): week(s) (1 week) Consistency: constant Severity: moderate Allergies/Adverse Reactions: Allergies Allergy/AdvReac Type Severity Reaction Status Date / Time levofloxacin [From Levaquin] Allergy RASH Verified 07/07/17 00:11 simvastatin [From Zocor] Allergy Unknown/Unable Verified 07/07/17 00:11 to obtain Home Medications: Home Medications Medication Instructions Recorded Confirmed Type Tiotropium Inhalation [Spiriva 18 mcg INH QAM 10/18/16 07/07/17 History Handihaler] Albuterol Inhaler [Proventil 2 puff INH Q4HR PRN #1 inhaler 10/22/16 07/07/17 Rx Inhaler] HYDROcodone/ACETAMIN 10-325 [[place] 1 tablet PO TID PRN 03/05/17 07/07/17 History 10-325] Albuterol/Ipratropium Neb [Duoneb] 3 ml RESP TX QID 04/08/17 07/07/17 History Fluticasone 50 Mcg Nasal [place] 1 spray BOTH NARES DAILY PRN 04/08/17 07/07/17 History [Flonase Nasal [place]] Omeprazole 40 mg PO DAILY 04/08/17 07/07/17 History Oxybutynin Xl [Ditropan Xl] 15 mg PO DAILY 04/08/17 07/07/17 History Multivit-Min/FA/Lycopen/Lutein 1 each PO DAILY 05/24/17 07/07/17 History [Centrum Silver Tablet] Sertraline HCl 150 mg PO DAILY 05/24/17 07/07/17 History Review of System - Review of System 12 point system: reviewed and no additional remarkable complaints except as stated - Review of System Constitutional: Absent: chills, diaphoresis, fever Respiratory: Present: respiratory distress. Absent: cough, wheezing Cardiovascular: Present: chest pain Gastrointestinal: Absent: abdominal pain, nausea, vomiting, diarrhea Genitourinary male: Absent: dysuria Musculoskeletal: Present: arm pain (Left shoulder pain), upper back pain (Upper back pain) Neurological: Absent: headache, weakness, numbness, paresthesias Medical,Surgical,& Family Hx - Medical History Cardio: History of: Aneurysm (Abdominal Aortic Aneurysm), Cardiac Dysrhythmia ( Tachycardia), CAD (has had previous myocardial infarction), [place], Cardiovascular Problems (Recent holter monitor) Psychological: History of: Depression No history of: Anxiety Disorders, ADHD, Behavior Problems, Bipolar Disorder, Previous Suicide Attempt, Psychiatric/Substance Abuse Tx, Schizophrenia, Violent Behavior, Psychiatric Problems Neurology: No history of: Seizures HEENT: History of: Ear Problem (hearing loss), Eye Problem (wears glasses) Respiratory: History of: Bronchitis, COPD, Respiratory Problems (Nodule on lung ; wears oxygen at home) Genitourinary: History of: Bladder Problem (incontinence. ), Prostate Problems ( hx of prostate ca) Gastrointestinal: History of: GERD, Liver Problems (CT shows hypodensities within the liver), Polyps Musculoskeletal: History of: Back/Neck Problems (Chronic back pain), Musculoskeletal Problems (arthritis) Hematology: History of: Anemia Reproductive: Reports: Reproductive Cancer (prostate ca) Other: History of: Cancer (Hx: Prostate cancer) - Surgical History Cardiac Surgeries: Patient Denies: Cardiac Catheterization HEENT Surgeries: Surgical HX of: Eye Surgery (RIGHT pencil lead removed), Tonsilectomy & Adenoidectomy Abdominal Surgeries: Surgical HX of: Abdominal Surgery, Appendectomy, Colonoscopy, EGD Patient denies: Cholecystectomy, Gastric Bypass Surgery, Hernia Repair Reproductive Surgeries: Surgical HX of;: Genitourinary Surgery, Prostate Surgery Orthopedic Surgeries: Patient denies;: Orthopedic Surgery - Family History Family History: Reports;: Family Cancer (prostate CA- brother, breast CA- mother ), Family Diabetes (Sister), Family Heart Disease (Sister), Family Hypertension (Mother) Denies;: Family Anesthesia Reaction, Family Psychiatric Problems, Family Stroke - Social History Smoking Status: Current every day smoker Frequency of Alcohol Use: None Type of Drug Use: None Exam Vital Signs: Vital Signs Temperature 100.9 F H 07/06/17 23:58 Pulse Rate 117 H 07/07/17 00:56 Respiratory Rate 22 07/07/17 00:56 Blood Pressure 131/70 07/06/17 23:58 O2 Sat by Pulse Oximetry 95 07/07/17 00:56 - General General appearance: alert, in distress (Moderate distress), cachectic - Head Head exam: Present: atraumatic, normocephalic, normal inspection - Eye Eye exam: Present: normal appearance, PERRL, EOMI - ENT ENT exam: Present: normal exam, normal oropharynx, mucous membranes moist, TM's normal bilaterally - Neck Neck exam: Present: normal inspection, full ROM, trachea midline. Absent: tenderness - Chest Chest inspection: Present: normal inspection, symmetric chest wall rise. Absent : tenderness - Respiratory Respiratory exam: Present: accessory muscle use, wheezes (Wheezing throughout). Absent: normal lung sounds bilaterally, respiratory distress - Cardiovascular Cardiovascular exam: Present: normal rhythm, tachycardia, normal heart sounds. Absent: regular rate, murmur, rubs, gallop - Abdominal Exam Abdominal exam: Present: soft, normal bowel sounds. Absent: distention, tenderness, guarding - Extremities Exam Extremities exam: Present: normal inspection, full ROM. Absent: tenderness - Back Exam Back exam: Present: normal inspection, full ROM. Absent: tenderness - Neurological Exam Neurological exam: Present: alert, oriented X3, CN II-XII intact, reflexes normal - Psychiatric Psychiatric exam: Present: normal affect, normal mood - Skin Skin exam: Present: warm, dry, intact, normal color. Absent: pallor Course Course Narrative: spoke with hospitalist who will admit pt. Results - Labs CBC & BMP: 07/07/17 00:10 07/07/17 00:10 Disposition Clinical Impression: Pneumonia Case discussed with: patient, patient's family Disposition: Still a Patient Condition: Stable Time of Disposition: 01:33
[2017-07-07] MEDS ORDERED: ONDANSETRON 4 MG/2 ML VIAL ONE (01:06)
[2017-07-07] MEDS ORDERED: methylPREDNISolone SOD SUC 125 MG/2 ML VIAL ONE (01:06)
[2017-07-07] MEDS ORDERED: MORPHINE 2 MG/1 ML SYRINGE ONE (01:06)
[2017-07-07] MEDS ORDERED: cefTRIAXone 1,000 MG in SODIUM CHLORIDE 0.9% 100 ML IV STA (01:28)
[2017-07-07] MEDS ORDERED: cefTRIAXone 1,000 MG VIAL ONE (01:45)
--- NOTE | 2017-07-07 02:52 | Hospitalist History & Physical ---
Assessment and Plan - Time spent with patient Time spent with patient: Less than 30 minutes (1) Acute exacerbation of chronic obstructive pulmonary disease (COPD) Status: Acute Assessment and plan: Will give scheduled Duoneb breathing treatments IV steroids Will rehydrate with IVF Current Visit: Yes (2) Chest pain Status: Acute Assessment and plan: Will draw serial EKGs and troponins Current Visit: Yes (3) Pneumonia Status: Acute Assessment and plan: Blood and sputum cultures pending WBC 19 Will start on Zyvoxx and Cefepime for now Currently afebrile Current Visit: Yes (4) Encounter for smoking cessation counseling Status: Chronic Assessment and plan: Counseled patient for 12 minutes on smoking cessation Current Visit: No History of Present Illness Chief complaint: shortness of breath; chest pain History of present illness: Called to the ER for Mr. Bianchi who is a 77 year old male who presents tonight with a chief complaint of shortness of breath, chest pain, and back pain that started 3 days ago. Tonight at 2300 shortness of breath and chest pain became worse. Patient describes the pain as sharp and radiates to the right side of his chest. No aggravating or alleviating factors. He denies diaphoresis, nausea, vomiting, diarrhea, fevers, and coughing. Patient has extensive history including COPD and emphysema in his supposed to take DuoNeb breathing treatments 4 times daily and Spiriva inhaler daily. Patient states he does not take his breathing treatments as directed and has only had [address] Foote is the patient's platform beater and he is supposed to use see him in 1 month. Upon arrival in the ER his oxygen saturations were in the 60s. He is on home oxygen at 2 L/min via nasal cannula but only wears it at certain times of the day. In the ER he received a DuoNeb breathing treatment, morphine 2 mg IV, Solu-Medrol 125 mg IV and he did improve his oxygen saturations to the high 80s. Chest x-ray revealed pneumonia. Blood cultures were obtained and patient was started on Rocephin 1 g. Patient has been admitted several times for pneumonia. The last time he was admitted was in February 2017 where he grew out Pseudomonas in his sputum. He has never been intubated for his pneumonia or COPD. He remains a smoker. He states a pack of cigarettes will last him 2-3 days and he has been smoking approximately 44 years. Additional history includes COPD, abdominal aortic aneurysm, emphysema, anemia, DC, prostate cancer with prostatectomy, incontinence, arthritis, appendectomy, tonsillectomy, depression, GERD, esophageal strictures, and TURP. Patient will be admitted under hospital medicine service where he will receive scheduled breathing treatments, IV steroids, pending blood work, rehydration, and IV antibiotics. Home Medications Medication Instructions Recorded Confirmed Type Tiotropium Inhalation [Spiriva 18 mcg INH QAM 10/18/16 07/07/17 History Handihaler] Albuterol Inhaler [Proventil 2 puff INH Q4HR PRN #1 inhaler 10/22/16 07/07/17 Rx Inhaler] HYDROcodone/ACETAMIN 10-325 [[place] 1 tablet PO TID PRN 03/05/17 07/07/17 History 10-325] Albuterol/Ipratropium Neb [Duoneb] 3 ml RESP TX QID 04/08/17 07/07/17 History Fluticasone 50 Mcg Nasal [place] 1 spray BOTH NARES DAILY PRN 04/08/17 07/07/17 History [Flonase Nasal [place]] Omeprazole 40 mg PO DAILY 04/08/17 07/07/17 History Oxybutynin Xl [Ditropan Xl] 15 mg PO DAILY 04/08/17 07/07/17 History Multivit-Min/FA/Lycopen/Lutein 1 each PO DAILY 05/24/17 07/07/17 History [Centrum Silver Tablet] Sertraline HCl 150 mg PO DAILY 05/24/17 07/07/17 History Allergies Allergy/AdvReac Type Severity Reaction Status Date / Time levofloxacin [From Levaquin] Allergy RASH Verified 07/07/17 00:11 simvastatin [From Zocor] Allergy Unknown/Unable Verified 07/07/17 00:11 to obtain Medical,Surgical,& Family Hx - Medical History Cardio: History of: Aneurysm (Abdominal Aortic Aneurysm), Cardiac Dysrhythmia ( Tachycardia), CAD (has had previous myocardial infarction), [place], Cardiovascular Problems (Recent holter monitor) Psychological: History of: Depression No history of: Anxiety Disorders, ADHD, Behavior Problems, Bipolar Disorder, Previous Suicide Attempt, Psychiatric/Substance Abuse Tx, Schizophrenia, Violent Behavior, Psychiatric Problems Neurology: No history of: Seizures HEENT: History of: Ear Problem (hearing loss), Eye Problem (wears glasses) Respiratory: History of: Bronchitis, COPD, Respiratory Problems (Nodule on lung ; wears oxygen at home) Genitourinary: History of: Bladder Problem (incontinence. ), Prostate Problems ( hx of prostate ca) Gastrointestinal: History of: GERD, Liver Problems (CT shows hypodensities within the liver), Polyps Musculoskeletal: History of: Back/Neck Problems (Chronic back pain), Musculoskeletal Problems (arthritis) Hematology: History of: Anemia Reproductive: Reports: Reproductive Cancer (prostate ca) Other: History of: Cancer (Hx: Prostate cancer) - Surgical History Cardiac Surgeries: Patient Denies: Cardiac Catheterization HEENT Surgeries: Surgical HX of: Eye Surgery (RIGHT pencil lead removed), Tonsilectomy & Adenoidectomy Abdominal Surgeries: Surgical HX of: Abdominal Surgery, Appendectomy, Colonoscopy, EGD Patient denies: Cholecystectomy, Gastric Bypass Surgery, Hernia Repair Reproductive Surgeries: Surgical HX of;: Genitourinary Surgery, Prostate Surgery Orthopedic Surgeries: Patient denies;: Orthopedic Surgery - Family History Family History: Reports;: Family Cancer (prostate CA- brother, breast CA- mother ), Family Diabetes (Sister), Family Heart Disease (Sister), Family Hypertension (Mother) Denies;: Family Anesthesia Reaction, Family Psychiatric Problems, Family Stroke - Social History Smoking Status: Current every day smoker Have you smoked in the last 12 months: Yes (1 pack every 2-3 days) Time spent discussing smoking cessation with patient: more than 10 minutes Frequency of Alcohol Use: None Type of Drug Use: None Marital Status: Lives With:: Spouse Functional capacity: independent ambulation - Constitutional Constitutional: Absent: chills, fatigue, fever(s) - EENT Eyes: Absent: blurry vision Ears: Absent: decreased hearing Nose, mouth and throat: Absent: dysphagia, headache(s), hoarseness, sore throat - Cardiovascular Cardiovascular: Present: chest pain at rest, chest pain with activity, dyspnea. Absent: edema, lightheadedness, orthopnea, palpitations - Respiratory Respiratory: Present: dyspnea, dyspnea on exertion, wheezing. Absent: cough - Gastrointestinal Gastrointestinal: Absent: abdominal pain, diarrhea, dysphagia, nausea, vomiting - Genitourinary Genitourinary: Absent: difficulty urinating - Musculoskeletal Musculoskeletal: Absent: arthralgias - Neurological Neurological: Absent: abnormal gait, dizziness - Psychiatric Psychiatric: Absent: anxiety - Endocrine Endocrine: Absent: cold intolerance, heat intolerance Exam - Constitutional Vitals: Period Temp Pulse Resp BP Sys/Parada Pulse Ox Last 24 Hr 100.9 F-100.9 F 117-129 20-40 131-131/70-70 60-95 General appearance: mild distress, cachectic - Head Head exam: Present: normal inspection, normocephalic - Eye Eye exam: Present: EOMI Pupils: Present: ALEKSANDRA, normal accommodation - ENT ENT exam: Present: normal exam - Neck Neck exam: Present: normal inspection - Respiratory Respiratory exam: Present: wheezes (to left lung castro otherwise coarse). Absent: accessory muscle use - Cardiovascular Cardiovascular exam: Present: regular rate and rhythm. Absent: diastolic murmur , systolic murmur - GI/Abdominal GI/Abdominal exam: Present: soft. Absent: distended, tenderness - Extremities Exam Extremities exam: Present: normal inspection, normal capillary refill, full ROM - Neurological Exam Neurological exam: Present: alert, oriented X3 (Answers questions appropriately. Makes good eye contact. ) - Psychiatric Psychiatric exam: Present: normal affect, normal mood - Skin Skin exam: Present: normal color, warm, dry, intact Results - Labs CBC & BMP: 07/07/17 00:10 07/07/17 00:10 Lab Results: I have reviewed the past 24 hour labs
[2017-07-07] MEDS ORDERED: ONDANSETRON 4 MG/2 ML VIAL IV PRN (03:38)
[2017-07-07] MEDS ORDERED: ZALEPLON 5 MG CAPSULE PO PRN (03:38)
[2017-07-07] MEDS ORDERED: NICOTINE 21 MG/24 HR PATCH TRANSDERM PRN (03:38)
[2017-07-07] MEDS ORDERED: guaiFENesin/DM ER 600-30 MG TABLET PO PRN (03:38)
[2017-07-07] MEDS ORDERED: ALBUTEROL/IPRATROPIUM 3 ML NEB RESP TX PRN (03:38)
[2017-07-07] MEDS: ALBUTEROL/IPRATROPIUM 3 ML NEB RESP TX SCH ×5 (04:01→19:25)
[2017-07-07] MEDS: SODIUM CHLORIDE 0.9% 1,000 ML IV SCH ×3 (04:08→20:57)
[2017-07-07] MEDS: LINEZOLID INJ 600 MG in PREMIX 1 EACH IV SCH ×2 (05:23→16:22)
[2017-07-07 05:29] LABS: Magnesium 2.1 MG/DL (1.8-2.4); Risk Ratio 2.69; VLDL CHOLESTEROL 15.2 MG/DL
[2017-07-07] MEDS: CEFEPIME 1,000 MG in SODIUM CHLORIDE 0.9% 50 ML IV SCH ×3 (06:27→22:00)
--- NOTE | 2017-07-07 08:37 | XRay Report ---
Portable chest Indication: Shortness of breath, cough Comparison: May 24, 2017 Findings: Cardiomediastinal contours are normal. 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 No acute osseous abnormalities. Visualized upper abdomen demonstrates no acute pathology. Impression: No interval change in the appearance the chest PROCEDURE INTERPRETED AT [facility] DEPARTMENT OF RADIOLOGY Final Report Signed by: Mark Mcmullen MD
[2017-07-07] MEDS ORDERED: NON-FORMULARY MEDICATION (Tiotropium Inhalation 18 MCG) INH SCH (09:00)
--- NOTE | 2017-07-07 09:37 | Order Completion Report ---
See report scanned to EMR
[2017-07-07] MEDS: methylPREDNISolone SOD SUC 40 MG/1 ML VIAL IV SCH ×3 (09:48→20:50)
[2017-07-07] MEDS: OXYBUTYNIN XL 15 MG TABLET PO SCH (09:48)
[2017-07-07] MEDS: DOCUSATE SODIUM 100 MG CAPSULE PO SCH ×2 (09:48→20:50)
[2017-07-07] MEDS: PANTOPRAZOLE 40 MG TABLET PO SCH (09:48)
[2017-07-07] MEDS: ENOXAPARIN 40 MG/0.4 ML SYRINGE SUBCUT SCH (09:49)
--- NOTE | 2017-07-07 13:42 | Order Completion Report ---
See report scanned to EMR
--- NOTE | 2017-07-07 13:42 | Order Completion Report ---
See report scanned to EMR
--- NOTE | 2017-07-07 13:42 | Order Completion Report ---
See report scanned to EMR
[2017-07-07] MEDS: guaiFENesin/DM ER 600-30 MG TABLET PO SCH (20:50)
[2017-07-08] MEDS: ALBUTEROL/IPRATROPIUM 3 ML NEB RESP TX SCH ×7 (00:21→23:52)
[2017-07-08] MEDS: methylPREDNISolone SOD SUC 40 MG/1 ML VIAL IV SCH ×4 (01:54→21:20)
[2017-07-08] MEDS: LINEZOLID INJ 600 MG in PREMIX 1 EACH IV SCH ×2 (04:32→17:48)
[2017-07-08] MEDS: SODIUM CHLORIDE 0.9% 1,000 ML IV SCH ×4 (04:35→21:24)
[2017-07-08 05:40] LABS: Hematocrit 31.7 VOL% (42.0-52.0); Hemoglobin 10.3 GM/DL (14.0-18.0); Immature Granulocytes % 0.9 %; Immature Granulocytes Absolute 0.07 #; Lymphocytes # 0.3 10*3/uL (1.4-4.0); Mean Corpuscular HGB Conc 32.5 GM/DL (32-36); Mean Corpuscular Hemoglobin 27 PG (27-34); Mean Corpuscular Volume 81.7 FL (87-102); Mean Platelet Volume 10.2 FL (9.6-12.0); Monocytes # 0.2 10*3/uL (0.11-0.8); Monocytes % 2.4 % (1.7-12.7); Neutrophils # 7.6 10*3/uL (1.4-7.4); Neutrophils % 92.7 % (38.7-73.9); Platelet Count 193 T/CUMM (130-400); Red Blood Count 3.88 MC/CUMM (3.8-5.5); Red Cell Distribution Width 14.6 % (9.3-17.3); White Blood Count 8.2 T/CUMM (4-12)
[2017-07-08] MEDS: CEFEPIME 1,000 MG in SODIUM CHLORIDE 0.9% 50 ML IV SCH ×3 (05:59→21:27)
[2017-07-08 06:13] LABS: Magnesium 2.3 MG/DL (1.8-2.4); Osmolality,Calculated 284.3 MOS/KG (273-304); Potassium 4.2 MMOL/L (3.5-5.1)
[2017-07-08 06:15] LABS: Lymphocytes 1 % (20-55); Platelet Estimate Normal; Segmented Neutrophils 97 % (50-85); Total Cells Counted 100
[2017-07-08 06:16] LABS: Giant Platelets Few; Hypochromasia 1+; Ovalocytes Slight
--- NOTE | 2017-07-08 07:40 | Pulmonology Consult Note ---
Assessment and Plan (1) COPD with exacerbation Status: Resolved Assessment and plan: We will treat with bronchodilators antibiotics and steroids. Once again needs to stop smoking entirely. He has been noncompliant. Current Visit: No (2) Tobacco abuse Status: Chronic Assessment and plan: Discussed the need to stop smoking again. Current Visit: No (3) Pneumonia involving left lung Status: Resolved Assessment and plan: Usually gets infected bulla in his lungs. Treated with broad-spectrum antibiotics due to his COPD and frequent episodes of pneumonia. Current Visit: No Qualifiers: Pneumonia type: due to Pseudomonas Lung location: upper lobe of lung Qualified Code(s): J15.1 - Pneumonia due to Pseudomonas History of Present Illness Chief complaint: Cough congestion pleuritic pain History of present illness: Mr. Bianchi is a 77 year old male with COPD and a good bit of bullous changes. He has had several flareups with bronchitis and an episode of infected bulla about 3 months ago. He continues to be a smoker. Has not been compliant with his medications at home including duo nebs and Spiriva. He is on oxygen at 2 L but does not use it regularly. He is normally followed at the [facility]. He comes in now with pleuritic pain. He is coughing up a good bit of thick green to yellow sputum. He has had some sweats but no sujey fever. Home Medications Medication Instructions Recorded Confirmed Type Tiotropium Inhalation [Spiriva 18 mcg INH QAM 10/18/16 07/07/17 History Handihaler] Albuterol Inhaler [Proventil 2 puff INH Q4HR PRN #1 inhaler 10/22/16 07/07/17 Rx Inhaler] HYDROcodone/ACETAMIN 10-325 [[place] 1 tablet PO TID PRN 03/05/17 07/07/17 History 10-325] Albuterol/Ipratropium Neb [Duoneb] 3 ml RESP TX QID 04/08/17 07/07/17 History Fluticasone 50 Mcg Nasal [place] 1 spray BOTH NARES DAILY PRN 04/08/17 07/07/17 History [Flonase Nasal [place]] Omeprazole 40 mg PO DAILY 04/08/17 07/07/17 History Oxybutynin Xl [Ditropan Xl] 15 mg PO DAILY 04/08/17 07/07/17 History Multivit-Min/FA/Lycopen/Lutein 1 each PO DAILY 05/24/17 07/07/17 History [Centrum Silver Tablet] Sertraline HCl 150 mg PO DAILY 05/24/17 07/07/17 History Allergies Allergy/AdvReac Type Severity Reaction Status Date / Time levofloxacin [From Levaquin] Allergy RASH Verified 07/07/17 00:11 simvastatin [From Zocor] Allergy Unknown/Unable Verified 07/07/17 00:11 to obtain 12 point system: reviewed and no additional remarkable complaints except as stated - Constitutional Constitutional: Present: night sweats, weakness - EENT Nose, mouth and throat: Present: dysphagia - Cardiovascular Cardiovascular: Present: chest pain at rest, dyspnea, dyspnea on exertion - Respiratory Respiratory: Present: cough, dyspnea, dyspnea on exertion, wheezing, pain on inspiration, change in phlegm color - Gastrointestinal Gastrointestinal: Present: dysphagia - Musculoskeletal Musculoskeletal: Present: back pain Exam (Pulmonay) H&P - Constitutional Vitals: Period Temp Pulse Resp BP Sys/[place] Pulse Ox Last 24 Hr 97.2 F-98.7 F 76-102 16-20 104-121/53-64 87-99 Exam: Patient is alert and afebrile. O2 sat in the mid 90s on nasal oxygen. Pupils react to light. Throat is clear. Neck is supple no bruits. Chest reveals some mild expiratory rhonchi bilaterally. Heart normal rate rhythm no murmurs. Abdomen soft nontender no masses. Bowel sounds present. Extremities no clubbing cyanosis or edema. Calves nontender. Medical,Surgical,& Family Hx - Medical History Cardio: History of: Aneurysm (Abdominal Aortic Aneurysm), Cardiac Dysrhythmia ( Tachycardia), CAD (has had previous myocardial infarction), [place], Cardiovascular Problems (Recent holter monitor) Psychological: History of: Depression No history of: Anxiety Disorders, ADHD, Behavior Problems, Bipolar Disorder, Previous Suicide Attempt, Psychiatric/Substance Abuse Tx, Schizophrenia, Violent Behavior, Psychiatric Problems Neurology: No history of: Seizures HEENT: History of: Ear Problem (hearing loss), Eye Problem (wears glasses) Respiratory: History of: Bronchitis, COPD, Respiratory Problems (Nodule on lung ; wears oxygen at home) Genitourinary: History of: Bladder Problem (incontinence. ), Prostate Problems ( hx of prostate ca) Gastrointestinal: History of: GERD, Liver Problems (CT shows hypodensities within the liver), Polyps Musculoskeletal: History of: Back/Neck Problems (Chronic back pain), Musculoskeletal Problems (arthritis) Hematology: History of: Anemia Reproductive: Reports: Reproductive Cancer (prostate ca) Other: History of: Cancer (Hx: Prostate cancer) - Surgical History Cardiac Surgeries: Patient Denies: Cardiac Catheterization HEENT Surgeries: Surgical HX of: Eye Surgery (RIGHT pencil lead removed), Tonsilectomy & Adenoidectomy Abdominal Surgeries: Surgical HX of: Abdominal Surgery, Appendectomy, Colonoscopy, EGD Patient denies: Cholecystectomy, Gastric Bypass Surgery, Hernia Repair Reproductive Surgeries: Surgical HX of;: Genitourinary Surgery, Prostate Surgery Orthopedic Surgeries: Patient denies;: Orthopedic Surgery - Family History Family History: Reports;: Family Cancer (prostate CA- brother, breast CA- mother ), Family Diabetes (Sister), Family Heart Disease (Sister), Family Hypertension (Mother) Denies;: Family Anesthesia Reaction, Family Psychiatric Problems, Family Stroke - Social History Smoking Status: Current every day smoker Frequency of Alcohol Use: None Type of Drug Use: None Results - Labs CBC & BMP: 07/08/17 04:07 07/08/17 04:07 Lab Results: I have reviewed the past 24 hour labs - Diagnostic Findings Procedure: Chest x-ray: image reviewed by me (Extensive bullous disease bilaterally in the upper lobes. Marked hyperinflation.)
[2017-07-08 08:14] LABS: ABG Base Excess 1.8 MMOL/L (-2.5-2.5); ABG HCO3 28.4 MMOL/L (20-26); ABG Oxygen Saturation 95.9 % (95-100); ABG PCO2 54.2 MM HG (35-48); ABG PH 7.337 (7.35-7.45); ABG PO2 81.7 MM HG (80-95); ABG TCO2 30.1 MMOL/L (23-27); Allen Test Positive
[2017-07-08] MEDS: guaiFENesin/DM ER 600-30 MG TABLET PO SCH ×2 (08:17→21:20)
[2017-07-08] MEDS: PANTOPRAZOLE 40 MG TABLET PO SCH (08:18)
[2017-07-08] MEDS: OXYBUTYNIN XL 15 MG TABLET PO SCH (08:18)
[2017-07-08] MEDS: ENOXAPARIN 40 MG/0.4 ML SYRINGE SUBCUT SCH (08:18)
[2017-07-08] MEDS: DOCUSATE SODIUM 100 MG CAPSULE PO SCH ×2 (08:18→22:29)
--- NOTE | 2017-07-08 10:20 | Hospitalist Progress Note ---
<Ariadne Jensen - Last Filed: 07/08/17 15:29> Assessment and Plan (1) Acute exacerbation of chronic obstructive pulmonary disease (COPD) Status: Acute Assessment and plan: Continue current plan of care. IV steroids. scheduled duonebs. Current Visit: Yes (2) Chest pain Status: Acute Assessment and plan: Chest pain has resolved. Current Visit: Yes (3) Pneumonia Status: Acute Assessment and plan: WBC down to 8.2 today. Blood culture show no growth at one day. Continue IV antibiotics. Current Visit: Yes Hospitalist: Subjective Interval history: Patient seen and examined this morning with present at the bedside. Labs and chart reviewed. Pt. states that he had just received breathing treatment and breathing was slightly improved. WBC noted to be down to 8.2 today. Will continue to monitor. Exam - Constitutional Vitals: Period Temp Pulse Resp BP Sys/[place] Pulse Ox Last 24 Hr 97.2 F-98.7 F 76-102 16-20 104-125/52-64 87-99 General appearance: no acute distress, under weight - Head Head exam: Present: normal inspection, normocephalic - Eye Eye exam: Present: EOMI Pupils: Present: ALEKSANDRA - Respiratory Respiratory exam: Present: wheezes. Absent: clear to auscultation bilaterally - Cardiovascular Cardiovascular exam: Present: regular rate and rhythm - GI/Abdominal GI/Abdominal exam: Present: normal bowel sounds, soft. Absent: tenderness - Extremities Exam Extremities exam: Absent: edema - Neurological Exam Neurological exam: Present: alert, oriented X3 - Psychiatric Psychiatric exam: Present: normal affect, normal mood - Skin Skin exam: Present: normal color, warm, dry Results - Labs CBC & BMP: 07/08/17 04:07 07/08/17 04:07 Lab Results: I have reviewed the past 24 hour labs <Hang Sesay - Last Filed: 07/08/17 17:33> Hospitalist: Subjective Interval history: Patient seen and examined independently of TIMBO Jensen, agree with assessment and plan as documented. Leukocytosis is resolved. Pulmonary assisting. Exam - Constitutional Vitals: Period Temp Pulse Resp BP Sys/[place] Pulse Ox Last 24 Hr 97.1 F-98.7 F 76-102 16-20 105-137/52-87 95-99 Results - Labs CBC & BMP: 07/08/17 04:07 10/09/17 04:07
[2017-07-09] MEDS: methylPREDNISolone SOD SUC 40 MG/1 ML VIAL IV SCH ×3 (02:42→21:00)
[2017-07-09] MEDS: SODIUM CHLORIDE 0.9% 1,000 ML IV SCH ×4 (02:44→20:58)
[2017-07-09] MEDS: ALBUTEROL/IPRATROPIUM 3 ML NEB RESP TX SCH ×6 (03:32→23:34)
[2017-07-09 03:56] LABS: Hematocrit 31.9 VOL% (42.0-52.0); Hemoglobin 10.4 GM/DL (14.0-18.0); Immature Granulocytes % 0.8 %; Immature Granulocytes Absolute 0.06 #; Lymphocytes # 0.3 10*3/uL (1.4-4.0); Lymphocytes % 3.8 % (21.2-54.2); Mean Corpuscular HGB Conc 32.6 GM/DL (32-36); Mean Corpuscular Hemoglobin 27 PG (27-34); Mean Corpuscular Volume 81.6 FL (87-102); Mean Platelet Volume 9.9 FL (9.6-12.0); Monocytes # 0.2 10*3/uL (0.11-0.8); Monocytes % 2.9 % (1.7-12.7); Neutrophils % 92.5 % (38.7-73.9); Platelet Count 207 T/CUMM (130-400); Red Blood Count 3.91 MC/CUMM (3.8-5.5); Red Cell Distribution Width 14.8 % (9.3-17.3); White Blood Count 7.6 T/CUMM (4-12)
[2017-07-09 04:25] LABS: Calcium 8.9 MG/DL (8.5-10.1); Magnesium 2.3 MG/DL (1.8-2.4); Potassium 3.7 MMOL/L (3.5-5.1)
[2017-07-09] MEDS: LINEZOLID INJ 600 MG in PREMIX 1 EACH IV SCH ×2 (04:34→17:09)
[2017-07-09] MEDS: CEFEPIME 1,000 MG in SODIUM CHLORIDE 0.9% 50 ML IV SCH ×2 (05:42→13:52)
[2017-07-09 05:54] LABS: Hypochromasia 1+; Lymphocytes 5 % (20-55); Microcytosis Slight; Ovalocytes Slight; Segmented Neutrophils 89 % (50-85); Total Cells Counted 100
[2017-07-09 05:55] LABS: Platelet Estimate Normal
--- NOTE | 2017-07-09 07:50 | Pulmonology Progress Note ---
Pulmonary - PN: Subj Interval history: This 77-year-old white male has COPD with chronic respiratory failure. He comes in once again with pneumonia. He continues to smoke at home. He feels better this morning. We can reduce steroids. Exam (Progress Note) - Constitutional Vitals: Period Temp Pulse Resp BP Sys/Parada Pulse Ox Last 24 Hr 97.1 F-98.2 F 80-101 18-20 122-139/60-87 96-100 Exam: Patient's alert oriented vital signs normal. Pupils react to light. Throat is clear. Neck supple no bruits. Chest reveals some bilateral rhonchi. Prolonged expiratory phase. Heart normal rate and rhythm no murmurs. Abdomen soft no masses. Bowel sounds present. Extremities no clubbing cyanosis or edema. Calves nontender. Results - Labs CBC & BMP: 07/09/17 02:13 07/09/17 02:13 - Diagnostic Findings Procedure: Chest x-ray: image reviewed by me (Bilateral upper lobe cavitary disease with infiltrate. Severe hyperinflation.) Assessment and Plan (1) COPD with exacerbation Status: Acute Assessment and plan: We will treat with bronchodilators antibiotics and steroids. Once again needs to stop smoking entirely. He has been noncompliant. 07/09/2017 continuing steroids antibiotics and bronchodilators. We can reduce the steroids. Current Visit: No (2) Tobacco abuse Status: Chronic Assessment and plan: Discussed the need to stop smoking again. 07/09/2017 using nicotine patch Current Visit: No (3) Pneumonia involving left lung Status: Acute Assessment and plan: Usually gets infected bulla in his lungs. Treated with broad-spectrum antibiotics due to his COPD and frequent episodes of pneumonia. 07/09/2017 continuing broad-spectrum antibiotic. Current Visit: No Qualifiers: Pneumonia type: due to Pseudomonas Lung location: upper lobe of lung Qualified Code(s): J15.1 - Pneumonia due to Pseudomonas
--- NOTE | 2017-07-09 07:56 | Physician Query Form ---
CLICK EDIT DOCUMENT TO SELECT QUERY ANSWER --> OK --> SIGN Lucero Bauer RN, CCDS Certified Clinical Operating Room Technician W) [phone] (f) [phone] [email or web address] PROVIDERS: Make your selection(s) from the choices in EACH section by typing an "x" and enter comments in the comment section. Please use your independent medical judgment in providing your response. This request does not imply that any particular answer is desired or expected. CLINICAL INDICATORS: (Providers should not edit this section) The medical record indicates that the patient was admitted with SOB, "O2 sat of 60%" Respirations of 22, "home O2", "accessory muscle use, wheezes (Wheezing throughout) and the patient was placed on 2-3 liters per month. If possible, please further clarify the type and acuity of respiratory diagnosis : ACUITY: ( ) Acute ( ) Chronic (x ) Acute on Chronic TYPE: (x ) Respiratory failure with hypoxia (x ) Respiratory failure with hypercapnia ( ) Respiratory Arrest ( ) Postprocedural/postoperative respiratory failure ( ) Respiratory Insufficiency ( ) ARDS (Adult/Acute Respiratory Distress Syndrome) ( ) Other, please specify: ( ) Clinically unable to determine Recognized criteria for respiratory failure PH <7.35 or >7.45 PO2 <60 PCO2 >50 RR >24 O2 Sat <90% on RA or <95% on O2 Use of accessory muscles Unable to speak in full sentences Intubation is not required COMMENTS: PLEASE ALSO DOCUMENT RESPONSE IN PROGRESS NOTES AND/OR DISCHARGE SUMMARY Use of terms such as suspected, likely, or probable (associated with a specific diagnosis that is being evaluated, monitored, or treated as if it exists) are acceptable and can be restated in the discharge summary if not ruled out. MTDD
[2017-07-09] MEDS: ENOXAPARIN 40 MG/0.4 ML SYRINGE SUBCUT SCH (08:17)
[2017-07-09] MEDS: OXYBUTYNIN XL 15 MG TABLET PO SCH (08:17)
[2017-07-09] MEDS: guaiFENesin/DM ER 600-30 MG TABLET PO SCH ×2 (08:18→21:00)
[2017-07-09] MEDS: PANTOPRAZOLE 40 MG TABLET PO SCH (08:18)
[2017-07-09] MEDS: DOCUSATE SODIUM 100 MG CAPSULE PO SCH ×2 (08:18→21:00)
--- NOTE | 2017-07-09 10:56 | Hospitalist Progress Note ---
Assessment and Plan (1) Acute exacerbation of chronic obstructive pulmonary disease (COPD) Status: Acute Assessment and plan: Continue current plan of care. IV steroids. scheduled duonebs. Current Visit: Yes (2) Chest pain Status: Acute Assessment and plan: Chest pain has resolved. Current Visit: Yes (3) Pneumonia Status: Acute Assessment and plan: WBC down to 8.2 today. Blood culture show no growth at one day. Continue IV antibiotics. Current Visit: Yes Hospitalist: Subjective Interval history: Pt. seen and examined this morning. Labs and chart reviewed. Pt. ambulating independently from bathroom to bed with steady gait. No apparent distress noted. Pt. denies shortness of breath or any other issues at this time. Pulm following. Decrease to steroids noted. Pt. still has wheezes on auscultation. Exam - Constitutional Vitals: Period Temp Pulse Resp BP Sys/Parada Pulse Ox Last 24 Hr 97.1 F-98.4 F 80-101 18-20 122-143/60-87 95-100 General appearance: no acute distress, under weight - Head Head exam: Present: normal inspection, normocephalic - Eye Eye exam: Present: EOMI Pupils: Present: ALEKSANDRA - Respiratory Respiratory exam: Present: wheezes. Absent: clear to auscultation bilaterally - Cardiovascular Cardiovascular exam: Present: regular rate and rhythm - GI/Abdominal GI/Abdominal exam: Present: normal bowel sounds, soft. Absent: tenderness - Extremities Exam Extremities exam: Present: normal capillary refill, full ROM. Absent: edema - Back Exam Back exam: Present: normal inspection - Neurological Exam Neurological exam: Present: alert, oriented X3 - Psychiatric Psychiatric exam: Present: normal affect, normal mood - Skin Skin exam: Present: normal color, warm, dry Results - Labs CBC & BMP: 07/09/17 02:13 07/09/17 02:13 Lab Results: I have reviewed the past 24 hour labs
[2017-07-10] MEDS: CEFEPIME 1,000 MG in SODIUM CHLORIDE 0.9% 50 ML IV SCH ×4 (00:29→21:57)
[2017-07-10] MEDS: ALBUTEROL/IPRATROPIUM 3 ML NEB RESP TX SCH ×6 (03:20→23:40)
[2017-07-10] MEDS: SODIUM CHLORIDE 0.9% 1,000 ML IV SCH (04:43)
[2017-07-10] MEDS: LINEZOLID INJ 600 MG in PREMIX 1 EACH IV SCH ×2 (04:44→17:26)
[2017-07-10] MEDS: methylPREDNISolone SOD SUC 40 MG/1 ML VIAL IV SCH ×2 (08:25→08:43)
--- NOTE | 2017-07-10 08:25 | Pulmonology Progress Note ---
Pulmonary - PN: Subj Interval history: This 77-year-old white male has COPD with chronic respiratory failure. He comes in once again with pneumonia. He continues to smoke at home. He feels better this morning. We can reduce steroids. 07/10/2017 patient is improved. Continue weaning steroids. Still having some bronchospasm. Exam (Progress Note) - Constitutional Vitals: Period Temp Pulse Resp BP Sys/Parada Pulse Ox Last 24 Hr 97 F-99.5 F 85-104 16-20 130-151/60-72 96-100 Exam: Patient's alert oriented vital signs normal. Pupils react to light. Throat is clear. Neck supple no bruits. Chest reveals some bilateral rhonchi. Prolonged expiratory phase. Heart normal rate and rhythm no murmurs. Abdomen soft no masses. Bowel sounds present. Extremities no clubbing cyanosis or edema. Calves nontender. Results - Labs CBC & BMP: 07/09/17 02:13 07/09/17 02:13 Lab Results: I have reviewed the past 24 hour labs Assessment and Plan (1) COPD with exacerbation Status: Acute Assessment and plan: We will treat with bronchodilators antibiotics and steroids. Once again needs to stop smoking entirely. He has been noncompliant. 07/09/2017 continuing steroids antibiotics and bronchodilators. We can reduce the steroids. 07/10/2017 continuing to wean steroids. Current Visit: No (2) Tobacco abuse Status: Chronic Assessment and plan: Discussed the need to stop smoking again. 07/09/2017 using nicotine patch Current Visit: No (3) Pneumonia involving left lung Status: Acute Assessment and plan: Usually gets infected bulla in his lungs. Treated with broad-spectrum antibiotics due to his COPD and frequent episodes of pneumonia. 07/09/2017 continuing broad-spectrum antibiotic. 07/10/2017 continuing antibiotics. Recheck chest x-ray tomorrow. Current Visit: No Qualifiers: Pneumonia type: due to Pseudomonas Lung location: upper lobe of lung Qualified Code(s): J15.1 - Pneumonia due to Pseudomonas
[2017-07-10] MEDS: OXYBUTYNIN XL 15 MG TABLET PO SCH (08:31)
[2017-07-10] MEDS: ENOXAPARIN 40 MG/0.4 ML SYRINGE SUBCUT SCH (08:31)
[2017-07-10] MEDS: DOCUSATE SODIUM 100 MG CAPSULE PO SCH ×2 (08:31→21:57)
[2017-07-10] MEDS: PANTOPRAZOLE 40 MG TABLET PO SCH (08:31)
[2017-07-10] MEDS: guaiFENesin/DM ER 600-30 MG TABLET PO SCH ×2 (08:31→21:57)
--- NOTE | 2017-07-10 13:06 | Hospitalist Progress Note ---
Assessment and Plan (1) Acute exacerbation of chronic obstructive pulmonary disease (COPD) Status: Acute Assessment and plan: 1)acute resp on chronic resp failure due to COPD exac from pneumonia- continue steroids, antibiotics. Nebs. He is getting better and is now on oral steroids. counselled to stop smoking. 2)underweight- due to chronic illness. Current Visit: Yes (2) Acute and chronic respiratory failure Status: Acute Current Visit: No (3) Tobacco abuse Status: Chronic Current Visit: No (4) Pneumonia Status: Acute Current Visit: No Qualifiers: Pneumonia type: due to Pseudomonas Hospitalist: Subjective Interval history: Mr Bianchi is feeling better today. He continues to wheeze but reports that he is breathing easier. No pain. Appetite ok. Uses home O2. Exam - Constitutional Vitals: Period Temp Pulse Resp BP Sys/Parada Pulse Ox Last 24 Hr 97 F-99.5 F 85-104 16-20 130-155/60-73 92-99 General appearance: no acute distress, under weight - Eye Eye exam: Present: EOMI. Absent: scleral icterus - Respiratory Respiratory exam: Present: wheezes (throughout). Absent: rhonchi - Cardiovascular Cardiovascular exam: Present: regular rate and rhythm - GI/Abdominal GI/Abdominal exam: Present: normal bowel sounds, soft. Absent: tenderness - Extremities Exam Extremities exam: Absent: edema Results - Labs CBC & BMP: 07/09/17 02:13 07/09/17 02:13 Lab Results: I have reviewed the past 24 hour labs
--- NOTE | 2017-07-10 13:18 | Physician Query Form ---
CLICK EDIT DOCUMENT TO SELECT QUERY ANSWER --> OK --> SIGN Lucero Bauer RN, CCDS Certified Clinical Route Salesman And Driver W) [phone] (f) [phone] [email or web address] PROVIDERS: Make your selection(s) from the choices in EACH section by typing an "x" and enter comments in the comment section. Please use your independent medical judgment in providing your response. This request does not imply that any particular answer is desired or expected. 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 Hot Blaster notes: Other clinical notes: The medical record indicates that the patient was admitted with COPD, BMI of 14.6, Height 69", Weight of 99 Pounds, "Loss of Subcutaneous Fat", and "VHC Boost with all meals to provide additional kcals and protein". Based on the above, which following choice most accurately represents the patient's nutritional status? (x ) Malnutrition ( ) mild ( ) moderate ( x) severe ( ) Protein calorie malnutrition ( ) mild ( ) moderate ( ) severe ( ) Emaciation due to malnutrition ( ) Nutritional marasmus ( ) Cachexia ( ) Underweight ( ) No nutritional deficiency ( ) Other, please specify: ( ) Clinically unable to determine Mild Malnutrition (BMI < 18.5, % Normal Body Weight 85-95%) Moderate Malnutrition (BMI < 17, % Normal Body Weight 75-85%) Severe Malnutrition (BMI < 16, % Normal Body Weight < 75%) Source: [place] COMMENTS: PLEASE ALSO DOCUMENT RESPONSE IN PROGRESS NOTES AND/OR DISCHARGE SUMMARY Use of terms such as suspected, likely, or probable (associated with a specific diagnosis that is being evaluated, monitored, or treated as if it exists) are acceptable and can be restated in the discharge summary if not ruled out. MTDD
[2017-07-11] MEDS: ALBUTEROL/IPRATROPIUM 3 ML NEB RESP TX SCH ×6 (03:09→23:22)
[2017-07-11] MEDS: LINEZOLID INJ 600 MG in PREMIX 1 EACH IV SCH ×2 (05:30→16:45)
[2017-07-11] MEDS: CEFEPIME 1,000 MG in SODIUM CHLORIDE 0.9% 50 ML IV SCH ×3 (07:33→21:10)
--- NOTE | 2017-07-11 08:11 | Pulmonology Progress Note ---
Pulmonary - PN: Subj Interval history: This 77-year-old white male has COPD with chronic respiratory failure. He comes in once again with pneumonia. He continues to smoke at home. He feels better this morning. We can reduce steroids. 07/10/2017 patient is improved. Continue weaning steroids. Still having some bronchospasm. 07/11/2017 patient gradually improving. Still coughing up some goldberg sputum. No fever. Chest x-ray shows some improvement. 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 Superimposed pneumonia. Exam (Progress Note) - Constitutional Vitals: Period Temp Pulse Resp BP Sys/Parada Pulse Ox Last 24 Hr 97 F-98.8 F 86-104 17-20 137-155/67-79 92-100 Exam: Patient's alert oriented vital signs normal. Pupils react to light. Throat is clear. Neck supple no bruits. Chest reveals some bilateral rhonchi. Prolonged expiratory phase. Heart normal rate and rhythm no murmurs. Abdomen soft no masses. Bowel sounds present. Extremities no clubbing cyanosis or edema. Calves nontender. Results - Labs CBC & BMP: 07/09/17 02:13 07/09/17 02:13 Lab Results: I have reviewed the past 24 hour labs - Diagnostic Findings Procedure: Chest x-ray: image reviewed by me (The right upper lobe infection and a bulla appears to have contracted.) Assessment and Plan (1) COPD with exacerbation Status: Acute Assessment and plan: We will treat with bronchodilators antibiotics and steroids. Once again needs to stop smoking entirely. He has been noncompliant. 07/09/2017 continuing steroids antibiotics and bronchodilators. We can reduce the steroids. 07/10/2017 continuing to wean steroids. 07/11/2017 continue oral prednisone. Continue bronchodilators Current Visit: No (2) Tobacco abuse Status: Chronic Assessment and plan: Discussed the need to stop smoking again. 07/09/2017 using nicotine patch Current Visit: No (3) Pneumonia involving left lung Status: Acute Assessment and plan: Usually gets infected bulla in his lungs. Treated with broad-spectrum antibiotics due to his COPD and frequent episodes of pneumonia. 07/09/2017 continuing broad-spectrum antibiotic. 07/10/2017 continuing antibiotics. Recheck chest x-ray tomorrow. 07/11/2017 actually has bilateral upper lobe pneumonia involving bullous disease. Will take a long time to resolve radiographically and he will be left with bilateral upper lobe bullous disease and cavities. Clinically he is improved. Probably could go home tomorrow. Cultures have been negative. Would keep him on something like Omnicef for another week. Current Visit: No Qualifiers: Pneumonia type: due to Pseudomonas Lung location: upper lobe of lung Qualified Code(s): J15.1 - Pneumonia due to Pseudomonas
--- NOTE | 2017-07-11 08:26 | XRay Report ---
History is pneumonia COPD Comparison 07/07/2017 Mediastinal contours unchanged Lungs are diffusely hyperexpanded with mild new elevation left diaphragm. Extensive pleural and parenchymal opacities in the upper third of the chest bilaterally again seen with multiple cavities again demonstrated including small air-fluid levels in the cavity is in the left lung apex. Superior retraction of the karan again seen Impression: Mild hypoaeration changes in the left lung base with no great change in extensive bilateral upper lobe pleural and parenchymal opacities PROCEDURE INTERPRETED AT [facility] DEPARTMENT OF RADIOLOGY Final Report Signed by: Dr. Moira Sarkar
[2017-07-11] MEDS: methylPREDNISolone SOD SUC 40 MG/1 ML VIAL IV SCH (09:10)
[2017-07-11] MEDS: OXYBUTYNIN XL 15 MG TABLET PO SCH (09:12)
[2017-07-11] MEDS: DOCUSATE SODIUM 100 MG CAPSULE PO SCH ×2 (09:12→21:09)
[2017-07-11] MEDS: guaiFENesin/DM ER 600-30 MG TABLET PO SCH ×2 (09:12→21:10)
[2017-07-11] MEDS: PANTOPRAZOLE 40 MG TABLET PO SCH (09:12)
[2017-07-11] MEDS: ENOXAPARIN 40 MG/0.4 ML SYRINGE SUBCUT SCH (09:12)
--- NOTE | 2017-07-11 12:12 | Hospitalist Progress Note ---
Assessment and Plan (1) Acute exacerbation of chronic obstructive pulmonary disease (COPD) Status: Acute Assessment and plan: 1)acute resp on chronic resp failure due to COPD exac from pneumonia- continue steroids, antibiotics. Nebs. He is getting better and is now on oral steroids. counselled to stop smoking. 2)underweight- due to chronic illness. 3)dispo- home in the morning on omnicef for a week per DR Foote's note. Current Visit: Yes (2) Acute and chronic respiratory failure Status: Acute Current Visit: No (3) Tobacco abuse Status: Chronic Current Visit: No (4) Pneumonia Status: Acute Current Visit: No Qualifiers: Pneumonia type: due to Pseudomonas Hospitalist: Subjective Interval history: Mr Bianchi is feeling better today and thinks he will be ready for discharge tomorrow. He denies pain or shortness of breath at rest. He is eating "ok". Exam - Constitutional Vitals: Period Temp Pulse Resp BP Sys/Parada Pulse Ox Last 24 Hr 97 F-98.8 F 66-104 16-20 137-151/67-79 92-100 General appearance: no acute distress, under weight - Eye Eye exam: Present: EOMI. Absent: scleral icterus - Respiratory Respiratory exam: Present: wheezes (end exp wheeze) - Cardiovascular Cardiovascular exam: Present: regular rate and rhythm - GI/Abdominal GI/Abdominal exam: Present: normal bowel sounds, soft - Extremities Exam Extremities exam: Absent: edema - Neurological Exam Neurological exam: Present: alert, oriented X3 - Skin Skin exam: Present: warm, dry Results - Labs CBC & BMP: 07/09/17 02:13 07/09/17 02:13 Lab Results: I have reviewed the past 24 hour labs
[2017-07-12] MEDS: ALBUTEROL/IPRATROPIUM 3 ML NEB RESP TX SCH ×2 (02:58→07:10)
[2017-07-12] MEDS: LINEZOLID INJ 600 MG in PREMIX 1 EACH IV SCH (05:12)
--- NOTE | 2017-07-12 05:49 | Pulmonology Progress Note ---
Pulmonary - PN: Subj Interval history: This 77-year-old white male has COPD with chronic respiratory failure. He comes in once again with pneumonia. He continues to smoke at home. He feels better this morning. We can reduce steroids. 07/10/2017 patient is improved. Continue weaning steroids. Still having some bronchospasm. 07/11/2017 patient gradually improving. Still coughing up some goldberg sputum. No fever. Chest x-ray shows some improvement. 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 Superimposed pneumonia. 07/12/2017 patient feeling better should be ready to go home today on oral medications. 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 He is a persistent smoker. I had a long discussion with him today over the need to stop smoking. He rolls his own cigarettes at home but has a family member that buys the tobacco for him. I advised him to get that family member to stop buying the tobacco. Exam (Progress Note) - Constitutional Vitals: Period Temp Pulse Resp BP Sys/Parada Pulse Ox Last 24 Hr 97 F-98.9 F 66-96 16-20 124-151/63-85 94-100 Exam: Patient's alert oriented vital signs normal. Pupils react to light. Throat is clear. Neck supple no bruits. Chest reveals few bilateral rhonchi. Prolonged expiratory phase. Heart normal rate and rhythm no murmurs. Abdomen soft no masses. Bowel sounds present. Extremities no clubbing cyanosis or edema. Calves nontender. Results - Labs CBC & BMP: 07/09/17 02:13 07/09/17 02:13 Lab Results: I have reviewed the past 24 hour labs Assessment and Plan (1) COPD with exacerbation Status: Acute Assessment and plan: We will treat with bronchodilators antibiotics and steroids. Once again needs to stop smoking entirely. He has been noncompliant. 07/09/2017 continuing steroids antibiotics and bronchodilators. We can reduce the steroids. 07/10/2017 continuing to wean steroids. 07/11/2017 continue oral prednisone. Continue bronchodilators 07/12/2017 would keep on 40 mg of prednisone for about 5 days. Current Visit: No (2) Tobacco abuse Status: Chronic Assessment and plan: Discussed the need to stop smoking again. 07/09/2017 using nicotine patch 07/12/2017 had a long discussion with him about the absolute requirement that he stop smoking. He says he has a granddaughter that smokes on the porch at home nobody smokes inside. Someone in the family advises tobacco for him. He rolls his own cigarettes. He understands that it is critical that he stop smoking. Current Visit: No (3) Pneumonia involving left lung Status: Acute Assessment and plan: Usually gets infected bulla in his lungs. Treated with broad-spectrum antibiotics due to his COPD and frequent episodes of pneumonia. 07/09/2017 continuing broad-spectrum antibiotic. 07/10/2017 continuing antibiotics. Recheck chest x-ray tomorrow. 07/11/2017 actually has bilateral upper lobe pneumonia involving bullous disease. Will take a long time to resolve radiographically and he will be left with bilateral upper lobe bullous disease and cavities. Clinically he is improved. Probably could go home tomorrow. Cultures have been negative. Would keep him on something like Omnicef for another week. 07/12/2017 I will follow him in the clinic. He already has an appointment. Current Visit: No Qualifiers: Pneumonia type: due to Pseudomonas Lung location: upper lobe of lung Qualified Code(s): J15.1 - Pneumonia due to Pseudomonas
[2017-07-12] MEDS: CEFEPIME 1,000 MG in SODIUM CHLORIDE 0.9% 50 ML IV SCH ×2 (07:25→08:46)
[2017-07-12] MEDS: methylPREDNISolone SOD SUC 40 MG/1 ML VIAL IV SCH (08:43)
[2017-07-12] MEDS: ENOXAPARIN 40 MG/0.4 ML SYRINGE SUBCUT SCH (08:46)
[2017-07-12] MEDS: DOCUSATE SODIUM 100 MG CAPSULE PO SCH (08:47)
[2017-07-12] MEDS: guaiFENesin/DM ER 600-30 MG TABLET PO SCH (08:47)
[2017-07-12] MEDS: PANTOPRAZOLE 40 MG TABLET PO SCH (08:47)
[2017-07-12] MEDS: OXYBUTYNIN XL 15 MG TABLET PO SCH (08:47)
--- NOTE | 2017-07-12 08:50 | Discharge Summary ---
<Julia Galarza - Last Filed: 07/12/17 11:15> Hospital Course - Hospital Course Hospital Course: Mr Bianchi 77 y/o w/PMHx AAA, CAD, NM, depression, COPD, home O2 presented to the ED 07/07/17 for further evaluation of chest pain and shortness of breath x3 days. IN ED: CXR: nothing acute. LABS: WBC 19.2. H&H 12.7 & 38.8. NA 132. Glucose 174. Alkaline Phosphatase 173. Troponin negative. Hospital medicine consulted for admission. Admitted to monitored bed, IV fluids, repeat serial cardiac enzymes, blood cultures obtained, start IV antibiotics, IV steroids, pulmonary consulted. Final blood cultures resulted no growth. 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 Will continue home O2 therapy. Will need to follow up with Pulmonary for severe COPD management. Today 07/12/17 patient is stable and is ready for discharge to home. Labs improving and remain stable. He was encouraged to refrain from smoking. He will need to follow up with Dr Foote with Pulmonary for further management of severe COPD. [facility] will need [facility] in 1 week. Further discharge recommendations to follow per Dr Aguilera. I have seen and examined Mr Bianchi and agree with the summary above. He has severe COPD which restricts his acitivities and requires he wear oxygen continuously but he is back to his baseline now after treatment of pneumonia and COPD exacerbation. His discharge took 37 minutes for documentation, medicine reconciliation, discharge planning. - Time spent with patient Time with patient DS: Greater than 30 minutes (time spent for discharge planning , reviewing chart, seeing patient required 36 minutes) Specialty Discharge - Follow Up or Referrals [facility] (([facility]) N[facility] will call patient with appointment as they will need to work him in within a week) Will Foote MD [Physician] - (PLEASE KEEP YOUR APPOINTMENT WITH DR. FOOTE SCHEDULED FOR Saturday07/15/2017. AT 1:00 PM. PLEASE ARRIVE AT THE CLINIC AT 12: 30 PM FOR AN X-RAY) Discharge Plan - Discharge Data Disposition: Disch To Home/Self Care - Discharge Medications New Nicotine 21 mg/24 Hr Patch [Nicoderm CQ 21 mg/24 hr Patch] 1 patch TRANSDERM DAILY PRN patch PRN Reason: Nicotine Cravings predniSONE TAB [PredniSONE] 20 mg PO BID #10 tablet Cefdinir [Omnicef] 300 mg PO BID #14 capsule Continue Tiotropium Inhalation [Spiriva Handihaler] 18 mcg INH QAM Oxybutynin Xl [Ditropan Xl] 15 mg PO DAILY Albuterol/Ipratropium Neb [Duoneb] 3 ml RESP TX QID Sertraline HCl 150 mg PO DAILY Multivit-Min/FA/Lycopen/Lutein [Centrum Silver Tablet] 1 each PO DAILY Albuterol Inhaler [Proventil Inhaler] 2 puff INH Q4HR PRN #1 inhaler PRN Reason: Wheezing HYDROcodone/ACETAMIN 10-325 [Union 10-325] 1 tablet PO TID PRN PRN Reason: Pain Fluticasone 50 Mcg Nasal [place] [Flonase Nasal [place]] 1 spray BOTH NARES DAILY PRN PRN Reason: Sinus Symptoms Omeprazole 40 mg PO DAILY - Follow Up or Referral [facility] ((1 week) [facility] will call patient with appointment as they will need to work him in within a week) Will Foote MD [Physician] - (PLEASE KEEP YOUR APPOINTMENT WITH DR. FOOTE SCHEDULED FOR Saturday07/15/2017. AT 1:00 PM. PLEASE ARRIVE AT THE CLINIC AT 12: 30 PM FOR AN X-RAY) - Forms/Instructions Exam - Constitutional Vitals: Period Temp Pulse Resp BP Sys/Parada Pulse Ox Last 24 Hr 97.7 F-98.9 F 72-96 16-20 124-151/63-85 95-100 General appearance: normal weight, no acute distress - Head Head exam: Present: normal inspection, normocephalic - Eye Eye exam: Present: EOMI Pupils: Present: ALEKSANDRA - Neck Neck exam: Present: normal inspection. Absent: thyromegaly - Respiratory Respiratory exam: Present: prolonged expiratory phase. Absent: stridor - Cardiovascular Cardiovascular exam: Present: regular rate and rhythm - GI/Abdominal GI/Abdominal exam: Present: normal bowel sounds, soft. Absent: tenderness, rebound - Extremities Exam Extremities exam: Present: normal inspection, full ROM. Absent: edema - Neurological Exam Neurological exam: Present: alert, oriented X3, CN II-XII intact - Psychiatric Psychiatric exam: Present: normal affect, normal mood. Absent: agitated, anxious - Skin Skin exam: Present: normal color, warm, dry DS: Provider Date of admission: 07/07/17 02:20 Primary care physician: . No PCP Attending physician on admission: Hang Sesay MD Consults: 07/08/17 07:22 Consult to Physician [CONS] Routine Comment: pna, copd Consulting Provider: Will Foote Person Notified: DR. FOOTE Date Notified: 07/08/17 Time Notified: 07:30 Consult Notification Comment: DR. FOOTE NOTIFIED OF PT ON ROUNDS. Discharging clinician: Julia Galarza NP <Anisha Aguilera - Last Filed: 07/12/17 16:37> Diagnosis - Discharge Diagnosis (1) Acute exacerbation of chronic obstructive pulmonary disease (COPD) Status: Chronic (2) Acute and chronic respiratory failure Status: Chronic (3) Tobacco abuse Status: Chronic (4) Pneumonia Status: Resolved Discharge Plan - Discharge Data Condition at Discharge: Stable Discharge Diet: regular diet Activity: resume usual activities as tolerated, wear oxygen at all times
[2017-07-12 11:37] VITALS: BP 136/70
== END 2017-07-12 12:47 | disposition home health service (06) | DRG 177 ==
LOC: N.ED 23:54 → N.EDINP 07-07 02:20 → SUATTDRO 07-07 02:20 → N.TELES 07-07 02:54
PROVIDERS: ADMIT Internal Medicine; ATTEND Internal Medicine